=== PATIENT | female | born 1955 | race Caucasian/White ===

== ENCOUNTER → 2019-10-29 13:45 | Outpatient (CLI) | payer MEDICARE, SELFPAY ==
--- NOTE | ~2019-10-29 | MR_ITS ---
EXAMINATION: MR lumbar spine wo/w con DATE: 10/29/2019 15:24 INDICATION: Radiculopathy. TECHNIQUE: Magnetic resonance imaging (MRI) of the lumbar spine was performed without and with 20 mL Multihance intravenous contrast. Sequences included sagittal T2-weighted FSE, sagittal T2-weighted FS FSE, and sagittal and axial T1-weighted FSE. Postcontrast sequences included axial T2-weighted FSE, sagittal T1-weighted FSE, and axial and sagittal T1-weighted FS FSE. COMPARISON: Lumbar spine radiographs dated 10/29/2019 FINDINGS: Mild lumbar dextrocurvature. L4 and L5 laminectomies. Anterior and posterior spinal fusion at L4-S1 w ith magnetic field artifact associated with bilateral vertical lenny and pedicle screw fixation as well as bone graft cages at both levels. L5-S1 has been fixed in 7 mm of anterolisthesis of L5 on S1. Courtney tebral body heights are normal. Severe disc height loss at L1-L2 with endplate osteophytes, moderate left side predominant disc height loss at T12-L1 and mild disc height loss, mild disc height loss at T10-T11 and T11-T12. Disc desiccation without disc height loss at L2-L3 and L3-L4. There is increased T2 disc signal and enhancement at L1-L2. There is increased marrow fluid signal and enhancement abdifatah g the adjacent L1 and L2 vertebral bodies without geographic T1 marrow signal loss to more specifical ly suggest osteomyelitis. There appears to be an intact linear low signal intensity cortices but with irregular contour at both endplates. Less prominent increased T2 signal and enhancement likely relat ed to fibrovascular degenerative endplate changes at T11-T12 and the left side of T12-L1. The conus m edullaris terminates at L1-L2. There is normal signal in the caudal spinal cord. Mild enhancement in the soft tissues at the anterior and lateral periphery of the inferior L1 vertebral body. No peripher ally enhancing abscess. Fatty atrophy of the lower lumbar paraspinal musculature more prominently on the right likely related to prior surgery. The following disc levels are specifically discussed: T11-T12: Disc is bulging with superimposed annular fissure and small small left paracentral disc extr usion with disc material extending couple millimeter caudal to the level of the superior endplate of T12. There is mild bilateral facet joint osteoarthritis. There is no neural foraminal stenosis. There is mild central canal stenosis. T12-L1: Disc is bulging with superimposed annular fissure and small central disc extrusion extending up to 5 mm caudal to the level of the superior endplate of L2. There is mild right and mild to modera te left facet joint osteoarthritis. There is mild left and minimal right neural foraminal stenosis. T here is mild central canal stenosis. L1-L2: Disc is bulging with superimposed annular fissure and small central disc extrusion extending u p to 8 mm caudal to the level of the superior endplate of L3. There is mild to moderate bilateral fac et joint osteoarthritis. There is mild to moderate right and moderate left neural foraminal stenosis. There is mild central canal stenosis. L2-L3: Annular fissure and broad-based disc extrusion extending from foraminal zone to foraminal zone with disc material extending a couple millimeter caudal to the level of the superior endplate of L3. There is hypertrophy of the ligamentum flavum. There is moderate right and severe left facet joint osteoarthritis. There is mild right and mild to moderate left neural foraminal stenosis. There is mod erate central canal stenosis. There is also narrowing of the lateral recesses, left greater than righ t. L3-L4: Disc is mildly bulging. There is bilateral facet osteoarthritis likely at least moderate howev er assessment of severity of both the facet osteoarthritis neural foraminal stenosis is limited by ma gnetic field artifact from the vertical rods and L4 pedicle screws. There is mild bilateral ne
--- NOTE | ~2019-10-29 | XR_ITS ---
XR lumbar spine 6V w bending DATE: 10/29/2019 14:33 INDICATION: Back pain. Radiculopathy. Post laminectomy syndrome. TECHNIQUE: Standing AP, bilateral oblique, lateral and coned lateral lumbosacral sacral views. Standi ng flexion and extension lateral views. COMPARISON: 12/08/2018 lumbar spine FINDINGS: There is laminectomy at the L4-5 region. Status post posterior spinal fusion by pedicle screws and rods at L4-S1. There is interbody spinal fu neo at L4-5 and L5-S1 as well. Spinal hardware appears intact without apparent fracture or any inter eboni displacement since 12/08/2018. Diffuse osteopenia. Dextroscoliosis of the thoracolumbar spine. There is degenerative spurring in the lower thoracic spine. There is severe degenerative disc disease at L1-2. There is moderate degenerative disc disease at L2- 3. There is grade 1 anterolisthesis at L5-S1. There is no instability evident on flexion or extension. The sacroiliac joints appear normal. IMPRESSION: Status post laminectomy and posterior and interbody spinal fusion at L4-S1 Diffuse osteopenia Multilevel degenerative disc disease, increased in severity since 12/08/2008 Grade 1 anterolisthesis is again noted at L5-S1 Reviewed, dictated and finalized at location B. IMPRESSION: Status post laminectomy and posterior and interbody spinal fusion a t L4-S1 Diffuse osteopenia Multilevel degenerative disc disease, increased in severity since 12/08/2008 Grade 1 anterolisthesis is again noted at L5-S1
[2019-10-29 14:50] LABS: Estimated Glomerular Filt Rate > 60
== END ==
PROVIDERS: PCP Family Medicine; Visit Provider Nurse Practitioner Family
DX: M47.26 Other spondylosis with radiculopathy, lumbar region (principal); M96.1 Postlaminectomy syndrome, not elsewhere classified; M85.88 Other specified disorders of bone density and structure, other site; M51.36 Other intervertebral disc degeneration, lumbar region; Z98.1 Arthrodesis status
CPT/HCPCS: 36415; 72114; 72158; A9577

== ENCOUNTER 2020-01-12 10:37 | Outpatient (CLI) | payer MEDICARE, SELFPAY ==
[2020-01-12 12:05] LABS: Basophils Percent Auto 0.4 % (0.2-1.2); Eosinophils Absolute Auto 0.1 K/mm3 (0-0.3); Eosinophils Percent Auto 1.7 % (0-4.4); Hematocrit 40.1 % (37.0-47.0); Hemoglobin 13.2 g/dL (12.0-15.0); Immature Granulocyte Absolute 0.02 K/mm3 (0.00-0.031); Immature Granulocyte Percent A 0.3 % (0-0.5); Lymphocytes Absolute Auto 2.43 K/mm3 (0.9-3.2); Lymphocytes Percent Auto 34.2 % (18.3-44.2); Mean Corpuscular HGB Conc 32.9 g/dl (32-36); Mean Corpuscular Hemoglobin 27.3 pg (26-34); Mean Platelet Volume 10.2 fl (7.4-10.4); Monocytes Absolute Auto 0.5 K/mm3 (0.1-0.6); Monocytes Percent Auto 6.6 % (2.6-8.5); Neutrophils Percent Auto 56.8 % (45.5-73.1); Platelet Count Result 210 k/mm3 (150-375); Red Blood Count 4.83 M/mm3 (4.2-5.4); Red Cell Distribution Width 14.2 % (11.5-14.5); White Blood Count 7.1 K/mm3 (4.5-10.0)
[2020-01-12 12:21] LABS: Alanine Aminotransferase 17 U/L (4-35); Albumin Level 4.2 g/dL (3.5-5.1); Alkaline Phosphatase 137 U/L (38-126); Aspartate Amino Transferase 19 U/L (14-36); Bilirubin,Total 0.2 mg/dL (0.2-1.3); Blood Urea Nitrogen 13 mg/dL (7-17); CRP 1.6 mg/dL (<1.0); Calcium 9.2 mg/dL (8.4-10.2); Carbon Dioxide 28 mmol/L (22-30); Chloride 102 mmol/L (98-107); Estimated Glomerular Filt Rate > 60; Glucose 93 mg/dL (65-105); Potassium 3.6 mmol/L (3.4-5.0); Sodium 137 mmol/L (137-145)
[2020-01-12 12:33] LABS: Erythrocyte Sedimentation Rate 17 mm/hr (0-20)
== END 2020-01-12 10:38 | disposition home or self-care (01) ==
LOC: ANHLAB 10:45
PROVIDERS: PCP Family Medicine; Visit Provider Orthopaedic Surgery
DX: M54.5 Low back pain (principal)
CPT/HCPCS: 36415; 80053; 85025; 85652; 86140; 87040

== ENCOUNTER 2020-06-30 11:45 | Outpatient (NON) | payer MEDICARE, SELFPAY ==
[2020-07-01 23:37] LABS: SARS-CoV-2 RNA PCR Negative
== END 2020-06-30 11:46 ==
LOC: ANHCOVIDDT 11:46
PROVIDERS: PCP Family Medicine; Visit Provider Family Medicine
DX: Z20.828 Contact with and (suspected) exposure to other viral communicable diseases (principal)
CPT/HCPCS: 87635; C9803; U0003

== ENCOUNTER 2020-07-01 08:36 | Observation (INO) | payer MEDICARE, SELFPAY ==
[2020-07-01] VITALS (13 sets, daily range): BP systolic 107–147; BP diastolic 60–94; PULSE 82–108; RESP 12–24; TEMP 36.1–37.5; O2SAT 91–97; BMI 39.6
--- NOTE | ~2020-07-01 | XR_ITS ---
EXAMINATION: XR chest 1V portable EXAM DATE: 07/01/2020 10:14 INDICATION: Cough, fever. TECHNIQUE: Frontal and lateral projections of the chest obtained and reviewed. Comparison is made to prior examination from 07/28/2019. FINDINGS: The lungs are clear. There are no pleural effusions. The cardiomediastinal silhouette is within normal limits. There is no pneumothorax suspected. The bones and soft tissues are unremarkab le. IMPRESSION: No acute cardiopulmonary findings. Reviewed, dictated and finalized at location A. TARIAN
--- NOTE | ~2020-07-01 | NM_ITS ---
EXAMINATION: NM hepatobiliary w pharm DATE: 07/03/2020 15:27 INDICATION: Abnormal liver function tests. COMPARISON: Ultrasound 07/03/2020, CT abdomen and pelvis 07/01/2020 TECHNIQUE: 4.0 mCi Tc-99m mebrofenin (Choletec) was administered intravenously. Scintigraphic images of the abdomen were obtained for one hour. Then, 2.22 mcg sincalide (Kinevac) IV was administered, a nd imaging was continued for 30 minutes. FINDINGS: There is normal clearance of radiotracer from the blood pool. There is homogeneous tracer u ptake by the liver. Activity progresses to the bowel and gallbladder. Gallbladder ejection fraction (GBEF) was 47%. Note that most patients with gallbladder dysfunction have GBEF < 35%, which overlaps with the broad normal range of 10-90%. IMPRESSION: 1. Normal hepatobiliary scintigraphy. Reviewed, dictated and finalized at location A. INSULATOR
--- NOTE | ~2020-07-01 | CT_ITS ---
EXAMINATION: CT abdomen pelvis w con EXAM DATE: 07/01/2020 11:37 INDICATION: lower abdominal pain TECHNIQUE: Spiral CT of the abdomen and pelvis was performed following intravenous injection of 100 m L Omnipaque 350. Axial, coronal and sagittal images were reviewed. The dose-length product (DLP) fo r this examination was 1428.87 mGy-cm. The exposure was tailored according to patient size (auto mA exposure control), and iterative reconstruction (ASIR) was used as additional dose reduction techniqu e. Comparison is made to prior examination from 10/20/2014. FINDINGS: The liver, spleen, adrenal glands and pancreas are unremarkable. Gallbladder is unremarkab le. No biliary obstruction. Portal and splenic veins are patent. Kidneys enhance symmetrically. T here is no hydronephrosis. The uterus is not identified and has likely been surgically resected. T he bladder is unremarkable. There is no retroperitoneal or pelvic lymphadenopathy. The appendix is normal. There is small sliding gastroesophageal hiatal hernia. There is expected am ount of colonic stool. No free intraperitoneal gas. The heart is normal in size. There are no pe ricardial or pleural effusions. The lung bases are unremarkable. There are no osteoblastic or osteo lytic lesions identified. Fusion L4-S1. IMPRESSION: 1. No acute intra-abdominal findings. Reviewed, dictated and finalized at location A. IFIED CREDIT COUNSELOR
--- NOTE | ~2020-07-01 | CT_ITS ---
EXAMINATION: CT brain wo con DATE: 07/01/2020 14:50 INDICATION: Generalized headache TECHNIQUE: Computed tomography (CT) of the head was performed without intravenous contrast. Sagittal and coronal reconstructions were performed. The mA was adjusted according to patient size. Iterative reconstruction technique was employed. The dose-length product was 908.00 mGy-cm. COMPARISON: head CT dated 02/05/2019 FINDINGS: There is scattered linear streak artifact which only minimally limits evaluation. No acute intracrani al hemorrhage, acute infarction or abnormal extra axial fluid collection. Ventricles are normal and s ymmetric. No mass/mass effect. Mild mucosal thickening the bilateral ethmoid sinuses. The orbits and mastoid air cells are normal. IMPRESSION: 1. No acute intracranial process. Evaluation minimally limited by some scattered streak artifact. Reviewed, dictated and finalized at [facility]. NING COORDINATOR IMPRESSION: 1. No acute intracranial process. Evaluation minimally limited by some scattere d streak artifact.
--- NOTE | ~2020-07-01 | US_ITS ---
US right upper quadrant INDICATION: Elevated liver function tests PROCEDURE: Realtime right upper abdominal ultrasound. COMPARISON: CT dated 09/02/2019 FINDINGS: The pancreas is normal without focal mass or pancreatic ductal dilation. Liver echotexture is increased, consistent with fatty infiltration. There is normal directional flow in the portal ve in. There is mild gallbladder wall thickening. No definite gallstones or pericholecystic fluid. Common b ile duct measures 6 mm. No sonographic Angulo's sign. IMPRESSION: 1: Hepatic steatosis. 2: Mild gallbladder wall thickening without stones or biliary dilatation. Consider acalculous cholecy stitis in the appropriate clinical setting. Reviewed, dictated and finalized at location A. NSED MASSAGE THERAPIST IMPRESSION: 1: Hepatic steatosis. 2: Mild gallbladder wall thickening without stones or biliary dilatation. Consi charlette acalculous cholecystitis in the appropriate clinical setting.
[2020-07-01 09:00] LABS: Basophils Absolute Auto 0.1 K/mm3 (0.0-0.1); Basophils Percent Auto 0.6 % (0.2-1.2); Eosinophils Absolute Auto 0.3 K/mm3 (0-0.3); Eosinophils Percent Auto 3.3 % (0-4.4); Hematocrit 45.2 % (37.0-47.0); Hemoglobin 15.2 g/dL (12.0-15.0); Immature Granulocyte Absolute 0.04 K/mm3 (0.00-0.031); Immature Granulocyte Percent A 0.4 % (0-0.5); Lymphocytes Absolute Auto 1.16 K/mm3 (0.9-3.2); Lymphocytes Percent Auto 11.8 % (18.3-44.2); Mean Corpuscular HGB Conc 33.6 g/dl (32-36); Mean Corpuscular Hemoglobin 29.3 pg (26-34); Mean Corpuscular Volume 87.3 fl (80-100); Monocytes Absolute Auto 0.5 K/mm3 (0.1-0.6); Monocytes Percent Auto 4.9 % (2.6-8.5); Neutrophils Absolute Auto 7.8 K/mm3 (1.3-6.7); Platelet Count Result 157 k/mm3 (150-375); Red Blood Count 5.18 M/mm3 (4.2-5.4); Red Cell Distribution Width 14.7 % (11.5-14.5); White Blood Count 9.8 K/mm3 (4.5-10.0)
[2020-07-01 09:14] LABS: Alanine Aminotransferase 524 U/L (4-35); Albumin Level 3.6 g/dL (3.5-5.1); Alkaline Phosphatase 684 U/L (38-126); Anion Gap 8 mmol/L (8-16); Aspartate Amino Transferase 200 U/L (14-36); Bilirubin,Total 1.4 mg/dL (0.2-1.3); Blood Urea Nitrogen 13 mg/dL (7-17); Calcium 9.1 mg/dL (8.4-10.2); Carbon Dioxide 27 mmol/L (22-30); Chloride 103 mmol/L (98-107); Estimated CRCL calculation 103 ml/min; Estimated Glomerular Filt Rate > 60; Glucose 122 mg/dL (65-105); Lipase 25 U/L (23-300); Potassium 3.8 mmol/L (3.4-5.0); Sodium 138 mmol/L (137-145)
--- NOTE | 2020-07-01 09:35 | ECG_ITS ---
Measurements Intervals [place] Rate: 99 P: 61 KS: 148 QRS: 17 QRSD: 95 T: 46 QT: 337 QTc: 433 Interpretive Statements SINUS RHYTHM BASELINE WANDER- II, III, AVF NORMAL ECG Electronically Signed On 07-01-2020 10:06:58 [employer] by Jay Reece D.O.
--- NOTE | 2020-07-01 09:36 | ED.NAVMDI ---
HPI - Nausea/Vomiting/Diarrhea General Chief complaint: Nausea/Vomiting/Diarrhea Stated complaint: N/V/abdominal pain/covid tested Time Seen by Provider: 07/01/20 09:06 Source: patient Mode of arrival: ambulatory Limitations: no limitations History of Present Illness HPI Narrative: This patient is a 64 year old female who is under investigation for COVID presents for nausea, vomiting and left lower abdominal pain. She reports developed nausea and vomiting yesterday. She has been unable to tolerate anything by mouth. She reports she developed left lower abdominal pain at the same time. This pain has been constant and nonradiating. She also reports she had a fever this morning of 101 F. She has not taken tylenonl since last night. She was tested for covid yesterday due to diarrhea and cough, but she does not have the results yet. Related Data Home Medications Medication Instructions Recorded Confirmed ropinirole 4 mg PO HS 06/29/19 07/23/19 atorvastatin 07/01/20 gabapentin 07/01/20 hydralazine 07/01/20 hydrocodone-acetaminophen 07/01/20 phentermine mg 07/01/20 spironolactone 07/01/20 Allergies Allergy/AdvReac Type Severity Reaction Status Date / Time No Known Allergies Allergy Unknown Verified 07/01/20 18:00 Review of Systems Review of Systems: All systems reviewed & are unremarkable except as noted in HPI and below Constitutional: Constitutional: Reports fatigue and Reports fever(s) Cardiovascular: Cardiovascular: Denies chest pain Respiratory: Respiratory: Reports cough Gastrointestinal: Gastrointestinal: Reports abdominal pain, Reports diarrhea, Reports nausea and Reports vomiting Musculoskeletal: Musculoskeletal: Reports back pain PMFSH Past Medical History Medical History (Updated 07/01/20 @ 18:55 by Radha Burk MD) Arthritis Back pain Depression with anxiety GERD (gastroesophageal reflux disease) HTN (hypertension) Hx of adenomatous colonic polyps Hx of hemorrhoids Obesity CISCO (obstructive sleep apnea) Renal stones Restless leg syndrome Skin cancer Syncope Surgical History Surgical History (Updated 09/04/19 @ 08:03 by Yonny Ellis) History of back surgery Cage in back History of carpal tunnel surgery of left wrist History of left knee replacement History of total right knee replacement Hx of tonsillectomy Hx of total hysterectomy Family History Family History (Updated 07/01/20 @ 17:31 by Veronica Connor RN) Sibling Hypertension Diabetes mellitus Father Carcinoma of colon, Onset Age: 65 Mother Brain tumor (benign) Social History Social History Smoking packs per day: 0.5 Smoking cigarettes per day: 10.0 Years smoked: 20 Smoking pack-years: 10.00 Smoking status: Former smoker Tobacco type: cigarettes Smoking end date: 08/11/03 Alcohol intake: never Substance use: never Gender identity (if verbalized by the patient): Female Spiritual care concerns: No Exam Const: General: alert Orientation/consciousness: patient oriented x3 Other: mild distress due to abdominal pain HENMT: Head: normocephalic and atraumatic Face and sinus: face symmetric Mouth: Yes Normal oral and palatal mucosa present, Yes lip normal, Yes oropharynx normal and Yes moist mucous membranes Eyes: Pupils: Equal, round and reactive pupils present EOM: EOMs intact bilaterally Chest: Chest palpation & inspection: normal inspection of the chest Resp: Effort & Inspection: normal respiratory effort, no retractions and no use of accessory muscles Auscultation: clear to auscultation bilaterally GI: GI Palp: Yes Soft to palpation, Yes Tenderness to palpation present (GI) (LLQ, LUQ), No Guarding due to palpation present (GI) and No Rigid due to palpation Auscultation: normal bowel sounds Back/Spine/Pelvis: Back: no CVA tenderness Skin: General skin exam: normal color Rashes: no rashes Neuro: General: patient oriented x3, moves
[2020-07-01 10:01] LABS: Add Urine Microscopic? YES; Appearance Urine Cloudy (Clear); Bilirubin Urine 1+ (Negative); Blood Urine Negative (Negative); Calcium Oxalate Crystals Urine Many /hpf; Color Urine Amber (Yellow); Glucose Urine UA Negative (Negative); Ketones Urine Negative (Negative); Leukocyte Esterase Ur Negative LEU/UL (Negative); Mucus Urine Heavy /lpf; Nitrate Urine Negative (Negative); Protein Urine 1+ mg/dL (Negative); Specific Grav Ur 1.029 (1.001-1.035); Squamous Epithelial Cell Urine Moderate /hpf (Few)
[2020-07-01] MEDS: ONDANSETRON INJ 4 MG/2 ML VIAL IV PUSH ×3 (10:04→22:38)
[2020-07-01] MEDS: LACTATED RINGERS 1,000 ML 999 ML IV CONT (10:18)
[2020-07-01 10:19] LABS: Lactic Acid Reflex 0.8 mmol/L (0.7-2.1)
[2020-07-01] MEDS: PROMETHAZINE HCL 25 MG/ML AMPUL 12.5 MG IV PUSH (12:34)
[2020-07-01 13:09] LABS: Monoscreen Negative (Negative); Negative Monotest Control Negative (Negative); Positive Monotest Control Positive (Positive)
[2020-07-01 13:45] LABS: Hepatitis B Surface Antigen Negative (Negative)
[2020-07-01 13:50] LABS: HAV RESULT Negative (Negative); Hepatitis B Core IgM Result Negative (Negative)
[2020-07-01 14:00] LABS: Creatine Kinase 57 U/L (30-135)
[2020-07-01] MEDS: diphenhydrAMINE HCl INJ 50 MG/ML VIAL IV PUSH (14:35)
[2020-07-01] MEDS: METOCLOPRAMIDE HCL INJ 10 MG/2 ML VIAL IV PUSH (14:36)
[2020-07-01] MEDS: HYDROmorphone HCL INJ (*CRX) 1 MG/ML SYR IV PUSH (15:25)
[2020-07-01] MEDS: rOPINIRole HCL 1 MG TABLET 4 MG PO ×2 (15:28→21:35)
[2020-07-01 15:35] LABS: Hepatitis C Virus Antibody Negative (Negative)
--- NOTE | 2020-07-01 17:20 | PC.NURSE ---
This patient, Maria Alejandra Mooney, was admitted to [facility] Surg Room 321-01. Patient/family oriented to hospital policies and general routines including ID bracelet, bed and alarms, visiting hours, pain management, procedures, bathroom and other care routines, personal items, smoking policy, room service/diet, and visiting hours. Report received from Sean MOISE.. Patient/Family are encouraged to report perceived risks to care and to ask questions if they do not understand what they are told or what they should do.
[2020-07-01] MEDS: SODIUM CHLORIDE 0.9% IV 1,000 ML 125 ML IV CONT (17:51)
[2020-07-01] MEDS: MORPHINE SULFATE (*CRX) 4 MG/ML INJ IV PUSH ×2 (17:52→22:39)
[2020-07-01] MEDS: PANTOPRAZOLE SODIUM IV 40 MG VIAL IV PUSH (18:50)
--- NOTE | 2020-07-01 19:57 | PM.IMHP ---
H&P: HPI History of Present Illness Date/Time: 07/01/20 19:57 Chief complaint: Suspected COVID, intractable nausea, vomiting, doreen Narrative: Maria Alejandra Mooney is a 64 year old female who has a history of COPD. She is not on any oxygen at home. She also has sleep apnea and does not use her CPAP machine. She denies any shortness of breath. The patient stated that she did have a COVID test performed yesterday at the [facility]. Still has not had any results back yet. The patient has nausea vomiting and some left lower abdominal pain. This developed yesterday. She was unable to tolerate anything by mouth she said she had 1 piece of bread yesterday. She thought maybe she had diverticulitis but her CT of the abdomen was negative. She has had some internal hemorrhoids and some colon polyps in the past but her last 2 colonoscopies were negative. Patient stated she had a fever of 101 this morning she has not taken any Tylenol since last night. She was tested for COVID yesterday due to her diarrhea and cough.. Evaluation minimally limited by some scattered streak artifact. Abdominal CT no acute and her abdominal findings. She has not been checked for influenza. Is reported that the patient had intractable vomiting with nausea. She initially was NPO but is now stating that she would like something to drink. I explained that we would try liquids but if she became nauseated again we would have to go back to being NPO. IV Tylenol, IV bolus of lactated Ringer, Zofran, Phenergan, Reglan, Benadryl, Dilaudid, and Requip. All of the liver enzymes are at elevated. Is suspected that the patient has COVID. However we should have GI consulted for the elevated liver enzymes. GI has been consulted from ER. Contacts or been around anybody that she is noted to have COVID. The patient was placed into observation status on the date of admission 07/01/2020 which is the same as date of service. Review of Systems Review of Systems: All systems reviewed & are unremarkable except as noted in HPI and below Constitutional: Constitutional: Reports as per HPI and Reports no additional constitutional complaints Eyes: Eyes: Reports as per HPI and Reports no additional eye complaints ENT: Reports system reviewed and no additional complaints, except as documented and Reports Normal hearing present Cardiovascular: Cardiovascular: Reports no additional cardiovascular complaints Respiratory: Respiratory: Reports no additional respiratory complaints and Reports no additional respiratory complaints Gastrointestinal: Gastrointestinal: Reports as per HPI and Reports no additional gastrointestinal complaints Musculoskeletal: Musculoskeletal: Reports no additional musculoskeletal complaints Integumentary/Breasts: Skin/Breast: Reports system reviewed and no additional complaints, except as docu and Reports as per HPI Neurologic: Reports system reviewed and no additional complaints, except as documented, Reports as per HPI and Reports Normal hearing present Psychiatric: Psychiatric: Reports no additional psychiatric complaints and Reports as per HPI Endocrine: Endocrine: Reports no additional endocrine complaints Hematologic/Lymphatic: Hematologic/Lymphatic: Reports no additional hematologic/lymphatic complaints Allergic/Immunologic: Allergic/Immunologic: Reports no additional allergic/immunologic complaints [facility] Past Medical History Medical History (Updated 07/01/20 @ 20:20 by Jessica Navarro NP) Arthritis Back pain COPD (chronic obstructive pulmonary disease) Depression with anxiety Ganglion cyst Excised GERD (gastroesophageal reflux disease) HTN (hypertension) Hx of adenomatous colonic polyps Hx of hemorrhoids Internal Mitral valve prolapse Obesity CISCO (obstructive sleep apnea) Does not wear CPAP Renal stones Restless leg syndrome Skin cancer Syncope Surgical History Surgical History (Updated 07/01/20 @ 20:08 by Jessica Navarro NP) H/O
[2020-07-01] MEDS: HYDROcodone/acetaminophen (*CRX) 5-325 MG TABLET 1 TAB PO (21:36)
[2020-07-02] MEDS: SODIUM CHLORIDE 0.9% IV 1,000 ML 125 ML IV CONT ×3 (02:05→16:59)
[2020-07-02 02:22] LABS: Influenza Control Positive
[2020-07-02] MEDS: MORPHINE SULFATE (*CRX) 4 MG/ML INJ IV PUSH ×2 (02:40→21:43)
[2020-07-02] MEDS: ONDANSETRON INJ 4 MG/2 ML VIAL IV PUSH ×5 (02:41→21:02)
[2020-07-02 04:00] VITALS: BP 119/78; PULSE 77; RESP 20; TEMP 37.1; O2SAT 90
[2020-07-02 08:00] VITALS: BP 114/73; PULSE 71; RESP 14; TEMP 36.4; O2SAT 92; O2SAT 96
[2020-07-02 08:10] LABS: Basophils Absolute Auto 0.1 K/mm3 (0.0-0.1); Basophils Percent Auto 0.6 % (0.2-1.2); Eosinophils Absolute Auto 0.3 K/mm3 (0-0.3); Hematocrit 40.8 % (37.0-47.0); Hemoglobin 13.2 g/dL (12.0-15.0); Immature Granulocyte Absolute 0.04 K/mm3 (0.00-0.031); Immature Granulocyte Percent A 0.5 % (0-0.5); Lymphocytes Absolute Auto 1.26 K/mm3 (0.9-3.2); Lymphocytes Percent Auto 14.8 % (18.3-44.2); Mean Corpuscular HGB Conc 32.4 g/dl (32-36); Mean Corpuscular Volume 89.7 fl (80-100); Monocytes Absolute Auto 0.6 K/mm3 (0.1-0.6); Monocytes Percent Auto 6.6 % (2.6-8.5); Neutrophils Absolute Auto 6.3 K/mm3 (1.3-6.7); Neutrophils Percent Auto 73.5 % (45.5-73.1); Platelet Count Result 143 k/mm3 (150-375); Red Blood Count 4.55 M/mm3 (4.2-5.4); Red Cell Distribution Width 15.1 % (11.5-14.5); White Blood Count 8.5 K/mm3 (4.5-10.0)
[2020-07-02 08:23] LABS: Alanine Aminotransferase 335 U/L (4-35); Alkaline Phosphatase 544 U/L (38-126); Anion Gap 5 mmol/L (8-16); Aspartate Amino Transferase 72 U/L (14-36); Bilirubin,Total 0.9 mg/dL (0.2-1.3); Blood Urea Nitrogen 11 mg/dL (7-17); CRP 5.5 mg/dL (<1.0); Calcium 8.5 mg/dL (8.4-10.2); Carbon Dioxide 30 mmol/L (22-30); Chloride 102 mmol/L (98-107); Estimated CRCL calculation 121 ml/min; Estimated Glomerular Filt Rate > 60; Glucose 104 mg/dL (65-105); Lactate Dehydrogenase 647 U/L (313-618); Lipase 199 U/L (23-300); Potassium 3.3 mmol/L (3.4-5.0); Sodium 137 mmol/L (137-145)
[2020-07-02] MEDS: GABAPENTIN 300 MG CAPSULE PO ×3 (08:41→16:58)
[2020-07-02] MEDS: SERTRALINE HCL 50 MG TABLET 100 MG PO (08:41)
[2020-07-02] MEDS: rOPINIRole HCL 1 MG TABLET 4 MG PO ×2 (08:41→21:02)
[2020-07-02] MEDS: HYDROcodone/acetaminophen (*CRX) 5-325 MG TABLET 1 TAB PO ×2 (08:41→21:02)
[2020-07-02] MEDS: PANTOPRAZOLE SODIUM IV 40 MG VIAL IV PUSH (08:42)
--- NOTE | 2020-07-02 08:58 | WPDGICN ---
Assessment and Plan Assessment and plan (1) Elevated liver enzymes: Code(s): R74.8 - Abnormal levels of other serum enzymes Status: Acute Assessment and Plan: Patient with elevated LFTs. Hepatitis ABC serologies are noted to be negative. However other viral etiology remains possible. Will check laboratory testing for other potential etiologies for her hepatitis. Await COVID status as this may be a contributing cause as well. Supportive care for now. Monitor LFTs. CT scan initially unremarkable with no obvious in 8 liver disease. (2) COPD (chronic obstructive pulmonary disease): Code(s): J44.9 - Chronic obstructive pulmonary disease, unspecified Status: Chronic (3) Hx of adenomatous colonic polyps: Code(s): Z86.010 - Personal history of colonic polyps Status: Acute (4) Family history of colon cancer in father: Code(s): Z80.0 - Family history of malignant neoplasm of digestive organs Status: Acute Assessment and Plan: Patient is a family history of colon cancer in her father. Surveillance colonoscopy at 5 year intervals advised. She has had a recent colonoscopy. No polyps found on recent exam. GI Consult Note Consult date/time: 07/02/20 08:58 HPI: Maria Alejandra Mooney is a 64 year old female I am asked to see at the request of the emergency room. Patient states she was in her usual state of health till the last 3 or 4 days when she began to develop fever and body aches. She denies any specific abdominal pain. As an outpatient she was tested for COVID. This is pending. Because of ongoing malaise she presented the emergency room. In the ER she was noted to have elevated LFTs. Patient has never known to have a prior history of hepatitis. She has not been exposed to anyone with hepatitis. She has no prior history of gallstones. She is on medications for hypertension. She states 1 of these medications was changed to month ago. Family history is noncontributory. Her father had a history of colon cancer. Patient herself has had colonoscopy which revealed colon polyps in the distant past. It is not been too long ago that she had a colonoscopy. Review of Systems Review of Systems: All systems reviewed & are unremarkable except as noted in HPI and below [facility] Past Medical History Medical History (Updated 07/02/20 @ 09:01 by Fabian Case MD) Arthritis Back pain COPD (chronic obstructive pulmonary disease) Depression with anxiety Ganglion cyst Excised GERD (gastroesophageal reflux disease) HTN (hypertension) Hx of adenomatous colonic polyps Hx of hemorrhoids Internal Mitral valve prolapse Obesity CISCO (obstructive sleep apnea) Does not wear CPAP Renal stones Restless leg syndrome Skin cancer Syncope Surgical History Surgical History (Updated 07/01/20 @ 20:08 by Jessica Navarro NP) H/O colonoscopy with polypectomy History of back surgery Cage in back History of carpal tunnel surgery of left wrist Bilateral History of left knee replacement History of total right knee replacement Hx of tonsillectomy Hx of total hysterectomy Family History Family History Sibling Hypertension Diabetes mellitus Father Carcinoma of colon, Onset Age: 65 Mother Brain tumor (benign) Social History Social History (Updated 07/01/20 @ 20:09 by Jessica Navarro NP) Social History: The patient lives at home with her and has 2 children. Her is the durable power collections attorney for healthcare. The patient desires to be a full code. Patient used to smoke but quit many years ago in 2003. 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 She denies any alcohol marijuana or illicit drug use. Smoking packs per day: 0.5 Smoking cigarettes per day: 10.0 Years smoked: 20 Smoking pack-years: 10.00 Smoking status: Former smoker Tobacco type: cigarettes Smoking end date:
[2020-07-02 09:10] LABS: Thyroid Stimulating Hormone Reflex 0.926 uIU/mL (0.465-4.68)
[2020-07-02 12:00] VITALS: BP 126/72; PULSE 72; RESP 16; TEMP 36.1; O2SAT 94
[2020-07-02] MEDS: POTASSIUM CHLORIDE 20 MEQ TABLET 40 MEQ PO (12:34)
--- NOTE | 2020-07-02 14:41 | PM.IMPN ---
Progress Note: A&P Assessment and Plan (1) Intractable vomiting with nausea: Code(s): R11.2 - Nausea with vomiting, unspecified Status: Acute Assessment and Plan: Continue with Zofran and IV fluids for now. Like paced normal.. Gallbladder ultrasound and HIDA scan. Continue with Zofran continue with Protonix and advance diet as tolerated (2) Elevated liver enzymes: Code(s): R74.8 - Abnormal levels of other serum enzymes Status: Acute Assessment and Plan: Dr. philip was consulted. CT of the the abdomen did not offer any diagnosis. hepatitis panel AB and C negative and lipase normal. Check gallbladder studies. She is a COVID negative. Also holding her atorvastatin. (3) COPD (chronic obstructive pulmonary disease): Code(s): J44.9 - Chronic obstructive pulmonary disease, unspecified Status: Chronic Assessment and Plan: Offer p.r.n. albuterol. (4) Restless leg syndrome: Code(s): G25.81 - Restless legs syndrome Status: Chronic Assessment and Plan: Continue with ropinirole (5) Back pain: Code(s): M54.9 - Dorsalgia, unspecified Status: Acute Assessment and Plan: Continue with patient's home pain medication. Limit Tylenol (6) HTN (hypertension): Code(s): I10 - Essential (primary) hypertension Status: Chronic Assessment and Plan: holding her hydralazine as her blood pressure is low. Re-evaluate tomorrow please (7) Person under investigation for COVID-19: Code(s): Z20.828 - Contact with and (suspected) exposure to other viral communicable diseases Status: Acute Assessment and Plan: COVID test negative, She has had a fever and chills. Nausea vomiting body aches. influenza also negative. (8) Depression with anxiety: Code(s): F41.8 - Other specified anxiety disorders Status: Chronic Assessment and Plan: Continue with Zoloft Subjective Date/time seen: 07/02/20 14:41 Interval history: Date of visit 07/02. 64-year-old hypertensive female admitted nausea vomiting some abdominal discomfort with elevated LFTs. Still nauseated this a.m. but no real abdominal pain. No recent travel and no fever chills. No melena or hematochezia Exam Narrative: Exam Narrative: Blood pressure 126/72 pulse is 72 and regular saturating 94% on room air afebrile Pupils equal reactive light sclera anicteric Lungs clear CV regular rate rhythm no murmurs Abdomen is soft nontender no masses Extremities without edema distal pulses are 1+ Neuro alert pleasant cooperative no focal deficits Objective Data Vital Signs Vital Signs: Vital Signs - 24 hr 07/01/20 15:29 07/01/20 16:01 07/01/20 16:31 Temperature 37.5 C 36.3 C L Pulse Rate 89 92 87 Respiratory Rate 19 12 17 Blood Pressure 107/73 113/61 130/60 Pulse Oximetry 95 91 91 07/01/20 17:01 07/01/20 17:34 07/01/20 20:00 Temperature 36.6 C 36.7 C 37.1 C Pulse Rate 86 85 87 Respiratory Rate 16 20 18 Blood Pressure 147/75 H 127/71 123/77 Pulse Oximetry 92 97 96 07/01/20 23:59 07/02/20 04:00 07/02/20 08:00 Temperature 37.2 C 37.1 C 36.4 C Pulse Rate 82 77 71 Respiratory Rate 20 20 14 Blood Pressure 126/67 119/78 114/73 Pulse Oximetry 94 90 92 07/02/20 12:00 Temperature 36.1 C L Pulse Rate 72 Respiratory Rate 16 Blood Pressure 126/72 Pulse Oximetry 94 Intake/Output Intake/Output: Intake & Output 06/29/20 06/30/20 07/01/20 07/02/20 23:59 23:59 23:59 23:59 Intake Total 1100 2520 Output Total 200 Balance 1100 2320 Meds/Results Medications: Active Medications Generic Name Dose Route Start Last Admin Trade Name Freq PRN Reason Stop Dose Admin Hydrocodone Bitart/Acetaminophen 1 tab 07/01/20 21:00 07/02/20 08:41 Hydrocodone/Acetaminophen (*Crx) 5-325 Mg Tablet PO 1 tab Q12HR PATRICK Administration Albuterol 2 puff 07/01/20 20:23 Albuterol Sulfate (*Sp) Aerosol 1 Puff INHALATION QID
[2020-07-02 20:00] VITALS: BP 113/60; PULSE 80; RESP 18; TEMP 36.9; O2SAT 97
[2020-07-03] VITALS: BP 120/54; PULSE 84; RESP 20; TEMP 36.8; O2SAT 92
[2020-07-03] MEDS: SODIUM CHLORIDE 0.9% IV 1,000 ML 125 ML IV CONT ×2 (00:13→08:27)
[2020-07-03] MEDS: ONDANSETRON INJ 4 MG/2 ML VIAL IV PUSH ×5 (01:03→20:33)
[2020-07-03 04:00] VITALS: BP 134/69; PULSE 70; RESP 18; TEMP 36.9; O2SAT 95
[2020-07-03] MEDS: MORPHINE SULFATE (*CRX) 4 MG/ML INJ IV PUSH (05:13)
[2020-07-03 06:13] LABS: Basophils Absolute Auto 0.1 K/mm3 (0.0-0.1); Basophils Percent Auto 0.6 % (0.2-1.2); Eosinophils Absolute Auto 0.3 K/mm3 (0-0.3); Eosinophils Percent Auto 3.6 % (0-4.4); Hematocrit 38.9 % (37.0-47.0); Hemoglobin 12.7 g/dL (12.0-15.0); Immature Granulocyte Absolute 0.05 K/mm3 (0.00-0.031); Immature Granulocyte Percent A 0.6 % (0-0.5); Lymphocytes Absolute Auto 1.49 K/mm3 (0.9-3.2); Lymphocytes Percent Auto 19.2 % (18.3-44.2); Mean Corpuscular HGB Conc 32.6 g/dl (32-36); Mean Corpuscular Volume 88.8 fl (80-100); Mean Platelet Volume 10.1 fl (7.4-10.4); Monocytes Absolute Auto 0.5 K/mm3 (0.1-0.6); Monocytes Percent Auto 6.2 % (2.6-8.5); Neutrophils Absolute Auto 5.4 K/mm3 (1.3-6.7); Neutrophils Percent Auto 69.8 % (45.5-73.1); Platelet Count Result 147 k/mm3 (150-375); Red Blood Count 4.38 M/mm3 (4.2-5.4); Red Cell Distribution Width 15.1 % (11.5-14.5); White Blood Count 7.8 K/mm3 (4.5-10.0)
[2020-07-03 06:39] LABS: Alanine Aminotransferase 288 U/L (4-35); Albumin Level 2.9 g/dL (3.5-5.1); Alkaline Phosphatase 614 U/L (38-126); Anion Gap 4 mmol/L (8-16); Aspartate Amino Transferase 86 U/L (14-36); Bilirubin,Total 1.1 mg/dL (0.2-1.3); Blood Urea Nitrogen 9 mg/dL (7-17); Calcium 7.9 mg/dL (8.4-10.2); Carbon Dioxide 29 mmol/L (22-30); Chloride 104 mmol/L (98-107); Estimated CRCL calculation 148 ml/min; Estimated Glomerular Filt Rate > 60; Glucose 96 mg/dL (65-105); Magnesium 1.9 mg/dL (1.6-2.3); Phosphorus 3.5 mg/dL (2.5-4.5); Potassium 3.8 mmol/L (3.4-5.0); Sodium 137 mmol/L (137-145)
[2020-07-03 08:00] VITALS: O2SAT 94
--- NOTE | 2020-07-03 09:03 | WPDGIPROGNO ---
Progress Note: A&P Assessment and Plan (1) Elevated liver enzymes: Code(s): R74.8 - Abnormal levels of other serum enzymes Status: Acute Assessment and Plan: Patient's LFTs have declined somewhat but remain elevated. Given her nausea vomiting HIDA scan and gallbladder ultrasound encouraged. CT scan was unremarkable. Hepatitis serology for ABC is negative. Cannot exclude underlying viral hepatitis but not a typical hepatitis virus. (2) Family history of colon cancer in father: Code(s): Z80.0 - Family history of malignant neoplasm of digestive organs Status: Acute (3) Hx of adenomatous colonic polyps: Code(s): Z86.010 - Personal history of colonic polyps Status: Acute Subjective Date/time seen: 07/03/20 09:03 Patient alert. Notes some nausea this morning. But tolerating breakfast without difficulty. Review of Systems Review of Systems: All systems reviewed & are unremarkable except as noted in HPI and below Exam Narrative: Exam Narrative: Physical exam reveals patient to be alert. Vital signs are stable. No obvious scleral icterus. Lungs are clear. Heart without murmur. Abdomen soft nontender with no organomegaly. Objective Data Vital Signs Vital Signs: Vital Signs - 24 hr 07/02/20 12:00 07/02/20 20:00 07/03/20 00:00 Temperature 97.0 F L 98.5 F 98.3 F Pulse Rate 72 80 84 Respiratory Rate 16 18 20 Blood Pressure 126/72 113/60 120/54 L Pulse Oximetry 94 97 92 07/03/20 04:00 Temperature 98.5 F Pulse Rate 70 Respiratory Rate 18 Blood Pressure 134/69 Pulse Oximetry 95 Intake/Output Intake/Output: Intake & Output 06/30/20 07/01/20 07/02/20 07/03/20 23:59 23:59 23:59 23:59 Intake Total 1100 4360 2650 Output Total 1200 400 Balance 1100 3160 2250 Meds/Results Medications: Active Medications Generic Name Dose Route Start Last Admin Trade Name Freq PRN Reason Stop Dose Admin Hydrocodone Bitart/Acetaminophen 1 tab 07/01/20 21:00 07/02/20 21:02 Hydrocodone/Acetaminophen (*Crx) 5-325 Mg Tablet PO 1 tab Q12HR PATRICK Administration Albuterol 2 puff 07/01/20 20:23 Albuterol Sulfate (*Sp) Aerosol 1 Puff INHALATION QIDRT PRN Shortness Of Breath Diphenhydramine HCl 25 mg 07/01/20 20:19 Diphenhydramine Hcl Inj 50 Mg/Ml Vial IV PUSH Q4H PRN Itching Gabapentin 300 mg 07/02/20 09:00 07/02/20 16:58 Gabapentin 300 Mg Capsule PO 300 mg TID PATRICK Administration Sodium Chloride 1,000 mls @ 125 mls/hr 07/01/20 15:15 07/03/20 08:27 Normal Saline Iv IV CONT 125 mls/hr .Q8H PATRICK Administration Morphine Sulfate 4 mg 07/01/20 15:13 07/03/20 05:13 Morphine Sulfate (*Crx) 4 Mg/Ml Inj IV PUSH 4 mg Q2H PRN Administration Pain Rated 7-10 Ondansetron HCl 4 mg 07/01/20 15:13 07/03/20 05:14 Ondansetron Inj 4 Mg/2 Ml Vial IV PUSH 4 mg Q4H PRN Administration Nausea Pantoprazole Sodium 40 mg 07/01/20 09:00 07/02/20 08:42 Pantoprazole Sodium Iv 40 Mg Vial IV PUSH 40 mg QAM PATRICK Administration Ropinirole HCl 4 mg 07/01/20 21:00 07/02/20 21:02 Ropinirole Hcl 1 Mg Tablet PO 4 mg Q12HR PATRICK Administration Sertraline HCl 100 mg 07/02/20 09:00 07/02/20 08:41 Sertraline Hcl 50 Mg Tablet PO 100 mg DAILY PATRICK Administration Radiology Results: ITS Impressions Chest X-Ray 07/01/20 10:15 IMPRESSION: No acute cardiopulmonary findings. Abdomen/Pelvis CT 07/01/20 11:39 IMPRESSION: 1. No acute intra-abdominal findings. Head CT 07/01/20 14:53 IMPRESSION: 1. No acute intracranial process. Evaluation minimally limited by some scattered streak artifact. Labs Labs: Laboratory Results - last 24 hr 07/02/20 07/03/20 07/03/20 07:28 05:44 05:44 WBC 7.8 RBC 4.38 Hgb 12.7 Hct 38.9 MCV 88.8 MCH 29.0 MCHC 32.6 RDW 15.1 H Plt Count 147 L MPV 10.1 Immature Gran % (Auto) 0.6 H Shon
[2020-07-03] MEDS: SERTRALINE HCL 50 MG TABLET 100 MG PO (09:13)
[2020-07-03] MEDS: rOPINIRole HCL 1 MG TABLET 4 MG PO ×2 (09:13→20:30)
[2020-07-03] MEDS: GABAPENTIN 300 MG CAPSULE PO ×3 (09:13→17:40)
[2020-07-03] MEDS: PANTOPRAZOLE SODIUM IV 40 MG VIAL IV PUSH (09:14)
[2020-07-03 11:02] VITALS: O2SAT 92
--- NOTE | 2020-07-03 13:33 | PM.IMPN ---
Progress Note: A&P Assessment and Plan (1) Intractable vomiting with nausea: Code(s): R11.2 - Nausea with vomiting, unspecified Status: Acute Assessment and Plan: Continue with Zofran and IV fluids for now. Lipase normal.. continue with Protonix and advance diet as tolerated (2) Elevated liver enzymes: Code(s): R74.8 - Abnormal levels of other serum enzymes Status: Acute Assessment and Plan: Dr. philip was consulted. CT of the the abdomen did not offer any diagnosis. hepatitis panel AB and C negative and lipase normal. She is a COVID negative. Also holding her atorvastatin. Dr Philip checking other liver related markers. US RUQ hepatic steatosis and GB wall thickening but normal biliary scan (3) COPD (chronic obstructive pulmonary disease): Code(s): J44.9 - Chronic obstructive pulmonary disease, unspecified Status: Chronic Assessment and Plan: Offer p.r.n. albuterol. (4) Restless leg syndrome: Code(s): G25.81 - Restless legs syndrome Status: Chronic Assessment and Plan: Continue with ropinirole (5) Back pain: Code(s): M54.9 - Dorsalgia, unspecified Status: Acute Assessment and Plan: Continue with patient's home pain medication. Limit Tylenol (6) HTN (hypertension): Code(s): I10 - Essential (primary) hypertension Status: Chronic Assessment and Plan: still holding her hydralazine as her blood pressure is still not elevated. (7) Person under investigation for COVID-19: Code(s): Z20.828 - Contact with and (suspected) exposure to other viral communicable diseases Status: Acute Assessment and Plan: COVID test negative, She has had no fever or chills here . Nausea vomiting body aches at home. influenza also negative. (8) Depression with anxiety: Code(s): F41.8 - Other specified anxiety disorders Status: Chronic Assessment and Plan: Continue with Zoloft Subjective Date/time seen: 07/03/20 13:33 Interval history: Date of visit 07/03. 64-year-old hypertensive female admitted with nausea vomiting some abdominal discomfort with elevated LFTs. Still nauseated this a.m but ate some cream of wheat,. but no real abdominal pain. No recent travel and no fever chills. No melena or hematochezia, no BM Exam Narrative: Exam Narrative: Blood pressure 134/70 pulse is 70 and regular saturating 94% on room air afebrile Pupils equal reactive light sclera anicteric Lungs clear CV regular rate rhythm no murmurs Abdomen is soft nontender no masses Extremities without edema distal pulses are 1+ Neuro alert pleasant cooperative no focal deficits Objective Data Vital Signs Vital Signs: Vital Signs - 24 hr 07/02/20 20:00 07/03/20 00:00 07/03/20 04:00 Temperature 36.9 C 36.8 C 36.9 C Pulse Rate 80 84 70 Respiratory Rate 18 20 18 Blood Pressure 113/60 120/54 L 134/69 Pulse Oximetry 97 92 95 07/03/20 08:00 07/03/20 11:02 Temperature Pulse Rate Respiratory Rate Blood Pressure Pulse Oximetry 94 92 Intake/Output Intake/Output: Intake & Output 06/30/20 07/01/20 07/02/20 07/03/20 23:59 23:59 23:59 23:59 Intake Total 1100 4360 2650 Output Total 1200 400 Balance 1100 3160 2250 Meds/Results Medications: Active Medications Generic Name Dose Route Start Last Admin Trade Name Freq PRN Reason Stop Dose Admin Hydrocodone Bitart/Acetaminophen 1 tab 07/01/20 21:00 07/02/20 21:02 Hydrocodone/Acetaminophen (*Crx) 5-325 Mg Tablet PO 1 tab Q12HR PATRICK Administration Albuterol 2 puff 07/01/20 20:23 Albuterol Sulfate (*Sp) Aerosol 1 Puff INHALATION QIDRT PRN Shortness Of Breath Diphenhydramine HCl 25 mg 07/01/20 20:19 Diphenhydramine Hcl Inj 50 Mg/Ml Vial IV PUSH Q4H PRN Itching Enoxaparin Sodium 40 mg 07/03/20 09:25 Enoxaparin 40 Mg/0.4 Ml Syringe SUB-Q DAILY PATRICK Gabapentin 300 mg 07/02
[2020-07-03] MEDS: HYDROcodone/acetaminophen (*CRX) 5-325 MG TABLET 1 TAB PO ×2 (15:47→20:30)
[2020-07-03] MEDS: ENOXAPARIN 40 MG/0.4 ML SYRINGE SUB-Q (15:48)
[2020-07-03 16:00] VITALS: BP 119/72; PULSE 70; RESP 18; TEMP 36.7; O2SAT 99
[2020-07-03] MEDS: SODIUM CHLORIDE 0.9% IV 1,000 ML 75 ML IV CONT (17:40)
[2020-07-03 22:00] VITALS: BP 119/64; PULSE 79; RESP 20; TEMP 36.6; O2SAT 94
[2020-07-04] MEDS: ONDANSETRON INJ 4 MG/2 ML VIAL IV PUSH ×2 (00:45→05:43)
[2020-07-04 06:00] VITALS: BP 152/76; PULSE 80; RESP 20; TEMP 36.7; O2SAT 95
[2020-07-04 07:17] LABS: Alanine Aminotransferase 275 U/L (4-35); Albumin Level 2.9 g/dL (3.5-5.1); Alkaline Phosphatase 704 U/L (38-126); Anion Gap 2 mmol/L (8-16); Aspartate Amino Transferase 99 U/L (14-36); Bilirubin,Total 0.6 mg/dL (0.2-1.3); Blood Urea Nitrogen 7 mg/dL (7-17); Calcium 8.1 mg/dL (8.4-10.2); Carbon Dioxide 30 mmol/L (22-30); Chloride 104 mmol/L (98-107); Estimated CRCL calculation 121 ml/min; Estimated Glomerular Filt Rate > 60; Glucose 101 mg/dL (65-105); Potassium 3.4 mmol/L (3.4-5.0); Sodium 136 mmol/L (137-145)
[2020-07-04] MEDS: PANTOPRAZOLE SODIUM IV 40 MG VIAL IV PUSH (08:41)
[2020-07-04] MEDS: SERTRALINE HCL 50 MG TABLET 100 MG PO (08:42)
[2020-07-04] MEDS: GABAPENTIN 300 MG CAPSULE PO ×2 (08:42→12:38)
[2020-07-04] MEDS: rOPINIRole HCL 1 MG TABLET 4 MG PO (08:42)
[2020-07-04] MEDS: HYDROcodone/acetaminophen (*CRX) 5-325 MG TABLET 1 TAB PO (08:48)
[2020-07-04] MEDS: ENOXAPARIN 40 MG/0.4 ML SYRINGE SUB-Q (10:07)
--- NOTE | 2020-07-04 11:05 | WPDGIPROGNO ---
Progress Note: A&P Assessment and Plan (1) Elevated liver enzymes: Code(s): R74.8 - Abnormal levels of other serum enzymes Status: Acute Assessment and Plan: Elevated LFTs remain high. The etiology for this is unclear. Hepatitis serologies is negative. COVID has been excluded. Ultrasound and HIDA scan reveal no gallstones. Elevated LFTs may be from exposure to a medication her unclear viral exposure. Would recommend follow-up with hepatology service at [facility] after discharge. Additional labs are pending looking for source of elevated LFts (2) COPD (chronic obstructive pulmonary disease): Code(s): J44.9 - Chronic obstructive pulmonary disease, unspecified Status: Chronic (3) Family history of colon cancer in father: Code(s): Z80.0 - Family history of malignant neoplasm of digestive organs Status: Acute Subjective Date/time seen: 07/04/20 11:05 Patient reports some nausea. No specific abdominal pain. No longer vomiting. Review of Systems Review of Systems: All systems reviewed & are unremarkable except as noted in HPI and below Exam Narrative: Exam Narrative: Physical exam reveals her to be alert. Vital signs are stable. HEENT exam reveals no icterus. Lungs are clear. Abdomen is obese soft no organomegaly. No tenderness over the liver. Objective Data Vital Signs Vital Signs: Vital Signs - 24 hr 07/03/20 16:00 07/03/20 22:00 07/04/20 06:00 Temperature 98.0 F 97.8 F 98.0 F Pulse Rate 70 79 80 Respiratory Rate 18 20 20 Blood Pressure 119/72 119/64 152/76 H Pulse Oximetry 99 94 95 Intake/Output Intake/Output: Intake & Output 07/01/20 07/02/20 07/03/20 07/04/20 23:59 23:59 23:59 23:59 Intake Total 1100 4360 5040 1100 Output Total 1200 1000 Balance 1100 3160 4040 1100 Meds/Results Medications: Active Medications Generic Name Dose Route Start Last Admin Trade Name Freq PRN Reason Stop Dose Admin Hydrocodone Bitart/Acetaminophen 1 tab 07/01/20 21:00 07/04/20 08:48 Hydrocodone/Acetaminophen (*Crx) 5-325 Mg Tablet PO 1 tab Q12HR PATRICK Administration Albuterol 2 puff 07/01/20 20:23 Albuterol Sulfate (*Sp) Aerosol 1 Puff INHALATION QIDRT PRN Shortness Of Breath Diphenhydramine HCl 25 mg 07/01/20 20:19 Diphenhydramine Hcl Inj 50 Mg/Ml Vial IV PUSH Q4H PRN Itching Enoxaparin Sodium 40 mg 07/03/20 09:25 07/04/20 10:07 Enoxaparin 40 Mg/0.4 Ml Syringe SUB-Q 40 mg DAILY PATRICK Administration Gabapentin 300 mg 07/02/20 09:00 07/04/20 08:42 Gabapentin 300 Mg Capsule PO 300 mg TID PATRICK Administration Sodium Chloride 1,000 mls @ 75 mls/hr 07/01/20 15:15 07/04/20 10:01 Normal Saline Iv IV CONT Infused .[id number] PATRICK Infusion Morphine Sulfate 4 mg 07/01/20 15:13 07/03/20 05:13 Morphine Sulfate (*Crx) 4 Mg/Ml Inj IV PUSH 4 mg Q2H PRN Administration Pain Rated 7-10 Ondansetron HCl 4 mg 07/01/20 15:13 07/04/20 05:43 Ondansetron Inj 4 Mg/2 Ml Vial IV PUSH 4 mg Q4H PRN Administration Nausea Pantoprazole Sodium 40 mg 07/01/20 09:00 07/04/20 08:41 Pantoprazole Sodium Iv 40 Mg Vial IV PUSH 40 mg QAM PATRICK Administration Ropinirole HCl 4 mg 07/01/20 21:00 07/04/20 08:42 Ropinirole Hcl 1 Mg Tablet PO 4 mg Q12HR PATRICK Administration Sertraline HCl 100 mg 07/02/20 09:00 07/04/20 08:42 Sertraline Hcl 50 Mg Tablet PO 100 mg DAILY PATRICK Administration Radiology Results: ITS Impressions Chest X-Ray 07/01/20 10:15 IMPRESSION: No acute cardiopulmonary findings. Abdomen/Pelvis CT 07/01/20 11:39 IMPRESSION: 1. No acute intra-abdominal findings. Head CT 07/01/20 14:53 IMPRESSION: 1. No acute intracranial process. Evaluation minimally limited by some scattered streak artifact. Upper Quadrant Ultrasound 07/03/20 13:26 IMPRESSION: 1: Hepatic steatosis. 2: Mild gallbladder wall thickening without stones
--- NOTE | 2020-07-04 13:47 | PM.IMPN ---
Progress Note: A&P Assessment and Plan (1) Intractable vomiting with nausea: Code(s): R11.2 - Nausea with vomiting, unspecified Status: Acute Assessment and Plan: Etiology unclear but possibly related to acid reflux. Lipase normal. Other studies as mentioned below. Consider gastroparesis. Continue with Zofran. Continue current diet. Stop IV fluids. Continue with Protonix but advance to bid. Consider Reglan. (2) Elevated liver enzymes: Code(s): R74.8 - Abnormal levels of other serum enzymes Status: Acute Assessment and Plan: CT abdomen/pelvis showing no acute intra-abdominal findings. Hepatitis panel negative and lipase normal. She is COVID and influenza negative. Right upper quadrant ultrasound showing hepatic steatosis. HIDA scan was normal. Monospot was negative. Holding her atorvastatin. Autoimmune workup pending. Dr Case following and appreciate his input. Home when okay with GI. (3) COPD (chronic obstructive pulmonary disease): Code(s): J44.9 - Chronic obstructive pulmonary disease, unspecified Status: Chronic Assessment and Plan: Stable. No wheezing. Continue as needed albuterol. (4) Restless leg syndrome: Code(s): G25.81 - Restless legs syndrome Status: Chronic Assessment and Plan: Stable. Continue with ropinirole. (5) Back pain: Code(s): M54.9 - Dorsalgia, unspecified Status: Acute Assessment and Plan: Stable. Encouraged patient to be out of bed. Continue with patient's home pain medication. Limit Tylenol. (6) HTN (hypertension): Code(s): I10 - Essential (primary) hypertension Status: Chronic Assessment and Plan: Patient's blood pressure was reviewed on 07/04 Blood pressure remains well controlled. Will continue to hold her hydralazine as her blood pressure is still not elevated. (7) Person under investigation for COVID-19: Code(s): Z20.828 - Contact with and (suspected) exposure to other viral communicable diseases Status: Acute Assessment and Plan: COVID test negative. (8) Depression with anxiety: Code(s): F41.8 - Other specified anxiety disorders Status: Chronic Assessment and Plan: Mood stable. Continue with Zoloft. (9) DVT prophylaxis: Code(s): Z29.9 - Encounter for prophylactic measures, unspecified Status: Acute Assessment and Plan: Lovenox Subjective Date/time seen: 07/04/20 13:47 Interval history: Date of visit 07/04 64yo female with HTN here with nausea, vomiting, abdominal discomfort with elevated LFTs. Assuming care. Chart reviewed. Patient still nauseous and requesting Zofran at times. She is also vomiting that she describes as ?gagging? associated with heartburn. No change in the abdominal pain. Abdominal pain is mostly in the left lower quadrant. She has a dry cough. No shortness of breath. No fever. She has decreased appetite but this is chronic. Exam Narrative: Exam Narrative: AF 98.0 152/76 80 20 95% ra Gen - NARD lying semi recumbent in bed Chest - CTA bilaterally, nml RR CV - RRR S1/S2 Abd -soft. Obese. Nondistended. Positive bowel sounds. Some minor left lower quadrant tenderness but no guarding. Ext - No pedal edema. 2+ DP pulses bilaterally. Neuro - Alert and oriented. Nonfocal exam. Psych - Nml mood and affect Skin - Warm and dry Objective Data Vital Signs Vital Signs: Vital Signs - 24 hr 07/03/20 16:00 07/03/20 22:00 07/04/20 06:00 Temperature 98.0 F 97.8 F 98.0 F Pulse Rate 70 79 80 Respiratory Rate 18 20 20 Blood Pressure 119/72 119/64 152/76 H Pulse Oximetry 99 94 95 Intake/Output Intake/Output: Intake & Output 07/01/20 07/02/20 07/03/20 07/04/20 23:59 23:59 23:59 23:59 Intake Total 1100 4360 5040 1100 Output Total 1200 1000 Balance 1100 3160 4040 1100 Meds/Results Medications: Active Medications
--- NOTE | 2020-07-04 15:51 | PM.DS ---
DS: Admitting Diagnosis Admitting Diagnosis Admitting Diagnosis: Suspected COVID, intractable nausea, vomiting, doreen DS: Discharge Diagnosis Discharge Diagnosis (1) Intractable vomiting with nausea: Code(s): R11.2 - Nausea with vomiting, unspecified Status: Acute Assessment and Plan: Etiology unclear but possibly related to acid reflux. Lipase normal. Other studies as mentioned below. Consider gastroparesis. We continued with Zofran. Diet started and advanced as she tolerated. We continued with Protonix. (2) Elevated liver enzymes: Code(s): R74.8 - Abnormal levels of other serum enzymes Status: Acute Assessment and Plan: CT abdomen/pelvis showing no acute intra-abdominal findings. Hepatitis panel negative and lipase normal. She is COVID and influenza negative. Right upper quadrant ultrasound showing hepatic steatosis. HIDA scan was normal. Monospot was negative. Holding her atorvastatin. Autoimmune workup pending. Dr Case following and appreciated his input. He recommended patient follow up with the hepatology clinic at [place]. (3) COPD (chronic obstructive pulmonary disease): Code(s): J44.9 - Chronic obstructive pulmonary disease, unspecified Status: Chronic Assessment and Plan: Stable. No wheezing. We continued as needed albuterol. (4) Restless leg syndrome: Code(s): G25.81 - Restless legs syndrome Status: Chronic Assessment and Plan: Stable. We continued with ropinirole. (5) Back pain: Code(s): M54.9 - Dorsalgia, unspecified Status: Acute Assessment and Plan: Stable. Encouraged patient to be out of bed. We continued with patient's home pain medication. (6) HTN (hypertension): Code(s): I10 - Essential (primary) hypertension Status: Chronic Assessment and Plan: Patient's blood pressure was monitored closely. Medications were adjusted as needed. (7) Person under investigation for COVID-19: Code(s): Z20.828 - Contact with and (suspected) exposure to other viral communicable diseases Status: Acute Assessment and Plan: COVID test negative. (8) Depression with anxiety: Code(s): F41.8 - Other specified anxiety disorders Status: Chronic Assessment and Plan: Mood stable. We continued with Zoloft. DS: Summary Hospital Course Reason for hospitalization: 64yo female here for nause and vomiting with abdominal pain and elevated LFTs. Please see H&P for details Hospital Course: As above Status at Discharge Cognitive/behavioral status at discharge: PATIENT IS STABLE FOR DISCHARGE Time Spent with Patient Time attestation: Total time spent providing and/or coordinating discharge services:34 minutes Time spent: Greater than 30 minutes Exam Narrative: Exam Narrative: AF 98.0 152/76 80 20 95% ra Gen - NARD lying semi recumbent in bed Chest - CTA bilaterally, nml RR CV - RRR S1/S2 Abd -soft. Obese. Nondistended. Positive bowel sounds. Some minor left lower quadrant tenderness but no guarding. Ext - No pedal edema. 2+ DP pulses bilaterally. Neuro - Alert and oriented. Nonfocal exam. Psych - Nml mood and affect Skin - Warm and dry DS: Data Data Completed and Pending Labs on day of discharge: Labs from last 24 hours 07/04/20 06:55 Sodium 136 L Potassium 3.4 Chloride 104 Carbon Dioxide 30 Anion Gap 2 L BUN 7 Creatinine 0.50 L Estim Creat Clear Calc 121 Estimated GFR > 60 Glucose 101 Calcium 8.1 L Total Bilirubin 0.6 Direct Bilirubin 0.0 AST 99 H ALT 275 H Alkaline Phosphatase 704 H Total Protein 5.0 L Albumin 2.9 L Preliminary micro results at discharge 07/01/20 21:15 Blood Culture - Preliminary Blood 07/01/20 20:37 Blood Culture - Preliminary Blood Discharge Plan Discharge Attending physician on discharge: Victor Manuel Witt Consulting providers: Fabian Case
[2020-07-07 14:20] LABS: Mitochondrial (M2) Ab (IgG) <=20.0 U (<=20.0)
[2020-07-07 23:54] LABS: Ceruloplasmin 47 mg/dL (18-53)
--- NOTE | 2020-07-18 12:36 | PC.NURSE ---
A1AT is PI*MM. Dr. Miryam richard.
== END 2020-07-04 16:24 | disposition home or self-care (01) ==
LOC: ANHED 09:06 → ANH3MEDSUR 18:55
PROVIDERS: Internal Medicine Gastroenterology; Admitting Provider Internal Medicine; Emergency Provider General Practice; PCP Family Medicine; Visit Provider Nurse Practitioner
DX: R11.2 Nausea with vomiting, unspecified (principal); R74.8 Abnormal levels of other serum enzymes; J44.9 Chronic obstructive pulmonary disease, unspecified; R10.32 Left lower quadrant pain; R51.9 Headache, unspecified; M54.9 Dorsalgia, unspecified; I10 Essential (primary) hypertension; K21.9 Gastro-esophageal reflux disease without esophagitis; G47.33 Obstructive sleep apnea (adult) (pediatric); G25.81 Restless legs syndrome; K76.0 Fatty (change of) liver, not elsewhere classified; I34.1 Nonrheumatic mitral (valve) prolapse; F41.8 Other specified anxiety disorders; Z87.891 Personal history of nicotine dependence; Z20.828 Contact with and (suspected) exposure to other viral communicable diseases; E66.9 Obesity, unspecified; Z68.39 Body mass index [BMI] 39.0-39.9, adult; Z80.0 Family history of malignant neoplasm of digestive organs; Z86.010 Personal history of colon polyps
CPT/HCPCS: 36415; 70450; 71045; 74177; 76705; 78227; 80048; 80053; 80074; 80076; 81001; 82104; 82390; 82550; 82728; 83520; 83605; 83615; 83690; 83735; 84100; 84443; 85025; 86038; 86140; 86308; 87040; 87804; 93005; 96361; 96372; 96374; 96375; 96376; 99285; A9270; A9537; C9113; G0378; J0131; J1170; J1200; J1650; J2270; J2405; J2550; J2765; J2805; J7030; J7120; Q9967

== ENCOUNTER 2020-07-06 21:57 | Emergency (ER) | payer MEDICARE, SELFPAY ==
--- NOTE | ~2020-07-06 | CT_ITS ---
EXAMINATION: CT abdomen pelvis w con DATE: 07/07/2020 00:07 INDICATION: Abdominal pain TECHNIQUE: Computed tomography (CT) of the abdomen and pelvis was performed with 100 cc Omnipaque 350 intravenous contrast. Automated exposure control and iterative reconstruction technique were employe d. Exam dose: 1453.81 mGy-cm total exam DLP. COMPARISON: 07/01/2020 CT abdomen pelvis FINDINGS: Minimal bilateral dependent lower lobe atelectasis. The lung bases are otherwise clear. Normal heart size. No pericardial effusion. Trace bilateral pleural effusions. Small sliding hiatal hernia. The gallbladder is distended. No gallbladder wall thickening or pericholecystic fluid or stranding. N o bile duct or pancreatic duct dilatation. No hepatic, splenic, pancreatic space-occupying mass lesio n. Normal morphology of the adrenal glands. Normal caliber of the abdominal aorta. No intraperitoneal or retroperitoneal or pelvic mass lesion or adenopathy or ascites. The urinary bladder is unremarkable. Status post hysterectomy. No bowel obstruction, bowel wall thickening, pneumatosis or intraperitoneal free air. Status post interbody and posterior spinal fusion at L4-S1. Grade 1 anterolisthesis at L5-S1. Severe degenerative disease and mild retrolisthesis at L1-2. Degenerative changes of the lower thorac ic spine. Severe right hip osteoarthritis, moderate left hip osteoarthritis. IMPRESSION: Small sliding hiatal hernia Bilateral hip osteoarthritis Status post interbody and posterior spinal fusion at L4-S1 Reviewed, dictated and finalized at [facility] Reviewed, dictated and finalized at [facility]. [facility]
[2020-07-06 22:11] VITALS: BP 141/64; PULSE 96; RESP 24; TEMP 37.6; O2SAT 96
[2020-07-06] MEDS: SODIUM CHLORIDE 0.9% IV 1,000 ML 999 ML IV CONT (23:16)
[2020-07-06 23:17] LABS: Basophils Absolute Auto 0.1 K/mm3 (0.0-0.1); Basophils Percent Auto 0.9 % (0.2-1.2); Eosinophils Absolute Auto 0.7 K/mm3 (0-0.3); Eosinophils Percent Auto 7.2 % (0-4.4); Hematocrit 39.7 % (37.0-47.0); Hemoglobin 13.3 g/dL (12.0-15.0); Immature Granulocyte Absolute 0.18 K/mm3 (0.00-0.031); Lymphocytes Absolute Auto 1.09 K/mm3 (0.9-3.2); Lymphocytes Percent Auto 11.8 % (18.3-44.2); Mean Corpuscular HGB Conc 33.5 g/dl (32-36); Mean Corpuscular Hemoglobin 28.9 pg (26-34); Mean Corpuscular Volume 86.1 fl (80-100); Mean Platelet Volume 9.8 fl (7.4-10.4); Monocytes Absolute Auto 0.8 K/mm3 (0.1-0.6); Neutrophils Absolute Auto 6.4 K/mm3 (1.3-6.7); Neutrophils Percent Auto 69.1 % (45.5-73.1); Platelet Count Result 234 k/mm3 (150-375); Red Blood Count 4.61 M/mm3 (4.2-5.4); White Blood Count 9.2 K/mm3 (4.5-10.0)
[2020-07-06] MEDS: MORPHINE SULFATE (*CRX) 4 MG/ML INJ IV PUSH (23:17)
[2020-07-06] MEDS: ONDANSETRON INJ 4 MG/2 ML VIAL IV PUSH (23:17)
[2020-07-06 23:39] LABS: Alanine Aminotransferase 174 U/L (4-35); Albumin Level 3.4 g/dL (3.5-5.1); Alkaline Phosphatase 619 U/L (38-126); Anion Gap 7 mmol/L (8-16); Aspartate Amino Transferase 61 U/L (14-36); Bilirubin,Total 0.8 mg/dL (0.2-1.3); Blood Urea Nitrogen 14 mg/dL (7-17); Calcium 8.6 mg/dL (8.4-10.2); Carbon Dioxide 26 mmol/L (22-30); Chloride 100 mmol/L (98-107); Estimated CRCL calculation 105 ml/min; Estimated Glomerular Filt Rate > 60; Glucose 118 mg/dL (65-105); Lipase 159 U/L (23-300); Potassium 3.6 mmol/L (3.4-5.0); Sodium 133 mmol/L (137-145)
[2020-07-07 00:58] LABS: Add Urine Microscopic? YES; Appearance Urine Clear (Clear); Bilirubin Urine Negative (Negative); Blood Urine Negative (Negative); Color Urine Yellow (Yellow); Glucose Urine UA Negative (Negative); Ketones Urine Negative (Negative); Leukocyte Esterase Ur Negative LEU/UL (Negative); Mucus Urine Rare /lpf; Nitrate Urine Negative (Negative); Protein Urine Negative (Negative); RBC Urine 0-2 /hpf (0-2); Squamous Epithelial Cell Urine Rare /hpf (Few); WBC Urine 0-3 /hpf
[2020-07-07 01:01] LABS: Specific Grav Ur 1.042 (1.001-1.035)
--- NOTE | 2020-07-07 01:03 | ED.GENADULT ---
HPI - General Adult General Chief complaint: Abdominal Pain Stated complaint: ABD PAIN, HEADACHE Time Seen by Provider: 07/06/20 22:50 History of Present Illness HPI narrative: Patient is a 64-year-old female who presents the emergency department with chief complaint of abdominal pain. Patient reports that she has been having abdominal pain and the pain got worse today. The patient was recently admitted to the hospital after she had had abdominal pain and elevated liver transaminases. Patient states she is supposed to follow-up as an outpatient but her pain got worse today and she decided to come back to the emergency. Patient reports that she has had a low-grade fever today denies diarrhea denies jaundice states that there is not a true local specific place in her abdomen that hurts that it is more of a vague generalized discomfort. Related Data Home Medications Medication Instructions Recorded Confirmed ropinirole 4 mg PO QAM AND QHS 06/29/19 07/01/20 gabapentin 300 mg PO TID 07/01/20 07/01/20 hydralazine 25 mg PO BID 07/01/20 07/01/20 hydrocodone-acetaminophen 1 tablet PO QAM AND QHS 07/01/20 07/01/20 phentermine 37.5 mg PO DAILY 07/01/20 07/01/20 Allergies Allergy/AdvReac Type Severity Reaction Status Date / Time No Known Allergies Allergy Unknown Verified 07/01/20 18:00 Review of Systems Review of Systems: Narrative: CONSTITUTIONAL: Denies fever, chills, or sweats. EYES: Denies visual changes, redness, or discharge. ENT: Denies rhinorrhea, congestion, sore throat, or otalgia. CARDIOVASCULAR: Denies chest pain, palpitations, or edema. RESPIRATORY: Denies cough or dyspnea. GASTROINTESTINAL: Denies abdominal pain, nausea, vomiting, or diarrhea. GENITOURINARY: Denies dysuria or hematuria. SKIN: Denies rash or itching. MUSCULOSKELETAL: Denies back pain, joint pain, or myalgia. NEUROLOGIC: Denies headache, numbness, or weakness. PSYCHIATRIC: Denies anxiety or depression. A 10 system review of systems was completed on the patient and is negative except for what is stated in the HPI. Nursing and ancillary documentation was reviewed. [facility] Past Medical History Medical History Arthritis Back pain COPD (chronic obstructive pulmonary disease) Depression with anxiety Ganglion cyst Excised GERD (gastroesophageal reflux disease) HTN (hypertension) Hx of adenomatous colonic polyps Hx of hemorrhoids Internal Mitral valve prolapse Obesity CISCO (obstructive sleep apnea) Does not wear CPAP Renal stones Restless leg syndrome Skin cancer Syncope Surgical History Surgical History H/O colonoscopy with polypectomy History of back surgery Cage in back History of carpal tunnel surgery of left wrist Bilateral History of left knee replacement History of total right knee replacement Hx of tonsillectomy Hx of total hysterectomy Family History Family History Sibling Hypertension Diabetes mellitus Father Carcinoma of colon, Onset Age: 65 Mother Brain tumor (benign) Social History Social History Social History: The patient lives at home with her and has 2 children. Her is the durable power workers compensation attorney for healthcare. The patient desires to be a full code. Patient used to smoke but quit many years ago in 2003. She is to work for [employer] their full does. She denies any alcohol marijuana or illicit drug use. Smoking packs per day: 0.5 Smoking cigarettes per day: 10.0 Years smoked: 20 Smoking pack-years: 10.00 Smoking status: Former smoker Tobacco type: cigarettes Smoking end date: 08/11/03 Alcohol intake: never Substance use: never Gender identity (if verbalized by the patient): Female Spiritual care concerns: N
[2020-07-07 01:35] VITALS: BP 100/50; PULSE 96; RESP 18; TEMP 37.2; O2SAT 98
== END 2020-07-07 01:37 | disposition home or self-care (01) ==
PROVIDERS: Emergency Provider Emergency Medicine; PCP Family Medicine
DX: R10.84 Generalized abdominal pain (principal); R74.8 Abnormal levels of other serum enzymes; B34.9 Viral infection, unspecified; M19.90 Unspecified osteoarthritis, unspecified site; J44.9 Chronic obstructive pulmonary disease, unspecified; F32.9 Major depressive disorder, single episode, unspecified; F41.9 Anxiety disorder, unspecified; K21.9 Gastro-esophageal reflux disease without esophagitis; I10 Essential (primary) hypertension; Z85.828 Personal history of other malignant neoplasm of skin
CPT/HCPCS: 36415; 74177; 80053; 81001; 83690; 85025; 96361; 96374; 96375; 99284; J2270; J2405; J7030; Q9967

== ENCOUNTER → 2020-07-12 08:56 | Outpatient (CLI) | payer MEDICARE, SELFPAY ==
--- NOTE | ~2020-07-12 | US_ITS ---
US abdomen complete EXAMINATION: US Abdomen Complete INDICATION: Right upper abdominal pain. Nausea. PROCEDURE: Realtime High Resolution abdomen ultrasound. COMPARISON: No prior studies for comparison FINDINGS: Gallbladder wall is mildly thickened. No definite stones or pericholecystic fluid. Common bile duct measures 5 mm. Liver echotexture is increased, consistent with fatty infiltration.. Pancreas within normal limits. Pancreatic tail is obscured by bowel gas. Spleen is enlarged measuring 13.3 cm. Renal echotexture i s within normal limits bilaterally without hydronephrosis, contour deforming mass or renal stone. Rig ht kidney measures 11.6 cm. Left kidney measures 12.3 cm. Visualized aspects of the aorta and IVC are within normal limits. Portal vein is patent. No sonograph ic Angulo's sign indicated by the technologist. IMPRESSION: 1: Mild gallbladder wall thickening. This could indicate interstitial edema, chronic liver disease or chronic cholecystitis. 2: Splenomegaly. Reviewed, dictated and finalized at location B. HAMMER OPERATOR IMPRESSION: 1: Mild gallbladder wall thickening. This could indicate interstitial edema, ch ronic liver disease or chronic cholecystitis. 2: Splenomegaly.
== END ==
PROVIDERS: PCP Family Medicine; Visit Provider Family Medicine
DX: R10.11 Right upper quadrant pain (principal); R16.1 Splenomegaly, not elsewhere classified
CPT/HCPCS: 76700

== ENCOUNTER → 2020-10-17 09:46 | Outpatient (CLI) | payer MEDICARE, SELFPAY ==
--- NOTE | ~2020-10-17 | MMUS_ITS ---
EXAMINATION: MM diagnostic jono LT w tesha, US breast LT limited HISTORY: Asymmetry reported in the mid posterior left breast on the CC projection of a screening ma mmogram performed 03/24/2019 at [facility]. TECHNIQUE: ML, MLO and CC full field and spot 3-D tomosynthesis images of the left breast were perfor med and synthetic 2-D images were generated. CAD analysis was submitted and interpreted. High resolut ion upper outer and lower outer left breast ultrasound was performed. COMPARISON: 03/24/2019, 02/2018, 12/27/2016 bilateral digital screening mammogram examinations BREAST PARENCHYMAL COMPOSITION: There are scattered areas of fibroglandular density. FINDINGS: MAMMOGRAPHIC FINDINGS: No suspicious reproducible mass or significant new or developing density of the left breast is eviden t compared to 03/24/2019 through 12/27/2016 mammogram examinations available here. ULTRASOUND: A circumscribed benign-appearing approximately 7 x 15.5 mm lymph node is noted at 3:00 10 cm from the nipple. No suspicious mass or shadowing is evident. IMPRESSION: 1. No mammographic evidence of malignancy 2. Routine annual mammographic screening is recommended. BI-RADS Category 2: Benign finding(s). Reviewed, dictated and finalized at location A. OFFICE REPRESENTATIVE IMPRESSION: 1. No mammographic evidence of malignancy 2. Routine annual mammographic screening is recommended. BI-RADS Category 2: Benign finding(s).
== END ==
PROVIDERS: PCP Family Medicine; Visit Provider Family Medicine
DX: R92.8 Other abnormal and inconclusive findings on diagnostic imaging of breast (principal)
CPT/HCPCS: 76642; 77061; 77065; G0279

== ENCOUNTER → 2020-11-30 09:44 | Outpatient (CLI) | payer MEDICARE, SELFPAY ==
--- NOTE | ~2020-11-30 | XR_ITS ---
XR hip LT min 3V w AP pelvis DATE: 11/30/2020 10:23 INDICATION: Unilateral primary osteoarthritis, left hip TECHNIQUE: AP pelvis. AP and lateral views of left hip COMPARISON: None FINDINGS: The pubic symphysis and sacroiliac joints are intact. No pelvic fracture or bone destructio n is evident. Status post posterior and interbody lumbosacral spinal surgical fusion. There is severe joint space narrowing and degenerative cystic changes at the right hip consistent wit h severe right hip osteoarthritis. No fracture, dislocation, avascular necrosis or bone destruction at the left hip. Left hip joint spac e is relatively preserved. IMPRESSION: Severe right hip osteoarthritis Status post lumbosacral spine surgical spinal fusion Reviewed, dictated and finalized at location A.
== END ==
PROVIDERS: PCP Family Medicine; Visit Provider Family Medicine
DX: M16.12 Unilateral primary osteoarthritis, left hip (principal); M16.11 Unilateral primary osteoarthritis, right hip; Z98.1 Arthrodesis status
CPT/HCPCS: 73502

== ENCOUNTER → 2020-12-19 15:40 | Outpatient (CLI) | payer MEDICARE, SELFPAY ==
--- NOTE | ~2020-12-19 | XR_ITS ---
EXAMINATION: XR wrist RT 2V DATE: 12/19/2020 16:02 INDICATION: Right wrist pain. TECHNIQUE: 2 views of right wrist were obtained. COMPARISON: Right wrist radiographs 09/04/2019 FINDINGS: Scapholunate dissociation is noted. No acute fracture. There is mild osteoarthritis of agustina te-capitate joint and first carpometacarpal joint and moderate osteoarthritis of triscaphe joint. The re is mild osteoarthritis of first and second metacarpophalangeal joints. There is a 7 mm loose body dorsal to the carpus. IMPRESSION: 1. Polyarticular osteoarthritis. 2. Chronic scapholunate dissociation. 3. Loose body dorsal to the carpus. Reviewed, dictated and finalized at location B.
--- NOTE | ~2020-12-19 | XR_ITS ---
EXAMINATION: XR wrist LT 2V DATE: 12/19/2020 16:02 INDICATION: Left wrist injury. TECHNIQUE: 2 views of left wrist were obtained. COMPARISON: None. FINDINGS: There is rotatory subluxation of the scaphoid. No fracture. There is severe osteoarthritis of triscaphe joint, first carpometacarpal joint, lunate-capitate joint, and lunate-hamate joint. IMPRESSION: 1. Polyarticular osteoarthritis. Reviewed, dictated and finalized at location B.
== END ==
PROVIDERS: Visit Provider Nurse Practitioner Family
DX: M25.531 Pain in right wrist (principal); M25.532 Pain in left wrist; W19.XXXA Unspecified fall, initial encounter; M19.031 Primary osteoarthritis, right wrist; S63.511A Sprain of carpal joint of right wrist, initial encounter; M24.031 Loose body in right wrist; M19.032 Primary osteoarthritis, left wrist
CPT/HCPCS: 73100

== ENCOUNTER → 2021-02-27 08:21 | Outpatient (CLI) | payer MEDICARE, SELFPAY ==
--- NOTE | ~2021-02-27 | CT_ITS ---
EXAMINATION: CT thoracic spine wo con EXAM DATE: 02/27/2021 08:43 INDICATION: Back pain, for lead placement. TECHNIQUE: Spiral CT thoracic spine wo con was performed without contrast. Axial, coronal and sagit marianne images were reviewed. The dose-length product (DLP) for this examination was 1029.70 mGy-cm. Th e exposure was tailored according to patient size (auto mA exposure control), and iterative reconstru ction (ASIR) was used as additional dose reduction technique. There is no prior study for comparison . FINDINGS: Small to moderate size sliding gastroesophageal hiatal hernia. There is 2 mm anterolisthes is T2 on T3. The vertebral bodies are otherwise aligned in the AP dimension. There is moderate lower thoracic disc disease, mild mid and upper thoracic disc disease. The central canal has mild stenosis at T11-T12 and T12-L1 due to posterior disc osteophyte complexes. There is mild thoracic facet arthro kelly. Vertebral body heights are maintained. Paraspinal soft tissue is unremarkable. IMPRESSION: 1. Moderate lower thoracic mild mid and upper thoracic disc disease. 2. Small to moderate hiatal hernia. Reviewed, dictated and finalized at location A.
== END ==
PROVIDERS: PCP Family Medicine; Visit Provider Physical Medicine & Rehabilitation Pain Medicine
DX: K44.9 Diaphragmatic hernia without obstruction or gangrene (principal); M51.34 Other intervertebral disc degeneration, thoracic region
CPT/HCPCS: 72128

== ENCOUNTER → 2021-03-19 14:51 | Outpatient (CLI) | payer MEDICARE, SELFPAY ==
--- NOTE | ~2021-03-19 | XR_ITS ---
EXAMINATION: XR hip RT min 2V DATE: 03/19/2021 15:25 INDICATION: Right hip pain. TECHNIQUE: 2 views of right hip were obtained. COMPARISON: Right hip radiographs 12/08/2008 FINDINGS: Bone alignment is normal. No fracture. There is severe right hip osteoarthritis. Partially visualized are changes of anterior and posterior fusion procedures in lumbar spine. IMPRESSION: 1. Severe right hip osteoarthritis. Reviewed, dictated and finalized at location A.
== END ==
PROVIDERS: PCP Family Medicine; Visit Provider Physical Medicine & Rehabilitation Pain Medicine
DX: M25.551 Pain in right hip (principal); M16.11 Unilateral primary osteoarthritis, right hip
CPT/HCPCS: 73502

== ENCOUNTER 2021-11-15 09:25 | Outpatient (CLI) | payer MEDICARE, SELFPAY ==
--- NOTE | ~2021-11-15 | XR_ITS ---
EXAMINATION: XR ankle RT 2V, XR foot RT 2V DATE: 11/15/2021 09:53 INDICATION: Right ankle injury TECHNIQUE: 1. Anteroposterior and lateral view of the right ankle were obtained. 2. Dorsoplantar and lateral views of the right foot were obtained. COMPARISON: None. FINDINGS: Postoperative changes in the right forefoot including bunionectomy and first metatarsophalangeal arth rodesis with compression screw fixation. There are additional retained screw fragments with configura tion suggesting a prior dorsal plate and screw fixation. Likely shortening osteotomy at the neck of t he second metatarsal with repair fixation screws. Old healed fracture versus osteotomy at the neck of the fifth metatarsal. Second proximal interphalangeal arthrodesis with internal metallic fixation de vice. Attempted third proximal interphalangeal arthrodesis with fracture of the device and plantar fl exion and varus angulation at the articulation. With chronic osteotomy at the head of the fifth proxi mal phalanx. Fourth hammertoe deformity. No traumatic malalignment at the right foot or ankle. No acute fracture. Mild polyarticular osteoarth ritis at the right ankle and multiple joints throughout the right foot. Small plantar calcaneal spur. Soft tissues are unremarkable with no ankle joint effusion. IMPRESSION: 1. Postoperative changes in the forefoot as detailed above. No acute osseous abnormality at the right foot or ankle. Reviewed, dictated and finalized at location B. IMPRESSION: 1. Postoperative changes in the forefoot as detailed above. No acute osseous ab normality at the right foot or ankle.
--- NOTE | ~2021-11-15 | XR_ITS ---
EXAMINATION: XR knee RT 2V DATE: 11/15/2021 09:53 INDICATION: Right knee pain. TECHNIQUE: 2 views of right knee were obtained. COMPARISON: None. FINDINGS: There is a total right knee arthroplasty with patellar resurfacing. Tibia demonstrates 13 d egrees posterior angulation with respect to tibial component. No fracture. No periprosthetic lucency to suggest loosening or infection. There is a small knee joint effusion. IMPRESSION: 1. Total right knee arthroplasty. 2. Small right knee joint effusion. Reviewed, dictated and finalized at location A.
== END 2021-11-15 09:26 | disposition home or self-care (01) ==
PROVIDERS: PCP Family Medicine; Visit Provider Physician Assistant Medical
DX: S99.911A Unspecified injury of right ankle, initial encounter (principal); S99.921A Unspecified injury of right foot, initial encounter; M25.561 Pain in right knee; M25.461 Effusion, right knee; Z96.651 Presence of right artificial knee joint; Z98.890 Other specified postprocedural states
CPT/HCPCS: 73560; 73600; 73620

== ENCOUNTER 2022-01-23 16:44 | Outpatient (CLI) | payer MEDICARE, SELFPAY ==
--- NOTE | ~2022-01-23 | US_ITS ---
EXAMINATION: US venous doppler LE RT DATE: 01/23/2022 17:30 INDICATION: Right lower limb pain and edema. TECHNIQUE: Grayscale images without and with compression and Doppler images of the right lower extrem ity veins were obtained. COMPARISON: None FINDINGS: The right common femoral vein, profunda (deep) femoral vein, femoral vein, popliteal vein, peroneal v ein, posterior tibial veins, and greater saphenous vein are patent. IMPRESSION: 1. Patent right lower extremity veins. No evidence of deep venous thrombosis Reviewed, dictated and finalized at location K.
== END 2022-01-23 16:45 | disposition home or self-care (01) ==
PROVIDERS: PCP Family Medicine; Visit Provider Family Medicine
DX: M79.89 Other specified soft tissue disorders (principal)
CPT/HCPCS: 93971

== ENCOUNTER 2022-01-24 08:13 | Outpatient (CLI) | payer MEDICARE, SELFPAY ==
--- NOTE | ~2022-01-24 | DEXA_ITS ---
Bone Density Report Name: CHINO CASILLAS Age: 66 Sex: Female Ethnicity: White Date of : 1955 Indication: postmenopausal; screening for osteoporosis; height loss; prior fracture; Referring Provider: LATHA BREWER Study: Bone densitometry was performed. Exam Date: January 24, 2022 Accession number: [id number] Bone Density: Region BMD T-score Z-score Classification Femoral Neck (Left) 0.658 -1.7 -0.2 Osteopenia Total Hip (Left) 0.924 -0.1 1.1 Normal World Health Organization criteria for BMD impression classify patients as: Normal (T-score at or above -1.0), Osteopenia (T-score between -1.0 and -2.5), or Osteoporosis (T-score at or below -2.5). 10-year Fracture Risk(1): Major Osteoporotic Fracture 14% Hip Fracture 1.6% Reported Risk Factors: [place] (), Neck BMD=0.658, BMI=40.9, previous fracture (1) FRAX(R) Version 3.08. Fracture probability calculated for an untreated patient. Fracture probability may be lower if the patient has received treatment. Clinical Information Provided by Patient: Has had a low trauma fracture Patient maximum height was 67 Menopause Age: 31 No regular weight bearing exercise Drinks caffeinated beverages Onset of menses at age 12 Number of children 2 Impression: The patient has low bone mass, based on the Left Femoral Neck T-score. The patient has an estimated ten-year risk of hip fracture of 1.6% and an estimated ten-year risk of major fracture of 14%, based on the WHO FRAX algorithm. The patient has risk factors, including: previous fracture. Discussion: BONE DENSITY IS LOW AT ONE OR MORE SKELETAL SITES. This patient's lowest T-score is low at one or more skeletal sites. It meets the World Health Organization's (WHO) criteria for ?low bone mass? (T-score between -1.0 and -2.5). The patient's 10-year risk of fracture as calculated by FRAX is less than the threshold where pharmacological therapy is recommended by the National Osteoporosis Foundation (NOF). However, all treatment decisions require clinical judgment and consideration of individual patient factors, including patient preferences, comorbidities, previous drug use, risk factors not captured in the FRAX model (e.g., frailty, falls, vitamin D deficiency, increased bone turnover, interval significant decline in bone density) and possible under or overestimation of fracture risk by FRAX. The patient should follow a healthful lifestyle (good nutrition with adequate calcium and vitamin D, and appropriate weight-bearing exercise). Follow-Up: Consider repeating this study in 2 to 3 years to reassess this patient's status, or sooner if there is some new clinical indication. Reported by: JOSLYN on 01/24/2022 8:42:00 AM. Reviewed, dictated and finalized at location ADerik WHALEY
--- NOTE | ~2022-01-24 | MM_ITS ---
EXAMINATION: MM screening jono BI w tesha HISTORY: Screening TECHNIQUE: Craniocaudal and mediolateral oblique 3-D tomosynthesis images were obtained and synthetic 2-D images were generated. CAD analysis was submitted and interpreted. COMPARISON: Comparison to multiple prior studies sequentially, with oldest reviewed study dated 12/27. BREAST PARENCHYMAL COMPOSITION: Breast composed of scattered areas of fibroglandular density FINDINGS: There is no evidence of suspicious mass, calcification, or architectural distortion to sugg est malignancy in either breast. There has been no suspicious interval change. IMPRESSION: 1. No mammographic evidence of malignancy. 2. Recommend routine screening mammography in one year. BI-RADS Category 1: Negative Reviewed, dictated and finalized at location A.
== END 2022-01-24 08:14 | disposition home or self-care (01) ==
PROVIDERS: PCP Family Medicine; Visit Provider Nurse Practitioner Family
DX: Z12.31 Encounter for screening mammogram for malignant neoplasm of breast (principal); M85.852 Other specified disorders of bone density and structure, left thigh
CPT/HCPCS: 77063; 77067; 77080

== ENCOUNTER 2022-01-31 14:42 | Outpatient (CLI) | payer MEDICARE, SELFPAY ==
[2022-01-31 15:27] LABS: Anion Gap 7 mmol/L (8-16); Blood Urea Nitrogen 13 mg/dL (7-17); Calcium 8.9 mg/dL (8.4-10.2); Carbon Dioxide 24 mmol/L (22-30); Chloride 108 mmol/L (98-107); Estimated Glomerular Filt Rate > 60; Glucose 102 mg/dL (65-110); Sodium 139 mmol/L (137-145)
== END 2022-01-31 14:43 | disposition home or self-care (01) ==
PROVIDERS: PCP Family Medicine; Visit Provider Nurse Practitioner Family
DX: M79.89 Other specified soft tissue disorders (principal)
CPT/HCPCS: 36415; 80048

== ENCOUNTER 2022-07-09 08:42 | Outpatient (CLI) | payer MEDICARE, SELFPAY ==
--- NOTE | ~2022-07-09 | XR_ITS ---
EXAMINATION: XR chest 2V 07/09/2022 08:59 INDICATION: Bronchitis PROCEDURE: 2 view chest COMPARISON: Comparison to multiple prior studies sequentially, with oldest reviewed study dated 12/08. FINDINGS: The lungs are clear. The cardiomediastinal silhouette is within normal limits. There are no pleural effusions. There is no pneumothorax suspected. IMPRESSION: 1: NO ACUTE CARDIOPULMONARY DISEASE. Reviewed, dictated and finalized at location A. ECTOR BULLET SLUGS
== END 2022-07-09 08:43 | disposition home or self-care (01) ==
PROVIDERS: PCP Family Medicine; Visit Provider Physician Assistant Medical
DX: J40 Bronchitis, not specified as acute or chronic (principal)
CPT/HCPCS: 71046

== ENCOUNTER 2022-08-23 12:58 | Outpatient (CLI) | payer MEDICARE, SELFPAY ==
--- NOTE | ~2022-08-23 | XR_ITS ---
EXAMINATION:XR_CERV2-3V_CR DATE: 08/23/2022 13:34 INDICATION: Neck pain TECHNIQUE: AP, lateral, lateral swimmers and odontoid views of the cervical spine are provided. COMPARISON: None FINDINGS: There are 3 mm of anterolisthesis of C3 on C4 and 2 mm of retrolisthesis of C4 on C5. The o dontoid process is intact. No fracture is identified. The vertebral body heights are maintained. Ther e is moderate loss of intervertebral disc space height at C4-5, C5-6, and C6-7. Small degenerative os teophytes project from the anterior endplates of multiple vertebral bodies. There is multilevel moder ate to severe facet and uncovertebral joint osteoarthritis. Prevertebral soft tissues are normal. IMPRESSION: 1. Moderate to severe cervical spondylosis without acute findings. Reviewed, dictated and finalized at location B. OSOFT DYNAMICS CONSULTANT
--- NOTE | ~2022-08-23 | XR_ITS ---
EXAMINATION: XR chest 2V DATE: 08/23/2022 13:34 INDICATION: Cough, unspecified TECHNIQUE: PA and lateral views of the chest are obtained. COMPARISON: 07/09/2022 FINDINGS: The lungs are free of acute opacities. No pleural effusion or pneumothorax. The cardiomedia stinal silhouette is normal. There is mild thoracic spondylosis. IMPRESSION: 1. No acute cardiopulmonary abnormality. Reviewed, dictated and finalized at location B. UME MAKER
[2022-08-23 13:56] LABS: Hematocrit 40.2 % (37.0-47.0); Hemoglobin 12.5 g/dL (12.0-15.0); Mean Corpuscular HGB Conc 31.1 g/dl (32-36); Mean Corpuscular Hemoglobin 24.9 pg (26-34); Mean Corpuscular Volume 80.1 fl (80-100); Mean Platelet Volume 10.4 fl (7.4-10.4); Platelet Count Result 261 k/mm3 (150-375); Red Blood Count 5.02 M/mm3 (4.2-5.4); Red Cell Distribution Width 15.2 % (11.5-14.5); White Blood Count 7.4 K/mm3 (4.5-10.0)
[2022-08-23 14:05] LABS: Alanine Aminotransferase 24 U/L (6-35); Albumin Level 4.3 g/dL (3.5-5.1); Alkaline Phosphatase 172 U/L (38-126); Amylase 65 U/L (30-110); Anion Gap 6 mmol/L (8-16); Aspartate Amino Transferase 22 U/L (14-36); Bilirubin,Total 0.4 mg/dL (0.2-1.3); Blood Urea Nitrogen 13 mg/dL (7-17); Calcium 8.9 mg/dL (8.4-10.2); Carbon Dioxide 27 mmol/L (22-30); Chloride 104 mmol/L (98-107); Estimated Glomerular Filt Rate > 60; Glucose 88 mg/dL (65-110); Lipase 71 U/L (23-300); Potassium 3.9 mmol/L (3.4-5.0); Sodium 137 mmol/L (137-145)
[2022-08-23 14:15] LABS: NT Pro B Type Natriuretic Pept 30 pg/mL (19.9-100); Troponin I < 0.012 ng/mL (0.000-0.034)
--- NOTE | 2022-08-23 14:30 | ECG_ITS ---
Measurements Intervals [place] Rate: 77 P: 45 RI: 171 QRS: 21 QRSD: 103 T: 42 QT: 394 QTc: 447 Interpretive Statements SINUS RHYTHM NORMAL ECG COMPARED TO ECG 07/01/2020 09:43:05 NO SIGNIFICANT CHANGES Electronically Signed On 08-23-2022 14:50:10 HOT CAR OPERATOR by Jay Reece D.O.
--- NOTE | 2022-08-26 15:57 | WPDHOLTEREM ---
Holter/Event Monitor Holter/Event Monitor Date of procedure: 08/23/22 Holter/Event Procedure: 24 Hr Holter Monitor Indications: Chest pain Conclusion: 1. 24 hour holter monitor on 08/23/22. 2. Underlying rhythm is sinus rhythm. HR range 65-126 bpm; average HR 91 bpm. 3. There are 12 premature supraventricular complexes and 1 supraventricular couplet. No supraventricular tachycardia. 4. There is 1 premature ventricular complex. No ventricular tachycardia. 5. No sinoatrial or atrioventricular blocks. No significant pauses greater than 2 seconds. 6. No symptoms available for correlation.
== END 2022-08-23 12:59 | disposition home or self-care (01) ==
PROVIDERS: PCP Family Medicine; Visit Provider Nurse Practitioner Family
DX: R10.12 Left upper quadrant pain (principal); R07.9 Chest pain, unspecified; R60.0 Localized edema; R06.00 Dyspnea, unspecified; R05.9 Cough, unspecified; M47.892 Other spondylosis, cervical region
CPT/HCPCS: 36415; 71046; 72040; 80053; 82150; 83690; 83880; 84443; 84484; 85027; 93005; 93225; 93226

== ENCOUNTER 2022-09-09 02:55 | Observation (INO) | payer MEDICARE, SELFPAY ==
[2022-09-09] VITALS (15 sets, daily range): BP systolic 112–162; BP diastolic 66–90; PULSE 75–96; RESP 13–17; TEMP 36–37.1; O2SAT 96–100; BMI 39.3
--- NOTE | 2022-09-09 | EST_ITS ---
Patient Info Name: Maria Alejandra Mooney Age: 67 years : 1955 Gender: Female Ht: 67 in Wt: 251 lbs BSA: 2.37 m2 HR: 75 bpm BP: 153 / 86 mmHg Heart Rhythm: Sinus Rhythm Exam Date: 09/09/2022 1:41 PM Exam Location: [facility] Stress Patient Status: Inpatient Admit Date: 09/09/2022 Staff Ordering Physician: Pa Gilliam MD Attending Provider: Pa Gilliam MD Exercise Technologist: Elaina Nielson CT Nurse: flavia marquez Exam Type: CA stress vitaliy w NM Study Info Indications R07.9 - Chest pain, unspecified A regadenoson stress test was performed. Summary 1. Sinus rhythm/normal electrocardiogram. 2. No ST or T-wave abnormalities following Lexiscan infusion. 3. None. 4. Clinically and electrocardiographically unremarkable Lexiscan stress test. 5. Myocardial perfusion imaging study to be dictated by Radiology. Protocol: Lexiscan Stress ECG Details Stage: REST Duration (min): 1 min : 6 sec HR (bpm): 77 SBP (mmHg): 153 DBP (mmHg): 86 Stage: REST Duration (min): 9 min : 29 sec HR (bpm): 80 SBP (mmHg): 153 DBP (mmHg): 86 Stage: STAGE 1 Duration (min): 0 min : 59 sec HR (bpm): 108 SBP (mmHg): 146 DBP (mmHg): 61 Stage: RECOVERY Duration (min): 1 min : 0 sec HR (bpm): 105 SBP (mmHg): 146 DBP (mmHg): 61 Stage: RECOVERY Duration (min): 2 min : 0 sec HR (bpm): 94 SBP (mmHg): 146 DBP (mmHg): 61 Stage: RECOVERY Duration (min): 3 min : 0 sec HR (bpm): 93 SBP (mmHg): 143 DBP (mmHg): 73 Stage: RECOVERY Duration (min): 3 min : 8 sec HR (bpm): 92 SBP (mmHg): 143 DBP (mmHg): 73 Rest HR: 80 bpm Peak HR: 113 bpm Rest Sys BP: 153 mmHg Peak Sys BP: 146 mmHg Max Pred HR: 154 bpm % Max Pred HR: 73 % Target HR: 131 bpm Max RPP: 16,498 bpm*mmHg Termination Reason: Completed protocol Cardiac Symptoms: Shortness of breath Total Time: 1 min : 0 sec Rest Mcdonough BP: 86 mmHg Peak Mcdonough BP: 61 mmHg Total Dose: 0.4 mg Resting ECG Sinus rhythm/normal electrocardiogram. Stress ECG No ST or T-wave abnormalities following Lexiscan infusion. Arrhythmias None. Report Signatures
--- NOTE | ~2022-09-09 | NM_ITS ---
EXAMINATION: NM vitaliy stress w perfusion DATE: 09/09/2022 14:42 INDICATION: Chest pain TECHNIQUE: Rest images were obtained following intravenous administration of 9.5 mCi Tc99m tetrofosmi n (Myoview). The patient was infused intravenously with Lexiscan (Regadenoson). Then, 30.5 mCi Tc99m tetrofosmin (Myoview) was administered intravenously, and stress images were obtained. Data was recon structed into short axis and horizontal and vertical long axis SPECT images. Gated SPECT images were also obtained. COMPARISON: None. FINDINGS: There is no definite reversible or fixed perfusion abnormality to suggest ischemia or infar ction. There is normal left ventricular chamber size, wall motion and ejection fraction. Left ventr icular ejection fraction measures >70%. IMPRESSION: 1. Normal myocardial perfusion at rest and during stress. 2. Left ventricular ejection fraction measuring >70%. Reviewed, dictated and finalized at location A. HOUSE DRIVER
--- NOTE | ~2022-09-09 | XR_ITS ---
EXAMINATION: XR chest 2V DATE: 09/09/2022 03:32 INDICATION: Chest pain. TECHNIQUE: Frontal and lateral views of the chest were obtained. COMPARISON: Chest 2 views 08/23/2022 FINDINGS: The chest demonstrates clear lungs without pneumonia, pleural effusion, or pneumothorax. Th e heart size is normal. IMPRESSION: 1. No acute cardiopulmonary disease. Reviewed, dictated and finalized at location A. ARYNGOLOGY NURSE
--- NOTE | 2022-09-09 02:56 | ECG_ITS ---
Measurements Intervals [place] Rate: 92 P: 58 MD: 171 QRS: 26 QRSD: 92 T: 68 QT: 358 QTc: 444 Interpretive Statements SINUS RHYTHM BASELINE ARTIFACT- I, II, III, AVL, AVF, V1-V2, V6 NORMAL ECG COMPARED TO ECG 08/23/2022 14:39:35 NO SIGNIFICANT CHANGES Electronically Signed On 09-09-2022 6:37:03 LAWNMOWER MECHANIC by Jay Reece D.O.
[2022-09-09] MEDS: NITROGLYCERIN SL 0.4 MG TABLET SUBLINGUAL ×2 (03:07→03:36)
--- NOTE | 2022-09-09 03:07 | ED.CHESTPAIN ---
HPI - Chest Pain General Chief Complaint: Chest Pain Stated Complaint: Right arm numbness, chest pain Time Seen by Provider: 09/09/22 02:57 History of Present Illness HPI narrative: 67-year-old female presenting the emergency department for evaluation of chest pain and right arm numbness. Patient states that tonight when she is lying down she had onset of chest tightness that radiated across both sides. Symptoms started approximately 2 AM. Patient denied any nausea or diaphoresis with this. Patient states that the pain did radiate to her left arm. Patient is also complaining of right arm pain that she states has been chronic for the last few weeks. Patient denies any prior history of [place]. Patient had a stress test approximately 5 years ago. Patient does have history of diabetes, hypertension and high cholesterol. Patient reports approximately 2 weeks ago she had a similar episode of chest pain while at rest and patient was told by her primary care physician that she needed to present to the emergency department if the symptoms happen again. When the symptoms reoccurred tonight patient followed the primary care physician's instructions and presented to the emergency department. Patient was treated with aspirin and nitro shortly after arrival. Patient's EKG on arrival showed normal sinus rhythm with no evidence of acute STEMI Related Data Allergies Allergy/AdvReac Type Severity Reaction Status Date / Time No Known Allergies Allergy Unknown Verified 09/09/22 03:12 Review of Systems Review of Systems: CONSTITUTIONAL: Denies fever, chills, or sweats. EYES: Denies visual changes, redness, or discharge. ENT: Denies rhinorrhea, congestion, sore throat, or otalgia. CARDIOVASCULAR: See HPI RESPIRATORY: Denies cough or dyspnea. GASTROINTESTINAL: Denies abdominal pain, nausea, vomiting, or diarrhea. GENITOURINARY: Denies dysuria or hematuria. SKIN: Denies rash or itching. MUSCULOSKELETAL: Denies back pain, joint pain, or myalgia. NEUROLOGIC: Denies headache, numbness, or weakness. [facility] Past Medical History Medical History Arthritis Back pain BMI 36.0-36.9,adult BMI 37.0-37.9, adult Cataract COPD (chronic obstructive pulmonary disease) COVID-19 Depression with anxiety Diabetes mellitus type 2 in obese Elevated glucose Foot callus Ganglion cyst Excised GERD (gastroesophageal reflux disease) Hammer toes, bilateral HTN (hypertension) Hx of adenomatous colonic polyps Hx of hemorrhoids Internal Lumbago with sciatica, unspecified side Mitral valve prolapse Mixed hyperlipidemia Neuropathy of foot Obesity CISCO (obstructive sleep apnea) Does not wear CPAP Osteoarthritis of left hip Osteoarthritis of right hip Osteoarthritis of right hip Other chronic pain Renal stones Restless leg syndrome Right foot pain Right leg swelling Sinus bradycardia Skin cancer Syncope Unspecified thoracic, thoracolumbar and lumbosacral intervertebral disc disorder Surgical History Surgical History H/O colonoscopy with polypectomy History of back surgery Cage in back History of carpal tunnel surgery of left wrist Bilateral History of left knee replacement History of right hip replacement History of total right knee replacement Hx of tonsillectomy Hx of total hysterectomy Family History Family History Sibling Hypertension Diabetes mellitus Hyperlipidemia COVID-19 Enlarged heart Father Carcinoma of colon, Onset Age: 65 Mother Brain tumor (benign) Social History Social History Social History: The patient lives at home with her and has 2 children. Her is the durable power tax attorney for healthcare. The patient desires to be a full code. Patient used to smok
[2022-09-09 03:11] LABS: Basophils Absolute Auto 0.1 K/mm3 (0.0-0.1); Basophils Percent Auto 0.8 % (0.2-1.2); Eosinophils Absolute Auto 0.2 K/mm3 (0-0.3); Eosinophils Percent Auto 2.5 % (0-4.4); Hematocrit 37.5 % (37.0-47.0); Hemoglobin 11.6 g/dL (12.0-15.0); Immature Granulocyte Absolute 0.01 K/mm3 (0.00-0.031); Immature Granulocyte Percent A 0.1 % (0-0.5); Lymphocytes Absolute Auto 2.74 K/mm3 (0.9-3.2); Lymphocytes Percent Auto 37.4 % (18.3-44.2); Mean Corpuscular HGB Conc 30.9 g/dl (32-36); Mean Corpuscular Hemoglobin 24.6 pg (26-34); Mean Corpuscular Volume 79.6 fl (80-100); Mean Platelet Volume 9.9 fl (7.4-10.4); Monocytes Absolute Auto 0.5 K/mm3 (0.1-0.6); Neutrophils Absolute Auto 3.8 K/mm3 (1.3-6.7); Neutrophils Percent Auto 52.2 % (45.5-73.1); Platelet Count Result 238 k/mm3 (150-375); Red Blood Count 4.71 M/mm3 (4.2-5.4); Red Cell Distribution Width 15.3 % (11.5-14.5); White Blood Count 7.3 K/mm3 (4.5-10.0)
[2022-09-09] MEDS: ASPIRIN 81 MG CHEWABLE TABLET 324 MG PO (03:11)
[2022-09-09] MEDS: NITROGLYCERIN SL 0.4 MG TABLET (03:20)
[2022-09-09 03:21] LABS: Alanine Aminotransferase 23 U/L (6-35); Albumin Level 3.8 g/dL (3.5-5.1); Alkaline Phosphatase 143 U/L (38-126); Anion Gap 5 mmol/L (8-16); Aspartate Amino Transferase 26 U/L (14-36); Bilirubin,Total 0.4 mg/dL (0.2-1.3); Blood Urea Nitrogen 12 mg/dL (7-17); Calcium 8.6 mg/dL (8.4-10.2); Carbon Dioxide 27 mmol/L (22-30); Chloride 108 mmol/L (98-107); Estimated CRCL calculation 102 ml/min; Estimated Glomerular Filt Rate > 60; Glucose 112 mg/dL (65-110); Lipase 64 U/L (23-300); Potassium 3.7 mmol/L (3.4-5.0); Sodium 140 mmol/L (137-145)
[2022-09-09 03:33] LABS: Troponin I < 0.012 ng/mL (0.000-0.034)
[2022-09-09 03:39] LABS: Prothrombin Time 13.1 Seconds (11.1-14.7)
[2022-09-09 03:40] LABS: Partial Thromboplastin Time 27.6 SECONDS (22.3-36.8)
[2022-09-09] MEDS: NITROGLYCERIN OINTMENT 1 INCH DOSE TRANSDERM (03:40)
[2022-09-09] MEDS: SODIUM CHLORIDE 0.9% IV 1,000 ML 75 ML IV CONT (04:03)
--- NOTE | 2022-09-09 05:02 | ADMGEN ---
This patient, Maria Alejandra Mooney, was admitted to IMU Room 207-01. Patient/family oriented to hospital policies and general routines including ID bracelet, bed and alarms, visiting hours, pain management, procedures, bathroom and other care routines, personal items, smoking policy, room service/diet, and visiting hours. Information on how to activate the Rapid Response Team has been discussed. Patient/Family are encouraged to report perceived risks to care and to ask questions if they do not understand what they are told or what they should do.
[2022-09-09 07:01] LABS: Troponin I < 0.012 ng/mL (0.000-0.034)
[2022-09-09] MEDS: ASPIRIN 81 MG CHEWABLE TABLET PO (07:40)
[2022-09-09] MEDS: ACETAMINOPHEN 325 MG TABLET 650 MG PO (09:06)
[2022-09-09 09:35] LABS: Troponin I < 0.012 ng/mL (0.000-0.034)
[2022-09-09] MEDS: amLODIPine BESYLATE 5 MG TABLET PO (11:16)
[2022-09-09] MEDS: MELOXICAM 7.5 MG TABLET PO (11:16)
[2022-09-09] MEDS: DULoxetine HCL 60 MG CAPSULE.DR PO (11:16)
[2022-09-09] MEDS: ATORVASTATIN 20 MG TABLET PO (11:16)
[2022-09-09] MEDS: FUROSEMIDE 20 MG TABLET PO (11:16)
[2022-09-09] MEDS: PREGABALIN (*CRX) 75 MG CAPSULE 150 MG PO (11:17)
[2022-09-09] MEDS: rOPINIRole HCL 1 MG TABLET 4 MG PO (11:17)
[2022-09-09] MEDS: PANTOPRAZOLE 40 MG TABLET PO (11:17)
--- NOTE | 2022-09-09 15:00 | PM.SD2 ---
Same Day Admit/Disch: HPI History of Present Illness Chief complaint: Chest Pain Narrative: Maria Alejandra Mooney is a 67 year old female ED-HPI narrative: 67-year-old female presenting the emergency department for evaluation of chest pain and right arm numbness.? Patient states that tonight when she is lying down she had onset of chest tightness that radiated across both sides.? Symptoms started approximately 2 AM.? Patient denied any nausea or diaphoresis with this.? Patient states that the pain did radiate to her left arm.? Patient is also complaining of right arm pain that she states has been chronic for the last few weeks.? Patient denies any prior history of [place].? Patient had a stress test approximately 5 years ago.? Patient does have history of diabetes, hypertension and high cholesterol. Patient reports approximately 2 weeks ago she had a similar episode of chest pain while at rest and patient was told by her primary care physician that she needed to present to the emergency department if the symptoms happen again.? When the symptoms reoccurred tonight patient followed the primary care physician's instructions and presented to the emergency department. Patient was treated with aspirin and nitro shortly after arrival.? Patient's EKG on arrival showed normal sinus rhythm with no evidence of acute STEMI PMFSH Past Medical History Medical History Arthritis Back pain BMI 36.0-36.9,adult BMI 37.0-37.9, adult Cataract COPD (chronic obstructive pulmonary disease) COVID-19 Depression with anxiety Diabetes mellitus type 2 in obese Elevated glucose Foot callus Ganglion cyst Excised GERD (gastroesophageal reflux disease) Hammer toes, bilateral HTN (hypertension) Hx of adenomatous colonic polyps Hx of hemorrhoids Internal Lumbago with sciatica, unspecified side Mitral valve prolapse Mixed hyperlipidemia Neuropathy of foot Obesity CISCO (obstructive sleep apnea) Does not wear CPAP Osteoarthritis of left hip Osteoarthritis of right hip Osteoarthritis of right hip Other chronic pain Renal stones Restless leg syndrome Right foot pain Right leg swelling Sinus bradycardia Skin cancer Syncope Unspecified thoracic, thoracolumbar and lumbosacral intervertebral disc disorder Surgical History Surgical History H/O colonoscopy with polypectomy History of back surgery Cage in back History of carpal tunnel surgery of left wrist Bilateral History of left knee replacement History of right hip replacement History of total right knee replacement Hx of tonsillectomy Hx of total hysterectomy Family History Family History Sibling Hypertension Diabetes mellitus Hyperlipidemia COVID-19 Enlarged heart Father Carcinoma of colon, Onset Age: 65 Mother Brain tumor (benign) Social History Social History Social History: The patient lives at home with her and has 2 children. Her is the durable power assistant attorney general for healthcare. The patient desires to be a full code. Patient used to smoke but quit many years ago in 2003. 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 She denies any alcohol marijuana or illicit drug use. Smoking packs per day: 0.5 Smoking cigarettes per day: 10.0 Years smoked: 20 Smoking pack-years: 10.00 Smoking status: Former smoker Tobacco type: cigarettes Second hand tobacco smoke exposure: Yes Smoking end date: 08/11/03 Alcohol intake: current Drinks per week: 2 Alcohol use details: RARE Substance use: never Substance use type: does not use Lack of Transportation: No Lack of Food: Never True Current Housing: I Have Housing Concerned About Future Housing: No Difficulty Paying Gas/Electric Bills: No Difficult
== END 2022-09-09 15:54 | disposition home or self-care (01) ==
LOC: ANHED 03:58 → ANHIMU 04:29
PROVIDERS: Admitting Provider Family Medicine; Emergency Provider Emergency Medicine; PCP Family Medicine; Visit Provider Family Medicine
DX: R07.9 Chest pain, unspecified (principal); R20.0 Anesthesia of skin; E11.9 Type 2 diabetes mellitus without complications; I10 Essential (primary) hypertension; E78.5 Hyperlipidemia, unspecified; J44.9 Chronic obstructive pulmonary disease, unspecified; E66.9 Obesity, unspecified; Z68.39 Body mass index [BMI] 39.0-39.9, adult; Z96.653 Presence of artificial knee joint, bilateral; Z96.641 Presence of right artificial hip joint; Z87.891 Personal history of nicotine dependence
CPT/HCPCS: 36415; 71046; 78452; 80053; 83690; 84484; 85025; 85610; 85730; 93005; 93017; 99285; A9270; A9502; G0378; J2785; J7030

== ENCOUNTER 2022-10-12 07:26 | Outpatient (CLI) | payer MEDICARE, SELFPAY ==
[2022-10-12 07:52] LABS: Creatine Kinase 126 U/L (30-135)
[2022-10-12 10:06] LABS: Vitamin D 25 Hydroxy 45.1 ng/mL
== END 2022-10-12 07:27 | disposition home or self-care (01) ==
PROVIDERS: PCP Family Medicine; Visit Provider Nurse Practitioner Family
DX: M79.10 Myalgia, unspecified site (principal); R74.8 Abnormal levels of other serum enzymes; E55.9 Vitamin D deficiency, unspecified
CPT/HCPCS: 36415; 82306; 82550

== ENCOUNTER 2022-10-28 12:33 | Emergency (ER) | payer MEDICARE, SELFPAY ==
[2022-10-28 12:34] VITALS: BP 141/94; PULSE 103; RESP 18; TEMP 36.6; O2SAT 100
[2022-10-28 12:52] LABS: Basophils Absolute Auto 0.1 K/mm3 (0.0-0.1); Basophils Percent Auto 0.6 % (0.2-1.2); Eosinophils Absolute Auto 0.3 K/mm3 (0-0.3); Eosinophils Percent Auto 3.4 % (0-4.4); Hematocrit 45.6 % (37.0-47.0); Hemoglobin 14.4 g/dL (12.0-15.0); Immature Granulocyte Absolute 0.02 K/mm3 (0.00-0.031); Immature Granulocyte Percent A 0.3 % (0-0.5); Lymphocytes Absolute Auto 2.58 K/mm3 (0.9-3.2); Lymphocytes Percent Auto 32.6 % (18.3-44.2); Mean Corpuscular HGB Conc 31.6 g/dl (32-36); Mean Corpuscular Hemoglobin 25.4 pg (26-34); Mean Corpuscular Volume 80.6 fl (80-100); Mean Platelet Volume 9.4 fl (7.4-10.4); Monocytes Absolute Auto 0.5 K/mm3 (0.1-0.6); Monocytes Percent Auto 5.8 % (2.6-8.5); Neutrophils Absolute Auto 4.5 K/mm3 (1.3-6.7); Neutrophils Percent Auto 57.3 % (45.5-73.1); Platelet Count Result 263 k/mm3 (150-375); Red Blood Count 5.66 M/mm3 (4.2-5.4); Red Cell Distribution Width 18.6 % (11.5-14.5); White Blood Count 7.9 K/mm3 (4.5-10.0)
--- NOTE | 2022-10-28 13:33 | ECG_ITS ---
Measurements Intervals [place] Rate: 91 P: 71 FL: 159 QRS: 40 QRSD: 97 T: 68 QT: 364 QTc: 450 Interpretive Statements SINUS RHYTHM POSSIBLE LEFT ATRIAL ENLARGEMENT INCOMPLETE RIGHT BUNDLE BRANCH BLOCK BORDERLINE ECG COMPARED TO ECG 09/09/2022 03:02:48 NO SIGNIFICANT CHANGES Electronically Signed On 10-28-2022 13:50:47 CDT by Jay Reece D.O.
[2022-10-28 13:34] LABS: Alanine Aminotransferase 27 U/L (6-35); Albumin Level 4.6 g/dL (3.5-5.1); Alkaline Phosphatase 180 U/L (38-126); Anion Gap 7 mmol/L (8-16); Aspartate Amino Transferase 25 U/L (14-36); Bilirubin,Total 0.6 mg/dL (0.2-1.3); Blood Urea Nitrogen 14 mg/dL (7-17); Calcium 8.9 mg/dL (8.4-10.2); Carbon Dioxide 27 mmol/L (22-30); Chloride 106 mmol/L (98-107); Estimated CRCL calculation 100 ml/min; Estimated Glomerular Filt Rate > 60; Glucose 108 mg/dL (65-110); Lipase 58 U/L (23-300); Potassium 4.1 mmol/L (3.4-5.0); Sodium 140 mmol/L (137-145)
[2022-10-28] MEDS: ONDANSETRON INJ 4 MG/2 ML VIAL IV PUSH (13:47)
[2022-10-28 13:55] LABS: Bacteria Urine None Seen /hpf; RBC Urine 0-2 /hpf (0-2); Squamous Epithelial Cell Urine None seen /hpf (Few); WBC Urine 0-5 /hpf
--- NOTE | 2022-10-28 14:25 | ED.NAVMDI ---
HPI - Nausea/Vomiting/Diarrhea General Chief complaint: Nausea/Vomiting/Diarrhea Stated complaint: really dehydrated Time Seen by Provider: 10/28/22 13:29 History of Present Illness HPI Narrative: Patient states that her doctor sent her here for dehydration, she states that since Friday night she has been having body aches, worse in her arms and lower back, she has had symptoms like this in the past, she tried his keep hydrated but is feeling nauseous and having difficulty keeping things down. Also feels like her urine is foul-smelling. Related Data Home Medications Medication Instructions Recorded Confirmed albuterol sulfate 90 mcg/actuation 1 inh inhalation Q4H PRN Shortness 10/17/22 10/17/22 aerosol inhaler (ProAir HFA) Of Breath Allergies Allergy/AdvReac Type Severity Reaction Status Date / Time No Known Allergies Allergy Unknown Verified 10/17/22 14:35 Review of Systems Review of Systems: CONST: No fever. HEENT: No sore throat C/V: No chest pain RESP: No cough GI: Reports nausea, vomiting : No dysuria. M/S: Low back pain, bilateral arm pain SKIN: No rash. NEURO: [No headache or focal numbness or weakness] PSYCH: [No depression] PMFSH Past Medical History Medical History Arthritis Back pain BMI 36.0-36.9,adult BMI 37.0-37.9, adult Cataract COPD (chronic obstructive pulmonary disease) COVID-19 Depression with anxiety Diabetes mellitus type 2 in obese Elevated glucose Foot callus Ganglion cyst Excised GERD (gastroesophageal reflux disease) Hammer toes, bilateral HTN (hypertension) Hx of adenomatous colonic polyps Hx of hemorrhoids Internal Lumbago with sciatica, unspecified side Mitral valve prolapse Mixed hyperlipidemia Neuropathy of foot Obesity CISCO (obstructive sleep apnea) Does not wear CPAP Osteoarthritis of left hip Osteoarthritis of right hip Osteoarthritis of right hip Other chronic pain Renal stones Restless leg syndrome Right foot pain Right leg swelling Sinus bradycardia Skin cancer Syncope Unspecified thoracic, thoracolumbar and lumbosacral intervertebral disc disorder Surgical History Surgical History H/O colonoscopy with polypectomy History of back surgery Cage in back History of carpal tunnel surgery of left wrist Bilateral History of left knee replacement History of right hip replacement History of total right knee replacement Hx of tonsillectomy Hx of total hysterectomy Family History Family History Sibling Hypertension Diabetes mellitus Hyperlipidemia COVID-19 Enlarged heart Father Carcinoma of colon, Onset Age: 65 Mother Brain tumor (benign) Social History Social History Social History: The patient lives at home with her and has 2 children. Her is the durable power poacher wringer operator for healthcare. The patient desires to be a full code. Patient used to smoke but quit many years ago in 2003. 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 She denies any alcohol marijuana or illicit drug use. Smoking packs per day: 1 Smoking cigarettes per day: 20.0 Years smoked: 10 Smoking pack-years: 10.00 Smoking status: Former smoker Tobacco type: cigarettes Second hand tobacco smoke exposure: Yes Smoking end date: 08/11/03 Alcohol intake: current Drinks per week: 2 Alcohol use details: RARE Substance use: never Substance use type: does not use Lack of Transportation: No Lack of Food: Never True Current Housing: I Have Housing Concerned About Future Housing: No Difficulty Paying Gas/Electric Bills: No Difficulty Paying for Meds: No Currently Unemployed: No Education: Grade School Difficulty w/ Childcare or Family Care: No Living arrangements: with family Occup
[2022-10-28] MEDS: LACTATED RINGERS 1,000 ML 999 ML IV CONT (14:27)
[2022-10-28 15:18] LABS: Appearance Urine Slightly Cloudy (Clear); Bilirubin Urine Negative (Negative); Blood Urine Negative (Negative); Color Urine Yellow (Yellow); Glucose Urine UA Negative (Negative); Ketones Urine Negative (Negative); Leukocyte Esterase Ur Negative LEU/UL (Negative); Nitrate Urine Negative (Negative); Protein Urine Negative (Negative)
[2022-10-28 15:20] LABS: Add Urine Microscopic? YES
[2022-10-28 15:48] VITALS: BP 113/81; PULSE 80; RESP 12; O2SAT 98
[2022-10-28 17:48] VITALS: BP 127/67; PULSE 80; RESP 12; O2SAT 98
== END 2022-10-28 17:49 | disposition home or self-care (01) ==
PROVIDERS: Emergency Provider Emergency Medicine; PCP Family Medicine
DX: R11.0 Nausea (principal); M79.10 Myalgia, unspecified site; Z87.891 Personal history of nicotine dependence; M19.90 Unspecified osteoarthritis, unspecified site; F32.A Depression, unspecified; F41.9 Anxiety disorder, unspecified; E11.9 Type 2 diabetes mellitus without complications; K21.9 Gastro-esophageal reflux disease without esophagitis; I10 Essential (primary) hypertension; G47.30 Sleep apnea, unspecified
CPT/HCPCS: 36415; 80053; 81001; 83690; 85025; 93005; 96361; 96374; 96375; 99284; J0131; J2405; J7120

== ENCOUNTER 2022-10-31 00:26 | Day surgery (SDC) | payer MEDICARE, SELFPAY ==
[2022-10-17 14:38] VITALS: BMI 39.3
[2022-10-31 06:38] VITALS: BP 144/83; PULSE 88; RESP 18; TEMP 36.5; O2SAT 98; BMI 39.3
[2022-10-31] MEDS: LACTATED RINGERS 1,000 ML 150 ML IV CONT (06:59)
--- NOTE | 2022-10-31 07:00 | WPDANESEPPF ---
Anes - Initial Pre Proc Eval Procedure: Operation Date: 10/31/22 08:00 Proposed Procedures p Screening Colonoscopy - Fabian Case MD Date/Time: 10/31/22 07:00 Surgeon: Fabian Case MD Pre Op Diagnosis: neoplasm screening Patient Data Age: 67 Gender: F Height: 1.7 m Weight: 114 kg Last Vital Signs Temp 36.5 C 10/31/22 06:38 Pulse 88 10/31/22 06:38 Resp 18 10/31/22 06:38 BP 144/83 H 10/31/22 06:38 Pulse Ox 98 10/31/22 06:38 O2 Del Method Room Air 10/31/22 06:38 Allergies Allergy/AdvReac Type Severity Reaction Status Date / Time No Known Allergies Allergy Unknown Verified 10/31/22 06:48 Home Medications Medication Instructions Recorded Confirmed Type hydrocodone 5 mg-acetaminophen 325 1 tablet PO BID PRN pain #46 tabs 07/26/22 10/31/22 Rx mg tablet cholecalciferol (vitamin D3) 1,250 1,250 mcg PO WEEKLY #8 caps 09/19/22 10/31/22 Rx mcg (50,000 unit) capsule amlodipine 5 mg tablet See Rx Instructions .Route 09/20/22 10/31/22 Rx .COMPLEX #90 tabs atorvastatin 20 mg tablet 20 mg PO DAILY #90 tabs 09/20/22 10/31/22 Rx cyclobenzaprine 10 mg tablet See Rx Instructions PO TID PRN 09/20/22 10/31/22 Rx muscle spasm #60 tabs duloxetine 60 mg capsule,delayed 60 mg PO DAILY #90 caps 09/20/22 10/31/22 Rx release omeprazole 40 mg capsule,delayed 40 mg PO BID #180 caps 09/20/22 10/31/22 Rx release pregabalin 150 mg capsule 150 mg PO BID #180 caps 09/20/22 10/31/22 Rx ropinirole 4 mg tablet 4 mg PO QAM AND QHS #180 tabs 09/20/22 10/31/22 Rx semaglutide 2 mg/dose (8 mg/3 mL) 2 mg (0.75 mL) subcut WEEKLY #9 mL 09/30/22 10/31/22 Rx subcutaneous pen injector (Ozempic) aspirin 81 mg tablet,delayed 81 mg PO DAILY #30 tabs 10/15/22 10/31/22 Rx release albuterol sulfate 90 mcg/actuation 1 inh inhalation Q4H PRN Shortness 10/17/22 10/31/22 History aerosol inhaler (ProAir HFA) Of Breath furosemide 20 mg tablet (Lasix) 20 mg PO QAM AND QHS #60 tabs 10/22/22 10/31/22 Rx acetaminophen 500 mg tablet 1,000 mg PO Q6H PRN pain #50 tabs 10/28/22 10/31/22 Rx (Tylenol Extra Strength) ondansetron 4 mg disintegrating 4 mg PO Q8H PRN nausea and 10/28/22 10/31/22 Rx tablet vomiting #10 tabs Patient hx anesthesia problems: none Family hx anesthesia problems: none Results Review: All pre-operative results and documents have been reviewed as part of the pre-operative evaluation. [facility] Past Medical History Medical History Arthritis Back pain BMI 36.0-36.9,adult BMI 37.0-37.9, adult Cataract COPD (chronic obstructive pulmonary disease) COVID-19 Depression with anxiety Diabetes mellitus type 2 in obese Elevated glucose Foot callus Ganglion cyst Excised GERD (gastroesophageal reflux disease) Hammer toes, bilateral HTN (hypertension) Hx of adenomatous colonic polyps Hx of hemorrhoids Internal Lumbago with sciatica, unspecified side Mitral valve prolapse Mixed hyperlipidemia Neuropathy of foot Obesity CISCO (obstructive sleep apnea) Does not wear CPAP Osteoarthritis of left hip Osteoarthritis of right hip Osteoarthritis of right hip Other chronic pain Renal stones Restless leg syndrome Right foot pain Right leg swelling Sinus bradycardia Skin cancer Syncope Unspecified thoracic, thoracolumbar and lumbosacral intervertebral disc disorder Surgical History Surgical History H/O colonoscopy with polypectomy History of back surgery Cage in back History of carpal tunnel surgery of left wrist Bilateral History of left knee replacement History of right hip replacement History of total right knee replacement Hx of tonsillectomy Hx of total hysterectomy Family History Family History Sibling Hypertension Diabetes mellitus Hyperlipidemia COVID-19 Enlarged heart Father Carcinoma of colon, Onset Age: 65
[2022-10-31 07:04] LABS: Glucose Point of Care 89 mg/dl (65-105)
--- NOTE | 2022-10-31 07:51 | PM.HPGS ---
History of Present Illness History of Present Illness Consent: Risks, benefits, and alternatives have been discussed and questions answered. Patient agrees to proceed with procedure. Chief complaint: neoplasm screening, family hx of colon cancer Narrative: Maria Alejandra Mooney is a 67 year old female Presents for screening colonoscopy. Patient's current weight appetite and bowel movements are normal. Patient denies abdominal pain. She has had no bleeding. Family history is significant that her father had colon cancer. All of her siblings have had colon polyps. She herself had colon polyps several years ago. Most recent colonoscopy 2018 was unremarkable. Review of Systems Review of Systems: Review of systems noncontributory. [facility] Past Medical History Medical History Arthritis Back pain BMI 36.0-36.9,adult BMI 37.0-37.9, adult Cataract COPD (chronic obstructive pulmonary disease) COVID-19 Depression with anxiety Diabetes mellitus type 2 in obese Elevated glucose Foot callus Ganglion cyst Excised GERD (gastroesophageal reflux disease) Hammer toes, bilateral HTN (hypertension) Hx of adenomatous colonic polyps Hx of hemorrhoids Internal Lumbago with sciatica, unspecified side Mitral valve prolapse Mixed hyperlipidemia Neuropathy of foot Obesity CISCO (obstructive sleep apnea) Does not wear CPAP Osteoarthritis of left hip Osteoarthritis of right hip Osteoarthritis of right hip Other chronic pain Renal stones Restless leg syndrome Right foot pain Right leg swelling Sinus bradycardia Skin cancer Syncope Unspecified thoracic, thoracolumbar and lumbosacral intervertebral disc disorder Surgical History Surgical History H/O colonoscopy with polypectomy History of back surgery Cage in back History of carpal tunnel surgery of left wrist Bilateral History of left knee replacement History of right hip replacement History of total right knee replacement Hx of tonsillectomy Hx of total hysterectomy Family History Family History Sibling Hypertension Diabetes mellitus Hyperlipidemia COVID-19 Enlarged heart Father Carcinoma of colon, Onset Age: 65 Mother Brain tumor (benign) Social History Social History Social History: The patient lives at home with her and has 2 children. Her is the durable power pearl stringer for healthcare. The patient desires to be a full code. Patient used to smoke but quit many years ago in 2003. 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 She denies any alcohol marijuana or illicit drug use. Smoking packs per day: 1 Smoking cigarettes per day: 20.0 Years smoked: 10 Smoking pack-years: 10.00 Smoking status: Former smoker Tobacco type: cigarettes Second hand tobacco smoke exposure: Yes Smoking end date: 08/11/03 Alcohol intake: current Drinks per week: 2 Alcohol use details: RARE Substance use: never Substance use type: does not use Lack of Transportation: No Lack of Food: Never True Current Housing: I Have Housing Concerned About Future Housing: No Difficulty Paying Gas/Electric Bills: No Difficulty Paying for Meds: No Currently Unemployed: No Education: Grade School Difficulty w/ Childcare or Family Care: No Living arrangements: with family Occupation/Education: retired Additional occupation/education comments: disabled Gender identity (if verbalized by the patient): Female Spiritual care concerns: No Meds Home Medications and Allergies Home Medications Medication Instructions Recorded Confirmed Type hydrocodone 5 mg-acetaminophen 325 1 tablet PO BID PRN pain #46 tabs 07/26/22 10/31/22 Rx mg tablet cholecalciferol (vitamin D3) 1,250 1,250 mcg PO WEEKLY
[2022-10-31 08:40] VITALS: BP 117/85; PULSE 91; RESP 20; O2SAT 98
[2022-10-31 08:50] VITALS: BP 143/90; PULSE 86; RESP 24; O2SAT 97
[2022-10-31 09:00] VITALS: BP 157/86; PULSE 84; RESP 21; O2SAT 99
== END 2022-10-31 09:10 | disposition home or self-care (01) ==
PROVIDERS: PCP Family Medicine; Visit Provider Internal Medicine Gastroenterology
PROC: 0DJD8ZZ Inspection of Lower Intestinal Tract, Via Natural or Artificial Opening Endoscopic (ICD-10-PCS; CPT 45378; principal; 2022-10-31 08:00)
DX: Z12.11 Encounter for screening for malignant neoplasm of colon (principal); K63.5 Polyp of colon; Z86.010 Personal history of colon polyps; Z83.71 Family history of colonic polyps; Z80.0 Family history of malignant neoplasm of digestive organs; E11.9 Type 2 diabetes mellitus without complications; E78.2 Mixed hyperlipidemia; G47.33 Obstructive sleep apnea (adult) (pediatric); F41.8 Other specified anxiety disorders; J44.9 Chronic obstructive pulmonary disease, unspecified; K21.9 Gastro-esophageal reflux disease without esophagitis; I34.1 Nonrheumatic mitral (valve) prolapse; G25.81 Restless legs syndrome; Z87.891 Personal history of nicotine dependence; Z79.891 Long term (current) use of opiate analgesic; Z79.899 Other long term (current) drug therapy; Z79.82 Long term (current) use of aspirin; Z79.51 Long term (current) use of inhaled steroids; E66.9 Obesity, unspecified; Z68.39 Body mass index [BMI] 39.0-39.9, adult
CPT/HCPCS: 45385; 82948; 88305; J2704; J7120

== ENCOUNTER 2022-12-06 00:47 | Day surgery (SDC) | payer MEDICARE, SELFPAY ==
[2022-12-04 09:12] VITALS: BMI 39.2
--- NOTE | 2022-12-04 09:18 | PC.NURSE ---
Report to the Outpatient Waiting Room, entrance under the green pavilion located off [facility], at time __07 on date __12/06/22 . Planned Procedure Time: ___929 . Time changes happen often and if your time is changed the preop area will call you the afternoon before. - You and your visitor will be asked to self-screen and do not enter if you have any COVID symptoms. - A mask is optional within the hospital at this time. Patients may have clear liquids (water, carbonated beverages, clear teas, apple juice) until 3 hours prior to surgery (0630 AM) with a maximum of 20 ounces. - No food from midnight until time of surgery - Infants may have breast milk until 4 hours before surgery, infant formula 6 hours prior to surgery. - Children will be allowed to drink immediately following surgery. If applicable, please bring a bottle or sippy cup to assist with drinking. Juice, water, soda, and popsicles are readily available. For infants on formula, please bring formula the day of surgery. Pacifiers are allowed. Take the following medications with a SIP of water the morning of surgery: _AMLODIPINE, DULOXETINE, PREGABALIN, PAIN MED & INHALER IF NEEDED_ DO NOT STOP ANY OF YOUR OTHER PRESCRIPTION MEDICATIONS PRIOR TO SURGERY ?EXCEPT THE FOLLOWING Medications to discontinue per physician Date to take last dose Please no make-up, nail bengali, hairspray, perfume, deodorant, or body powder the day of surgery. No jewelry (including any body piercings) or valuables the day of surgery, leave them at home. Please take a shower or bath the night before, or the morning of, surgery with an antibacterial soap. Wear comfortable, loose fitting clothing. Children are encouraged to wear pajamas. - Jewelry must be removed prior to entering the operating room. Rings and piercings that are not removed may be cut off. - The hospital will not accept responsibility for valuables. - Please leave all valuables, including medications, at home the day of surgery. If you are going home after surgery, a licensed m48/m60 tank driver must drive you home. - NO public transportation without another adult if you receive anesthesia. - We recommend that an adult stay with you for 24 hours following discharge. - We also recommend that you do not drive, make important decision, drink alcoholic beverages, or take any drugs that were not prescribed by your health care provider for at least 24 hours after your discharge time. For Pediatric surgeries, we recommend two adults accompany the child home. Follow any additional instructions given to you from your surgeon. If you or anyone in your household have experienced Covid symptoms in the past week, please notify your surgeon or the nurse liaison at the phone number below for possible testing. Telephone instructions given to ____PT and asked if any additional questions and then verbalized understanding. Patient advised to call surgeon office or pre surgery nurse liaison [phone] if any additional questions.
[2022-12-06] VITALS (8 sets, daily range): BP systolic 120–154; BP diastolic 60–85; PULSE 71–81; RESP 12–18; TEMP 36.3–36.5; O2SAT 95–100
--- NOTE | ~2022-12-06 | XR_ITS ---
EXAMINATION: XR surgery orthopedic DATE: 12/06/2022 10:16 INDICATION: Instrumentation removal post malunion of a right third proximal interphalangeal arthrodes is. TECHNIQUE: 3 fluoroscopic images of the right forefoot were obtained during procedure performed by Dr Derik Galaviz. Radiologist was not present for the imaging or procedure. The amount of fluoroscopy time used during this procedure was 0.2 minutes. COMPARISON: None. FINDINGS: Multiple postoperative changes in the right forefoot on the initial inventory auditor image. This includes a firs t metatarsophalangeal arthrodesis with compression screw fixation. Additionally there is been a prior bunionectomy and there are screws at the head of the first metatarsal suggesting a prior realignment osteotomy. There is also an instrumented arthrodesis at the second proximal interphalangeal joint an d screw fixation of a likely shortening osteotomy at the neck of the second metatarsal. There is ezequiel nion of an attempted third proximal interphalangeal joint arthrodesis with fracture of the fixation d evice. On subsequent images the distal aspect of the fixation device has been removed and there is pl acement of a new bidirectional screw placed over a percutaneous wire for revision of the third proxim al interphalangeal joint arthrodesis. There is near-anatomic alignment of the revised third proximal interphalangeal arthrodesis. The proximal portion of the prior fixation device remains within the nec k of the proximal phalanx. No fractures. Subtle flattening of the articular surfaces at the heads of the second and third metatarsals which could represent sequela of chronic osteonecrosis (Freiberg's i nfraction). IMPRESSION: 1. Fluoroscopy utilized during revision of a failed instrumented right third proximal interphalangeal arthrodesis. See procedure note for further detail. Reviewed, dictated and finalized at location A. IMPRESSION: 1. Fluoroscopy utilized during revision of a failed instrumented right third pr oximal interphalangeal arthrodesis. See procedure note for further detail.
--- NOTE | 2022-12-06 07:10 | WPDHPUPDATE1 ---
History and Physical Update Update Date/Time: 12/06/22 07:10 History and Physical has been reviewed, including an updated exam of the patient. There are NO changes in the patient's condition. Risks, benefits, and alternatives have been discussed and questions answered. Patient agrees to proceed with procedure.
[2022-12-06] MEDS: LACTATED RINGERS 1,000 ML 30 ML IV CONT ×2 (08:00→10:55)
[2022-12-06] MEDS: fentaNYL CITRATE INJ (*CRX) 100 MCG/2 ML VIAL 50 MCG IV PUSH (08:30)
[2022-12-06 08:34] LABS: Glucose Point of Care 87 mg/dl (65-105)
--- NOTE | 2022-12-06 09:01 | WPDANESEPPF ---
Anes - Initial Pre Proc Eval Procedure: Operation Date: 12/06/22 09:30 Proposed Procedures p Open Reduction with Internal Fixation of Malunion Right Foot Third Digit - Toney Galaviz JR, MD s Removal of Hardware Right Foot Third Digit - Toney Galaviz JR, MD Date/Time: 12/06/22 09:01 Surgeon: Toney Galaviz JR, MD Pre Op Diagnosis: malunion right third digit Patient Data Age: 67 Gender: F Height: 1.7 m Weight: 113.1 kg Last Vital Signs Temp 36.5 C 12/06/22 08:30 Pulse 81 12/06/22 08:30 Resp 16 12/06/22 08:30 BP 133/85 12/06/22 08:30 Pulse Ox 96 12/06/22 08:30 O2 Del Method Room Air 12/06/22 08:30 Allergies Allergy/AdvReac Type Severity Reaction Status Date / Time No Known Allergies Allergy Unknown Verified 12/06/22 08:51 Home Medications Medication Instructions Recorded Confirmed Type cholecalciferol (vitamin D3) 1,250 1,250 mcg PO WEEKLY #8 caps 09/19/22 12/06/22 Rx mcg (50,000 unit) capsule amlodipine 5 mg tablet See Rx Instructions .Route 09/20/22 12/06/22 Rx .COMPLEX #90 tabs atorvastatin 20 mg tablet 20 mg PO DAILY #90 tabs 09/20/22 12/06/22 Rx cyclobenzaprine 10 mg tablet See Rx Instructions PO TID PRN 09/20/22 12/06/22 Rx muscle spasm #60 tabs duloxetine 60 mg capsule,delayed 60 mg PO DAILY #90 caps 09/20/22 12/06/22 Rx release omeprazole 40 mg capsule,delayed 40 mg PO BID #180 caps 09/20/22 12/06/22 Rx release pregabalin 150 mg capsule 150 mg PO BID #180 caps 09/20/22 12/06/22 Rx ropinirole 4 mg tablet 4 mg PO QAM AND QHS #180 tabs 09/20/22 12/06/22 Rx albuterol sulfate 90 mcg/actuation 1 inh inhalation Q4H PRN Shortness 10/17/22 12/06/22 History aerosol inhaler (ProAir HFA) Of Breath acetaminophen 500 mg tablet 1,000 mg PO Q6H PRN pain #50 tabs 10/28/22 12/06/22 Rx (Tylenol Extra Strength) ondansetron 4 mg disintegrating 4 mg PO Q8H PRN nausea and 10/28/22 12/06/22 Rx tablet vomiting #10 tabs furosemide 20 mg tablet (Lasix) 20 mg PO QAM AND QHS #180 tabs 11/08/22 12/06/22 Rx vibegron 75 mg tablet (Gemtesa) 75 mg PO DAILY #30 tabs 11/11/22 12/06/22 Rx semaglutide 2 mg/dose (8 mg/3 mL) 2 mg (0.75 mL) subcut WEEKLY #9 mL 11/25/22 12/06/22 Rx subcutaneous pen injector (Ozempic) hydrocodone 5 mg-acetaminophen 325 1 tablet PO BID PRN pain #46 tabs 12/02/22 12/06/22 Rx mg tablet Laboratory Tests 12/06/22 08:28 POC Capillary Glucose 87 mg/dl (65-105) Patient hx anesthesia problems: none Family hx anesthesia problems: none Results Review: All pre-operative results and documents have been reviewed as part of the pre-operative evaluation. [facility] Past Medical History Medical History Arthritis Back pain BMI 36.0-36.9,adult BMI 37.0-37.9, adult BMI greater than 40 Cataract COPD (chronic obstructive pulmonary disease) COVID-19 Depression with anxiety Diabetes mellitus type 2 in obese Elevated glucose Foot callus Ganglion cyst Excised GERD (gastroesophageal reflux disease) Hammer toes, bilateral HTN (hypertension) Hx of adenomatous colonic polyps Hx of hemorrhoids Internal Lumbago with sciatica, unspecified side Mitral valve prolapse Mixed hyperlipidemia Neuropathy of foot Obesity CISCO (obstructive sleep apnea) Does not wear CPAP Osteoarthritis of left hip Osteoarthritis of right hip Osteoarthritis of right hip Other chronic pain Renal stones Restless leg syndrome Right foot pain Right leg swelling Sinus bradycardia Skin cancer Syncope Unspecified thoracic, thoracolumbar and lumbosacral intervertebral disc disorder Surgical History Surgical History H/O colonoscopy with polypectomy History of back surgery Cage in back History of carpal tunnel surgery of left wrist Bilateral History of left knee replacement History of right hip replacement History of total right knee replacement Hx of to
[2022-12-06] MEDS: ceFAZolin 2 GM/D5W 50 ML 2 GM/50 ML BAG IVPB (09:18)
[2022-12-06] MEDS: LIDOCAINE HCL 2% PF INJ 5 ML VIAL 30 ML INFILTRATE (09:45)
[2022-12-06 10:38] LABS: Glucose Point of Care 74 mg/dl (65-105)
--- NOTE | 2022-12-06 11:02 | W.PM.PROC2 ---
Procedure Note - Detailed Date of Procedure 12/06/22 Pre-op Diagnosis 1. Malunion right third digit 2. Painful deep orthopedic hardware right third digit Post-op Diagnosis Same Procedure Performed 1. Open reduction with internal fixation of malunion right third digit 2. Removal of deep orthopedic hardware right third digit Surgeon Toney Galaviz JR, DPM Anesthesia MAC and Local Indications Malunion of the right third digit with an ulceration to the lateral aspect of the third digit near the proximal interphalangeal joint. Findings Significant hypertrophic bone at the proximal interphaangeal joint with pseudoarthrosis Description of Procedure Under mild sedation, the patient was brought in to the operating room, placed on the operating table in the supine position. A pneumatic ankle tourniquet was placed about the patient's ankle. Following monitored anesthesia care, local anesthesia was obtained about the right foot utilizing 20 mL of a 1:1 mixture of 2% Lidocaine plain and 0.5% Marcaine plain . The foot was then scrubbed, prepped, and draped in the usual aseptic manner. An Esmarch bandage was then used to exsanguinate the patient's foot and the pneumatic ankle tourniquet was then inflated. Attention was directed to the second digit of the right foot where a 3cm incision was made from the distal interphalangeal joint extending to the 2nd digit base of the proximal phalanx. A transverse tenotomy was created dorsal to the proximal interphalangeal joint, next the head of the proximal phalanx was resected with an oscillating saw blade, I visualized the distal fractured hammertoe component, of the [employer] Smart Toe implant, within the canal of the middle phalanx. The fractured implant was placed on the back table and placed in a specimen cup. Next, I utilized a guide wire for the [employer]alinx Hammertoe implant, I drove it into the canal of the proximal phalanx medial to the fractured hammertoe implant, I preserved some of the hypertrophic bone in order to have enough bone to drive the new cannulated implant. Next, the [employer] hammertoe planer was used to denude and contour the hypertrophic joint debriding the pseudoarthrosis. After I prepared the joint for the hammertoe implant, I screwed the size small [employer]x hammertoe implant into the middle phalanx and press fit into the proximal phalanx just medial to the fractured hammertoe implant that was not visualized, it was deep within the canal of the proximal phalanx. I drove a k wires out the distal tip of the 3rd digit and then retrograded the k wire though the 3 phalanges into the base o fthe proximal phalanx. Excellent correction of the malunion was noted, the 3rd digit was now in a rectus position. deformity was noted. I cut the end of the K wire and bent it proximally over the tip of the digit. I reapproximated the extensor tendon and the subcutaneous structures with 4.0 Vicryl and the skin with 4-0 Prolene in simple interrupted suture fashion technique. Upon completion of the procedure, the incisions were dressed with Adaptic, 4x4s, Kerlix, and Coban. The pneumatic ankle tourniquet was then deflated and a prompt hyperemic response was noted to all digits of the right foot. A CAM walker boot was then applied. The patient did very well with the procedure and the anesthesia. The patient was transferred to the recovery room with vital signs stable and vascular status intact to all toes of the right foot. Following a period of postoperative monitoring, the patient will be discharged home on the following written and oral postoperative instructions: 1. The patient should keep the dressing clean, dry, and intact. Use a cast protector bag with showers. 2. The patient will be protected with CAM walker boot . 3. Patient should ice and elevate the affected foot when at rest. 4. The patient is to contact Dr. Galaviz for all postop care and if any problems arise. 5.
[2022-12-06] MEDS: oxyCODONE HCL (*CRX) 5 MG TAB IR PO (11:46)
== END 2022-12-06 12:30 | disposition home or self-care (01) ==
PROVIDERS: PCP Family Medicine; Visit Provider Podiatrist Foot & Ankle Surgery
PROC: (CPT 28485; principal; 2022-12-06 09:30)
PROC: (CPT 28525; 2022-12-06 09:30)
DX: S92.511P Displaced fracture of proximal phalanx of right lesser toe(s), subsequent encounter for fracture with malunion (principal); J44.9 Chronic obstructive pulmonary disease, unspecified; E11.42 Type 2 diabetes mellitus with diabetic polyneuropathy; F41.8 Other specified anxiety disorders; K21.9 Gastro-esophageal reflux disease without esophagitis; E78.2 Mixed hyperlipidemia; I34.1 Nonrheumatic mitral (valve) prolapse; G47.33 Obstructive sleep apnea (adult) (pediatric); G25.81 Restless legs syndrome; Z79.51 Long term (current) use of inhaled steroids; Z79.899 Other long term (current) drug therapy; Z87.891 Personal history of nicotine dependence; E66.01 Morbid (severe) obesity due to excess calories; Z68.39 Body mass index [BMI] 39.0-39.9, adult; X58.XXXD Exposure to other specified factors, subsequent encounter
CPT/HCPCS: 28525; 82948; 99199; A9270; C1713; J0690; J2250; J2405; J2704; J3010; J7120

== ENCOUNTER 2023-01-19 14:25 | Outpatient (CLI) | payer MEDICARE, SELFPAY ==
--- NOTE | ~2023-01-19 | XR_ITS ---
XR abdomen/kub 1V DATE: 01/19/2023 14:42 INDICATION: History of kidney stones TECHNIQUE: 2 supine AP views COMPARISON: None FINDINGS: Status post lower lumbar laminectomy and posterior and interbody lumbosacral surgical spina l fusion. No evidence of bowel obstruction. The psoas shadows are intact. No visceromegaly is evident. No obvious urinary tract calcifications are noted. Noncontrast CT abdomen pelvis would be more sensit chantal and accurate for detection of urinary tract calculi. IMPRESSION: Postoperative changes of the lumbosacral spine Reviewed, dictated and finalized at Location A. Reviewed, dictated and finalized at location A.
== END 2023-01-19 14:26 | disposition home or self-care (01) ==
PROVIDERS: PCP Family Medicine; Visit Provider Nurse Practitioner Adult Health
DX: Z87.442 Personal history of urinary calculi (principal)
CPT/HCPCS: 74018

== ENCOUNTER → 2023-04-07 09:59 | Outpatient (CLI) | payer MEDICARE, SELFPAY ==
--- NOTE | ~2023-04-07 | US_ITS ---
EXAMINATION: US soft tissue LE RT DATE: 04/07/2023 10:34 INDICATION: Localized swelling, mass and lump, right lower extremity. TECHNIQUE: Multiple grayscale and Doppler ultrasound images of the right lower limb were obtained. COMPARISON: None FINDINGS: There is no abnormal mass in the right lower limb in the patient's area of concern. IMPRESSION: 1. No abnormal mass in the right lower limb in the patient's area of concern. Reviewed, dictated and finalized at location E.
== END ==
PROVIDERS: PCP Family Medicine; Visit Provider Physician Assistant Medical
DX: R22.41 Localized swelling, mass and lump, right lower limb (principal)
CPT/HCPCS: 76882

== ENCOUNTER 2023-04-28 08:20 | Outpatient (CLI) | payer MEDICARE, SELFPAY ==
[2023-04-28 08:38] LABS: Hematocrit 43.3 % (37.0-47.0); Hemoglobin 14.2 g/dL (12.0-15.0); Mean Corpuscular HGB Conc 32.8 g/dl (32-36); Mean Corpuscular Hemoglobin 28.6 pg (26-34); Mean Corpuscular Volume 87.3 fl (80-100); Mean Platelet Volume 9.8 fl (7.4-10.4); Platelet Count Result 189 k/mm3 (150-375); Red Blood Count 4.96 M/mm3 (4.2-5.4); Red Cell Distribution Width 13.8 % (11.5-14.5); White Blood Count 6.5 K/mm3 (4.5-10.0)
[2023-04-28 08:50] LABS: Alanine Aminotransferase 31 U/L (6-35); Albumin Level 4.1 g/dL (3.5-5.1); Alkaline Phosphatase 137 U/L (38-126); Amylase 47 U/L (30-110); Anion Gap 4 mmol/L (8-16); Aspartate Amino Transferase 27 U/L (14-36); Bilirubin,Total 0.7 mg/dL (0.2-1.3); Blood Urea Nitrogen 13 mg/dL (7-17); Calcium 8.6 mg/dL (8.4-10.2); Carbon Dioxide 27 mmol/L (22-30); Chloride 106 mmol/L (98-107); Cholesterol 166 mg/dL (0-200); Estimated Glomerular Filt Rate > 60; Glucose 97 mg/dL (65-110); HDL Direct 63 mg/dL; Lipase 59 U/L (23-300); Potassium 3.5 mmol/L (3.4-5.0); Sodium 137 mmol/L (137-145); Triglycerides 144 mg/dL (<150)
[2023-04-28 08:53] LABS: Hemoglobin A1C 5.3 % (<5.7)
[2023-04-28 09:02] LABS: LDL Cholesterol Direct 73 mg/dL
== END 2023-04-28 08:21 | disposition home or self-care (01) ==
PROVIDERS: PCP Family Medicine; Visit Provider Nurse Practitioner Family
DX: R41.89 Other symptoms and signs involving cognitive functions and awareness (principal); E11.69 Type 2 diabetes mellitus with other specified complication; R41.3 Other amnesia; E66.9 Obesity, unspecified; Z13.29 Encounter for screening for other suspected endocrine disorder
CPT/HCPCS: 36415; 80053; 80061; 82150; 83036; 83690; 84443; 85027

== ENCOUNTER → 2023-05-10 09:38 | Outpatient (CLI) | payer MEDICARE, SELFPAY ==
--- NOTE | ~2023-05-10 | MR_ITS ---
EXAMINATION: MR brain/brain stem wo con DATE: 05/10/2023 10:30 INDICATION: signs involving cognitive function. pt states she falls asleep. Occipital pain. TECHNIQUE: Magnetic resonance imaging (MRI) of the brain and brainstem was performed without intraven ous contrast. Sequences included sagittal and axial T1-weighted SE, axial diffusion-weighted FS EPI A SSET, axial T2*-weighted GRE, axial T2-weighted FLAIR Propeller, and axial T2-weighted Propeller. COMPARISON: CT brain 07/01/2020. FINDINGS: No abnormal restricted diffusion to suggest acute ischemic infarct. No MRI evidence of hemorrhage or extra-axial collection. No suspicious foci of susceptibility to suggest prior intraparenchymal hemorr doreen. Normal white matter signal. No evidence of advanced or lobar predominant parenchymal volume los s. The basilar cisterns are patent. Flow voids are preserved. Paranasal sinuses are within normal mccormick its. Bilateral lens replacements. Globes and orbital contents are otherwise within normal limits. IMPRESSION: Normal brain MRI findings. Reviewed, dictated and finalized at location K. IMPRESSION: Normal brain MRI findings.
== END ==
PROVIDERS: PCP Nurse Practitioner Family; Visit Provider Nurse Practitioner Family
DX: M54.81 Occipital neuralgia (principal); R41.89 Other symptoms and signs involving cognitive functions and awareness
CPT/HCPCS: 70551

== ENCOUNTER 2023-05-16 09:06 | Emergency (ER) | payer MEDICARE, SELFPAY ==
--- NOTE | ~2023-05-16 | XR_ITS ---
EXAMINATION: XR foot RT min 3V DATE: 05/16/2023 09:50 INDICATION: Bunion ruptured open at the base of the right great toe. TECHNIQUE: Dorsoplantar, two oblique and lateral views of the right foot were obtained. COMPARISON: None. FINDINGS: Chronic postoperative changes in the right foot. This includes a bunionectomy with osteotomy along th e medial head of the first metatarsal. First metatarsophalangeal arthrodesis which is fused with mild hallux valgus. This is internally fixed with a couple compression screws, the head of one of which i s absent and likely prior dorsal plate and screw fixation with 3 residual headless screw fragments. H ealed shortening osteotomy at the neck of the second metatarsal fixed with a pair of screws. Solidly fused second proximal interphalangeal joint arthrodesis with fixation device. Attempted revised arthr odesis at the third proximal interphalangeal joint which appears to remain ununited with mild medial subluxation and plantar angulation. There is residual fragment of a prior fixation device at the sukhjinder ining distal aspect of the third proximal phalanx from a likely prior failed arthrodesis. Osteotomy a t the head of the fifth proximal phalanx. Old healed fracture at the neck of the fifth metatarsal. No acute fractures identified. No cortical e rosions/osteolysis or aggressive periosteal reaction to suggest osteomyelitis. Fourth hammertoe defor mity. Polyarticular osteoarthritis, moderate severity at the first interphalangeal joint and at the f irst tarsal metatarsal joint. Mild osteoarthritis at many of the remaining joints in the mid and fore foot. Soft tissue swelling about the base of the great toe and medial aspect of the first metatarsoph alangeal joint. IMPRESSION: 1. Chronic postoperative changes and mild to moderate polyarticular osteoarthritis as detailed above. No fracture or other acute osseous abnormality. Reviewed, dictated and finalized at location A. IMPRESSION: 1. Chronic postoperative changes and mild to moderate polyarticular osteoarthri tis as detailed above. No fracture or other acute osseous abnormality.
[2023-05-16 09:18] VITALS: BP 155/88; PULSE 87; RESP 19; TEMP 36.7; O2SAT 97
--- NOTE | 2023-05-16 09:34 | ED.WOUNDLAC ---
HPI - Wound/Laceration General Chief Complaint: Wound/Laceration Stated Complaint: foot laceration Time Seen by Provider: 05/16/23 09:26 History of Present Illness HPI narrative: 67-year-old female with history of diabetes reports for evaluation for a laceration overlying the bunion to her right foot x2 days. Pt states 2 days ago she took her socks off and noticed her bunion had split. She denies any trauma, injury or puncture to the area. She follows with Dr. Galaviz, podiatry. States she called Dr. Galaviz office who advised her to come to the ED for ABX given he is out of office today. Pt states she has noticed some red drainage on the bandages and is unsure if it has been purulent. She denies fever, vomiting, surrounding redness or inflammation. States Dr. Galaviz typically shaves down her bunion for maintenance. Last tetanus unknown. Related Data Home Medications Medication Instructions Recorded Confirmed albuterol sulfate 90 mcg/actuation 1 inh inhalation Q4H PRN Shortness 10/17/22 04/09/23 aerosol inhaler (ProAir HFA) Of Breath Allergies Allergy/AdvReac Type Severity Reaction Status Date / Time No Known Allergies Allergy Unknown Verified 05/16/23 09:24 Review of Systems Review of Systems: CONSTITUTIONAL: Denies fever, chills EYES: Denies visual changes, redness, or discharge. ENT: Denies rhinorrhea, congestion, sore throat, or otalgia. CARDIOVASCULAR: Denies chest pain, palpitations, or edema. RESPIRATORY: Denies cough or dyspnea. GASTROINTESTINAL: Denies abdominal pain, nausea, vomiting, or diarrhea. GENITOURINARY: Denies dysuria or hematuria. SKIN: See HPI MUSCULOSKELETAL: Denies back pain, joint pain, or myalgia. NEUROLOGIC: Denies headache, numbness, dizziness, or weakness. PSYCHIATRIC: Denies anxiety or depression. [facility] Past Medical History Medical History Arthritis Back pain BMI 36.0-36.9,adult BMI 37.0-37.9, adult Cataract COPD (chronic obstructive pulmonary disease) COVID-19 Depression with anxiety Diabetes mellitus type 2 in obese Elevated glucose Foot callus Ganglion cyst Excised GERD (gastroesophageal reflux disease) Hammer toes, bilateral HTN (hypertension) Hx of adenomatous colonic polyps Hx of hemorrhoids Internal Lumbago with sciatica, unspecified side Mitral valve prolapse Mixed hyperlipidemia Neuropathy of foot Obesity CISCO (obstructive sleep apnea) Does not wear CPAP Osteoarthritis of left hip Osteoarthritis of right hip Osteoarthritis of right hip Other chronic pain Renal stones Restless leg syndrome Right foot pain Right leg swelling Sinus bradycardia Skin cancer Syncope Unspecified thoracic, thoracolumbar and lumbosacral intervertebral disc disorder Surgical History Surgical History H/O colonoscopy with polypectomy H/O foot surgery History of back surgery Cage in back History of carpal tunnel surgery of left wrist Bilateral History of left knee replacement History of right hip replacement History of total right knee replacement Hx of tonsillectomy Hx of total hysterectomy Family History Family History Sibling Hypertension Diabetes mellitus Hyperlipidemia COVID-19 Enlarged heart Father Carcinoma of colon, Onset Age: 65 Mother Brain tumor (benign) Social History Social History Social History: The patient lives at home with her and has 2 children. Her is the durable power estate planning attorney for healthcare. The patient desires to be a full code. Patient used to smoke but quit many years ago in 2003. 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 She denies any alcohol marijuana or illicit drug use. Smoking packs per day: 1 Smoking cigarettes per day: 20.0 Years smo
[2023-05-16] MEDS: TETANUS,DIPHTHERIA,AC PERTUSSIS ADULT (0.5 ML) BOOSTRIX IM (10:08)
[2023-05-16 10:31] VITALS: BP 128/69; PULSE 72; RESP 18; O2SAT 98
[2023-05-16] MEDS: CEPHALEXIN 500 MG CAPSULE PO (10:38)
== END 2023-05-16 10:59 | disposition home or self-care (01) ==
PROVIDERS: Emergency Provider Physician Assistant; PCP Nurse Practitioner Family
DX: M21.611 Bunion of right foot (principal); Z23 Encounter for immunization; J44.9 Chronic obstructive pulmonary disease, unspecified; E11.40 Type 2 diabetes mellitus with diabetic neuropathy, unspecified; I34.1 Nonrheumatic mitral (valve) prolapse; E78.2 Mixed hyperlipidemia; G47.33 Obstructive sleep apnea (adult) (pediatric); G25.81 Restless legs syndrome; M19.90 Unspecified osteoarthritis, unspecified site; M16.0 Bilateral primary osteoarthritis of hip; E66.9 Obesity, unspecified; Z68.39 Body mass index [BMI] 39.0-39.9, adult; Z96.653 Presence of artificial knee joint, bilateral; Z96.641 Presence of right artificial hip joint; Z86.16 Personal history of COVID-19; Z87.442 Personal history of urinary calculi; Z85.828 Personal history of other malignant neoplasm of skin; Z86.010 Personal history of colon polyps; Z87.891 Personal history of nicotine dependence; Z90.710 Acquired absence of both cervix and uterus; Z79.85 Long-term (current) use of injectable non-insulin antidiabetic drugs
CPT/HCPCS: 73630; 90471; 90715; 99283; A9270

== ENCOUNTER 2023-06-09 08:15 | Outpatient (CLI) | payer MEDICARE, SELFPAY ==
--- NOTE | ~2023-06-09 | US_ITS ---
EXAMINATION: US carotid duplex BI DATE: 06/09/2023 09:15 INDICATION: Dizziness and giddiness TECHNIQUE: Grayscale, color Doppler, and pulsed Doppler images of the cervical carotid arteries were obtained. The degree of vessel stenosis is placed in one of the following categories: normal, <50%, 5 0-69%, >=70% but less than near-occlusion, near-occlusion, or total occlusion. Note that percent sten osis relative to normal distal artery lumen diameter is indirectly measured from velocity measurement s as described by Mahad, et al. Radiology 2003; 229:[id number]. COMPARISON: 02/06/2019 FINDINGS: RIGHT: The right common carotid artery (CCA) peak systolic velocity (PSV) is 87 cm/s. The right internal car otid artery (ICA) PSV is 63 cm/s. The right ICA end-diastolic velocity (EDV) is 23 cm/s. The right IC A/CCA PSV ratio is 0.7. Grayscale and color Doppler images yield an estimate of <50% diameter reducti on from plaque in the ICA. The external carotid artery (ECA) PSV is 100 cm/s. There is antegrade flow in the right vertebral artery. LEFT: The left CCA PSV is 98 cm/s. The left ICA PSV is 73 cm/s. The left ICA EDV is 22 cm/s. The left ICA/C CA PSV ratio is 0.7. Grayscale and color Doppler images yield an estimate of <50% diameter reduction from plaque in the ICA. The ECA PSV is 111 cm/s. There is antegrade flow in the left vertebral artery . IMPRESSION: 1. <50% stenosis in the right internal carotid artery. 2. <50% stenosis in the left internal carotid artery. Reviewed, dictated and finalized at location A.
== END 2023-06-09 08:16 | disposition home or self-care (01) ==
PROVIDERS: PCP Nurse Practitioner Family; Visit Provider Nurse Practitioner Family
DX: R47.81 Slurred speech (principal); R42 Dizziness and giddiness; I65.23 Occlusion and stenosis of bilateral carotid arteries
CPT/HCPCS: 93880

== ENCOUNTER 2023-06-23 22:03 | Observation (INO) | payer MEDICARE, SELFPAY ==
--- NOTE | ~2023-06-23 | CT_ITS ---
EXAMINATION: CT brain wo con DATE: 06/25/2023 16:19 INDICATION: Headache. TECHNIQUE: Computed tomography (CT) of the head was performed without intravenous contrast. The mA wa s adjusted according to patient size. Iterative reconstruction technique was employed. The dose-lengt h product was 605.33 mGy-cm. COMPARISON: Head CT 07/01/2020 FINDINGS: There is no intracranial hemorrhage, acute infarction, or abnormal intracranial mass lesion . The ventricles are normal in size. There is mild mucosal thickening in the paranasal sinuses. There are likely changes of ocular lens replacement surgeries. The mastoid air cells are normal. IMPRESSION: 1. Normal brain. Reviewed, dictated and finalized at location A. 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 Normal brain.
--- NOTE | ~2023-06-23 | CT_ITS ---
CT of the Abdomen and Pelvis: Indication: Abdominal pain Technique: 2.5 mm axial scans were obtained through the abdomen and pelvis following intravenous adm inistration of 100 cc of Omnipaque 350. Dose reduction technique was used on this scan by utilizing a utomated exposure control and iterative reconstruction technique. The dose-length product (DLP) was 1 516.94 mGy-cm. COMPARISON: 07/06/2020 Findings: Scans through the lung bases demonstrated small hiatal hernia. The liver, spleen, pancreas, gallbladder, adrenals and kidneys are within normal limits. No evidence of aortic aneurysm. No lymphadenopathy. No bowel obstruction or bowel wall thickening. There is no evidence to suggest acute appendicitis. Images through the pelvis are mildly degraded by streak artifact from right hip arthroplasty. Urinary bladder unremarkable. No adnexal mass seen. No ascites. Postoperative changes of the lower lumbar sp ine are present. Impression: No significant abnormalities seen. Reviewed, dictated and finalized at [facility]. ITE POLISHER Impression: No significant abnormalities seen.
[2023-06-23 22:08] VITALS: BP 148/80; PULSE 84; RESP 16; TEMP 36.3; O2SAT 98
[2023-06-23 22:21] LABS: Basophils Percent Auto 0.5 % (0.2-1.2); Eosinophils Absolute Auto 0.2 K/mm3 (0-0.3); Eosinophils Percent Auto 2.2 % (0-4.4); Hematocrit 43.7 % (37.0-47.0); Hemoglobin 14.2 g/dL (12.0-15.0); Immature Granulocyte Absolute 0.01 K/mm3 (0.00-0.031); Immature Granulocyte Percent A 0.1 % (0-0.5); Lymphocytes Absolute Auto 2.29 K/mm3 (0.9-3.2); Lymphocytes Percent Auto 27.7 % (18.3-44.2); Mean Corpuscular HGB Conc 32.5 g/dl (32-36); Mean Corpuscular Hemoglobin 28.7 pg (26-34); Mean Corpuscular Volume 88.3 fl (80-100); Mean Platelet Volume 10.1 fl (7.4-10.4); Monocytes Absolute Auto 0.5 K/mm3 (0.1-0.6); Monocytes Percent Auto 5.9 % (2.6-8.5); Neutrophils Absolute Auto 5.3 K/mm3 (1.3-6.7); Neutrophils Percent Auto 63.6 % (45.5-73.1); Platelet Count Result 227 k/mm3 (150-375); Red Blood Count 4.95 M/mm3 (4.2-5.4); Red Cell Distribution Width 13.6 % (11.5-14.5); White Blood Count 8.3 K/mm3 (4.5-10.0)
[2023-06-23 22:33] LABS: Alanine Aminotransferase 40 U/L (6-35); Albumin Level 4.4 g/dL (3.5-5.1); Alkaline Phosphatase 155 U/L (38-126); Anion Gap 11 mmol/L (8-16); Aspartate Amino Transferase 27 U/L (14-36); Bilirubin,Total 0.4 mg/dL (0.2-1.3); Blood Urea Nitrogen 16 mg/dL (7-17); Calcium 9.4 mg/dL (8.4-10.2); Carbon Dioxide 23 mmol/L (22-30); Chloride 106 mmol/L (98-107); Estimated CRCL calculation 102 ml/min; Estimated Glomerular Filt Rate > 60; Glucose 122 mg/dL (65-110); Lipase 42 U/L (23-300); Potassium 3.7 mmol/L (3.4-5.0); Sodium 140 mmol/L (137-145)
[2023-06-24] VITALS (15 sets, daily range): BP systolic 131–176; BP diastolic 63–90; PULSE 73–99; RESP 12–20; TEMP 36.3–37.3; O2SAT 93–100
[2023-06-24] MEDS: SODIUM CHLORIDE 0.9% IV 1,000 ML 999 ML IV CONT (01:25)
[2023-06-24] MEDS: ONDANSETRON INJ 4 MG/2 ML VIAL IV PUSH ×3 (01:26→12:31)
[2023-06-24] MEDS: FAMOTIDINE 20 MG/2 ML VIAL IV PUSH (01:27)
[2023-06-24] MEDS: MORPHINE SULFATE (*CRX) 2 MG/ML INJ IV PUSH (01:28)
[2023-06-24] MEDS: KETOROLAC 15 MG/ML VIAL (*BKC) 30 MG IV PUSH (01:31)
[2023-06-24 01:39] LABS: Influenza A QL RT-PCR Negative (Negative); Influenza B QL RT-PCR Negative (Negative); RSV RNA, RT-PCR Negative (Negative); SARS-CoV-2 RNA PCR Negative (Negative)
[2023-06-24] MEDS: MORPHINE SULFATE (*CRX) 4 MG/ML INJ IV PUSH (02:23)
--- NOTE | 2023-06-24 02:48 | ED.NAVMDI ---
HPI - Nausea/Vomiting/Diarrhea General Chief complaint: Nausea/Vomiting/Diarrhea Stated complaint: N/V, belly cramps Time Seen by Provider: 06/24/23 00:36 History of Present Illness HPI Narrative: Patient presents to the emergency department from home with her . She appears ill. Describes generalized abdominal discomfort headache nausea and vomiting. Symptoms have gradually become more severe today. Denies fevers and chills. Patient has been sick for the past 2 to 3 days. She is unable to eat food at home. Related Data Home Medications Medication Instructions Recorded Confirmed albuterol sulfate 90 mcg/actuation 1 inh inhalation Q4H PRN Shortness 10/17/22 05/23/23 aerosol inhaler (ProAir HFA) Of Breath Allergies Allergy/AdvReac Type Severity Reaction Status Date / Time COVID-19 (SARS-CoV-2) AdvReac Intermediate Swelling Verified 06/23/23 22:08 vaccine, linh influenza virus vacc AdvReac Intermediate Swelling Verified 06/23/23 22:08 trivalent, who Review of Systems Review of Systems: Review of systems negative except for as documented in the HPI [facility] Past Medical History Medical History Arthritis Back pain BMI 36.0-36.9,adult BMI 37.0-37.9, adult Body mass index (BMI) of 40.1 to 44.9 in adult Cataract COPD (chronic obstructive pulmonary disease) COVID-19 Depression with anxiety Diabetes mellitus type 2 in obese Elevated glucose Foot callus Ganglion cyst Excised GERD (gastroesophageal reflux disease) Hammer toes, bilateral HTN (hypertension) Hx of adenomatous colonic polyps Hx of hemorrhoids Internal Lumbago with sciatica, unspecified side Mitral valve prolapse Mixed hyperlipidemia Neuropathy of foot Obesity CISCO (obstructive sleep apnea) Does not wear CPAP Osteoarthritis of left hip Osteoarthritis of right hip Osteoarthritis of right hip Other chronic pain Renal stones Restless leg syndrome Right foot pain Right leg swelling Sinus bradycardia Skin cancer Syncope Unspecified thoracic, thoracolumbar and lumbosacral intervertebral disc disorder Surgical History Surgical History H/O colonoscopy with polypectomy H/O foot surgery History of back surgery Cage in back History of carpal tunnel surgery of left wrist Bilateral History of left knee replacement History of right hip replacement History of total right knee replacement Hx of tonsillectomy Hx of total hysterectomy Family History Family History Sibling Hypertension Diabetes mellitus Hyperlipidemia COVID-19 Enlarged heart Father Carcinoma of colon, Onset Age: 65 Mother Brain tumor (benign) Social History Social History Social History: The patient lives at home with her and has 2 children. 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 The patient desires to be a full code. Patient used to smoke but quit many years ago in 2003. She is to work for [employer] their full does. She denies any alcohol marijuana or illicit drug use. Smoking packs per day: 1 Smoking cigarettes per day: 20.0 Years smoked: 10 Smoking pack-years: 10.00 Smoking status: Former smoker Tobacco type: cigarettes Second hand tobacco smoke exposure: No Smoking end date: 08/11/03 Alcohol intake: current Drinks per week: 2 Alcohol use details: RARE Substance use: never Substance use type: does not use Lack of Transportation: No Lack of Food: Never True Current Housing: I Have Housing Concerned About Future Housing: No Difficulty Paying Gas/Electric Bills: No Difficulty Paying for Meds: No Currently Unemployed: No Education: Grade School Difficulty w/ Childcare or Family Care: No Living arrangements: wi
[2023-06-24] MEDS: HYDROmorphone HCL INJ (*CRX) 1 MG/ML SYR IV PUSH (03:18)
[2023-06-24 03:22] LABS: Add Urine Microscopic? YES; Appearance Urine Clear (Clear); Bacteria Urine None Seen /hpf; Bilirubin Urine Negative (Negative); Blood Urine Negative (Negative); Color Urine Yellow (Yellow); Glucose Urine UA Negative (Negative); Ketones Urine Negative (Negative); Leukocyte Esterase Ur Negative LEU/UL (Negative); Nitrate Urine Negative (Negative); Non Pathogenic Casts 0-2; Protein Urine Trace mg/dL (Negative); RBC Urine 0-2 /hpf (0-2); Specific Grav Ur 1.028 (1.001-1.035); Squamous Epithelial Cell Urine None seen /hpf (Few); WBC Urine 0-5 /hpf; pH Urine 7.5 (5.0-9.0)
[2023-06-24] MEDS: diphenhydrAMINE HCl INJ 50 MG/ML VIAL 25 MG IV PUSH (04:26)
[2023-06-24] MEDS: METOCLOPRAMIDE HCL INJ 10 MG/2 ML VIAL IV PUSH (04:27)
[2023-06-24] MEDS: SODIUM CHLORIDE 0.9% IV 1,000 ML 100 ML IV CONT ×2 (04:51→17:12)
--- NOTE | 2023-06-24 05:24 | PM.IMHP ---
H&P: HPI History of Present Illness Date/Time: 06/24/23 05:24 Chief Complaint: Nausea and vomiting Narrative: 67-year-old female with a past medical history of urgent continence, restless leg syndrome, GERD and hypertension who presented to the ER with 2 days of nausea vomiting. Patient reports that on Friday night she began having a severe generalized headache. Shortly after that she began having nausea and vomiting. She denies any hematemesis or coffee-ground emesis. Her symptoms have been could calmed in by generalized abdominal discomfort and looser stools. She reports she has irritable bowel disease usually with constipation but several months ago her bowels decide to become more loose. She usually has mushy stools every time that she urinate. However over the last couple of days her stools have become even looser. Will she denies any recent ill contacts her has had similar foods to which she had eaten and has not been sick. She denies any recent antibiotic use. She has not had any upper respiratory symptoms or viral symptoms. She has chronic urgent stress urinary incontinence and was actually scheduled to have a bladder procedure performed today at another facility. However the she was so ill she decided come into the ER last night instead. She has been so ill that she has not been able to take her meds for the last 4 days. After the 1st day of vomiting. She was so lightheaded that she was having trouble standing up and walking. She was having to grab onto furniture to feel stable on her feet. She reports her legs are extremely restless due to missing her medications. She reports that she is still had some Lena at home that she had filled a long time ago (July 2022) that she tried to take due to her headache and abdominal pain. But she does vomited the medication backup. She reports that getting up and walking around was making her abdominal pain worse at home. She is not currently having any abdominal pain on exam. She reports that her headache is now only minimal after receiving IV fluids, Benadryl, Reglan, Toradol and morphine in the ER. Review of Systems Review of Systems: 12 systems were reviewed with pertinent positives and negatives per HPI. Except as documented in the HPI, all other systems were reviewed and are negative. She has chronic back pain. He also has chronic numbness to her right lower leg and foot. [facility] Past Medical History Medical History (Updated 06/24/23 @ 07:03 by Marcela Weiss DO) Arthritis Back pain Body mass index (BMI) of 40.1 to 44.9 in adult COPD (chronic obstructive pulmonary disease) COVID-19 Depression with anxiety Diabetes mellitus type 2 in obese Diabetic peripheral neuropathy Ganglion cyst Excised GERD (gastroesophageal reflux disease) Hammer toes, bilateral HTN (hypertension) Hx of adenomatous colonic polyps Hx of hemorrhoids Internal Mitral valve prolapse With normal echocardiogram 2017 Mixed hyperlipidemia CISCO (obstructive sleep apnea) Intolerant to CPAP Other chronic pain Renal stones Restless leg syndrome Skin cancer Unspecified thoracic, thoracolumbar and lumbosacral intervertebral disc disorder Vitamin D deficiency Surgical History Surgical History (Updated 06/24/23 @ 07:03 by Marcela Weiss DO) H/O colonoscopy with polypectomy H/O foot surgery History of back surgery Posterior fixation and interbody fusion L4-2 History of carpal tunnel surgery of left wrist Bilateral History of left knee replacement History of right hip replacement History of total right knee replacement Hx of tonsillectomy Hx of total hysterectomy Status post cataract extraction of both eyes with insertion of intraocular lens Family History Family History Sibling Hypertension Diabetes mellitus Hyperlipidemia COVID-19 Enlarged heart Father Carcinoma of colon, Onset Age: 65 Mother
--- NOTE | 2023-06-24 05:34 | ADMGEN ---
This patient, Maria Alejandra Mooney, was admitted to [address] [place] [address] Room 325-02 at 0520. Patient/family oriented to hospital policies and general routines including ID bracelet, bed and alarms, visiting hours, pain management, procedures, bathroom and other care routines, personal items, smoking policy, room service/diet, and visiting hours. Information on how to activate the Rapid Response Team has been discussed. Patient/Family are encouraged to report perceived risks to care and to ask questions if they do not understand what they are told or what they should do.
[2023-06-24] MEDS: rOPINIRole HCL 1 MG TABLET 4 MG PO ×2 (07:32→20:39)
[2023-06-24 07:56] LABS: Hemoglobin 12.7 g/dL (12.0-15.0); Mean Corpuscular HGB Conc 30.2 g/dl (32-36); Mean Corpuscular Hemoglobin 28.9 pg (26-34); Mean Corpuscular Volume 95.7 fl (80-100); Mean Platelet Volume 10.3 fl (7.4-10.4); Platelet Count Result 149 k/mm3 (150-375); Red Blood Count 4.39 M/mm3 (4.2-5.4); Red Cell Distribution Width 13.5 % (11.5-14.5); White Blood Count 8.6 K/mm3 (4.5-10.0)
[2023-06-24 08:12] LABS: Alanine Aminotransferase 37 U/L (6-35); Albumin Level 3.5 g/dL (3.5-5.1); Alkaline Phosphatase 121 U/L (38-126); Anion Gap 11 mmol/L (8-16); Aspartate Amino Transferase 30 U/L (14-36); Bilirubin,Total 0.7 mg/dL (0.2-1.3); Blood Urea Nitrogen 11 mg/dL (7-17); Calcium 8.3 mg/dL (8.4-10.2); Carbon Dioxide 18 mmol/L (22-30); Chloride 110 mmol/L (98-107); Estimated CRCL calculation 146 ml/min; Estimated Glomerular Filt Rate > 60; Glucose 111 mg/dL (65-110); Potassium 4.1 mmol/L (3.4-5.0); Sodium 139 mmol/L (137-145)
[2023-06-24 08:25] LABS: Glucose Point of Care 110 mg/dl (65-105)
[2023-06-24] MEDS: amLODIPine BESYLATE 5 MG TABLET PO (09:18)
[2023-06-24] MEDS: PREGABALIN (*CRX) 75 MG CAPSULE 150 MG PO ×2 (09:18→17:12)
[2023-06-24] MEDS: PANTOPRAZOLE SODIUM IV 40 MG VIAL IV PUSH ×2 (09:20→20:39)
[2023-06-24] MEDS: oxyBUTYnin CHLORIDE XL 5 MG TAB.ER.24 10 MG PO (09:20)
[2023-06-24 12:22] LABS: Glucose Point of Care 100 mg/dl (65-105)
--- NOTE | 2023-06-24 15:28 | PM.IMPN ---
Progress Note: A&P Assessment and Plan (1) Intractable nausea and vomiting: Code(s): R11.2 - Nausea with vomiting, unspecified Status: Acute Assessment and Plan: Patient likely has a viral gastritis/gastroenteritis. Continue p.r.n. Zofran and will add IM Phenergan for intractable nausea vomiting. Continue with IV fluid hydration. Patient will be advanced to clear liquid diet; advance as tolerated. IV Protonix b.i.d. (2) Headache: Qualifiers: Headache chronicity pattern: unspecified pattern Headache type: unspecified Intractability: not intractable Qualified Code(s): R51.9 - Headache, unspecified Code(s): R51.9 - Headache, unspecified Status: Acute Assessment and Plan: Patient's headache has improved is likely due to component of dehydration or viral illness. Continue monitor neuro status. Tylenol has been ordered as needed for pain. (3) Diabetes mellitus type 2 in obese: Code(s): E11.69 - Type 2 diabetes mellitus with other specified complication; E66.9 - Obesity, unspecified Status: Inactive Assessment and Plan: Patient reports that she has diet-controlled diabetes. Her glucoses are currently stable. Will add sliding scale insulin with Accu-Cheks a.c. HS and hypoglycemia protocol as needed. (4) Restless leg syndrome: Code(s): G25.81 - Restless legs syndrome Status: Chronic Assessment and Plan: Will resume the patient's home medications for restless leg syndrome and chronic urinary incontinence. Subjective Date/time seen: 06/24/23 15:28 Interval history: Patient complaining of intense migraine. She describes the pain on the top of her head but then states that she has been having neck tightness as well. Will start her on ketorolac for her migraines but also some Flexeril for muscle spasms in the neck. Is sick patient will likely be able to discharge tomorrow if migraine resolves. Exam Narrative: GENERAL: Comfortable, no acute distress HENMT: moist mucous membranes, horizontal nystagmus EYES: EOM intact b/l NECK: no lymphadenopathy RESPIRATORY: clear to auscultation CARDIO: RRR GI: soft, nontender, bowel sounds present SKIN: no rashes EXTREMITIES: no edema, redness or tenderness Objective Data Vital Signs Vital Signs: Vital Signs - 24 hr 06/23/23 22:08 06/24/23 00:29 06/24/23 00:39 Temperature 97.4 F L 97.5 F L Pulse Rate 84 87 80 Respiratory Rate 16 16 12 Blood Pressure 148/80 H 165/90 H 176/90 H Pulse Oximetry 98 97 99 Oxygen Delivery Room Air 06/24/23 02:31 06/24/23 02:33 06/24/23 02:45 Temperature Pulse Rate 87 88 90 Respiratory Rate 15 16 14 Blood Pressure 167/90 H Pulse Oximetry 96 99 96 Oxygen Delivery 06/24/23 02:46 06/24/23 02:59 06/24/23 03:11 Temperature Pulse Rate 92 94 Respiratory Rate 20 19 Blood Pressure 157/90 H 157/90 H Pulse Oximetry 97 100 Oxygen Delivery 06/24/23 03:13 06/24/23 03:15 06/24/23 03:16 Temperature Pulse Rate 88 94 99 Respiratory Rate 14 16 15 Blood Pressure 172/83 H 164/84 H Pulse Oximetry 100 99 98 Oxygen Delivery 06/24/23 05:09 06/24/23 06:00 06/24/23 06:00 Temperature 98 F 97.6 F Pulse Rate 86 87 Respiratory Rate 19 18 Blood Pressure 160/84 H 147/63 H Pulse Oximetry 95 96 Oxygen Delivery Room Air 06/24/23 08:00 06/24/23 14:00 Temperature 97.4 F L Pulse Rate 88 Respiratory Rate 16 Blood Pressure 131/72 Pulse Oximetry 96 Oxygen Delivery Room Air Intake/Output Intake/Output: Intake & Output 06/21/23 06/22/23 06/23/23 06/24/23 23:59 23:59 23:59 23:59 Intake Total 1236 Balance 1236 Meds/Results Medications: Active Medications Generic Name Dose Route Start Last Admin Trade Name Freq PRN Reason Stop Dose Admin Acetaminophen 1,000 mg 06/24/23 06:52 Acetaminophen 500 Mg Tablet PO Q6H PRN pain 1-3 or fever
[2023-06-24 16:25] LABS: Glucose Point of Care 101 mg/dl (65-105)
[2023-06-24] MEDS: CYCLOBENZAPRINE HCL 10 MG TABLET PO (17:12)
[2023-06-24 19:53] LABS: Glucose Point of Care 100 mg/dl (65-105)
[2023-06-24] MEDS: KETOROLAC 30 MG/ML VIAL (*BKC) IV PUSH (20:47)
[2023-06-25] MEDS: ACETAMINOPHEN 500 MG TABLET 1000 MG PO (02:22)
[2023-06-25] MEDS: SODIUM CHLORIDE 0.9% IV 1,000 ML 100 ML IV CONT ×3 (02:23→20:31)
[2023-06-25 06:00] VITALS: BP 150/83; PULSE 74; RESP 16; TEMP 36.6; O2SAT 95
[2023-06-25 06:41] LABS: Hematocrit 39.3 % (37.0-47.0); Hemoglobin 12.3 g/dL (12.0-15.0); Mean Corpuscular HGB Conc 31.3 g/dl (32-36); Mean Corpuscular Hemoglobin 28.7 pg (26-34); Mean Corpuscular Volume 91.6 fl (80-100); Platelet Count Result 198 k/mm3 (150-375); Red Blood Count 4.29 M/mm3 (4.2-5.4); White Blood Count 5.5 K/mm3 (4.5-10.0)
[2023-06-25 06:52] LABS: Anion Gap 6 mmol/L (8-16); Blood Urea Nitrogen 10 mg/dL (7-17); Calcium 8.2 mg/dL (8.4-10.2); Carbon Dioxide 24 mmol/L (22-30); Chloride 109 mmol/L (98-107); Estimated CRCL calculation 120 ml/min; Estimated Glomerular Filt Rate > 60; Glucose 90 mg/dL (65-110); Potassium 3.4 mmol/L (3.4-5.0); Sodium 139 mmol/L (137-145)
[2023-06-25 08:00] LABS: Glucose Point of Care 96 mg/dl (65-105)
[2023-06-25] MEDS: rOPINIRole HCL 1 MG TABLET 4 MG PO ×2 (08:40→20:29)
[2023-06-25] MEDS: PREGABALIN (*CRX) 75 MG CAPSULE 150 MG PO ×2 (08:40→17:32)
[2023-06-25] MEDS: oxyBUTYnin CHLORIDE XL 5 MG TAB.ER.24 10 MG PO (08:41)
[2023-06-25] MEDS: amLODIPine BESYLATE 5 MG TABLET PO (08:41)
[2023-06-25] MEDS: KETOROLAC 30 MG/ML VIAL (*BKC) IV PUSH ×2 (08:41→17:34)
[2023-06-25] MEDS: PANTOPRAZOLE SODIUM IV 40 MG VIAL IV PUSH ×2 (08:46→20:29)
[2023-06-25 11:55] LABS: Glucose Point of Care 86 mg/dl (65-105)
[2023-06-25] MEDS: ONDANSETRON INJ 4 MG/2 ML VIAL IV PUSH (12:14)
[2023-06-25 14:00] VITALS: BP 135/70; PULSE 73; RESP 16; TEMP 37.3; O2SAT 96
--- NOTE | 2023-06-25 15:22 | PM.IMPN ---
Progress Note: A&P Assessment and Plan (1) Intractable nausea and vomiting: Code(s): R11.2 - Nausea with vomiting, unspecified Status: Acute Assessment and Plan: 06/24/23: Patient likely has a viral gastritis/gastroenteritis. Continue p.r.n. Zofran and will add IM Phenergan for intractable nausea vomiting. Continue with IV fluid hydration. Patient will be advanced to clear liquid diet; advance as tolerated. IV Protonix b.i.d. 06/25/23: Patient reports nausea and vomiting still today Continue with Zofran and IM Phenergan Continue with IV hydration Patient not able to tolerate advancement in diet old continue with clear liquid diet Continue with Protonix b.i.d. Patient reporting pain over her bladder, will check a bladder scan for urinary retention (2) Headache: Qualifiers: Headache chronicity pattern: unspecified pattern Headache type: unspecified Intractability: not intractable Qualified Code(s): R51.9 - Headache, unspecified Code(s): R51.9 - Headache, unspecified Status: Acute Assessment and Plan: 06/24/23: Patient's headache has improved is likely due to component of dehydration or viral illness. Continue monitor neuro status. Tylenol has been ordered as needed for pain. 06/25/23: Patient still reporting a headache and lightheadedness, patient states that she fell about a month ago and hit her head at that time. She came to the hospital and had an MRI done at that time which was negative for any acute findings. In light of the possibility of a concussion we will go ahead and repeat a CT of her head today to see if there is any neurological changes. Continue Tylenol as needed (3) Diabetes mellitus type 2 in obese: Code(s): E11.69 - Type 2 diabetes mellitus with other specified complication; E66.9 - Obesity, unspecified Status: Inactive Assessment and Plan: 06/24/23: Patient reports that she has diet-controlled diabetes. Her glucoses are currently stable. Will add sliding scale insulin with Accu-Cheks a.c. HS and hypoglycemia protocol as needed. 06/25/23: No change to current treatment plan (4) Restless leg syndrome: Code(s): G25.81 - Restless legs syndrome Status: Chronic Assessment and Plan: 06/24/23: Will resume the patient's home medications for restless leg syndrome and chronic urinary incontinence. 06/25/23: No change to current treatment plan Time Spent With Patient Time with patient: Greater than 35 minutes Subjective Date/time seen: 06/25/23 15:22 Interval history: Interval history: This is a 67-year-old female who presented to the hospital with complaint of 2 days of nausea, vomiting, and a severe headache. Workup in the hospital included a CT of the abdomen pelvis which did not show any acute changes. She was not able to keep fluid and food down and presented for further evaluation She also had a urinalysis which was essentially negative. Patient received a migraine cocktail in the emergency room and was started on IV fluids. 06/24/23:(copy from chart) Patient complaining of intense migraine. She describes the pain on the top of her head but then states that she has been having neck tightness as well. Will start her on ketorolac for her migraines but also some Flexeril for muscle spasms in the neck. Is sick patient will likely be able to discharge tomorrow if migraine resolves. 06/25/23: On examination today patient is alert oriented x4, lying in the bed. is at the bedside. Her vital signs have been stable, she has been afebrile, she is currently on room air. She is reporting lower abdominal pain over her bladder today. Otherwise no new complaints. She is still complaining of a headache and lightheadedness. She she also reports that she has had some nausea and vomiting today. She denies any fever, chills, shortness of breath, chest pain, rosita
[2023-06-25 16:54] LABS: Glucose Point of Care 109 mg/dl (65-105)
[2023-06-25] MEDS: CYCLOBENZAPRINE HCL 5 MG TABLET PO (20:29)
[2023-06-25 22:00] VITALS: BP 146/89; PULSE 72; RESP 16; TEMP 36.4; O2SAT 97
[2023-06-25 22:35] LABS: Glucose Point of Care 89 mg/dl (65-105)
[2023-06-26] MEDS: ACETAMINOPHEN 500 MG TABLET 1000 MG PO (04:18)
[2023-06-26 06:00] VITALS: BP 133/81; PULSE 64; RESP 16; TEMP 35.9; O2SAT 99
[2023-06-26 06:57] LABS: Basophils Percent Auto 0.6 % (0.2-1.2); Eosinophils Absolute Auto 0.2 K/mm3 (0-0.3); Eosinophils Percent Auto 3.1 % (0-4.4); Hematocrit 40.6 % (37.0-47.0); Hemoglobin 12.6 g/dL (12.0-15.0); Immature Granulocyte Absolute 0.01 K/mm3 (0.00-0.031); Immature Granulocyte Percent A 0.2 % (0-0.5); Lymphocytes Absolute Auto 1.92 K/mm3 (0.9-3.2); Mean Corpuscular Hemoglobin 28.6 pg (26-34); Mean Corpuscular Volume 92.1 fl (80-100); Mean Platelet Volume 9.8 fl (7.4-10.4); Monocytes Absolute Auto 0.4 K/mm3 (0.1-0.6); Monocytes Percent Auto 6.9 % (2.6-8.5); Neutrophils Absolute Auto 3.6 K/mm3 (1.3-6.7); Neutrophils Percent Auto 58.2 % (45.5-73.1); Platelet Count Result 194 k/mm3 (150-375); Red Blood Count 4.41 M/mm3 (4.2-5.4); Red Cell Distribution Width 13.6 % (11.5-14.5); White Blood Count 6.2 K/mm3 (4.5-10.0)
[2023-06-26 07:17] LABS: Alanine Aminotransferase 38 U/L (6-35); Albumin Level 3.5 g/dL (3.5-5.1); Alkaline Phosphatase 126 U/L (38-126); Anion Gap 8 mmol/L (8-16); Aspartate Amino Transferase 28 U/L (14-36); Bilirubin,Total 0.5 mg/dL (0.2-1.3); Blood Urea Nitrogen 5 mg/dL (7-17); Calcium 8.4 mg/dL (8.4-10.2); Carbon Dioxide 26 mmol/L (22-30); Chloride 109 mmol/L (98-107); Estimated CRCL calculation 120 ml/min; Estimated Glomerular Filt Rate > 60; Glucose 111 mg/dL (65-110); Potassium 3.5 mmol/L (3.4-5.0); Sodium 143 mmol/L (137-145)
[2023-06-26 07:53] LABS: Glucose Point of Care 114 mg/dl (65-105)
--- NOTE | 2023-06-26 07:57 | WPDURCON ---
Assessment and Plan Assessment and plan (1) Urinary retention: Code(s): R33.9 - Retention of urine, unspecified Status: Acute (2) Intractable abdominal pain: Code(s): R10.9 - Unspecified abdominal pain Status: Acute Assessment and Plan: Given recent urodynamics that show normal detrusor function I doubt this patient's retention is due to a hypotonic bladder. Most likely retention is just due to generalized debility/feeling poorly and immobility with attempts to void while supine. I would recommend leaving the indwelling catheter until she is feeling better and more ambulatory. Would anticipate thereafter that she will void effectively. She can follow-up as previously arranged to discuss further management for her mixed urinary incontinence Urology Consult Note HPI Date Seen: 06/26/23 Requesting Physician: Marcela Weiss DO Primary Care Provider: Demar Lazcano MD Consult Narrative Narrative: Maria Alejandra Mooney is a 67 year old female who has been seen by our female urologist, Dr. Olivier, in the past for mixed stress and urge urinary incontinence. When last seen in February 2023 urodynamics had demonstrated stress urinary incontinence and possible dysfunctional voiding. The past 5 months she has had progression in symptoms and is interested in pursuing sacral neuromodulation. She presents to the emergency department with nausea vomiting and generalized weakness. Subsequent to admission she was found to be in urinary retention with a bladder volume by scan of 600 cc. A urethral catheter was placed without difficulty. CT scan of the abdomen and pelvis with contrast shows normal upper urinary tracts Review of Systems Cardiovascular: Cardiovascular: Denies chest pain, Denies lightheadedness, Denies palpitations and Denies dyspnea Respiratory: Respiratory: Denies dyspnea Gastrointestinal: Gastrointestinal: Denies diarrhea, Denies nausea and Denies vomiting Genitourinary: Genitourinary: Denies hematuria and Denies dysuria Endocrine: Endocrine: Denies palpitations PMFSH Past Medical History Medical History (Updated 06/26/23 @ 08:02 by Demond Keys MD) Arthritis Back pain Body mass index (BMI) of 40.1 to 44.9 in adult COPD (chronic obstructive pulmonary disease) COVID-19 Depression with anxiety Diabetes mellitus type 2 in obese Diabetic peripheral neuropathy Ganglion cyst Excised GERD (gastroesophageal reflux disease) Hammer toes, bilateral HTN (hypertension) Hx of adenomatous colonic polyps Hx of hemorrhoids Internal Mitral valve prolapse With normal echocardiogram 2017 Mixed hyperlipidemia CISCO (obstructive sleep apnea) Intolerant to CPAP Other chronic pain Renal stones Restless leg syndrome Skin cancer Unspecified thoracic, thoracolumbar and lumbosacral intervertebral disc disorder Vitamin D deficiency Surgical History Surgical History (Updated 06/24/23 @ 07:03 by Marcela Weiss DO) H/O colonoscopy with polypectomy H/O foot surgery History of back surgery Posterior fixation and interbody fusion L4-2 History of carpal tunnel surgery of left wrist Bilateral History of left knee replacement History of right hip replacement History of total right knee replacement Hx of tonsillectomy Hx of total hysterectomy Status post cataract extraction of both eyes with insertion of intraocular lens Family History Family History Sibling Hypertension Diabetes mellitus Hyperlipidemia COVID-19 Enlarged heart Father Carcinoma of colon, Onset Age: 65 Mother Brain tumor (benign) Social History Social History (Updated 06/24/23 @ 07:01 by Marcela Weiss DO) Social History: She lives with her of 47 years. They raised a daughter and a son. 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 But she has been on disability since approximately 200
[2023-06-26] MEDS: PREGABALIN (*CRX) 75 MG CAPSULE 150 MG PO ×2 (09:06→16:54)
[2023-06-26] MEDS: amLODIPine BESYLATE 5 MG TABLET PO (09:06)
[2023-06-26] MEDS: rOPINIRole HCL 1 MG TABLET 4 MG PO (09:06)
[2023-06-26] MEDS: oxyBUTYnin CHLORIDE XL 5 MG TAB.ER.24 10 MG PO (09:06)
[2023-06-26] MEDS: SODIUM CHLORIDE 0.9% IV 1,000 ML 100 ML IV CONT (09:07)
[2023-06-26] MEDS: PANTOPRAZOLE SODIUM IV 40 MG VIAL IV PUSH (09:07)
[2023-06-26 11:31] LABS: Glucose Point of Care 117 mg/dl (65-105)
[2023-06-26 14:00] VITALS: BP 119/71; PULSE 88; RESP 18; TEMP 36.9; O2SAT 98
--- NOTE | 2023-06-26 15:01 | PM.DS ---
DS: Admitting Diagnosis Discharge Date 06/26/23 Admitting Diagnosis Intractable nausea and vomiting Headache Diabetes mellitus type 2 Restless leg syndrome DS: Discharge Diagnosis Discharge Diagnosis (1) Intractable nausea and vomiting: Code(s): R11.2 - Nausea with vomiting, unspecified Status: Acute (2) Headache: Qualifiers: Headache chronicity pattern: unspecified pattern Headache type: unspecified Intractability: not intractable Qualified Code(s): R51.9 - Headache, unspecified Code(s): R51.9 - Headache, unspecified Status: Acute (3) Diabetes mellitus type 2 in obese: Code(s): E11.69 - Type 2 diabetes mellitus with other specified complication; E66.9 - Obesity, unspecified Status: Inactive (4) Restless leg syndrome: Code(s): G25.81 - Restless legs syndrome Status: Chronic DS: Summary Hospital Course Reason for hospitalization: Intractable nausea and vomiting Hospital Course: This is a 67-year-old female who presented to the hospital with complaints of 2 days of nausea, vomiting, and severe headache. Work up in the hospital included a CT of the Abdomen/pelvis which did not show any acute changes. She had a UA which was essentially normal. Patient received a migraine cocktail in the ER and was placed on IVF for hydration. Yesterday patient stated she still had a headache and some lightheadedness. Patient was sent for head CT which was negative for any acute findings. She was reporting lower abdominal pain and tenderness over the bladder. A bladder scan revealed >600ml of urine in the bladder and a tanner was placed due to retention. Urology was consulted. Urology feels that patient is not having a true urinary retention as her CT shown normal kidney function. We went ahead and discontinued the tanner catheter and will re-check a bladder scan to make sure she is not retaining. Post void bladder scan only shown 20 ml urine residual. IVF stopped today. Patient tolerating increased diet. VSS, she is afebrile, and currently on room air. She denies any nausea, vomiting, diarrhea, lightheadedness, shortness of breath, chest pain, or abdominal pain. She still is reporting a mild headache. Patient ambulating halls without difficulty. Labs today reveal a CBC that is essentially unremarkable, Na+ 143, K+ 3.5, Chloride 109, Bicarb 26, BUN 5, creatinine 0.5, creatinine clearance 120, eGFR > 60, BG ranging 111-117, ALT 38. Patient is stable for discharge. She will need to follow up with PCP in 1 week and follow up with Urology for her bladder stimulator as this is something she was already precuing on an outpatient basis. Status at Discharge Cognitive/behavioral status at discharge: Alert oriented x4 Functional status at discharge: independent ambulation Overall status at discharge: patient is progressing back to baseline Time Spent with Patient Time attestation: Total time spent providing and/or coordinating discharge services: Time spent: Greater than 30 minutes Exam Narrative: General: In no acute distress, well nourished Head: atraumatic, no encephalopathy Eyes: EOMI, PERRLA, sclera clear ENT: moist mucous membranes, nasal passages clear Neck: supple, no JVD, no adenopathy, trachea midline Cardiac: Normal S1 and S2. No murmur, gallops or friction rubs, peripheral pulses intact. Respiratory: Lungs clear to auscultation, no adventitious lung sounds Gastrointestinal: soft, non-distended, tenderness noted over bladder to palpation, normoactive bowel sounds. : Urinating without difficultly after catheter was removed, bladder scan on post void shown 20ml urine residual. Extremities: moves all extremities well, mild ankle edema, good ROM, strength 5/5 Skin: clean, dry, intact. No wounds or lesions. Neuro: Alert and oriented x4, cranial nerves intact, no neuro deficits. Psych: normal mood, normal affect, interactive DS: Data Data Completed and Pending Completed studies during hos
[2023-06-26 16:27] LABS: Glucose Point of Care 139 mg/dl (65-105)
== END 2023-06-26 17:50 | disposition home or self-care (01) ==
LOC: ANHED 06-24 04:32 → ANH3MEDSUR 06-24 04:44
PROVIDERS: Internal Medicine Critical Care Medicine; Nurse Practitioner Acute Care; Admitting Provider Internal Medicine; Emergency Provider Emergency Medicine; PCP Family Medicine; Visit Provider Internal Medicine
DX: R11.2 Nausea with vomiting, unspecified (principal); R51.9 Headache, unspecified; R10.9 Unspecified abdominal pain; R63.0 Anorexia; Z68.41 Body mass index [BMI] 40.0-44.9, adult; R33.9 Retention of urine, unspecified; Z20.822 Contact with and (suspected) exposure to COVID-19; J44.9 Chronic obstructive pulmonary disease, unspecified; E11.42 Type 2 diabetes mellitus with diabetic polyneuropathy; I10 Essential (primary) hypertension; E66.9 Obesity, unspecified; G47.33 Obstructive sleep apnea (adult) (pediatric); M54.40 Lumbago with sciatica, unspecified side; G25.81 Restless legs syndrome; N39.46 Mixed incontinence; E78.2 Mixed hyperlipidemia; M16.0 Bilateral primary osteoarthritis of hip; F41.8 Other specified anxiety disorders; K21.9 Gastro-esophageal reflux disease without esophagitis; Z86.16 Personal history of COVID-19; Z87.891 Personal history of nicotine dependence; Z79.51 Long term (current) use of inhaled steroids; F10.90 Alcohol use, unspecified, uncomplicated; Z79.82 Long term (current) use of aspirin; Z79.891 Long term (current) use of opiate analgesic
CPT/HCPCS: 36415; 70450; 74177; 80048; 80053; 81001; 82948; 83690; 85025; 85027; 87637; 96361; 96374; 96375; 96376; 99285; A9270; C9113; G0378; J1170; J1200; J1885; J2270; J2405; J2765; J7030; Q9967

== ENCOUNTER 2023-07-01 11:47 | Emergency (ER) | payer MEDICARE, SELFPAY ==
--- NOTE | ~2023-07-01 | US_ITS ---
EXAMINATION: US venous doppler UE DATE: 07/01/2023 13:56 INDICATION: Left upper limb pain and swelling. TECHNIQUE: Grayscale ultrasound images without and with compression and Doppler ultrasound images of the left upper extremity veins were obtained. COMPARISON: None. FINDINGS: The visualized portions of the left internal jugular vein, subclavian vein, axillary vein, brachial v eins, basilic vein, cephalic vein, radial vein, and ulnar vein are patent. IMPRESSION: 1. No deep venous thrombosis. Reviewed, dictated and finalized at location E. RVISOR SOLDERING
[2023-07-01 12:27] VITALS: BP 152/78; PULSE 86; RESP 16; TEMP 36.5; O2SAT 99
--- NOTE | 2023-07-01 13:12 | ED.GENADULT ---
HPI - General Adult General Chief complaint: Extremity Injury, Upper Stated complaint: arm pain and swelling Time Seen by Provider: 07/01/23 13:02 History of Present Illness HPI narrative: 67-year-old female presenting to the emergency department for evaluation of a left arm pain. The patient was admitted Friday through and since Friday she has had increased pain of her left arm. patient does suspect that her IV was infiltrated when she was admitted. Related Data Home Medications Medication Instructions Recorded Confirmed albuterol sulfate 90 mcg/actuation 1 inh inhalation Q4H PRN Shortness 10/17/22 06/24/23 aerosol inhaler (ProAir HFA) Of Breath amlodipine 5 mg tablet 5 mg PO DAILY 06/24/23 06/24/23 cyclobenzaprine 10 mg tablet 10 mg PO TID PRN muscle spasm 06/24/23 06/24/23 hydrocodone 5 mg-acetaminophen 325 1 tablet PO Q4-6H PRN Pain (Scale 06/24/23 06/24/23 mg tablet Score 4-6) meloxicam 7.5 mg tablet 7.5 mg PO DAILY 06/24/23 06/24/23 oxybutynin chloride 10 mg 10 mg PO DAILY 06/24/23 06/24/23 tablet,extended release 24 hr Allergies Allergy/AdvReac Type Severity Reaction Status Date / Time COVID-19 (SARS-CoV-2) AdvReac Intermediate Swelling Verified 07/01/23 12:43 vaccine, linh influenza virus vacc AdvReac Intermediate Swelling Verified 07/01/23 12:43 trivalent, who Review of Systems Review of Systems: All systems reviewed & are unremarkable except as noted in HPI and below PMFSH Past Medical History Medical History (Updated 07/01/23 @ 14:37 by Moshe Lizarraga MD) Arthritis Back pain Body mass index (BMI) of 40.1 to 44.9 in adult COPD (chronic obstructive pulmonary disease) COVID-19 Depression with anxiety Diabetes mellitus type 2 in obese Diabetic peripheral neuropathy Ganglion cyst Excised GERD (gastroesophageal reflux disease) Hammer toes, bilateral HTN (hypertension) Hx of adenomatous colonic polyps Hx of hemorrhoids Internal Mitral valve prolapse With normal echocardiogram 2017 Mixed hyperlipidemia CISCO (obstructive sleep apnea) Intolerant to CPAP Other chronic pain Renal stones Restless leg syndrome Skin cancer Unspecified thoracic, thoracolumbar and lumbosacral intervertebral disc disorder Vitamin D deficiency Surgical History Surgical History (Updated 06/24/23 @ 07:03 by Marcela Weiss DO) H/O colonoscopy with polypectomy H/O foot surgery History of back surgery Posterior fixation and interbody fusion L4-2 History of carpal tunnel surgery of left wrist Bilateral History of left knee replacement History of right hip replacement History of total right knee replacement Hx of tonsillectomy Hx of total hysterectomy Status post cataract extraction of both eyes with insertion of intraocular lens Family History Family History Sibling Hypertension Diabetes mellitus Hyperlipidemia COVID-19 Enlarged heart Father Carcinoma of colon, Onset Age: 65 Mother Brain tumor (benign) Social History Social History (Updated 06/24/23 @ 07:01 by Marcela Weiss DO) Social History: She lives with her of 47 years. They raised a daughter and a son. 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 But she has been on disability since approximately 2002. She used to smoke a pack of cigarettes per day but quit smoking in 2003 (27 pack per year) She denies any alcohol marijuana or illicit drug use. Code status: Full code Surrogate decision maker: Smoking packs per day: 1 Smoking cigarettes per day: 20.0 Years smoked: 27 Smoking pack-years: 27.00 Smoking status: Former smoker Tobacco type: cigarettes Second hand tobacco smoke exposure: No Smoking end date: 08/11/03 Alcohol intake: current Drinks per week: 2 Alcohol use details: RARE Substance use: never Substance use type: does not use [place]
[2023-07-01 14:13] LABS: Basophils Percent Auto 0.6 % (0.2-1.2); Eosinophils Absolute Auto 0.3 K/mm3 (0-0.3); Eosinophils Percent Auto 4.6 % (0-4.4); Hematocrit 41.1 % (37.0-47.0); Hemoglobin 13.2 g/dL (12.0-15.0); Immature Granulocyte Absolute 0.01 K/mm3 (0.00-0.031); Immature Granulocyte Percent A 0.1 % (0-0.5); Lymphocytes Absolute Auto 1.96 K/mm3 (0.9-3.2); Lymphocytes Percent Auto 27.9 % (18.3-44.2); Mean Corpuscular HGB Conc 32.1 g/dl (32-36); Mean Corpuscular Hemoglobin 28.8 pg (26-34); Mean Corpuscular Volume 89.7 fl (80-100); Monocytes Absolute Auto 0.5 K/mm3 (0.1-0.6); Monocytes Percent Auto 7.1 % (2.6-8.5); Neutrophils Absolute Auto 4.2 K/mm3 (1.3-6.7); Neutrophils Percent Auto 59.7 % (45.5-73.1); Platelet Count Result 223 k/mm3 (150-375); Red Blood Count 4.58 M/mm3 (4.2-5.4)
[2023-07-01 14:24] LABS: Alanine Aminotransferase 37 U/L (6-35); Alkaline Phosphatase 133 U/L (38-126); Anion Gap 6 mmol/L (8-16); Aspartate Amino Transferase 33 U/L (14-36); Bilirubin,Total 0.5 mg/dL (0.2-1.3); Blood Urea Nitrogen 13 mg/dL (7-17); Calcium 9.1 mg/dL (8.4-10.2); Carbon Dioxide 27 mmol/L (22-30); Chloride 108 mmol/L (98-107); Estimated CRCL calculation 119 ml/min; Estimated Glomerular Filt Rate > 60; Glucose 101 mg/dL (65-110); Potassium 3.8 mmol/L (3.4-5.0); Sodium 141 mmol/L (137-145)
[2023-07-01 14:28] LABS: Prothrombin Time 13.5 Seconds (11.1-14.7)
[2023-07-01 14:29] LABS: Partial Thromboplastin Time 25.9 SECONDS (22.3-36.8)
== END 2023-07-01 14:49 | disposition home or self-care (01) ==
PROVIDERS: Emergency Provider Emergency Medicine; PCP Family Medicine
DX: M79.602 Pain in left arm (principal); M19.90 Unspecified osteoarthritis, unspecified site; J44.9 Chronic obstructive pulmonary disease, unspecified; F41.9 Anxiety disorder, unspecified; F32.A Depression, unspecified; E11.9 Type 2 diabetes mellitus without complications; K21.9 Gastro-esophageal reflux disease without esophagitis; I10 Essential (primary) hypertension; G47.30 Sleep apnea, unspecified; Z87.442 Personal history of urinary calculi
CPT/HCPCS: 36415; 80053; 85025; 85610; 85730; 93971; 99284

== ENCOUNTER 2023-07-11 10:38 | Emergency (ER) | payer MEDICARE, SELFPAY ==
[2023-07-11 11:17] VITALS: BP 156/64; PULSE 87; RESP 16; TEMP 36.4; O2SAT 97
--- NOTE | 2023-07-11 13:25 | ED.FEMALEGU ---
HPI - Female Genitourinary General Chief complaint: Urogenital-Female Stated complaint: Retention of Fluid Time Seen by Provider: 07/11/23 12:43 History of Present Illness HPI Narrative: Pt with h/o urinary retention was supposed to have Schaffer placed at her urologist's office last night but she missed her appointment, call today and they told her to go to the emergency room. Related Data Home Medications Medication Instructions Recorded Confirmed albuterol sulfate 90 mcg/actuation 1 inh inhalation Q4H PRN Shortness 10/17/22 07/10/23 aerosol inhaler (ProAir HFA) Of Breath amlodipine 5 mg tablet 5 mg PO DAILY 06/24/23 07/10/23 cyclobenzaprine 10 mg tablet 10 mg PO TID PRN muscle spasm 06/24/23 07/10/23 hydrocodone 5 mg-acetaminophen 325 1 tablet PO Q4-6H PRN Pain (Scale 06/24/23 07/10/23 mg tablet Score 4-6) meloxicam 7.5 mg tablet 7.5 mg PO DAILY 06/24/23 07/10/23 Allergies Allergy/AdvReac Type Severity Reaction Status Date / Time COVID-19 (SARS-CoV-2) AdvReac Intermediate Swelling Verified 07/10/23 09:49 vaccine, linh influenza virus vacc AdvReac Intermediate Swelling Verified 07/10/23 09:49 trivalent, who Review of Systems Review of Systems: All systems reviewed & are unremarkable except as noted in HPI and below PMFSH Past Medical History Medical History Arthritis Back pain Body mass index (BMI) of 40.1 to 44.9 in adult COPD (chronic obstructive pulmonary disease) COVID-19 Depression with anxiety Diabetes mellitus type 2 in obese Diabetic peripheral neuropathy Ganglion cyst Excised GERD (gastroesophageal reflux disease) Hammer toes, bilateral HTN (hypertension) Hx of adenomatous colonic polyps Hx of hemorrhoids Internal Mitral valve prolapse With normal echocardiogram 2017 Mixed hyperlipidemia CISCO (obstructive sleep apnea) Intolerant to CPAP Other chronic pain Renal stones Restless leg syndrome Skin cancer Unspecified thoracic, thoracolumbar and lumbosacral intervertebral disc disorder Vitamin D deficiency Surgical History Surgical History H/O colonoscopy with polypectomy H/O foot surgery History of back surgery Posterior fixation and interbody fusion L4-2 History of carpal tunnel surgery of left wrist Bilateral History of left knee replacement History of right hip replacement History of total right knee replacement Hx of tonsillectomy Hx of total hysterectomy Status post cataract extraction of both eyes with insertion of intraocular lens Family History Family History Sibling Hypertension Diabetes mellitus Hyperlipidemia COVID-19 Enlarged heart Father Carcinoma of colon, Onset Age: 65 Mother Brain tumor (benign) Social History Social History Social History: She lives with her of 47 years. They raised a daughter and a son. 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 But she has been on disability since approximately 2002. She used to smoke a pack of cigarettes per day but quit smoking in 2003 (27 pack per year) She denies any alcohol marijuana or illicit drug use. Code status: Full code Surrogate decision maker: Smoking packs per day: 1 Smoking cigarettes per day: 20.0 Years smoked: 27 Smoking pack-years: 27.00 Smoking status: Former smoker Tobacco type: cigarettes Second hand tobacco smoke exposure: No Smoking end date: 08/11/03 Alcohol intake: current Drinks per week: 2 Alcohol use details: RARE Substance use: never Substance use type: does not use Lack of Transportation: No Lack of Food: Never True Current Housing: I Have Housing Concerned About Future Housing: No Difficulty Paying Gas/Electric Bills: No Difficulty Paying for
[2023-07-11 14:36] LABS: Appearance Urine Cloudy (Clear); Bacteria Urine None Seen /hpf; Bilirubin Urine Negative (Negative); Blood Urine Negative (Negative); Color Urine Yellow (Yellow); Glucose Urine UA Negative (Negative); Ketones Urine Negative (Negative); Leukocyte Esterase Ur Negative LEU/UL (Negative); Nitrate Urine Negative (Negative); Non Pathogenic Casts 0-2; Protein Urine Negative (Negative); RBC Urine 0-2 /hpf (0-2); Specific Grav Ur 1.019 (1.001-1.035); Squamous Epithelial Cell Urine None seen /hpf (Few); WBC Urine 0-5 /hpf; pH Urine 7.5 (5.0-9.0)
[2023-07-11 14:37] LABS: Add Urine Microscopic? YES
== END 2023-07-11 14:48 | disposition home or self-care (01) ==
PROVIDERS: Emergency Provider Emergency Medicine; PCP Family Medicine
DX: R33.9 Retention of urine, unspecified (principal); J44.9 Chronic obstructive pulmonary disease, unspecified; E11.40 Type 2 diabetes mellitus with diabetic neuropathy, unspecified; I34.1 Nonrheumatic mitral (valve) prolapse; E78.5 Hyperlipidemia, unspecified; E55.9 Vitamin D deficiency, unspecified; E66.9 Obesity, unspecified; Z68.39 Body mass index [BMI] 39.0-39.9, adult; G47.33 Obstructive sleep apnea (adult) (pediatric); G25.81 Restless legs syndrome; M19.90 Unspecified osteoarthritis, unspecified site; M16.0 Bilateral primary osteoarthritis of hip; Z96.653 Presence of artificial knee joint, bilateral; Z96.641 Presence of right artificial hip joint; Z86.16 Personal history of COVID-19; Z87.442 Personal history of urinary calculi; Z85.828 Personal history of other malignant neoplasm of skin; Z86.010 Personal history of colon polyps; Z87.891 Personal history of nicotine dependence; Z98.42 Cataract extraction status, left eye; Z98.41 Cataract extraction status, right eye; Z96.1 Presence of intraocular lens; Z90.710 Acquired absence of both cervix and uterus; Z79.85 Long-term (current) use of injectable non-insulin antidiabetic drugs
CPT/HCPCS: 51702; 81001; 99283

== ENCOUNTER 2023-07-12 11:20 | Outpatient (CLI) | payer MEDICARE, SELFPAY ==
[2023-07-12 12:07] LABS: Anion Gap 10 mmol/L (8-16); Blood Urea Nitrogen 14 mg/dL (7-17); Calcium 9.3 mg/dL (8.4-10.2); Carbon Dioxide 25 mmol/L (22-30); Chloride 106 mmol/L (98-107); Estimated Glomerular Filt Rate > 60; Glucose 116 mg/dL (65-110); Potassium 3.7 mmol/L (3.4-5.0); Sodium 141 mmol/L (137-145)
== END 2023-07-12 11:21 | disposition home or self-care (01) ==
PROVIDERS: PCP Family Medicine; Visit Provider Nurse Practitioner Family
DX: R33.9 Retention of urine, unspecified (principal); R60.9 Edema, unspecified
CPT/HCPCS: 36415; 80048

== ENCOUNTER 2023-10-03 11:53 | Emergency (ER) | payer OTHER, MEDICARE, SELFPAY ==
--- NOTE | ~2023-10-03 | XR_ITS ---
EXAMINATION: XR shoulder LT min 2V INDICATION: Left shoulder pain TECHNIQUE: Four views of the left shoulder are submitted. COMPARISON: None FINDINGS: Normal alignment. No fracture. There is moderate osteoarthritis of the glenohumeral and acr omioclavicular joints. Soft tissues are unremarkable. IMPRESSION: 1. Osteoarthritis without acute osseous abnormality. Reviewed, dictated and finalized at location B. ING MACHINE OPERATOR
--- NOTE | ~2023-10-03 | XR_ITS ---
EXAMINATION: XR knee LT 3V DATE: 10/03/2023 14:40 INDICATION: Left knee pain TECHNIQUE: Three views of the left knee were obtained. COMPARISON: 05/18/2015 FINDINGS: There are changes of interval knee arthroplasty. No fracture is identified. There is a smal l knee joint effusion. Soft tissues are unremarkable. IMPRESSION: 1. No acute osseous abnormality. Reviewed, dictated and finalized at location B. ICIDE APPLICATOR
--- NOTE | ~2023-10-03 | XR_ITS ---
EXAMINATION: XR hip LT min 3V w AP pelvis INDICATION: Left hip pain TECHNIQUE: AP view of the pelvis and three views of the left hip are obtained. COMPARISON: 11/30/2020 FINDINGS: There are changes of interval right hip arthroplasty. Bone alignment is normal. There is no fracture. There is moderate osteoarthritis of the left hip. Phleboliths are noted in the pelvis. Maribel nges of fusion procedure are present in the lower lumbar spine. IMPRESSION: 1. No acute osseous abnormality. Reviewed, dictated and finalized at location B. EDUCATION PROFESSOR
[2023-10-03 11:56] VITALS: BP 156/69; PULSE 99; RESP 16; TEMP 36.4; O2SAT 98
--- NOTE | 2023-10-03 14:31 | ED.FALL ---
HPI - Fall General Chief Complaint: Fall Stated Complaint: fall, lower back/arm/knee pain Time Seen by Provider: 10/03/23 13:33 History of Present Illness HPI Narrative: Patient is a 68-year-old female presenting after a fall. States that she was at a department store yesterday when she tripped on something on the floor and she fell onto her left side. Did not strike her head or lose consciousness. States that she has had a lot of pain in her left knee, left hip, left shoulder since that time so her son told her to come in to get checked out. Patient took some ibuprofen last night with minimal relief. No neck or midline back pain. No further complaints. Related Data Home Medications Medication Instructions Recorded Confirmed albuterol sulfate 90 mcg/actuation 1 inh inhalation Q4H PRN Shortness 10/17/22 07/14/23 aerosol inhaler (ProAir HFA) Of Breath cyclobenzaprine 10 mg tablet 10 mg PO TID PRN muscle spasm 06/24/23 07/14/23 hydrocodone 5 mg-acetaminophen 325 1 tablet PO Q4-6H PRN Pain (Scale 06/24/23 07/14/23 mg tablet Score 4-6) meloxicam 7.5 mg tablet 7.5 mg PO DAILY 06/24/23 07/14/23 Allergies Allergy/AdvReac Type Severity Reaction Status Date / Time COVID-19 (SARS-CoV-2) AdvReac Intermediate Swelling Verified 07/14/23 15:36 vaccine, linh influenza virus vacc AdvReac Intermediate Swelling Verified 07/14/23 15:36 trivalent, who Review of Systems Review of Systems: All systems reviewed & are unremarkable except as noted in HPI and below PMFSH Past Medical History Medical History Arthritis Back pain Body mass index (BMI) of 40.1 to 44.9 in adult COPD (chronic obstructive pulmonary disease) COVID-19 Depression with anxiety Diabetes mellitus type 2 in obese Diabetic peripheral neuropathy Ganglion cyst Excised GERD (gastroesophageal reflux disease) Hammer toes, bilateral HTN (hypertension) Hx of adenomatous colonic polyps Hx of hemorrhoids Internal Mitral valve prolapse With normal echocardiogram 2017 Mixed hyperlipidemia CISCO (obstructive sleep apnea) Intolerant to CPAP Other chronic pain Renal stones Restless leg syndrome Skin cancer Unspecified thoracic, thoracolumbar and lumbosacral intervertebral disc disorder Vitamin D deficiency Surgical History Surgical History H/O colonoscopy with polypectomy H/O foot surgery History of back surgery Posterior fixation and interbody fusion L4-2 History of carpal tunnel surgery of left wrist Bilateral History of left knee replacement History of right hip replacement History of total right knee replacement Hx of tonsillectomy Hx of total hysterectomy Status post cataract extraction of both eyes with insertion of intraocular lens Family History Family History Sibling Hypertension Diabetes mellitus Hyperlipidemia COVID-19 Enlarged heart Father Carcinoma of colon, Onset Age: 65 Mother Brain tumor (benign) Social History Social History Social History: She lives with her of 47 years. They raised a daughter and a son. 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 But she has been on disability since approximately 2002. She used to smoke a pack of cigarettes per day but quit smoking in 2003 (27 pack per year) She denies any alcohol marijuana or illicit drug use. Code status: Full code Surrogate decision maker: Smoking packs per day: 1 Smoking cigarettes per day: 20.0 Years smoked: 27 Smoking pack-years: 27.00 Smoking status: Former smoker Tobacco type: cigarettes Second hand tobacco smoke exposure: No Smoking end date: 08/11/03 Alcohol intake: current Drinks per week: 2 Alcohol use details: RAR
[2023-10-03] MEDS: KETOROLAC 30 MG/ML VIAL (*BKC) IM (14:45)
[2023-10-03 15:45] VITALS: BP 141/85; PULSE 78; RESP 19; TEMP 36.9; O2SAT 98
== END 2023-10-03 16:00 | disposition home or self-care (01) ==
PROVIDERS: Emergency Provider Emergency Medicine
DX: S89.92XA Unspecified injury of left lower leg, initial encounter (principal); S79.912A Unspecified injury of left hip, initial encounter; S49.92XA Unspecified injury of left shoulder and upper arm, initial encounter; J44.9 Chronic obstructive pulmonary disease, unspecified; I10 Essential (primary) hypertension; I34.1 Nonrheumatic mitral (valve) prolapse; E11.42 Type 2 diabetes mellitus with diabetic polyneuropathy; E55.9 Vitamin D deficiency, unspecified; E78.2 Mixed hyperlipidemia; K21.9 Gastro-esophageal reflux disease without esophagitis; M19.012 Primary osteoarthritis, left shoulder; G47.33 Obstructive sleep apnea (adult) (pediatric); G25.81 Restless legs syndrome; Z86.16 Personal history of COVID-19; Z86.010 Personal history of colon polyps; Z87.442 Personal history of urinary calculi; Z85.828 Personal history of other malignant neoplasm of skin; W18.09XA Striking against other object with subsequent fall, initial encounter
CPT/HCPCS: 73030; 73502; 73562; 96372; 99284; J1885

== ENCOUNTER 2023-10-18 11:02 | Outpatient (CLI) | payer MEDICARE, SELFPAY ==
--- NOTE | ~2023-10-18 | MR_ITS ---
EXAMINATION: MR shoulder LT wo con DATE: 10/18/2023 12:49 INDICATION: Left rotator cuff dysfunction. Left shoulder pain. TECHNIQUE: Magnetic resonance imaging (MRI) of the left shoulder was performed without intravenous co ntrast. Sequences included axial PD-weighted FS FSE, coronal oblique PD-weighted FS FSE and T2-weight ed FS FSE, and sagittal oblique T2-weighted FS FSE and T1-weighted FSE. COMPARISON: Left shoulder radiographs 10/03/2023 FINDINGS: Coracoacromial arch: The acromion undersurface is curved in morphology (type II). There is moderate acromioclavicular join t osteoarthritis including inferiorly directed osteophytes. There is mild subacromial/subdeltoid burs itis. Rotator cuff: There is severe supraspinatus and infraspinatus tendinopathy with small interstitial tears. Teres min or tendon is normal. There is severe subscapularis tendinopathy. There is mild fatty atrophy of the s upraspinatus, infraspinatus, and subscapularis muscle bellies. There is degenerative cystic change in greater tuberosity. Biceps tendon and glenoid labrum: Biceps tendon is in bicipital groove. There is a partial tear of intra-articular biceps tendon. There is degenerative tearing of the glenoid labrum. Fluid: There is a moderate-sized glenohumeral joint effusion. Bones/cartilage: There is deep partial thickness cartilage loss of glenoid and humeral head. Osteophytes are noted. IMPRESSION: 1. Severe rotator cuff tendinopathy with small interstitial tears of supraspinatus and infraspinatus tendons. 2. Moderate glenohumeral joint chondrosis. 3. Moderate acromioclavicular joint osteoarthritis. 4. Partial tear of biceps tendon. 5. Moderate-sized glenohumeral joint effusion. 6. Mild subacromial/subdeltoid bursitis. Reviewed, dictated and finalized at location E. ER SETTER CHAINSTITCH IMPRESSION: 1. Severe rotator cuff tendinopathy with small interstitial tears of supraspina tus and infraspinatus tendons. 2. Moderate glenohumeral joint chondrosis. 3. Moderate acromioclavicular joint osteoarthritis. 4. Partial tear of biceps tendon. 5. Moderate-sized glenohumeral joint effusion. 6. Mild subacromial/subdeltoid bursitis.
== END 2023-10-18 11:03 ==
LOC: MICIMG 11:03
DX: M75.32 Calcific tendinitis of left shoulder (principal); M94.212 Chondromalacia, left shoulder; M19.012 Primary osteoarthritis, left shoulder; S46.212A Strain of muscle, fascia and tendon of other parts of biceps, left arm, initial encounter; M25.412 Effusion, left shoulder; M75.52 Bursitis of left shoulder; X58.XXXA Exposure to other specified factors, initial encounter
CPT/HCPCS: 73221

== ENCOUNTER 2023-10-21 10:54 | Outpatient (CLI) | payer MEDICARE, SELFPAY ==
[2023-10-21 11:31] LABS: Anion Gap 6 mmol/L (8-16); Blood Urea Nitrogen 22 mg/dL (7-17); Carbon Dioxide 27 mmol/L (22-30); Chloride 105 mmol/L (98-107); Potassium 3.8 mmol/L (3.4-5.0); Sodium 138 mmol/L (137-145)
[2023-10-21 11:32] LABS: Calcium 9.4 mg/dL (8.4-10.2); Estimated Glomerular Filt Rate > 60; Glucose 116 mg/dL (65-110)
== END 2023-10-21 10:55 | disposition home or self-care (01) ==
PROVIDERS: Anesthesiology; Visit Provider Podiatrist Foot & Ankle Surgery
DX: Z01.818 Encounter for other preprocedural examination (principal); Z79.899 Other long term (current) drug therapy
CPT/HCPCS: 36415; 80048

== ENCOUNTER 2023-10-24 00:19 | Day surgery (SDC) | payer MEDICARE, OTHER, SELFPAY ==
[2023-10-20 12:44] VITALS: BMI 40.9
--- NOTE | 2023-10-20 12:57 | PC.NURSE ---
PRE-OP INSTRUCTIONS, PLEASE READ CAREFULLY Report to the Outpatient Waiting Room, entrance under the green pavilion located off [facility], at time _0600_ on date _10/24/23_. Planned Procedure Time: _0730_. Time changes happen often and if your time is changed the preop area will call you the afternoon before. - You and your visitor will be asked to self-screen and do not enter if you have any COVID symptoms. - A mask is optional within the hospital at this time. Patients may have clear liquids (water, carbonated beverages, clear teas, apple juice) until 3 hours prior to surgery (0430 AM) with a maximum of 20 ounces. - No food from midnight until time of surgery Take the following medications with a SIP of water the morning of surgery: _ROPINIROLE, & INHALER, CYCLOBENZAPRINE, TYLENOL OR HYDROCODONE/TYLENOL IF NEEDED__ DO NOT STOP ANY OF YOUR OTHER PRESCRIPTION MEDICATIONS PRIOR TO SURGERY ?EXCEPT THE FOLLOWING Medications to discontinue per DR. SWEET - _MELOXICAM, CALL FOR INSTRUCTIONS_ Please no make-up, nail belarusian, hairspray, perfume, deodorant, or body powder the day of surgery. No jewelry (including any body piercings) or valuables the day of surgery, leave them at home. Please take a shower or bath the night before, or the morning of, surgery with an antibacterial soap. Wear comfortable, loose fitting clothing. - Jewelry must be removed prior to entering the operating room. Rings and piercings that are not removed may be cut off. - The hospital will not accept responsibility for valuables. - Please leave all valuables, including medications, at home the day of surgery. If you are going home after surgery, a licensed concrete pile driver operator must drive you home. - NO public transportation without another adult if you receive anesthesia. - We recommend that an adult stay with you for 24 hours following discharge. - We also recommend that you do not drive, make important decision, drink alcoholic beverages, or take any drugs that were not prescribed by your health care provider for at least 24 hours after your discharge time. Follow any additional instructions given to you from your surgeon. If you or anyone in your household have experienced Covid symptoms in the past week, please notify your surgeon or the nurse liaison at the phone number below for possible testing. Telephone instructions given to _PATIENT_and asked if any additional questions and then verbalized understanding. Patient advised to call surgeon office or pre surgery nurse liaison [phone] if any additional questions.
--- NOTE | 2023-10-23 14:06 | WPDANESEPPF ---
Anes - Initial Pre Proc Eval Procedure: Operation Date: 10/24/23 07:30 Proposed Procedures p Arthrodesis First Metatarsophalangeal Joint Left Foot, Jaden Shortening Second and Third Metatarsal Osteotomy Left Foot, Arthrodesis of Inter Phalangeal Joint Left Hallux - Toney Galaviz JR, MD s Hammertoe Repair Second Through Fourth Digits Left Foot - Toney Galaviz JR, MD Date/Time: 10/23/23 14:06 Surgeon: Toney Galaviz JR, MD Pre Op Diagnosis: Arthritic Bunion Lt Foot, hammertoe 2-4 Lt Foot Patient Data Age: 68 Gender: F Height: 1.68 m Weight: 115 kg Allergies Allergy/AdvReac Type Severity Reaction Status Date / Time COVID-19 (SARS-CoV-2) AdvReac Intermediate Swelling Verified 10/24/23 07:39 vaccine, linh influenza virus vacc AdvReac Intermediate Swelling Verified 10/24/23 07:39 trivalent, who Home Medications Medication Instructions Recorded Confirmed Type albuterol sulfate 90 mcg/actuation 1 inh inhalation Q4H PRN Shortness 10/17/22 10/20/23 History aerosol inhaler (ProAir HFA) Of Breath acetaminophen 500 mg tablet 1,000 mg PO Q6H PRN pain #50 tabs 10/28/22 10/20/23 Rx (Tylenol Extra Strength) ondansetron 4 mg disintegrating 4 mg PO Q8H PRN nausea and 10/28/22 10/20/23 Rx tablet vomiting #10 tabs ropinirole 4 mg tablet 4 mg PO QAM AND QHS #180 tabs 04/27/23 10/20/23 Rx cyclobenzaprine 10 mg tablet 10 mg PO TID PRN muscle spasm 06/24/23 10/20/23 History hydrocodone 5 mg-acetaminophen 325 1 tablet PO Q4-6H PRN Pain (Scale 06/24/23 10/20/23 History mg tablet Score 4-6) meloxicam 7.5 mg tablet 7.5 mg PO DAILY 06/24/23 10/24/23 History atorvastatin 20 mg tablet 20 mg PO DAILY #90 tabs 09/21/23 10/20/23 Rx omeprazole 40 mg capsule,delayed 40 mg PO BID #180 caps 09/21/23 10/20/23 Rx release losartan 100 1 tablet DAILY 10/20/23 10/20/23 History mg-hydrochlorothiazide 25 mg tablet Patient hx anesthesia problems: none Family hx anesthesia problems: none Results Review: All pre-operative results and documents have been reviewed as part of the pre-operative evaluation. [facility] Past Medical History Medical History Arthritis Back pain Body mass index (BMI) of 40.1 to 44.9 in adult COPD (chronic obstructive pulmonary disease) COVID-19 Depression with anxiety Diabetes mellitus type 2 in obese Diabetic peripheral neuropathy Ganglion cyst Excised GERD (gastroesophageal reflux disease) Hammer toes, bilateral HTN (hypertension) Hx of adenomatous colonic polyps Hx of hemorrhoids Internal Mitral valve prolapse With normal echocardiogram 2017 Mixed hyperlipidemia CISCO (obstructive sleep apnea) Intolerant to CPAP Other chronic pain Renal stones Restless leg syndrome Skin cancer Unspecified thoracic, thoracolumbar and lumbosacral intervertebral disc disorder Vitamin D deficiency Surgical History Surgical History H/O colonoscopy with polypectomy H/O foot surgery History of back surgery Posterior fixation and interbody fusion L4-2 History of carpal tunnel surgery of left wrist Bilateral History of left knee replacement History of right hip replacement History of total right knee replacement Hx of tonsillectomy Hx of total hysterectomy Status post cataract extraction of both eyes with insertion of intraocular lens Family History Family History Sibling Hypertension Diabetes mellitus Hyperlipidemia COVID-19 Enlarged heart Father Carcinoma of colon, Onset Age: 65 Mother Brain tumor (benign) Social History Social History Social History: She lives with her of 47 years. They raised a daughter and a son. 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 But she has been on d
[2023-10-24] VITALS (11 sets, daily range): BP systolic 125–172; BP diastolic 67–96; PULSE 77–96; RESP 14–20; TEMP 36.2–36.4; O2SAT 96–99; BMI 41.2
--- NOTE | ~2023-10-24 | XR_ITS ---
EXAMINATION: XR surgery orthopedic DATE: 10/24/2023 11:04 INDICATION: Arthrodesis at the left foot TECHNIQUE: 2 fluoroscopic images of the left forefoot were obtained during procedure performed by Dr. Galaviz. Radiologist was not present for the imaging or procedure. The amount of fluoroscopy time u sed during this procedure was 0.5 minutes. COMPARISON: None. FINDINGS: First metatarsophalangeal arthrodesis with lag screw and dorsal plate-screw fixation. Osteotomies at the necks of the second and third metatarsals, both with screw fixations. There is also been an arthr odesis of the second proximal interphalangeal joint with fixation device. Osteotomies at the heads of the third and fourth proximal phalanges. No fractures identified. Mild osteoarthritis at the first i nterphalangeal joint. Expected small amount of soft tissue gas at the operative beds. IMPRESSION: 1. Fluoroscopy utilized during orthopedic procedure at multiple locations in the left forefoot as det rehan above. Reviewed, dictated and finalized at location B. IMPRESSION: 1. Fluoroscopy utilized during orthopedic procedure at multiple locations in th e left forefoot as detailed above.
--- NOTE | 2023-10-24 07:13 | WPDHPUPDATE1 ---
History and Physical Update Update Date/Time: 10/24/23 07:13 History and Physical has been reviewed, including an updated exam of the patient. There are NO changes in the patient's condition. Risks, benefits, and alternatives have been discussed and questions answered. Patient agrees to proceed with procedure.
[2023-10-24] MEDS: LACTATED RINGERS 1,000 ML 30 ML IV CONT (07:30)
[2023-10-24] MEDS: ceFAZolin 2 GM/D5W 50 ML 2 GM/50 ML BAG IVPB (07:44)
--- NOTE | 2023-10-24 07:59 | WPDANESPNB ---
Anes - Peripheral Nerve Block Date/Time: 10/24/23 08:00 I have discussed with the patient/family/POA the placement of a peripheral nerve block for post-operative pain management, including associated risks, benefits, complications, and side effects. Alternative methods of post-operative analgesia were detailed. Questions were solicited and answers provided to the satisfaction of the patient/family/POA. Time-Out: A pre-procedural Time-Out was completed immediately before starting the procedure and confirmed: Patient Identification, Site, Procedure, Patient Position and the Availability of Requisite Equipment. Clinical Indications: Acute post-operative pain management requested by the operative surgeon. Nerve Block Insertion Note Anes-nerve block: posterior fossa sciatic left and adductor canal left Patient position: supine (for adductor canal) and other (right lateral for popliteal) Skin prep: chlorhexidine Needle: 22 gauge, stimulating, insulated echogenic needle. Needle length: 80 mm Technique: nerve stimulation lost at (mA) (for popliteal lost at 0.2) and ultrasound Injectate: bupivacaine 0.5% with epi 5 mcg/ml (20 mL for popliteal, 10 mL for adductor canal (no epi)) Observations: tolerated well Complications: none Procedure start time:: 732 Procedure end time:: 737
--- NOTE | 2023-10-24 09:57 | W.PM.PROC2 ---
Procedure Note - Detailed Date of Procedure 10/24/23 Pre-op Diagnosis 1. Arthritic Bunion Left Foot 2. Hammertoe 2-4 Left Foot 3. Metatarsalgia second and third metatarsal phalangeal joints left foot Post-op Diagnosis Same Procedure Performed 1. Arthrodesis of the first metatarsal phalangeal joint left foot 2. Jaden shortening second and third metatarsal osteotomies left foot 3. Hammertoe repair second through fourth digits left foot Surgeon Toney Galaviz JR, BARBI Anesthesia General and Regional Indications Painful left forefoot Description of Procedure PROCEDURE IN DETAIL: Under mild sedation, the patient was brought into the operating room, placed on the operating table in supine position. A pneumatic ankle tourniquet was placed about the patient's left ankle. Following general anesthesia and a popliteal fossa block, the foot was then scrubbed, prepped, and draped in the usual aseptic manner. An Esmarch bandage was then used to exsanguinate the patient's foot and the pneumatic ankle tourniquet was then inflated. Surgery began in the following manner: Attention was directed to the dorsal medial aspect of the 1st metatarsophalangeal joint where there was a moderate subcutaneous prominence was noted. The incision was made starting along the central shaft of the 1st metatarsal and extending just proximal to the interphalangeal joint of the hallux. The incision was continued deep down through the subcutaneous tissues using sharp and blunt dissection. All bleeders were cauterized as necessary. At this point, the dissection was continued down to the level of the periosteum and capsular structures overlying the 1st metatarsophalangeal joint. A full length periosteum and capsular incision was made just medial to the extensor hallucis longus tendon. The periosteum and capsular structures were freed from the base of the proximal phalanx as well as the distal 1st metatarsal. At this point, the 1st metatarsophalangeal joint was identified. There was loss of articular cartilage to the head of the 1st metatarsal as well as the base of the proximal phalanx worse centrally and medially. There was significant broadening and hypertrophy of the 1st metatarsophalangeal joint. Utilizing a sagittal bone saw, the hypertrophied 1st metatarsal was resected dorsally, medially, and laterally. A power bur was used to make sure that there were no rough edges and also to further debride the hypertrophic 1st metatarsal. Next, a rongeur was used to resect the hypertrophic base of the proximal phalanx. At this point, the reamer system for the Arthrex Maxforce plate system was used to denude the degenerative cartilage from the head of the 1st metatarsal as well as the base of the proximal phalanx. The cartilage and subchondral bone were fully debrided utilizing the reamer system until healthy bleeding bone was noted. Next, a 2-0 drill bit was used to further fenestrate the head of the 1st metatarsal as well as the base of the proximal phalanx in order to allow fusion across the 1st metatarsophalangeal joint. Next, a guide wire for a 3.0 Headed Arthrex Quickfix compression screw was driven from the medial aspect of the base of the proximal phalanx into the head of the 1st metatarsal in order to serve as temporary fixation, next the cannulated screw was driven and provided excellent compression. Next A large steel plate was used to make sure that the hallux was in a rectus position both in the sagittal plane as well as the frontal plane. Excellent position of the hallux was noted. Next, a Maxforce plate was placed atop the 1st metatarsophalangeal joint held in position with [place] wires. Utilizing standard principles and techniques, the distal drill holes were drilled and three 3.0 mm mm fully-threaded locking screws were driven from dorsal to plantar holding the distal aspect of the plate intact. At this point, the Maxforce compression system was utilized from
[2023-10-24] MEDS: oxyCODONE HCL (*CRX) 5 MG TAB IR PO (11:28)
[2023-10-24] MEDS: KETOROLAC 15 MG/ML VIAL (*BKC) IV PUSH (12:02)
== END 2023-10-24 13:40 | disposition home or self-care (01) ==
PROVIDERS: Visit Provider Podiatrist Foot & Ankle Surgery
PROC: (CPT 28750; principal; 2023-10-24 07:30)
PROC: (CPT 28285; 2023-10-24 07:30)
DX: M21.612 Bunion of left foot (principal); M20.42 Other hammer toe(s) (acquired), left foot; M77.42 Metatarsalgia, left foot; G89.18 Other acute postprocedural pain; J44.9 Chronic obstructive pulmonary disease, unspecified; E78.2 Mixed hyperlipidemia; G47.33 Obstructive sleep apnea (adult) (pediatric); I10 Essential (primary) hypertension; K21.9 Gastro-esophageal reflux disease without esophagitis; E55.9 Vitamin D deficiency, unspecified; F41.8 Other specified anxiety disorders; E11.42 Type 2 diabetes mellitus with diabetic polyneuropathy; G25.81 Restless legs syndrome; Z79.51 Long term (current) use of inhaled steroids; Z98.1 Arthrodesis status; Z87.891 Personal history of nicotine dependence; E66.01 Morbid (severe) obesity due to excess calories; Z68.41 Body mass index [BMI] 40.0-44.9, adult
CPT/HCPCS: 28285 ×3; 28750; 28308 ×2; 64445; 64447; 36415; 80048; 99199; A9270; C1713; C1769; J0330; J0690; J1885; J2250; J2405; J2704; J3010; J7120

== ENCOUNTER 2023-12-17 01:03 | Day surgery (SDC) | payer MEDICARE, SELFPAY ==
[2023-12-02 14:46] VITALS: BMI 41.3
[2023-12-17 10:54] VITALS: BP 131/82; PULSE 69; RESP 19; TEMP 36.2; O2SAT 100
[2023-12-17] MEDS: LACTATED RINGERS 1,000 ML 150 ML IV CONT (11:06)
--- NOTE | 2023-12-17 12:17 | WPDANESEPPF ---
Anes - Initial Pre Proc Eval Procedure: Operation Date: 12/17/23 12:30 Proposed Procedures p Esophagogastroduodenoscopy - Shashi Garcia MD Date/Time: 12/17/23 12:17 Surgeon: Shashi Garcia MD Pre Op Diagnosis: Esophageal Dysphagia Patient Data Age: 68 Gender: F Height: 1.68 m Weight: 114.2 kg Last Vital Signs Temp 97.1 F L 12/17/23 10:54 Pulse 69 12/17/23 10:54 Resp 19 12/17/23 10:54 BP 131/82 12/17/23 10:54 Pulse Ox 100 12/17/23 10:54 O2 Del Method Room Air 12/17/23 10:54 Allergies Allergy/AdvReac Type Severity Reaction Status Date / Time COVID-19 (SARS-CoV-2) AdvReac Intermediate Swelling Verified 12/17/23 10:53 vaccine, linh influenza virus vacc AdvReac Intermediate Swelling Verified 12/17/23 10:53 trivalent, who pneumococcal vaccine AdvReac Intermediate Swelling Verified 12/17/23 10:53 Home Medications Medication Instructions Recorded Confirmed Type albuterol sulfate 90 mcg/actuation 1 inh inhalation Q4H PRN Shortness 10/17/22 12/02/23 History aerosol inhaler (ProAir HFA) Of Breath acetaminophen 500 mg tablet 1,000 mg PO Q6H PRN pain #50 tabs 10/28/22 12/02/23 Rx (Tylenol Extra Strength) ondansetron 4 mg disintegrating 4 mg PO Q8H PRN nausea and 10/28/22 12/02/23 Rx tablet vomiting #10 tabs ropinirole 4 mg tablet 4 mg PO QAM AND QHS #180 tabs 04/27/23 12/02/23 Rx cyclobenzaprine 10 mg tablet 10 mg PO TID PRN muscle spasm 06/24/23 12/02/23 History hydrocodone 5 mg-acetaminophen 325 1 tablet PO Q4-6H PRN Pain (Scale 06/24/23 12/02/23 History mg tablet Score 4-6) meloxicam 7.5 mg tablet 15 mg PO DAILY 06/24/23 12/02/23 History atorvastatin 20 mg tablet 20 mg PO DAILY #90 tabs 09/21/23 12/02/23 Rx omeprazole 40 mg capsule,delayed 40 mg PO BID #180 caps 09/21/23 12/02/23 Rx release losartan 100 1 tablet DAILY 10/20/23 12/02/23 History mg-hydrochlorothiazide 25 mg tablet aspirin 81 mg tablet,delayed 162 mg PO DAILY 12/02/23 12/02/23 History release (Adult Aspirin Regimen) oxycodone 10 mg tablet 10 mg PO Q6-8H 12/02/23 12/02/23 History Patient hx anesthesia problems: none Family hx anesthesia problems: none Results Review: All pre-operative results and documents have been reviewed as part of the pre-operative evaluation. [facility] Past Medical History Medical History Arthritis Back pain Body mass index (BMI) of 40.1 to 44.9 in adult COPD (chronic obstructive pulmonary disease) COVID-19 Depression with anxiety Diabetes mellitus type 2 in obese Diabetic peripheral neuropathy Ganglion cyst Excised GERD (gastroesophageal reflux disease) Hammer toes, bilateral HTN (hypertension) Hx of adenomatous colonic polyps Hx of hemorrhoids Internal Mitral valve prolapse With normal echocardiogram 2017 Mixed hyperlipidemia CISCO (obstructive sleep apnea) Intolerant to CPAP Other chronic pain Renal stones Restless leg syndrome Skin cancer Unspecified thoracic, thoracolumbar and lumbosacral intervertebral disc disorder Vitamin D deficiency Surgical History Surgical History H/O colonoscopy with polypectomy H/O foot surgery History of back surgery Posterior fixation and interbody fusion L4-2 History of carpal tunnel surgery of left wrist Bilateral History of left knee replacement History of right hip replacement History of total right knee replacement Hx of tonsillectomy Hx of total hysterectomy Status post cataract extraction of both eyes with insertion of intraocular lens Family History Family History Sibling Hypertension Diabetes mellitus Hyperlipidemia COVID-19 Enlarged heart Father Carcinoma of colon, Onset Age: 65 Mother Brain tumor (benign) Social History Social History (Reviewed 10/03/23 @
--- NOTE | 2023-12-17 12:35 | PM.HPGS ---
History of Present Illness History of Present Illness Consent: Risks, benefits, and alternatives have been discussed and questions answered. Patient agrees to proceed with procedure. Chief complaint: Esophageal Dysphagia Narrative: Maria Alejandra Mooney is a 68 year old female with dysphagia for several months, had EGD 5-6 years ago with esophageal dilation. She is using omeprazole. Review of Systems Review of Systems: All systems reviewed & are unremarkable except as noted in HPI and below PMFSH Past Medical History Medical History Arthritis Back pain Body mass index (BMI) of 40.1 to 44.9 in adult COPD (chronic obstructive pulmonary disease) COVID-19 Depression with anxiety Diabetes mellitus type 2 in obese Diabetic peripheral neuropathy Ganglion cyst Excised GERD (gastroesophageal reflux disease) Hammer toes, bilateral HTN (hypertension) Hx of adenomatous colonic polyps Hx of hemorrhoids Internal Mitral valve prolapse With normal echocardiogram 2017 Mixed hyperlipidemia CISCO (obstructive sleep apnea) Intolerant to CPAP Other chronic pain Renal stones Restless leg syndrome Skin cancer Unspecified thoracic, thoracolumbar and lumbosacral intervertebral disc disorder Vitamin D deficiency Surgical History Surgical History H/O colonoscopy with polypectomy H/O foot surgery History of back surgery Posterior fixation and interbody fusion L4-2 History of carpal tunnel surgery of left wrist Bilateral History of left knee replacement History of right hip replacement History of total right knee replacement Hx of tonsillectomy Hx of total hysterectomy Status post cataract extraction of both eyes with insertion of intraocular lens Family History Family History Sibling Hypertension Diabetes mellitus Hyperlipidemia COVID-19 Enlarged heart Father Carcinoma of colon, Onset Age: 65 Mother Brain tumor (benign) Social History Social History Social History: She lives with her of 47 years. They raised a daughter and a son. 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 But she has been on disability since approximately 2002. She used to smoke a pack of cigarettes per day but quit smoking in 2003 (27 pack per year) She denies any alcohol marijuana or illicit drug use. Code status: Full code Surrogate decision maker: Smoking packs per day: 1 Smoking cigarettes per day: 20.0 Years smoked: 27 Smoking pack-years: 27.00 Smoking status: Never smoker Tobacco type: cigarettes Second hand tobacco smoke exposure: No Smoking end date: 08/11/03 Alcohol intake: never Drinks per week: 2 Alcohol use details: RARE Substance use: never Substance use type: does not use Lack of Transportation: No Lack of Food: Never True Current Housing: I Have Housing Concerned About Future Housing: No Difficulty Paying Gas/Electric Bills: No Difficulty Paying for Meds: No Currently Unemployed: No Education: Grade School Difficulty w/ Childcare or Family Care: No Living arrangements: with family Occupation/Education: retired Additional occupation/education comments: disabled Gender identity (if verbalized by the patient): Female Spiritual care concerns: No Meds Home Medications and Allergies Home Medications Medication Instructions Recorded Confirmed Type albuterol sulfate 90 mcg/actuation 1 inh inhalation Q4H PRN Shortness 10/17/22 12/02/23 History aerosol inhaler (ProAir HFA) Of Breath acetaminophen 500 mg tablet 1,000 mg PO Q6H PRN pain #50 tabs 10/28/22 12/02/23 Rx (Tylenol Extra Strength) ondansetron 4 mg disintegrating 4 mg PO Q8H PRN nausea and 10/28/22
[2023-12-17 12:51] VITALS: BP 131/87; PULSE 76; RESP 20; O2SAT 98
[2023-12-17 13:01] VITALS: BP 149/66; PULSE 71; RESP 21; O2SAT 98
[2023-12-17 13:11] VITALS: BP 115/75; PULSE 72; RESP 15; O2SAT 100
== END 2023-12-17 13:20 | disposition home or self-care (01) ==
PROVIDERS: Visit Provider Internal Medicine Gastroenterology
PROC: 0DJ08ZZ Inspection of Upper Intestinal Tract, Via Natural or Artificial Opening Endoscopic (ICD-10-PCS; CPT 43235; principal; 2023-12-17 12:30)
DX: K44.9 Diaphragmatic hernia without obstruction or gangrene (principal); K29.50 Unspecified chronic gastritis without bleeding; K21.00 Gastro-esophageal reflux disease with esophagitis, without bleeding; E11.42 Type 2 diabetes mellitus with diabetic polyneuropathy; I10 Essential (primary) hypertension; E78.2 Mixed hyperlipidemia; G47.33 Obstructive sleep apnea (adult) (pediatric); J44.9 Chronic obstructive pulmonary disease, unspecified; F41.8 Other specified anxiety disorders; G25.81 Restless legs syndrome; Z79.51 Long term (current) use of inhaled steroids; Z79.82 Long term (current) use of aspirin; Z87.891 Personal history of nicotine dependence; Z98.1 Arthrodesis status; E66.01 Morbid (severe) obesity due to excess calories; Z68.41 Body mass index [BMI] 40.0-44.9, adult
CPT/HCPCS: 43239; 88305; J2704; J7120

== ENCOUNTER 2024-01-20 16:33 | Outpatient (CLI) | payer MEDICARE, SELFPAY ==
--- NOTE | ~2024-01-20 | MM_ITS ---
EXAMINATION: MM screening mammo BI HISTORY: Screening TECHNIQUE: Craniocaudal and mediolateral oblique 3-D tomosynthesis images were obtained and synthetic 2-D images were generated. CAD analysis was submitted and interpreted. COMPARISON: Comparison to multiple prior studies sequentially, with oldest reviewed study dated 02/2018. BREAST PARENCHYMAL COMPOSITION: Not dense: There are scattered areas of fibroglandular density. FINDINGS: There is no evidence of suspicious mass, calcification, or architectural distortion to sugg est malignancy in either breast. There has been no suspicious interval change. IMPRESSION: 1. No mammographic evidence of malignancy. 2. Recommend routine screening mammography in one year. BI-RADS Category 1: Negative Reviewed, dictated and finalized at location B.
== END 2024-01-20 16:34 | disposition home or self-care (01) ==
PROVIDERS: Visit Provider Physician Assistant Medical
DX: Z12.31 Encounter for screening mammogram for malignant neoplasm of breast (principal)
CPT/HCPCS: 77067

== ENCOUNTER 2024-04-11 09:03 | Emergency (ER) | payer MEDICARE, SELFPAY ==
[2024-04-11 09:05] VITALS: BP 191/79; PULSE 99; RESP 20; TEMP 36.4; O2SAT 98
[2024-04-11 10:13] VITALS: BP 135/85; PULSE 100; RESP 16; O2SAT 98
--- NOTE | 2024-04-11 10:55 | ED.GENADULT ---
HPI - General Adult General Chief complaint: Skin/Abscess/Foreign Body Stated complaint: rASH Time Seen by Provider: 04/11/24 10:50 Source: patient History of Present Illness HPI narrative: 68 YEARS OLD WHITE FEMALE CAME TO THE ED WITH ITCHING SKIN RASH STARTED OVER 2 WEEKS AGO. PATIENT REPORTS THAT HER SYMPTOMS STARTED AFTER HER DOCTOR BEEN ITCHING AND WAS MANAGED BY A VET. PATIENT WAS SEEN BY URGENT CARE AT LEAST 3 TIMES AND WAS STARTED ON PREDNISONE, BENADRYL AND ANTIBIOTIC WITHOUT IMPROVEMENT. PATIENT REPORTS NO SICK CONTACT. RASH DIFFERENT PARTS OF HER BODY MAINLY BACK, LOWER ABDOMEN, GROIN AREA, UNDER THE BREAST AND AT THE WRIST ANTERIORLY. PATIENT DENIES HAVING SIMILAR SYMPTOMS IN THE PAST. PATIENT HAVE A LOT OF STRESS AND ANXIETY. Related Data Home Medications Medication Instructions Recorded Confirmed albuterol sulfate 90 mcg/actuation 1 inh inhalation Q4H PRN Shortness 10/17/22 04/05/24 aerosol inhaler (ProAir HFA) Of Breath cyclobenzaprine 10 mg tablet 10 mg PO TID PRN muscle spasm 06/24/23 04/05/24 hydrocodone 5 mg-acetaminophen 325 1 tablet PO Q4-6H PRN Pain (Scale 06/24/23 04/05/24 mg tablet Score 4-6) meloxicam 7.5 mg tablet 15 mg PO DAILY 06/24/23 04/05/24 losartan 100 1 tablet DAILY 10/20/23 04/05/24 mg-hydrochlorothiazide 25 mg tablet oxycodone 10 mg tablet 10 mg PO Q6-8H 12/02/23 04/05/24 Allergies Allergy/AdvReac Type Severity Reaction Status Date / Time COVID-19 (SARS-CoV-2) AdvReac Intermediate Swelling Verified 04/11/24 09:16 vaccine, linh influenza virus vacc AdvReac Intermediate Swelling Verified 04/11/24 09:16 trivalent, who pneumococcal vaccine AdvReac Intermediate Swelling Verified 04/11/24 09:16 Nitrofuran Analogues AdvReac Mild Rash Verified 04/11/24 09:16 sulfamethoxazole AdvReac Mild Rash Verified 04/11/24 09:16 [From Sulfamethoxazole-Trimethoprim] trimethoprim AdvReac Mild Rash Verified 04/11/24 09:16 [From Sulfamethoxazole-Trimethoprim] Review of Systems Review of Systems: All systems reviewed & are unremarkable except as noted in HPI and below PMFSH Past Medical History Medical History Arthritis Back pain Body mass index (BMI) of 40.1 to 44.9 in adult COPD (chronic obstructive pulmonary disease) COVID-19 Depression with anxiety Diabetes mellitus type 2 in obese Diabetic peripheral neuropathy Ganglion cyst Excised GERD (gastroesophageal reflux disease) Hammer toes, bilateral HTN (hypertension) Hx of adenomatous colonic polyps Hx of hemorrhoids Internal Mitral valve prolapse With normal echocardiogram 2017 Mixed hyperlipidemia CISOC (obstructive sleep apnea) Intolerant to CPAP Other chronic pain Renal stones Restless leg syndrome Skin cancer Unspecified thoracic, thoracolumbar and lumbosacral intervertebral disc disorder Vitamin D deficiency Surgical History Surgical History H/O colonoscopy with polypectomy H/O foot surgery History of back surgery Posterior fixation and interbody fusion L4-2 History of carpal tunnel surgery of left wrist Bilateral History of left knee replacement History of right hip replacement History of total right knee replacement Hx of tonsillectomy Hx of total hysterectomy Status post cataract extraction of both eyes with insertion of intraocular lens Family History Family History Sibling Hypertension Diabetes mellitus Hyperlipidemia COVID-19 Enlarged heart Father Carcinoma of colon, Onset Age: 65 Mother Brain tumor (benign) Social History Social History Social History: She lives with her of 47 years. They raised a daughter and a son. 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 But she has been on disability since approx
[2024-04-11] MEDS: predniSONE 20 MG TABLET 60 MG PO (11:52)
[2024-04-11] MEDS: EPINEPHrine HCL INJ 1 MG/ML AMPUL 0.3 MG IM (11:53)
[2024-04-11] MEDS: hydrOXYzine HCL 25 MG TABLET 50 MG PO (11:53)
[2024-04-11 11:54] VITALS: BP 144/77; PULSE 83; RESP 16; O2SAT 96
[2024-04-11 12:17] VITALS: BP 129/78; PULSE 82; RESP 15; TEMP 36.8; O2SAT 95
== END 2024-04-11 12:20 | disposition home or self-care (01) ==
PROVIDERS: Emergency Provider Emergency Medicine
DX: L30.9 Dermatitis, unspecified (principal); M19.90 Unspecified osteoarthritis, unspecified site; J44.9 Chronic obstructive pulmonary disease, unspecified; F41.9 Anxiety disorder, unspecified; F32.A Depression, unspecified; E11.9 Type 2 diabetes mellitus without complications; K21.9 Gastro-esophageal reflux disease without esophagitis; I10 Essential (primary) hypertension; E78.5 Hyperlipidemia, unspecified; G47.30 Sleep apnea, unspecified; Z87.442 Personal history of urinary calculi; G25.81 Restless legs syndrome
CPT/HCPCS: 96372; 99283; A9270; J0171; J7512

== ENCOUNTER 2025-04-26 17:38 | Outpatient (CLI) | payer MEDICARE, SELFPAY ==
--- NOTE | ~2025-04-26 | XR_ITS ---
EXAMINATION: XR scanogram DATE: 04/26/2025 18:09 INDICATION: Bilateral lower limb length discrepancy TECHNIQUE: Standing AP view of the bilateral lower limbs were obtained on 4 overlapping proximal to distal images. COMPARISON: None. FINDINGS: Postoperative change of L4 and L5 laminectomies with instrumented L4-S1 anterior and posterior spinal fusion with interbody bone graft cages at both levels and bilateral vertical lenny and pedicle screw fixation. Bilateral total knee arthroplasties with patellar resurfacing. Suggestion of bilateral patella navjot. Noncemented right total hip arthroplasty. There is rightward pelvic tilt with the apex of the left iliac crest line 1.5 cm higher than the apex of the right iliac crest. The center of the left femoral head lies approximately 12 mm cephalad to the center of the acetabular component of the right hip arthroplasty. The knee joint line measured at the center of the tibial tray of the left knee arthroplasty lies 5 mm cephalad to the contralateral right knee. The center of the talar dome of the left ankle lies 2.2 cm higher than the center of the right talar dome. There is moderate to severe left-sided and mild right-sided tibiotalar osteoarthritis. The femoral length is measured from the centimeters of the femoral heads to the intercondylar notches are essentially identical. The left tibial length measures 1.6 cm longer than the right. There is slight right genu valgus with the midpoint of the knee lying a few millimeter medial to the mechanical axis of the right lower leg. There is mild genu valgus at the left knee with the center of the knee joint line a few millimeters lateral to the mechanical axis of the left lower leg. Overall the length of the right leg along the mechanical axis from the center of the femoral head to the center of the tibial plafond and measures 9 mm longer on the right than on the left. The mechanical axis of the right lower limb is essentially vertical while the mechanical axis of the left leg is tilted towards the left with the plumbline from the epicenter of S1 positioned significantly closer to the left foot near the medial margin of the foot. IMPRESSION: 1. Mild rightward pelvic tilt. 2. Leg length discrepancy, slightly longer on the right due to primarily to the right tibia measuring 1.6 cm longer than the left but which is partially compensated for by the left talar dome line significant higher than the right as well as by mild leftward tilt of the mechanical axis of the left lower limb relative to the vertical orientation of the mechanical axis of the right lower limb. 3. Bilateral total knee arthroplasties, right total hip arthroplasty and instrumented L4-S1 anterior and posterior spinal fusion. Reviewed, dictated and finalized at location A. IMPRESSION: 1. Mild rightward pelvic tilt. 2. Leg length discrepancy, slightly longer on the right due to primarily to the right tibia measuring 1.6 cm longer than the left but which is partially compe nsated for by the left talar dome line significant higher than the right as wel l as by mild leftward tilt of the mechanical axis of the left lower limb relati ve to the vertical orientation of the mechanical axis of the right lower limb. 3. Bilateral total knee arthroplasties, right total hip arthroplasty and instru mented L4-S1 anterior and posterior spinal fusion.
== END 2025-04-26 17:39 | disposition home or self-care (01) ==
PROVIDERS: PCP Internal Medicine Infectious Disease; Visit Provider Podiatrist Foot & Ankle Surgery
DX: M21.70 Unequal limb length (acquired), unspecified site (principal)
CPT/HCPCS: 77073

== ENCOUNTER 2025-05-09 07:34 | Outpatient (CLI) | payer MEDICARE, SELFPAY ==
--- NOTE | ~2025-05-09 | MM_ITS ---
EXAMINATION: MM screening [facility] BI w tesha HISTORY: Screening TECHNIQUE: Craniocaudal and mediolateral oblique 3-D tomosynthesis images were obtained and synthetic 2-D images were generated. CAD analysis was submitted and interpreted. COMPARISON: Comparison to multiple prior studies sequentially, with oldest reviewed study dated 03/17/2018. BREAST PARENCHYMAL COMPOSITION: Not dense: There are scattered areas of fibroglandular density. FINDINGS: There is no evidence of suspicious mass, calcification, or architectural distortion to suggest malignancy in either breast. There has been no suspicious interval change. IMPRESSION: 1. No mammographic evidence of malignancy. 2. Recommend routine screening mammography in one year. BI-RADS Category 1: Negative Reviewed, dictated and finalized at location B.
--- NOTE | ~2025-05-09 | DEXA_ITS ---
Bone Density Report Name: CHINO CASILLAS Age: 69 Sex: Female Ethnicity: White Date of : 1955 Indication: postmenopausal; screening for osteoporosis; height loss; prior fracture; hysterectomy; Referring Provider: FARIDEH, NEIL Petersen Study: Bone densitometry was performed. Exam Date: May 09, 2025 Accession number: [id number] Bone Density: Region BMD T-score Z-score Classification Femoral Neck (Left) 0.716 -1.2 0.5 Osteopenia Total Hip (Left) 1.013 0.6 2.0 Normal World Health Organization criteria for BMD impression classify patients as: Normal (T-score at or above -1.0), Osteopenia (T-score between -1.0 and -2.5), or Osteoporosis (T-score at or below -2.5). 10-year Fracture Risk: FRAX not reported because: Prior hip or vertebral fracture Previous Exams: Region Exam Age BMD T-score BMD Change BMD Change Date g/cm2 vs Baseline vs Previous Total Hip(Left) 05/09/2025 69 1.013 0.6 0.089 (9.6%)# 0.089 (9.6%)# 01/24/2022 66 0.924 -0.1 *Denotes significance at 95% confidence level, LSC for Total Hip = 0.027 g/cm2 # Denotes dissimilar scan types or analysis methods Clinical Information Provided by Patient: Have had a previous hip or vertebral fracture Has had a low trauma fracture Has the following medical conditions: Hysterectomy Patient maximum height was 67.0 Menopause Age: 31 No regular weight bearing exercise Drinks caffeinated beverages Onset of menses at age 12 Number of children 2 Impression: The patient has low bone mass, based on the Left Femoral Neck T-score. The patient has risk factors, including: previous fracture. No significant bone loss was observed. Discussion: INCREASED RISK OF FRACTURE DUE TO HISTORY OF FRACTURE. The patient's previous fracture puts the patient at high risk of a future fracture. In untreated patients, the risk of osteoporotic fracture increases approximately two-fold for each 1.0 SD decrease in T-score. Low bone density is not the only risk factor for fracture; also consider factors such as patient's age, frailty or poor health, risk of falling, risk of injury, previous osteoporotic fracture, family history of osteoporosis, cigarette smoking, low body weight, etc. Not everyone with a low trauma fracture has osteoporosis; osteomalacia and other metabolic bone disorders should also be considered. Patients who have osteoporosis should be evaluated for specific diseases and conditions (secondary causes) that may cause or contribute to bone loss and fracture risk. National Osteoporosis Foundation (NOF) recommends pharmacologic intervention for patients with a prior hip or vertebral fracture regardless of BMD T-score. The patient should follow a healthful lifestyle (good nutrition with adequate calcium and vitamin D, and appropriate weight-bearing exercise). Follow-Up: Consider a repeat BMD and Vertebral Fracture Assessment (VFA) exam in 2 years or sooner if medically necessary, to reassess this patient's status. Reported by: JOSLYN parsons 05/09/2025 8:20:00 AM. Reviewed, dictated and finalized at location A.
--- OUTSIDE RECORDS SUMMARY | 2025-05-09 07:38 | XMS_ITS | Clinical Summary ---
Author Organization [facility] Address [address] [place] [address] Care Team Providers Care Leasing Specialist Name Role Phone Korey Stevens MD Primary Care Provider [phone] Allergies No known active allergies Medications traMADol 50 MG tablet 0 Active atenolol-chlort halidone 50-25 MG tablet Take 1 tablet by mouth daily. Active atorvastatin 20 MG tablet 0 Active furosemide 40 MG tablet Take 40 mg by mouth daily. 9 Active amlodipine 10 MG tablet Take 10 mg by mouth daily. Active oxyCODONE-aceta minophen 5-325 MG tablet Take 1 tablet by mouth every 6 (six) hours as needed. FOR PAIN 0 Active ropinirole 2 MG tablet Take 2 mg by mouth daily. Active ropinirole 4 MG tablet 0 Active sertraline 100 MG tablet Take 100 mg by mouth daily. 9 Active omeprazole 40 MG capsule TAKE 1 CAPSULE TWICE DAILY 0 Active sulindac 200 MG tablet Take 200 mg by mouth. 6 Active VENTOLIN HFA 108 (90 Base) MCG/ACT inhaler INHALE 1 PUFF FOUR TIMES A DAY NEEDED 9 Active MEGARED OMEGA-3 KRILL OIL 500 MG Cap Take by mouth daily. Active ALBUTEROL SULFATE IN Inhale 2 puffs into the lungs. Active pantoprazole EC 40 MG tablet Take 40 mg by mouth 2 (two) times daily. 0 Active atorvastatin 20 MG tablet atorvastatin 20 mg tablet 0 Active oxyCODONE immediate release 10 MG immediate release tablet 0 Active Hospital, Clinic, or Other Facility Administered Medication Ordered Dose Route Frequency Start Date End Date Status dexamethasone (DECADRON) injection 4 mgIndications:Primary osteoarthritis of right wrist,Contusion of multiple sites of right hand and wrist, initial encounter 4 mg IM Once 09/22/2019 Active Active Problems Problem Noted Date Diagnosed Date Contusion of multiple sites of right hand and wrist, initial encounter 09/13/2019 Primary osteoarthritis of right wrist 09/13/2019 Arthritis 09/07/2019 Back pain 09/07/2019 Depression with anxiety 09/07/2019 GERD (gastroesophageal reflux disease) 0 HTN (hypertension) 09/07/2019 Hx of adenomatous colonic polyps 09/07/2019 Hemorrhoids 09/07/2019 Obesity 09/07/2019 CISCO (obstructive sleep apnea) 09/07/2019 Renal stones 09/07/2019 Restless leg syndrome 09/07/2019 Skin cancer 09/07/2019 Syncope 09/07/2019 Postlaminectomy syndrome, lumbar region 01/27/20 19 Immunizations Immunization Administration Dates Next Due Fluzone 6 Months+ Quad (0.5 mL Prefilled Syringe ) 05/20/2019 Influenza Adult (Generic) 05/28/2018 Pneumococcal (Pneumovax 23) 05/22/2019 Family History Medical History Relation Comments Cancer Father Relation Status Comments Father Social History Tobacco Use Types Packs/Day Years Used Date Smoking Tobacco: Former Cigarettes Q uit: 08/11/2004 Smokeless Tobacco: Never Alcohol Use Standard Drinks/Week Comments Yes 0 (1 standard drink = 0.6 oz pur e alcohol) occasionally Comments Unknown Sex and Gender Information Value Date Recorded Sex Assigned at Not on file Legal Sex Female 8:56 AM RN PARALEGAL Gender Identity Not on file Sexual Orientation Not on file Last Filed Vital Signs Vital Sign Reading Time Taken Comments Blood Pressure 99/81 10/06/2019 10:56 AM RN PARALEGAL Pulse 67 10/06/2019 10:56 AM RN PARALEGAL Temperature 36.5 C (97.7 F) 10/06/2019 10:56 AM RN PARALEGAL Respiratory Rate - - Oxygen Saturation 96% 10/06/2019 10: 56 AM RN PARALEGAL Inhaled Oxygen Concentration - - Weight 110.7 kg (244 lb 1.6 oz) 020 10:56 AM RN PARALEGAL Height 170.2 cm (5' 7) 10/06/2019 10:5 6 AM RN PARALEGAL Body Mass Index 38.23 10/06/2019 10:56 AM RN PARALEGAL Plan of Treatment Health Maintenance Due Date Last Done Comments Colorectal Cancer Screening Colonoscopy (10 Years) 1956 Hepatitis C 1974 DTaP, Tdap and Td Vaccines ( 1 - Tdap) 1975 Mammogram Screening 1996 Zoster Vaccines (1 of 2) 2006 Pneumococcal Vaccine: 50+ Ye ars (2 of 2 - PCV) 05/22/2020 05/22/2019 Annual Medicare Wellness Visit 2021 Dexa Scan (General) 2021 COVID-19 Vaccine (1 - 2023-2 5 season) 2025 RSV Immunization or 60+ Years (1 - 1-dose 75+ series) 2031 Meningococcal B Vaccine Aged Out No l onger eligible based on patient's age to complete this topic Meningococcal Vaccine Aged Out No vandana hemanth eligible based on patient's age to complete this topic RSV Immunizations Under 20 Months Aged Out No longer eligible based on patient's age to complete this topic Insurance [employer] Care Teams Leasing Specialist Relationship Specialty Start Date End Date Korey Stevens MD [address] [place] [address] PCP - General FAMILY PRACTICE 09/07/19
--- OUTSIDE RECORDS SUMMARY | 2025-05-09 07:38 | XMS_ITS | Data Portability ---
Author Organization [facility] [employer], [facility] Address [address] [address] Assessment No assessment recorded. Plan of Treatment Reminders Order Date Submit Date Provider Last Modified By Organization Details Last Modified Time Details Appointments None recorded. Lab testosteron e, free + total, serum - Non-fasting 2015 016 Not available 6 04:28:12 CBC w/ auto diff 2015 016 Not available 6 04:28:12 vitamin D, 25-hydroxy, total, serum 2015 016 Not available 6 04:28:12 Referral None recorded. Procedures None recorded. Surgeries None recorded. Imaging XR, knee - Rm 3 2015 Not available 6 04:28:16 US, lower extremity, nonvascular 2015 016 Not available 6 04:28:14 Medication Orders None recorded. Patient TargetsNo targets recorded. Patient Instructions Encounter Date Encounter Id Patient Instructions Last Modified By Organization Details Last Modified Time 03/20/2016 [id number] knee arthritis: care instructions [email or web address] Not available 03/21/2016 08:04:52 Reason for Referral None Reported. Results Created Date Observation Date Name Description Value Unit Range Abnormal Flag Note LastModifiedBy Organization Detail LastModifiedTime 03/27/20 16 03/27/2016 MRI, knee No observ ation record ed. BARCODE Not Available 2015 09:46:57 Result Notes None recorded. Procedures Surgical History Date Name Laterality Status Provider Name and Address Organization Details Recorded Time 08/11/19 13 [facility]2016 12:06:23 08/11/19 08 [facility]2016 12:06:32 08/11/19 05 [facility] 03/20/2016 12:05:23 08/11/19 00 [facility] 03/20/2016 12:05:36 08/11/18 99 [facility] 03/20/2016 12:05:30 08/11/18 84 Carpal tunnel surgery completed [facility] 03/20/2016 12:05:50 08/11/18 83 [facility] 03/20/2016 12:06:53 Imaging Results None recorded. Procedure Notes None recorded. Medical Equipment None Reported. Allergies No known drug allergies Medications Name Sig Start Date Stop Date Status Note LastModified by Organization Details LastModified Time diaper rash cream active Not Available Not Available Not Available compression stockings size e active Not Available Not Avail able Not Available sharps container active Not Available Not Available Not Available hemorrhoidal suppositories active Not Available Not Availabl e Not Available eye drop cup with guide active Not Available Not Available Not Available muscle rub active Not Available Not Av ailable Not Available vitamin b12 active Not Available Not A vailable Not Available cotton swabs active Not Available Not Available Not Available test strips for urinalysis active Not Available Not Available N ot Available vitamin d 1000 iu active Not Available Not Available Not Available folic acid 800mg active Not Available Not Available Not Available Prescription - New active Not Availabl e Not Available Not Available expectorant guaifenesin 400m active Not Available Not Avail able Not Available medicated chest rub active Not Availab le Not Available Not Available diabetic skin relief foot crea active Not Available Not Avail able Not Available electric heating pad active Not Available Not Available Not Available loratadine 10mg active Not Available N ot Available Not Available cetirizine hcl 10mg active Not Availab le Not Available Not Available digital blood pressure monitor active Not Available Not Avail able Not Available vitamin e 400 iu synthetic active Not Available Not Available No t Available cyclobenzaprine 10 mg tablet active Not Available Not Available No t Available azithromycin 250 mg tablet active Not Available Not Available Not Available nystatin 100,000 unit/gram topical ointment active Not Available Not Available Not Available lisinopril 20 mg tablet active Not Available Not Available Not Available sulfamethoxazole 800 mg-trimethoprim 160 mg tablet active Not Available Not Availabl e Not Available ropinirole 2 mg tablet active Not Available Not Available Not Available simvastatin 20 mg tablet active Not Available Not Available Not Available omeprazole 20 mg capsule,delayed release active Not Available Not Available Not Available morphine ER 15 mg tablet,extended release active Not Available Not Available Not Available codeine 10 mg-guaifenesin 100 mg/5 mL oral liquid active Not Available Not Av ailable Not Available polyethylene glycol 3350 17 gram/dose oral powder active Not Available Not Available Not Available methylprednisolone 4 mg tablets in a dose pack active Not Available Not Available No t Available lisinopril 40 mg tablet active Not Available Not Available Not Available atenolol 50 mg tablet active Not Available Not Available Not Available sulindac 200 mg tablet active Not Available Not Available Not Available naproxen 500 mg tablet active Not Available Not Available Not Available cyclobenzaprine 5 mg tablet active Not Available Not Available No t Available duloxetine 30 mg capsule,delayed release active Not Available Not Available Not Available duloxetine 60 mg capsule,delayed release active Not Available Not Available Not Available Vitals Date Recorded Body height Body weight Body mass index (BMI) Heart rate Systolic And Diastolic Provider Name and Address Organization Details Last Updated DateTime 03/20/2016 170.18 cm 010028.1 7 g 37.6 kg/m2 74 /min 152/112 mm[Hg] Shannon Cerna [facility] 03/20/2016 11:56:42 Social History Question Answer Notes LastModified by Organizat ion Details LastModified Time Tobacco Smoking Status Former Smoker Shannon nance [facility] 03/20/2016 12:02:08 Live Alone Or With Others? With Others Information not available 03/20/2016 Marital Status Informatio n not available 03/20/2016 How Much Tobacco Do You Smoke? No Information not available 03/20/2016 How Many Years Have You Smoked Tobacco? 13 Information not available 03/20/2016 Sex: Unknown Functional Status Question Answer Note LastModified by Organization D etails LastModified Time What is your level of alcohol consumption? 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 Family History Relationship Description Onset Age of this Age Resolved Age Notes LastModified by Organization Details LastModified Time Sister Diabetes mellitus [email or web address] Not available 2015 12:01:17 Sister Arthritis [email or web address] Not available 03/20/2016 12:01:28 Sister Hypertensive disorder [email or web address] Not available 2015 12:01:42 Brother Hypertensive disorder [email or web address] Not available 2015 12:01:42 Father Family history of malignant neoplasm [email or web address] Not available 2015 12:01:57 Medical History Condition Response HIV or AIDS N Coronary Artery Disease N Gout N Kidney Stones N Hyperthyroidism N Hernia N Head Trauma/Injury N Hypothyroidism N Lung Disease N Blood Clots N COPD N Depression Y Pacemaker N Anxiety Disorder N Arthritis Y Cancer Y Stroke N Leg or Foot Ulcers N Neck Injury N High Cholesterol N Liver Disease N Rheumatoid Arthritis N Fibromyalgia N Headaches Y Kidney Disease N Heart Problems N Migraines N Thyroid Problems N Anemia N Multiple Sclerosis N Ulcers N Heart Attack ([place]) N Diabetes N Bleeding Disorder N Seizures/Epilepsy N Tuberculosis N Urinary Tract Infection N Back Problems Y Diverticulitis N Asthma N Lupus N Peripheral Vascular Disease N Sleep Disorder Y GERD/Reflux Y Hepatitis N Aneurysm N Heart Disease N Pulmonary Embolism N Hypertension Y Osteoporosis N Gynecological HistoryNo gynecological history recorded. Obstetrics History GPAL:G 0 P 0 0 0 0 Past Encounters Encounter ID Performer Location Encounter Start Date Encounter Closed Date Diagnosis/Indication Diagnosis SNOMED-CT Code Diagnosis ICD10 Code Diagnosis IMO Codes Diagnosis Note [id number] Melinda Knox MD [facility] [address] [facility] ,[address] [facility] [place] [address] 03/20/2016 11:25:46 03/20/2016 14:31:23 Osteoarthritis of knee 010206494 M17.0 Malaise and fatigue 2717 57622 R53.83 E55.9 E27.1 Health Concerns Section Related Observation LastModified by Organization Detai ls LastModified Time None Recorded Concern Status LastModified by Organization Details LastModified Time None Recorded Advance Directives Directive None Recorded Payers Insurance Date Sequence Insurance Name Policy Number Policy Pelletier Covered Member ID Pelletier Member ID Guarantor Name 11/12/2016 1 [facility] (O) [id number] Maria Alejandra Mooney [id number] Maria Alejandra Mooney 08/29/2016 2 [employer] - [employer] - GOLD PLUS (MEDICARE REPLACEMENT HMO) Maria Alejandra Mooney [id number] Maria Alejandra Mooney 10/30/2016 2 [employer] (MEDICARE REPLACEMENT/ ADVANTAGE - PFFS) Maria Alejandra Mooney [id number] Maria Alejandra Moonye OBGyn Episode No OBEpisode recorded.
--- OUTSIDE RECORDS SUMMARY | 2025-05-09 07:38 | XMS_ITS | Clinical Summary ---
Author Organization [facility] Address [address] [place] [address] Phone Care Team Providers Care Director Of Tax Services Name Role Phone Krish Mendez MD Primary Care Provider [phone] Allergies No known active allergies Medications atenolol-chlor thalidone (TENORETIC) 50-25 mg tablet Take by mouth. Activ e cyclobenzaprin e (FLEXERIL) 10 mg tablet cyclobenzaprine 10 mg tablet 01/25/20 16 Active omeprazole (PriLOSEC) 20 mg Capsule, Delayed Release(E.C.) omeprazole 20 mg capsule,delayed release Active STOOL SOFTENER 100 mg capsule 11/13/19 19 Active amLODIPine (NORVASC) 10 mg tablet TAKE ONE TABLET DAILY Active sertraline (ZOLOFT) 100 mg tablet 01/01/20 19 Active venlafaxine (EFFEXOR XR) 75 mg Extended Release 24 hour capsule 11/03/19 19 Active furosemide (LASIX) 40 mg tablet 12/01/19 19 Active simvastatin (ZOCOR) 20 mg tablet simvastatin 20 mg tablet 11/14/19 16 Active montelukast (SINGULAIR) 10 mg tablet 12/01/19 19 Active traZODone (DESYREL) 50 mg tablet 12/01/19 19 Active potassium chloride (KLOR-CON) 10 mEq Extended Release tablet 11/13/19 19 Active sulindac (CLINORIL) 200 mg Tablet sulindac 200 mg tablet 11/14/19 16 Active ferrous sulfate 324 mg (65 mg iron) Tablet, Delayed Release (E.C.) 12/01/19 19 Active rOPINIRole (REQUIP) 2 mg Tablet ropinirole 2 mg tablet Active HYDROcodone-ac etaminophen (NORCO) 5-325 mg tablet Take 1 Tablet by mouth every 4 hours. 11/05/19 20 Active Active Problems Problem Noted Date Diagnosed Date Exogenous obesity 01/26/2019 Postlaminectomy syndrome, lumbar region 01/27/20 19 Family History Medical History Relation Name Comments High Cholesterol Brother Hypertension Brother Colon Cancer Father Other Father Other Mother Diabetes Sister Other Sister tobacco use Relation Name Status Comments Brother Alive Father Mother Sister Alive Social History Tobacco Use Types Packs/Day Years Used Date Smoking Tobacco: Former Cigarettes Q uit: 2008 Alcohol Use Standard Drinks/Week Comments Yes 0 (1 standard drink = 0.6 oz pur e alcohol) rare Comments Unknown Sex and Gender Information Value Date Recorded Sex Assigned at Not on file Legal Sex Female 2:54 AM PUBLIC SPACE ATTENDANT Gender Identity Not on file Sexual Orientation Not on file Occupation Industry Job Start Date Job End Date Not on file Not on file Not on file Not on file Last Filed Vital Signs Vital Sign Reading Time Taken Comments Blood Pressure 125/68 01/26/2019 3:04 PM CDT Pulse - - Temperature - - Respiratory Rate - - Oxygen Saturation - - Inhaled Oxygen Concentration - - Weight 110.7 kg (244 lb) 01/26/2019 3:04 PM CDT Height 167.6 cm (5' 6) 01/26/2019 3:04 PM CDT Body Mass Index 39.38 01/26/2019 3:04 PM CDT Plan of Treatment Health Maintenance Due Date Last Done Comments DTAP/TDAP/TD VACCINES (1 - Tdap) 1975 COLORECTAL SCREENING 2001 Colorectal Cancer Screening 2001 FIT-DNA Q 3 years 2001 FIT/FOBT Q 1 year 2001 Flex Sig/CT Colonography Q 5 years 2001 ZOSTER VACCINE (1 of 2) 2006 BREAST CANCER SCREENING 02/06/2011 02/07/20 10, 01/27/2009, 02/02/2008 RSV VACCINE (60+ or ) (1 - Risk 60-74 years 1-dose series) 2016 PNEUMOCOCCAL VACCINE 50+ YEA RS (2 of 2 - PCV) 05/22/2020 05/22/2019 OSTEOPOROSIS SCREENING 2021 INFLUENZA VACCINE (#1) 2025 05/20/2019, 2017 Procedures Procedure Name Priority Date/Time Associated Diagnosis Comments MAMMO SCREEN BILAT W OR WO CAD Routine 02/06/2010 from Last 3 Months or Most Recently Relevant to Health Maintenance Results * MAMMO DIGITAL SCREEN BILAT (02/06/2010) Anatomical Region Laterality Modality Breast Bilateral Other us Abstract Provider MAMMO ORDERABLES Final Result from Last 3 Months or Most Recently Relevant to Health Maintenance Insurance [employer] GOLD CHOICE [facility] Care Teams Director Of Tax Services Relationship Specialty Start Date End Date Krish Mendez MD [address] [place] [address] PCP - General Internal Medicine 12/29/18
--- OUTSIDE RECORDS SUMMARY | 2025-05-09 07:38 | XMS_ITS | Encounter Summary ---
Author Organization [facility] Address [address] [place] [address] Care Team Providers Care Mixed Livestock Farm Worker Name Role Phone Krish Mendez MD Primary Care Provider + [phone] Encounter Details Date Type Department Care Team (Late st Contact Info) Description 06/20/2008 Outpatient Historical [facility] Rico Her MD [address] [facility] [place] [address] [place] [address] Social History Tobacco Use Types Packs/Day Years Used Date Smoking Tobacco: Never Assessed Comments Unknown Sex and Gender Information Value Date Recorded Sex Assigned at Not on file Legal Sex Female 2:[address] TECHNOLOGIST Gender Identity Not on file Sexual Orientation Not on file documented as of this encounter Plan of Treatment Not on file documented as of this encounter Procedures Procedure Name Priority Date/Time Associated Diagnosis Comments TYPE AND SCREEN Routine 07/12/2008 5:[address] TECHNOLOGIST documented in this encounter Results * TYPE AND SCREEN (07/12/2008 5:[address] TECHNOLOGIST) HISTORY CHECK No Historical ABO/Rh [facility] ABO/RH TYPE A Negative [facility] SPECIMEN LIFE 3 days from drawdate [facility] ANTIBODY SCREEN Negative [facility] Blood specimen (specimen) 07/12/2008 5:[address] TECHNOLOGIST us Rico Her MD BLOOD BANK ORDERABLES Edited INTERFACE SYSTEM Refer to clinic/hospital department [facility] CLIA# [id number] [address] [place] [address] documented in this encounter Visit Diagnoses Not on filedocumented in this encounter Care Teams Mixed Livestock Farm Worker Relationship Specialty Start Date End Date Krish Mendez MD [address] [facility] [address] [place] [address] PCP - General Internal Medicine 12/29/18 documented as of this encounter
--- OUTSIDE RECORDS SUMMARY | 2025-05-09 07:39 | XMS_ITS | Clinical Summary ---
Author Organization [facility] Address [address], [address] [address] Phone Care Team Providers Care Switchman Name Role Phone Korey Cook MD Primary Care Provider Allergies No known active allergies Medications potassium chloride SA (KLORCON M) 10 MEQ Tablet Controlled Release Take 10 mEq by mouth 2 times daily. Active ROPINIROLE HYDROCHLORIDE 4 MG Tablet Take 4 mg by mouth 2 times daily. Active sertraline (ZOLOFT) 100 MG Tablet Take 100 mg by mouth daily. Active furosemide (LASIX) 40 MG Tablet Take 40 mg by mouth daily. Active amLODIPine (NORVASC) 10 MG Tablet Take 10 mg by mouth daily. Active atenolol-chlortha lidone (TENORETIC) 50-25 MG Tablet Take 1 Tab by mouth daily. Active MEGARED OMEGA-3 KRILL OIL 500 MG Capsule Take by mouth daily. Active rOPINIRole (REQUIP) 2 MG Tablet Take 2 mg by mouth daily. Active ALBUTEROL IN take 2 Puffs by inhalation as needed. Active atorvastatin (LIPITOR) 20 MG Tablet atorvastatin 20 mg tablet 08/26/19 20 Active pantoprazole (PROTONIX) 40 MG Tablet Delayed Response TAKE ONE TABLET TWICE DAILY 60 Tab 3 10/11/19 20 Active Immunizations Immunization Administration Dates Next Due Influenza Vaccine, Quadrivalent, PF 05/20/2019,1 Pneumococcal Vaccine Adult - 23 Valent 9 Family History Medical History Relation Name Comments Asthma Brother Hypertension Brother Cancer Father colon Other-comment Mother benign brain t umor Asthma Sister Hypertension Sister Relation Name Status Comments Brother Father Mother Sister Social History Tobacco Use Types Packs/Day Years Used Date Smoking Tobacco: Former Cigarettes 1 20 0 08/18/1988 - 08/18/2008 Smokeless Tobacco: Never Tobacco Cessation:Counseling Given: No Alcohol Use Standard Drinks/Week Comments Yes 0 (1 standard drink = 0.6 oz pur e alcohol) Rarely Comments No Sex and Gender Information Value Date Recorded Sex Assigned at Not on file Legal Sex Female 8:40 PM CDT Gender Identity Not on file Sexual Orientation Not on file Last Filed Vital Signs Vital Sign Reading Time Taken Comments Blood Pressure 122/84 09/24/2019 10:18 AM BLOOD BANK ASSISTANT Pulse 62 09/24/2019 10:18 AM BLOOD BANK ASSISTANT Temperature 36.6 C (97.9 F) 09/24/2019 10:18 AM BLOOD BANK ASSISTANT Respiratory Rate 16 09/24/2019 10:18 AM BLOOD BANK ASSISTANT Oxygen Saturation 98% 09/24/2019 10:18 AM BLOOD BANK ASSISTANT Inhaled Oxygen Concentration - - Weight 115.2 kg (254 lb) 09/24/2019 10:18 AM BLOOD BANK ASSISTANT Height 170.2 cm (5' 7) 09/24/2019 10:18 AM BLOOD BANK ASSISTANT Body Mass Index 39.78 09/24/2019 10:18 AM BLOOD BANK ASSISTANT Plan of Treatment Health Maintenance Due Date Last Done Comments Hepatitis C Virus (HCV) Screening 1955 TdaP Immunization 1955 Cologuard 2001 Immunochemical Fecal Occult Blood 2001 Zoster Immunization (1 of 2) 2006 Pneumococcal Immunization (5 0+ years) (2 of 2 - PCV) 05/22/2020 05/22/2019 Medicare Initial AWV [id number] 08/11/2020 Colonoscopy 07/01/2024 07/01/2019 Colorectal Cancer Screening 07/01/2024 Influenza Immunization (#1) 04/11/202505/11, 05/28/2018 SARS-COV-2 Immunization ( - season) 2025 08/05/2021, 11/18/2020, 10/29/2020 Respiratory Syncytial Virus (RSV) Immunization (Adult) (1 - 1-dose 75+ series) 2031 Pneumococcal Immunization Combined Discontinued 05/22/2019 Hepatitis B Immunization Aged Out No longer eligible based on patient's age to complete this topic Human Papillomavirus (HPV) Immunization Aged Out No longer eligible based on patient's age to complete this topic Meningococcal Immunization (ACWY) Aged Out No longer eligible based on patient's age to complete this topic Rotavirus Immunization Aged Out No lo nger eligible based on patient's age to complete this topic Procedures Procedure Name Priority Date/Time Associated Diagnosis Comments COLONOSCOPY Routine 07/01/2019 from Last 3 Months or Most Recently Relevant to Health Maintenance Results * COLONOSCOPY (07/01/2019) Fabian Roberts DO PROCEDURE/MINOR SURGICAL ORDERA BLES Final Result from Last 3 Months or Most Recently Relevant to Health Maintenance Insurance MEDICARE C HUMANA Care Teams Switchman Relationship Specialty Start Date End Date Korey Cook MD [address] [place] [address] [place] [address] PCP - General [employer] Piping Designer 08/18/19
--- OUTSIDE RECORDS SUMMARY | 2025-05-09 07:39 | XMS_ITS | Encounter Summary ---
Author Organization [facility] Address [address] [place] [address] Care Team Providers Care Bilingual Operator Name Role Phone Demar Lazcano MD Primary Care Provider [phone] Encounter Details Date Type Department Care Team (Late st Contact Info) Description 04/25/2023 Lab Requisition [facility] Lab [address] [facility] [place] [id number] Cecilia Young MD [address] [place] [address] [place] [address] Neoplasm of uncertain behavior of skin Social History Tobacco Use Types Packs/Day Years Used Date Smoking Tobacco: Light Smoker Cigarettes Last attempted t o quit: 05/26/2002 Smokeless Tobacco: Never Alcohol Use Standard Drinks/Week Comments Yes 0 (1 standard drink = 0.6 oz pur e alcohol) OCASSIONALLY Comments No Sex and Gender Information Value Date Recorded Sex Assigned at Not on file Legal Sex Female 2:08 PM A&P MECHANIC Gender Identity Not on file Sexual Orientation Not on file documented as of this encounter Functional Status * Is person deaf or have serious hearing difficulty? Answer Date of Assessment Author No 02/20/2018 6:42 AM Stacy Govea RN * Is person blind or have serious difficulty seeing? Answer Date of Assessment Author No 02/20/2018 6:42 AM Stacy Govea RN * Does person have serious difficulty walking/climbing stairs? Answer Date of Assessment Author No 02/20/2018 6:42 AM CDT Stacy Benz RN * Does person have difficulty dressing/bathing? Answer Date of Assessment Author No 02/20/2018 6:42 AM CDT Stacy Benz RN * Does person have difficulty doing errands alone? Answer Date of Assessment Author No 02/20/2018 6:42 AM GISELLET Stacy Benz RN documented as of this encounter Mental Status * Does person have difficulty concentrating/remembering/making decisions? Answer Entry Date Author No 02/20/2018 6:42 AM CDT Stacy Benz RN documented in this encounter Plan of Treatment Not on file documented as of this encounter Procedures Procedure Name Priority Date/Time Associated Diagnosis Comments DERMATOPATHOLOGY Routine 04/25/2023 3:33 AM CDT Neoplasm of uncertain behavior of skin documented in this encounter Results * DERMATOPATHOLOGY (04/25/2023 3:33 AM CDT) Case Report Dermatopathology Report Case: [id number] Authorizing Provider: Cecilia Young MD Collected: 04/25/2023 03:33 AM Ordering Location: [facility] Received: 04/28/2023 01:10 PM Pathologist: Melinda Parker MD Specimens: A) - Skin, right abdomen B) - Skin, right chest 1:18 PM CDT DERMATOPATHOLOGY LABORATORY Final Diagnosis Specimen A. SKIN, right abdomen: ACROCHORDON (SOFT FIBROMA, SKIN TAG) (L91.8) Specimen B. SKIN, right chest: INTRADERMAL MELANOCYTIC NEVUS (D22.5) 1:18 PM CDT DERMATOPATHOLOGY LABORATORY at 1318 CDT Clinical History A-B: Irritated Nevus 1:18 PM CDT DERMATOPATHOLOGY LABORATORY Gross Description Specimen A: Received is one formalin filled container labeled with the patient's name and designated right abdomen. The specimen consists of a shave biopsy measuring 6x4x2 mm. Jar 0. Specimen B: Received is one formalin filled container labeled with the patient's name and designated right chest. The specimen consists of a shave biopsy measuring 5x7x3 mm. Jar 0. 3 1:18 PM CDT DERMATOPATHOLOGY LABORATORY Microscopic Description Specimen A. SKIN, right abdomen: There is a gently folded epidermis surrounding a connective tissue core in which fat and collagen are intermingled. Specimen B. SKIN, right chest: There are nests of cytologically bland melanocytes within the dermis that mature with depth. 3 1:18 PM CDT DERMATOPATHOLOGY LABORATORY Disclaimer An external and internal positive and negative controls are appropriate for the histochemical, immunohistochemical and immunofluorescence stain(s) in this case (if any), except where stated explicitly. The performance characteristics of the stain(s) cited in this report were developed and its performance characteristic determined by the Dermatopathology Laboratory at [facility], directed by Dr. Lorena Holt. These tests need not be, and therefore are not, approved by the [place] Food and Drug Administration. The tests are used for clinical purposes. Billing Codes Specimen Charges Stain Charges 39852 58830 1 1 3 1:18 PM CDT DERMATOPATHOLOGY LABORATORY Embedded Images 3 1:18 PM CDT DERMATOPATHOLOGY LABORATORY Pathology/Cytology TISSUE SPECIMEN FROM SKIN / Unknown 04/25/2023 3:33 AM CDT 04/28/2023 1:10 PM CDT Miscellaneous samples (specimen) TISSUE SPECIMEN FROM SKIN / Unknown 04/25/2023 3:33 AM CDT 04/28/2023 1:10 PM CDT us Cecilia Young MD LAB - PATHOLOGY/CYTOLOGY ORDERAB LES Final Result DERMATOPATHOLOGY LABORATORY [facility] - Department of Dermatology [facility] [address] [place] [address], [address] [phone] documented in this encounter Visit Diagnoses Diagnosis Neoplasm of uncertain behavior of skin documented in this encounter Care Teams Bilingual Operator Relationship Specialty Start Date End Date Demar Lazcano MD [address] [place] [address] PCP - General 11/25/22 documented as of this encounter
--- OUTSIDE RECORDS SUMMARY | 2025-05-09 07:39 | XMS_ITS | Data Portability ---
Author Organization [facility] Address [address] [place] [phone] Assessment No assessment recorded. Plan of Treatment Reminders Order Date Submit Date Provider Last Modified By Organization Details Last Modified Time Details Appointments None record ed. Lab None record ed. Referral None record ed. Procedures None record ed. Surgeries None record ed. Imaging None record ed. Medication Orders None record ed. Patient TargetsNo targets recorded. Patient InstructionsNo instructions recorded. Reason for Referral None Reported. Procedures Surgical History Date Name Laterality Status Provider Name and Address Organization Details Recorded Time 12/03/2023 Sleep Study completed Demond Lovell MD, F.C.C.P. [address] [place] [address], [place], [address], [facility] 12/07/2023 12:02:48 05/22/2016 Sleep Study completed Ashwin Slade [facility] 05/23/2016 14:56:34 Imaging Results None recorded. Procedure Notes None recorded. Medical Equipment None Reported. Medications Name Sig Start Date Stop Date Status Note LastModified by Organization Details LastModified Time bladder control pads active Not Available Not Available Not Available flonase allergy nasal spray active Not Available Not Available Not Available eye drop cup with guide active Not Available Not Available N ot Available gummy vitamin d 2000 iu active Not Available Not Available Not Available muscle rub active Not Available Not Av ailable Not Available allergy cream itch and pain active Not Available Not Available Not Available vitamin b12 active Not Available Not A vailable Not Available cotton swabs active Not Available Not Available Not Available oral thermometer active Not Available Not Available Not Available electric heating pad active Not Available Not Available Not Available first aid tape active Not Available Not Available Not Available loratadine 10mg active Not Available Not Available Not Available vitamin d 1000 iu active Not Available Not Available Not Available digital blood pressure monitor active Not Available Not Available Not Available cyclobenzapr ine 10 mg tablet active Not Available Not Available Not Available metolazone 2.5 mg tablet TAKE 1 TABLET BY MOUTH EVERY DAY active Not Available Not Available No t Available atorvastatin 20 mg tablet active Not Available Not Available Not Available oxybutynin chloride ER 10 mg tablet,exten ded release 24 hr TAKE 1 TABLET BY MOUTH EVERY DAY active Not Available Not Available No t Available azithromycin 250 mg tablet TAKE 2 TABLETS BY MOUTH TODAY, THEN TAKE 1 TABLET DAILY FOR 4 DAYS DIRECTED active Not Available Not Available No t Available bethanechol chloride 10 mg tablet TAKE 1 TABLET BY MOUTH 3 TIMES A DAY NEEDED active Not Available Not Available No t Available nystatin 100,000 unit/gram topical ointment active Not Available Not Available Not Available hydrocodone 5 mg-acetamino phen 325 mg tablet TAKE 1 TABLET BY MOUTH EVERY DAY NEEDED FOR 30 DAYS active Not Available Not Available No t Available meloxicam 15 mg tablet TAKE 1 TABLET BY MOUTH EVERY DAY FOR 90 DAYS active Not Available Not Available No t Available lisinopril 20 mg tablet active Not Available Not Available Not Available atenolol 50 mg-chlorthal idone 25 mg tablet active Not Available Not Available Not Available amlodipine 5 mg tablet active Not Available Not Available No t Available sulfamethoxa zole 800 mg-trimethop rim 160 mg tablet TAKE 1 TABLET BY MOUTH EVERY 12 HOURS active Not Available Not Available No t Available omeprazole 40 mg capsule,georgiana yed release active Not Available Not Available Not Available amoxicillin 500 mg tablet TAKE 2 TABLETS BY MOUTH 30 MINUTES BEFORE PROCEDURE active Not Available Not Available No t Available meloxicam 7.5 mg tablet active Not Available Not Available Not Available losartan 100 mg-hydrochlo rothiazide 25 mg tablet TAKE 1 TABLET BY MOUTH EVERY DAY FOR 90 DAYS active Not Available Not Available No t Available oxycodone-ac etaminophen 5 mg-325 mg tablet TAKE 1 TABLET BY MOUTH EVERY 4 HOURS TO EVERY 6 HOURS NEEDED FOR PAIN active Not Available Not Available No t Available alprazolam 0.25 mg tablet TAKE 1 TABLET BY MOUTH DAILY PRIOR TO IMAGING active Not Available Not Available No t Available amlodipine 10 mg tablet active Not Available Not Available Not Available ropinirole 2 mg tablet active Not Available Not Available No t Available cephalexin 500 mg capsule TAKE 1 CAPSULE BY MOUTH EVERY 6 HOURS active Not Available Not Available No t Available simvastatin 20 mg tablet active Not Available Not Available Not Available nitrofuranto in macrocrystal 100 mg capsule TAKE 1 CAPSULE BY MOUTH EVERY 12 HOURS WITH A MEAL/FOOD active Not Available Not Available No t Available omeprazole 20 mg capsule,georgiana yed release active Not Available Not Available Not Available diclofenac sodium 75 mg tablet,delay ed release TAKE 1 TABLET BY MOUTH TWICE A DAY active Not Available Not Available No t Available morphine ER 15 mg tablet,exten ded release active Not Available Not Available Not Available codeine 10 mg-guaifenes in 100 mg/5 mL oral liquid active Not Available Not Available Not Available mupirocin 2 % topical ointment APPLY 1 APPLICATION ONTO THE WOUND ONCE DAILY active Not Available Not Available No t Available furosemide 20 mg tablet active Not Available Not Available Not Available polyethylene glycol 3350 17 gram/dose oral powder active Not Available Not Available Not Available hydrocortiso ne 2.5 % topical ointment APPLY TO FACE TWICE A DAY FOR 2 WEEKS active Not Available Not Available No t Available oxybutynin chloride 5 mg tablet active Not Available Not Available No t Available lisinopril 40 mg tablet active Not Available Not Available Not Available ondansetron 4 mg disintegrati ng tablet DISSOLVE 1 TABLET ON THE TONGUE BY MOUTH EVERY DAY 30 active Not Available Not Available No t Available atenolol 50 mg tablet active Not Available Not Available No t Available sulindac 200 mg tablet active Not Available Not Available No t Available naproxen 500 mg tablet active Not Available Not Available No t Available diazepam 5 mg tablet TAKE 1 TABLET BY MOUTH EVERY DAY AT BEDTIME NEEDED active Not Available Not Available No t Available amoxicillin 875 mg-potassium clavulanate 125 mg tablet TAKE ONE TABLET BY MOUTH every 12 hours FOR 10 DAYS active Not Available Not Available Not Available ropinirole 4 mg tablet active Not Available Not Available No t Available cyclobenzapr ine 5 mg tablet active Not Available Not Available Not Available duloxetine 30 mg capsule,georgiana yed release active Not Available Not Available Not Available duloxetine 60 mg capsule,georgiana yed release active Not Available Not Available Not Available pregabalin 150 mg capsule active Not Available Not Available Not Available oxycodone 10 mg tablet TAKE 1 TABLET BY MOUTH EVERY 12 HOURS NEEDED FOR 10 DAYS active Not Available Not Available No t Available Xarelto 10 mg tablet TAKE 1 TABLET BY MOUTH EVERY DAY DIRECTED active Not Available Not Available No t Available Vitals Date Recorded Body height Body mass index (BMI) Body weight Provider Name and Address Organization Details Last Updated DateTime 12/03/2023 167.64 cm 41.8 kg/m2 878171.42 g Fabian Zamorano [facility] 12/04/2023 15:10:05 Date Recorded Body height Body mass index (BMI) Body weight Provider Name and Address Organization Details Last Updated DateTime 12/03/2023 167.64 cm 41.8 kg/m2 037929.42 g Sincere Mahajan [facility] 12/03/2023 17:03:12 Date Recorded Body height Body weight Body mass index (BMI) Provider Name and Address Organization Details Last Updated DateTime 05/22/2016 170.18 cm 775741.09 g 39.2 kg/m2 Jeanna Cooley [facility] 05/22/2016 12:06:24 Social History None recorded. Functional Status None recorded. Mental Status None recorded. Family History Nothing Reported. Medical History No medical history recorded. Gynecological HistoryNo gynecological history recorded. Obstetrics History GPAL:G 0 P 0 0 0 0 Past Encounters Encounter ID Performer Location Encounter Start Date Encounter Closed Date Diagnosis/Indication Diagnosis SNOMED-CT Code Diagnosis ICD10 Code Diagnosis IMO Codes Diagnosis Note [id number] [facility] [id number] [facility] [address] [place] [address] 05/22/2016 11:21:43 05/23/2016 14:57:46 Obstructive sleep apnea of adult 9210502343 103 G47.33 [id number] [facility] [place], [facility] 11 [address] [facility] [address] [place] [address] 12/03/2023 20:36:38 12/04/2023 15:05:04 Obstructive sleep apnea of adult 6208822323 103 G47.33 Health Concerns Section Related Observation LastModified by Organization Detai ls LastModified Time None Recorded Concern Status LastModified by Organization Details LastModified Time None Recorded Advance Directives Directive None Recorded Payers Insurance Date Sequence Insurance Name Policy Number Policy Pelletier Covered Member ID Pelletier Member ID Guarantor Name 12/03/2023 2 [facility] - ID Maria Alejandra Bey Deak [id number] Maria Alejandra Deak 12/03/2023 1 [facility] (PPO) Maria Alejandra Bey Deak [id number] Maria Alejandra Deak 12/16/2023 1 [employer] Maria Alejandra Bey Deak [id number] Maria Alejandra Deak 12/03/2023 1 [facility] - ID Maria Alejandra Deak [id number] Maria Alejandra Mooney Notes Date Note Type Note Provider Name and Address Organization Details Recorded Time 05/22/2016 text/html HST SetupReporte d by Patient Demond Lovell MD, F.C.C.P. [address] [place] [address], [place], [address] 05/23/2016 17:31:02 OBGyn Episode No OBEpisode recorded.
--- OUTSIDE RECORDS SUMMARY | 2025-05-09 07:39 | XMS_ITS ---
Author Organization [facility] Address [address] [place] [address] Care Team Providers Care Pile Fabric Knitter Name Role Phone Jose Cruz Muñoz MD Primary Care Provider [phone] Active Problems Problem Noted Date Diagnosed Date Obesity 04/11/2024 Slow transit constipation 04/11/2024 Obstructive sleep apnea (adult) (pediatric) 08/2023 Lumbar disc disease 04/11/2024 Alteration in appetite 06/20/2021 Headache 06/20/2021 Nausea 06/20/2021 Vomiting 06/20/2021 Lumbar facet arthropathy 05/16/2020 Chronic right-sided low back pain with right-mary ed sciatica 05/16/2020 Lumbar radiculopathy 05/09/2020 Disorder of intervertebral disc of lumbar spine 05/09/2020 Degenerative lumbar spinal stenosis 05/09/2020 Insomnia secondary to chronic pain 05/09/2020 jail (current) use of opiate analgesic 04/12 Sacroiliitis 05/09/2020 Dyslipidemia 02/16/2020 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 female w/PMH of HTN, HLD, GERD, chronic pain due to extensive degenerative spinal disease with L4-S1 PSF (1998) f/b revision for implant failure (1999), here for evaluation of imaging suggestive of possible OM/diskitis at L1- 2. Commentary: clinical course, lack of systemic symptoms, normal inflammatory markers (01/11) and surgical pathology not c/w OM with negative cultures is not consistent with osteomyelitis/dikitis - given her extensive degenerative spinal disease with multilevel tender point on physical exam, and quality of life limited by pain, would recommend evaluation by our Ortho Spine surgeons for evaluation of possible intervention, if feasible given her extensive disease and baseline osteoporosis. I also recommended the patient to be evaluated by pains specialist. PLAN - Clinically, biologically and microbiologically no signs of osteomyelitis --no antimicrobial warranted at this time and nor further ID work-up. - will refer to Dr. Mckeon (Ortho Spine) for further evaluation of her extensive degenerative disease and possible - We'll get her imaging scanned in and most recent CT spine for consult to help our surgical colleagues have relevant information prior to their evaluation. - will repeat inflammatory markers and CMP/CBC through quest for new baseline labs RTC in 3 months PRN. Depression with anxiety 09/07/2019 GERD (gastroesophageal reflux disease) 0 Hemorrhoids 09/07/2019 Calculus of kidney 09/07/2019 Restless legs syndrome 09/07/2019 Syncope 09/07/2019 Chronic obstructive pulmonary disease (CMS/HCC) 08/16/2019 Asthma 08/16/2019 Lumbar post-laminectomy syndrome 01/26/2019 Osteoarthritis 04/01/2016 Osteoporosis 02/14/2014 Diverticulitis 02/14/2014 Stress incontinence in female 02/14/2014 Essential hypertension 11/25/2013 Hyperlipidemia 11/25/2013 Basal cell carcinoma (BCC) of upper extremity Current Treatment and Therapy Plans No current plan information found. Past Treatment and Therapy Plans No past plan information found. Lifetime Dose Tracking * Chemical Lifetime Dose Automatic Entry Manual Entr y Fluoro Time 4.992 minutes 4.992 minutes 0 minutes Air kerma at the reference point (Ka,r) 302.96 mGy 3 02.96 mGy 0 mGy DLP 1,865 mGycm 1,865 mGycm 0 mGycm
--- OUTSIDE RECORDS SUMMARY | 2025-05-09 07:39 | XMS_ITS | Clinical Summary ---
Author Organization [facility] Address [address] [place] [address] Care Team Providers Care Bistro Attendant Name Role Phone Demar Lazcano MD Primary Care Provider [phone] Source Comments [facility],non-owned Affiliates and Associated Physician Practices is amultiple site organization consisting of ambulatory clinics and hospital sitesin [place], [place], [place] and [place]. This disclosure is being madepursuant to the Care Everywhere program and may not contain all information available regarding this patient. Last updated 18.[facility] Allergies No known active allergies Medications * Be aware that medications may not be up to date on this document. Alwaysverify current medications with the patient. pantoprazole EC (PROTONIX) 40 MG tablet Take 40 mg by mouth once daily. Active sulindac (CLINORIL) 200 MG tablet Take 200 mg by mouth 2 times daily. Active simvastatin (ZOCOR) 40 MG tablet Take 40 mg by mouth at bedtime. Active lisinopril (PRINIVIL; ZESTRIL) 40 MG tablet Take 40 mg by mouth once daily. Active ROPINirole (REQUIP) 1 MG tablet Take 1 mg by mouth at bedtime. Active cyclobenzaprine (FLEXERIL) 5 MG TABS tablet Take 1 Tab by mouth 3 times daily as needed (Spasms). 30 Tab 1 04/30/20 12 Active sertraline (ZOLOFT) 100 MG tablet Take 100 mg by mouth once daily Active amLODIPine (NORVASC) 10 MG tablet Take 10 mg by mouth once daily Active traZODone (DESYREL) 50 MG tablet Take 50 mg by mouth at bedtime Active omeprazole (PRILOSEC) 20 MG capsule Take 20 mg by mouth daily before breakfast Active atenolol 50 MG TABS 50 mg, chlorthalidone 25 MG TABS 25 mg Take by mouth once daily Active diclofenac sodium EC (VOLTAREN) 50 MG tablet Take 1 tablet by mouth 2 times daily 60 tablet 5 05/28/20 17 Active HYDROcodone-acetam inophen (NORCO) 5-325 MG tablet Take 1 tablet by mouth every 4 hours as needed for Pain 40 tablet 05/28/20 17 Active Additional Information Patient not taking.Reported on 02/19/2018 Potassium (POTASSIMIN PO) Acti ve Docusate Calcium (STOOL SOFTENER PO) Active venlafaxine XR 24hr (EFFEXOR XR) 75 MG capsule Take 75 mg by mouth daily with breakfast Active TEMAZEPAM PO Take by mouth at bedtime Active PARoxetine HCl (PAXIL PO) Active HYDROcodone-acetam inophen (NORCO) 5-325 MG tablet Take 1 tablet by mouth every 4 hours as needed for Pain (take 1 tablet every 4 hours as needed for pain) 28 tablet 02/21/20 18 Active Active Problems No known active problems Social History Tobacco Use Types Packs/Day Years Used Date Smoking Tobacco: Light Smoker Cigarettes Last attempted t o quit: 05/26/2002 Smokeless Tobacco: Never Alcohol Use Standard Drinks/Week Comments Yes 0 (1 standard drink = 0.6 oz pur e alcohol) OCASSIONALLY Comments No Sex and Gender Information Value Date Recorded Sex Assigned at Not on file Legal Sex Female 2:08 PM [employer]IN[employer] Gender Identity Not on file Sexual Orientation Not on file Last Filed Vital Signs Vital Sign Reading Time Taken Comments Blood Pressure 115/74 02/20/2018 9:10 AM CDT Pulse 67 02/20/2018 9:15 AM CDT Temperature 36.3 C (97.3 F) 02/20/2018 8:47 AM CDT Respiratory Rate 20 02/20/2018 9:15 AM CDT Oxygen Saturation 97% 02/20/2018 9:15 AM CDT Inhaled Oxygen Concentration - - Weight 114.3 kg (252 lb) 02/20/2018 6:51 AM CDT Height 167.6 cm (5' 6) 02/19/2018 12:41 PM CDT Body Mass Index 40.67 02/19/2018 12:41 PM CDT Plan of Treatment Health Maintenance Due Date Last Done Comments BONE DENSITY TESTING 1956 COLOGUARD (AGES 45-75) - COL ON CA SCREENING 1956 COLON MONITORING 1956 COLONOSCOPY - COLON CA SCREENING 1956 CT COLONOGRAPHY - COLON CA SCREENING 1956 Colorectal Cancer Screening 1956 FIT - COLON CA SCREENING 1956 FLEX SIG - COLON CA SCREENING 1956 MAMMOGRAM 1956 HEPATITIS C SCREENING 07/27/1974 DTAP/TDAP/TD VACCINES (1 - Tdap) 1975 PNEUMOCOCCAL VACCINE 50+ (1 of 2 - PCV) 1975 ZOSTER VACCINE (1 of 2) 2006 Respiratory Syncytial Virus (RSV) Vaccine Pt: or over 60 yrs (1 - Risk 60-74 years 1-dose series) 2016 DEPRESSION SCREENING 08/11/2024 MEDICARE AWV CALENDAR YEAR 2024 COVID-19 VACCINE (1 - 2023-2 5 season) 2025 INFLUENZA VACCINE (#1) 2025 HEPATITIS B VACCINE Aged Out No longe r eligible based on patient's age to complete this topic HIB VACCINE Aged Out No longer eligi ble based on patient's age to complete this topic HPV VACCINE Aged Out No longer eligi ble based on patient's age to complete this topic MENINGOCOCCAL (Group B) VACC INE SHARED DECISION-MAKING Aged Out No longer eligibl e based on patient's age to complete this topic MENINGOCOCCAL GROUPS A/C/Y/W VACCINE Aged Out No longer eligible b ased on patient's age to complete this topic Medical Devices Implanted Type Area Roofing Sales Representative Device Identifier Shelf Expiration Date Model / Serial / Lot Snap Off Screw 13mm Implanted:Qty: 2 on 05/28/2017 by Low Fulton DPM at [facility] Right: Foot [place] [employer] [id number] / / Hdls Comp Screw 4.0x30 Implanted:Qty: 1 on 05/28/2017 by Low Fulton DPM at [facility] Right: Foot [employer] [id number] / / Joint Toe 16x2-5.5x1.2mm Smrt Toe Ii 0d Implanted:Qty: 1 on 05/28/2017 by Low Fulton DPM at [facility] Right: Foot [employer] 08/11/2017 ST0-16P / / [id number] F Joint Toe 15x2-5.5x1.2mm Smrt Toe Ii 0d Implanted:Qty: 1 on 05/28/2017 by Low Fulton DPM at [facility] Right: Foot [employer] 01/08/2022 STO-15P / / [id number] Explanted Type Area Roofing Sales Representative Device Identifier Shelf Expiration Date Model / Serial / Lot Gw Orth 1.4mm 150mm Unthread Explanted:Qty: 1 on 05/28/2017 at [facility] Right: Foot [employer] [id number] / / Insurance [employer] MEDICARE ADV HMO & PPO * Guarantor: MARIA ALEJANDRA CASILLAS Account Type Relation to Patient Date of Phone Billing Address Personal/Family [address] [place] [phone] [facility] SELF PAY NO INSURANCE Member Subscriber Plan / Payer (Ef fective for All Dates) Name:Maria Alejandra Casillas Member ID:Not on file Relation to Subscriber:Not on file Name:MARIA ALEJANDRA CASILLAS Subscriber ID:Not on file (Home) Address: [address] [place] [phone] Payer ID:Not on file Group ID:Not on file Type:Self Pay Address: [place], [place] * Guarantor: MARIA ALEJANDRA CASILLAS Account Type Relation to Patient Date of Phone Billing Address Personal/Family [address] [place] [address] [employer] SELF PAY NO INSURANCE Member Subscriber Plan / Payer (Ef fective for All Dates) Name:Maria Alejandra Casillas Member ID:Not on file Relation to Subscriber:Not on file Name:MARIA ALEJANDRA CASILLAS Subscriber ID:Not on file (Home) Address: [address] [place] [phone] Payer ID:Not on file Group ID:Not on file Type:Self Pay Address: [place], [place] * Guarantor: MARIA ALEJANDRA CASILLAS Account Type Relation to Patient Date of Phone Billing Address Personal/Family [address] [place] [phone] [employer] SELF PAY NO INSURANCE Member Subscriber Plan / Payer (Ef fective for All Dates) Name:Maria Alejandra Casillas Member ID:Not on file Relation to Subscriber:Not on file Name:OLI CASILLASARA Subscriber ID:Not on file (Home) Address: [address] [place] [phone] Payer ID:Not on file Group ID:Not on file Type:Self Pay Address: [place], [place] Care Teams Bistro Attendant Relationship Specialty Start Date End Date Demar Lazcano MD [address] [place] [phone] PCP - General 11/25/22
--- OUTSIDE RECORDS SUMMARY | 2025-05-09 07:39 | XMS_ITS | Clinical Summary ---
Author Organization [facility] Address [address] [place] [address] Care Team Providers Care Glass Crusher Name Role Phone Jose Cruz Muñoz MD Primary Care Provider [phone] Allergies Active Allergy Reactions Criticality Noted Date Comments Covid-19 (Sars-Cov-2) Vaccine, Zully Cell Swelling High 07/14/2023 Influenza Virus Vacc Trivalent, Whole Swelling High 07/14/2023 Nitrofurantoin Monohyd/M-Cryst Unknown 04/25 Sulfa (Sulfonamide Antibiotics) Unknown 04/11 Medications atorvastatin (LIPITOR) 20 mg tabletIndication s:hyperlipidemia Take 1 tablet (20 mg total) by mouth nightly Active omeprazole (PriLOSEC) 40 mg capsuleIndicatio ns:Stress Ulcer Prophylaxis Take 1 capsule (40 mg total) by mouth nightly Active rOPINIRole (REQUIP) 4 mg tabletIndication s:Restless Legs Syndrome Take 1 tablet (4 mg total) by mouth 2 (two) times a day 06/13/2018 Active cyclobenzaprine (FLEXERIL) 10 mg tabletIndication s:Muscle Spasm Take 1 tablet (10 mg total) by mouth 3 (three) times a day as needed for muscle spasms (1st line) 30 tablet 07/04/2021 Active meloxicam (MOBIC) 7.5 mg tablet Take 1 tablet (7.5 mg total) by mouth daily 04/11/2022 Active losartan-hydroch lorothiazide (HYZAAR) 100-25 mg per tablet TAKE 1 TABLET BY MOUTH EVERY DAY FOR 90 DAYS Active HYDROcodone-acet aminophen (NORCO) 5-325 mg per tabletIndication s:Pain Take 1 tablet by mouth every 6 (six) hours as needed Active nebivoloL (BYSTOLIC) 10 mg tablet Take 1 tablet (10 mg total) by mouth daily Active Symbicort 160-4.5 mcg/actuation inhaler INHALE 2 PUFFS INTO THE LUNGS TWICE A DAY Active doxepin (SINEquan) 25 mg capsule Take 1 capsule (25 mg total) by mouth nightly 03/31/2025 Active levoFLOXacin (LEVAQUIN) 500 mg tablet Take 1 tablet (500 mg total) by mouth daily 04/13/2025 Active sertraline (ZOLOFT) 50 mg tablet Take 1 tablet (50 mg total) by mouth daily 03/31/2025 Active spironolactone (ALDACTONE) 100 mg tablet 02/22/2025 Active Active Problems Problem Noted Date Diagnosed [...] 05/09/2020 Insomnia secondary to chronic pain 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 04/12 Sacroiliitis [...] Basal cell carcinoma (BCC) of upper extremity Encounters Date Type Department Care Team Description 05/02/2025 Telephone [facility] Medicine Orthopaedic Surgery [address] [facility] 2[address] [place] [address] Ramesh Tolbert MD 04/26/2025 Telephone [facility] [address] [facility] [address] [place] [address] Odalys Soler MD 04/25/2025 10:00 AM CDT Office Visit [facility] Medicine Orthopaedic Surgery [address] [facility] 1st [address] [place] [address] Ramesh Tolbert MD History of lumbar spinal fusion (Primary Dx); Right lumbosacral radiculopathy 04/25/2025 Telephone [facility] [address] [facility] [address] [place] [address] Odalys Soler MD 03/29/2025 Telephone [facility] [address] [facility] [address] [place] [address] Elida Mendez MA 03/29/2025 Results Follow-Up [facility] [address] [place] [address] [address] [place] [address] Odalys Soler MD PSG 03/14/2025 7:00 PM CDT - 03/14/2025 11:59 PM CDT Hospital Encounter [facility] [address] [place] [address] Obstructive sleep apnea (adult) (pediatric) Discharge Disposition: Discharge to home or self care 03/01/2025 9:00 AM CDT Office Visit [facility] [address] [place] [address] [address] [place] [address] Odalys Soler MD Obstructive sleep apnea (adult) (pediatric) (Primary Dx); Hypersomnia with sleep apnea; Morbid obesity with BMI of 40.0-44.9, adult (HCC); Restless legs syndrome 02/08/2025 7:15 PM CDT - 02/08/2025 11:59 PM CDT Hospital Encounter [facility] [address] [place] [address] Obstructive sleep apnea (adult) (pediatric) Discharge Disposition: Discharge to home or self care from Last 3 Months Immunizations Immunization Administration Dates Next Due Influenza, Quadrivalent, Spl it, Preservative Free, Intramuscular 04/25/2020,05/20/2019,05/29/2018,05/28 Influenza, Trivalent, IM (MDV) 05/09/2014 Influenza, Trivalent, Preser vative Free, Intramuscular 04/09/2016 Influenza, Unspecified 04/30/2020,05/09/2014 Pneumococcal Conjugate PCV 13 09/08/2015 Pneumococcal Polysaccharide PPV23 04/25/2020,07/2019 Pneumococcal, Unspecified 04/25/2020 Tdap 03/18/2016,09/08/2015 ZOSTER LIVE 08/02/2016 Surgical History Surgery Date Site/Laterality Comments OTHER SURGICAL HISTORY Rt foot Bunionectomy BACK SURGERY Back surgery HEMORRHOID SURGERY Hemorrhoidectomy HYSTERECTOMY Hysterectomy KNEE SURGERY Knee surgery CARPAL TUNNEL RELEASE Carpal tunnel release OTHER SURGICAL HISTORY Gastroesophageal reflux disease: Omar Fundoplication OTHER SURGICAL HISTORY Ruptured uterus: hysterectomy: [facility] OTHER SURGICAL HISTORY 08/11/1983 - 08/10/1984 nervous breakdown: Hospitalization OTHER SURGICAL HISTORY Depression: Drug therapy OTHER SURGICAL HISTORY Gastroesophageal reflux disease: Nexium BACK SURGERY Back Surgery - (Added by TW Conv) MS HEMORRHOIDECTOMY INTERNAL RUBBER BAND LIGATIONS Hemorrhoidectomy - (Added by TW Conv) MS TOTAL ABDOMINAL HYSTERECT W/WO RMVL TUBE OVARY Hysterectomy - (Added by TW Conv) FOOT SURGERY 02/20/2018 5th toe arthroplasty, teotomy, and capsulotomy right foot MS NEUROPLASTY &/TRANSPOS ME NEIL NRV CARPAL TUNNE Neuroplasty Decompression Median Nerve At Carpal Tunnel - (Added by TW Conv) MS SALPINGO-OOPHORECTOMY COMPL/PRTL UNI/BI SPX Salpingo-oophorectomy - (Added by TW Conv) MS TONSILLECTOMY PRIMARY/SEC ONDARY <AGE 12 Tonsillectomy - (Added by TW Conv) GALLBLADDER SURGERY Gallbladder Surgery - (Added by TW Conv) BIOPSY DEEP BONE 01/19/2020 N/A ESOPHAGOGASTRODUODENOSCOPY 08/18/2019 lopes dilation LUMBAR DISC SURGERY 08/11/1998 - 08/10/1999 L4-S1 PSF LUMBAR DISC SURGERY 08/11/1999 - 08/10/2000 L4-S1 PSF revision for implant failure MS ARTHRP KNE CONDYLE&PLATU MEDIAL&LAT COMPARTMENTS Left [facility]ba MS ARTHRP KNE CONDYLE&PLATU MEDIAL&LAT COMPARTMENTS Right [place]ba MS ARTHRP ACETBLR/PROX FEM P ROSTC AGRFT/ALGRFT 07/02/2021 Right [place] Medical History Medical History Date Comments Hypertension Hypertension Arthritis Arthritis Hx Other Medical Gastroesophagea l reflux disease Hyperlipidemia Hyperlipidemia Hx Other Medical 1980 Ruptured uterus Hx Other Medical back surgery; C omments: also had 2nd procedure 6 weeks later (hardware came apart) in early 1999 Hx Other Medical 1983 nervous breakd own Depression Depression Hx Other Medical Gastroesophagea l reflux disease; Outcome: improved Personal history of other sp ecified conditions History of breast lump - (Ad ded by TW Conv) Personal history of other (h ealed) physical injury and trauma History of back injury - (A dded by TW Conv) Personal history of malignan t neoplasm Personal history of malignan t neoplasm - (Added by TW Conv) Gastric reflux Kidney stone Migraines Inflammatory bowel disease Low back pain Chronic pain disorder PONV (postoperative nausea a nd vomiting) relief with scopolamine patc h, put on in preop holding Sleep apnea 04/11/2024 Family History Medical History Relation Name Comments Hypertension Brother 1 Family history of hypertension - (Added by TW Conv) Hyperlipidemia Brother 2 Family histor y of hyperlipidemia - (Added by TW Conv) Cancer Father Colon cancer Father Cancer, colon; /Cancer, colon; Cause of : Cancer, colon/Family history of malignant neoplasm of colon - (Added by TW Conv) Brain cancer Mother Brain tumor; Ca use of : Brain tumor/Brain tumor - (Added by TW Conv) Cancer Other Family history of malignant neoplasm - (Added by TW Conv) Diabetes Sister 1 Diabetes mellit us; Heart disease Sister 1 Hypertension Sister 2 Hypertension; Breast cancer Sister 3 Cancer, breast ; Hypertension Sister 4 Family history of hypertension - (Added by TW Conv) Asthma Sister 5 Family history of asthma - (Added by TW Conv) Diabetes Sister 6 Family history of diabetes mellitus - (Added by [employer] Conv) Relation Name Status Comments Brother 1 Brother 2 Father (Age 65) Mother (Age 30) Other Sister 1 Sister 2 Sister 3 Sister 4 Sister 5 Sister 6 Social History Tobacco Use Types Packs/Day Years Used Date Smoking Tobacco: Former Cigarettes Q uit: 2010 Smokeless Tobacco: Never Tobacco Cessation:Counseling Given: Not Answered Alcohol Use Standard Drinks/Week Comments No 0 (1 standard drink = 0.6 oz pur e alcohol) AUDIT-C Answer Date Recorded Q1: How often do you have a drink containing alc ohol? Never 07/02/2021 Average Number of Drinks Not on file 021 Q3: How often do you have si x or more drinks on one occasion? Never 07/02/2021 PHQ-2 Answer Date Recorded PHQ-2 Total Score (If total score is 3 or more points, staff should administer the PHQ-9) 2 05/09/2020 Personal Safety Answer Date Recorded Have you ever been in or are you currently in a harmful physical or emotional relationship or is someone making you feel afraid or unsafe? 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 Gender Identity Not on file Sexual Orientation Not on file Obstetrics History Para Term AB IAB SAB Ectopic Multiple Livin g Live Births 2 2 Date Outcome GA Total Labor Labor/2nd/3rd Weight Sex Type Anes PTL Charlotte A1 A5 Name Clin Para Para Last Filed Vital Signs Vital Sign Reading Time Taken Comments Blood Pressure 127/60 03/01/2025 8:56 AM CDT Pulse 60 03/01/2025 8:56 AM CDT Temperature 36.8 C (98.2 F) 10/29/2024 9:48 AM CDT Respiratory Rate 18 01/25/2025 10:57 AM CDT Oxygen Saturation 98% 03/01/2025 8:56 AM CDT Inhaled Oxygen Concentration - - Weight 115.7 kg (255 lb) 04/25/2025 10:01 AM CDT Height 167.6 cm (5' 5.98) 04/25/2025 10:01 AM C DT Body Mass Index 41.18 04/25/2025 10:01 AM CDT Plan of Treatment Health Maintenance Due Date Last Done Comments Albumin Creatinine Ratio, Urine 1955 Breast Cancer Screening-Mammogram 1955 Hepatitis C Screening 1955 Osteoporosis Screening-Bone Density Scan 1956 Dilated Eye Exam 1956 Foot Exam 1956 Hepatitis B Screening 1974 Zoster Vaccine (2 of 3) 09/27/2016 08/02/2016 Lipid Panel 03/24/2020 03/24/2019, 05/17/2016 Depression Screening 05/09/2021 05/09/2020, 05/09/20 20 Well Visit 65+ 2021 Hemoglobin A1C 12/23/2021 06/25/2021 eGFR 07/03/2022 07/03/2021, 06/12, 06/25/2021 Fall Risk Assessment 07/04/2022 07/04/2021 Colon Cancer Screening-Colonoscopy 12/02/2023 12/01/2013 Covid-19 Vaccine (4 - 2024-2 6 season) 2025 08/05/2021, 11/18/2020, 10/29/2020 Influenza Vaccine (#1) 2025 , 04/30/2020, 04/25/2020, Additional history exists Pneumococcal vaccine 65+ (3 of 3 - PCV20 or PCV21) 04/25/2025 04/25/2020, 04/25/2020, 05/22/2019, Additional history exists DTaP/Tdap/Td Vaccine (4 - Td or Tdap) 05/16/2033 05/16/2023, 03/18/2016, 09/08/2015 Colon Cancer Screening-CT Colonography Discontinued 12/01/2013 Colon Cancer Screening-DNA Stool Discontinued 12/02/19 14 Colon Cancer Screening-FIT Discontinued 12/01/2013 Colon Cancer Screening-Sigmoidoscopy Discontinued 12/01/2013 Medical Devices Implanted Type Area Set Designer Device Identifier Shelf Expiration Date Model / Serial / Lot [employer] [id number] 50mm Limit 3 Hole Hip D Hemisphere Offset Shell Acetabular - [id number] Implanted:Qty: 1 on 07/02/2021 by Elida Dale MD at [facility] Right: Hip [employer] [id number] 03/22/2031 [id number] / / [id number] [employer] [id number] Trilogy 6.5mm 20mm Self Tap Screw Bone - [id number] Implanted:Qty: 1 on 07/02/2021 by Elida Dale MD at [facility] Right: Hip [employer] [id number] 12/02/2030 [id number] / / [id number] [employer] [id number] G7 40mm 2 Mobility Hip D Liner Acetabular Cocr - [id number] Implanted:Qty: 1 on 07/02/2021 by Elida Dale MD at [facility] Right: Hip [employer] 05/18/2031 [id number] / / [id number] [employer] [id number] Echo Bi-Metric 14mm 150mm Noncollar Reduce Proximal Profile Press - [id number] Implanted:Qty: 1 on 07/02/2021 by Elida Dale MD at [facility] Right: Hip [employer] [id number] 09/03/2028 [id number] / / [id number] [employer] 650-1158 G7 28mm Type 1 Modular Hip Acetabular 0mm Offset Head Femoral - [id number] Implanted:Qty: 1 on 07/02/2021 by Elida Dale MD at [facility] Right: Hip [employer] [id number] 01/04/2031 [id number] / / [id number] [employer] [id number] 40mm 28mm Lumen Hip D Liner Acetabular Longevity Sterile Latex - [id number] Implanted:Qty: 1 on 07/02/2021 by Elida Dale MD at [facility] Right: Hip [employer] [id number] 10/08/2024 [id number] / / [id number] Explanted Type Area Set Designer Device Identifier Shelf Expiration Date Model / Serial / Lot [employer] [id number] Trilogy 6.5mm 25mm Self Tap Screw Bone - [id number] Explanted:Qty: 1 on 07/02/2021 at [facility] Right: Hip [employer] [id number] 04/25/2031 [id number] / / [id number] Procedures Procedure Name Priority Date/Time Associated Diagnosis Comments PSG (SIMPLE) Routine 03/16/2025 9:41 AM CDT Obstructive sleep apnea (adult) (pediatric) PSG (COMPLEX) Routine 02/09/2025 1:44 PM CDT Obstructive sleep apnea (adult) (pediatric) EGFR Routine 07/03/2021 10:14 PM COMMERCIAL LOAN COORDINATOR POCT HEMOGLOBIN A1C Routine 06/25/2021 4 :26 PM COMMERCIAL LOAN COORDINATOR POCT LIPID PANEL Routine 03/24/2019 9:07 AM CDT Essential hypertension COLONOSCOPY REPORT 12/01/2013 from Last 3 Months or Most Recently Relevant to Health Maintenance Results * PSG (03/16/2025 9:41 AM CDT) Impressions Odalys Soler MD - 03/16/2025 9:41 AM CDT Indication for study: Ms. Mooney is a 69-year-old with chief complaint of snoring, unrefreshing sleep and excessive daytime sleepiness. The patient's Ghent Sleepiness scale score is 13. Recent polysomnography confirms evidence of obstructive sleep disorder breathing which is severe in the REM sleep. Given the patient's prior history of Continuous positive airway pressure intolerance, patient's study was ordered as a bilevel titration study.. Vital statistics: Age: 69 years Height: 66 in Weight: 252 lb BMI: 41.0 Procedure: A polysomnographic sleep study was performed. Variables monitored and recorded during the study; EEG, EOG, EKG, Chin EMG, snoring, lower extremity EMG, nasal and oral airflow, chest and abdominal wall movements, oxygen saturation and audio/video monitoring . Unless otherwise noted, polysomnogram was recorded and scored in accordance with recommended parameters as outlined in the AASM Manual for the Scoring of Sleep and Associated Events, Version 2.6. Hypopneas were scored in accordance with acceptable parameters as outlined in Chapter VIII, Part 1: Rules for Adults, Category D, Section 1B. Description of polysomnography findings: Patient had 408.2 minute of monitored time. 335.5 minutes total sleep was present. Sleep efficiency was 82.2%. Latency from lights out to stage N1 was 5.8 minute, latency to stage N2 from sleep onset was 1 minute, latency to stage N3 from sleep onset was 19.5 minute, and latency to stage REM from sleep was 129 minutes. Sleep stage recording stage wake of 73 minutes. Stage non-REM comprised 226.5 minute (67.5% of total sleep time). This includes stage N1 of 37.5 minute (11.2% total sleep time), stage N2 149 minute (44.4% total sleep time), stage N3 of 40 minute (11.9% total sleep time). Stage REM comprised 109 minute (32.5% total sleep time). Arousal analysis revealed total of 129 arousals. The arousal index was 23.1. There were 21 spontaneous arousals. The spontaneous arousal index was 3.8. Positive pressure therapy was initiated and bilevel therapy inspiratory positive airway pressure 8-16 cm and expiratory positive airway pressure 4-11 cm water attempted. Bilevel therapy with inspiratory positive airway pressure of 16 cm and expiratory positive airway pressure 11 cm found to be optimal. Total recording time was 98.5 minutes . Sleep efficiency was 88.1%. Adequate REM was obtained. Residual AHI was 0.7. Be lowest oxygen saturation was 89%. Average oxygen saturation 94.3%. A small/medium Obregon Paykel pepito fullface mask was used Limb movement recording revealed 235 periodic limb movements. Periodic limb movement index was 42.0. Periodic limb movement arousal index was 15.0. Average heart rate during wake was 69.9, and sleep was 63.7 Impression: 1. Reduction sleep efficiency 2. Bilevel therapy with inspiratory positive airway pressure 16 cm and expiratory positive airway pressure 11 cm was found to be optimal 3. A small/medium Pepito fullface mask was used 4. Severe periodic limb movements sleep were noted. 5. Sleep hygiene should be reviewed to assess factors that may improve sleep quality. 6. Weight management and regular exercise should be initiated or continued 7. Avoid alcohol sedatives and other ESCROW PROCESSOR depression that may worsen sleep apnea and disrupt normal sleep architecture 8. Patients with sleep apnea may have significant daytime hypersomnolence. If that is the case, driving or handling heavy machinery should be avoided until the apnea and excessive sleepiness have resolved. Narrative Odalys Soler MD - 03/16/2025 9:41 AM CDT In lab study is ready for review us Odalys Soler MD SLEEP CENTER ORDERABLES Final Re sult * PSG-Sleep Provider Use Only (02/09/2025 1:44 PM CDT) Impressions Odalys Soler MD - 02/09/2025 1:44 PM CDT Indication for study: Ms. Mooney is a 69-year-old with chief complaint of snoring, unrefreshing sleep and excessive daytime sleepiness. The patient's Ghent Sleepiness scale score is 13 Vital statistics: Age: 69 years Height: 66 in Weight: 252 lb BMI: 41.0 Procedure: A polysomnographic sleep study was performed. Variables monitored and recorded during the study; EEG, EOG, EKG, Chin EMG, snoring, lower extremity EMG, nasal and oral airflow, chest and abdominal wall movements, oxygen saturation and audio/video monitoring . Unless otherwise noted, polysomnogram was recorded and scored in accordance with recommended parameters as outlined in the AASM Manual for the Scoring of Sleep and Associated Events, Version 2.6. Hypopneas were scored in accordance with acceptable parameters as outlined in Chapter VIII, Part 1: Rules for Adults, Category D, Section 1B. Description of polysomnography findings: Patient had 408.1 minute of monitored time. 290.5 minutes of total sleep was present. Sleep efficiency was 71.2%. Latency from lights out to stage N1 was 4.6 minutes, latency to stage N2 from sleep onset was 4 minute, latency to stage N3 from sleep onset was 25.5 minute, and latency to stage REM from sleep onset was 56 minutes. Sleep stage recording stage wake of 118 minute. Stage non-REM comprised 254.5 minute (87.6% of total sleep time). This included stage N1 of 33.5 minute (11.5% total sleep time), stage N2 of 168 minute (57.8% of total sleep time), and stage N3 of 53 minute (18.2% total sleep time). Stage REM comprised 36 minute (12.4% of total sleep time). Arousal analysis revealed a total of 84 arousals. The arousal index was 17.3. There were 51 spontaneous arousals. The spontaneous arousal index was 10.5. The apnea-hypopnea index was 10.3. The AHI was 35 in REM sleep, and 6.8 in the non-REM sleep. There were 30 obstructive apneas, 2 central apneas and 20 hypopneas recorded. Baseline oxygen saturation was 95.6%. Lowest oxygen saturation was 89%. Snoring was mild. Transcutaneous CO2 was recorded. It ranged from 35.6-45.6 mm. Limb movement recording did not reveal any periodic limb movements. Average heart rate during wake was 66.7, and during sleep was 65.7. Impression: 1. Reduced sleep efficiency 2. Mild obstructive sleep disorder breathing. This is severe in the REM sleep 3. Evidence of obesity hypoventilation. 4. Consider Positive Airway Pressure (PAP) devices such as continuous PAP (CPAP), auto-adjusting PAP (APAP), and bi-level PAP (Bi-PAP). 5. CPAP titration to determine optimal pressure required to alleviate sleep disordered breathing 6. Sleep hygiene should be reviewed to assess factors that may improve sleep quality. 7. Weight management and regular exercise should be initiated or continued 8. Avoid alcohol sedatives and other ESCROW PROCESSOR depression that may worsen sleep apnea and disrupt normal sleep architecture 9. Patients with sleep apnea may have significant daytime hypersomnolence. If that is the case, driving or handling heavy machinery should be avoided until the apnea and excessive sleepiness have resolved. Narrative Odalys Soler MD - 02/09/2025 1:44 PM CDT In lab study is ready for review Odalys Soler MD SLEEP CENTER ORDERABLES Final Re sult * eGFR (07/03/2021 10:14 PM COMMERCIAL LOAN COORDINATOR) eGFR >90 90 - 130 mL/min/1.7 3 m2 MICHAEL PORTILLO Comment: Interpretive Data Reference Interval Normal >/= 90 mL/min/1.73m2 Mildly decreased* 60 - 89 mL/min/1.73m2 Mildly to moderately decreased 45 - 59 mL/min/1.73m2 Moderately to severely decreased 30 - 44 mL/min/1.73m2 Severely decreased 15 - 29 mL/min/1.73m2 Kidney Failure < 15 mL/min/1.73m2 *Relative to young adult level Estimated glomerular filtration rate is determined by the CKD-EPI equation recommended by the National Kidney Foundation (KDIGO 2012 Clinical Practice Guideline for the Evaluation and Management of Chronic Kidney Disease. Kidney Intnl Suppl Aug 2012;3:1). The CKD-EPI equation should not be used for patients with unstable renal function and has not been validated in children and those over 70. Current interpretive data was last reviewed 2020 Blood 07/03/2021 10:1 4 PM COMMERCIAL LOAN COORDINATOR 07/03/2021 10:44 PM COMMERCIAL LOAN COORDINATOR us Bethany Astorga NP LAB BLOOD ORDERABLES Final Re sult [facility] Department [place] [address] * POCT hemoglobin A1c (06/25/2021 4:26 PM COMMERCIAL LOAN COORDINATOR) Hgb A1C, POC 5.4 4.0 - 5.6 % [facility] Est Average Gluc POC 108 mg/dL [facility] Comment: The ADA recommends reporting an estimated Average Glucose (eAG) with all Hemoglobin A1c results using the equation derived from a study of 507 normal and diabetic adults. Minority populations were underrepresented and children were not included. (Diabetes Care 31:6221-0149, 2008). The eAG is not equivalent to a fasting glucose. Blood 06/25/2021 4:26 PM COMMERCIAL LOAN COORDINATOR 06/25/2021 4:26 PM COMMERCIAL LOAN COORDINATOR Elida Dale MD POINT OF CARE TEST ORD ERABLES Final Result [facility] Department [place] [address] * POCT lipid panel (03/24/2019 9:07 AM CDT) Cholesterol, POC 216 mg/dL HDL, POC 62 mg/dL Triglycerides, POC 167 mg/dL LDL Cholesterol POC 120 mg/dL Chol/HDL Ratio, POC 3.5 Non-HDL Cholesterol, POC 154 mg/dL Cholesterol Total, POC 216 mg/dL Blood specimen (specimen) 03/24/2019 9:07 AM CDT Ray Tavera MD POINT OF CARE TEST ORDERABLES Fi nal Result * COLONOSCOPY REPORT (12/01/2013) Anatomical Region Laterality Modality Other Narrative 12/01/2013 Ordered by an unspecified provider. Historical Provider GI PROCEDURE ORDERABLES F inal Result from Last 3 Months or Most Recently Relevant to Health Maintenance Insurance [employer] MEDICARE HMO HU[employer]NA MEDICARE HMO HU[employer] MEDICARE HMO Advance Directives For more information, please contact: [phone] * Full Code (Latest Code Status on File) Date Activated Date Inactivated Comments 07/02/2021 1:03 PM 07/04/2021 10:34 PM Care Teams Glass Crusher Relationship Specialty Start Date End Date Jose Cruz Muñoz MD [address] [address] PCP - General Internal Medicine 04/07/24
== END 2025-05-09 07:35 | disposition home or self-care (01) ==
PROVIDERS: PCP Internal Medicine Infectious Disease; Visit Provider Internal Medicine Infectious Disease
DX: Z12.31 Encounter for screening mammogram for malignant neoplasm of breast (principal); M81.0 Age-related osteoporosis without current pathological fracture; M85.852 Other specified disorders of bone density and structure, left thigh
CPT/HCPCS: 77063; 77067; 77080

== ENCOUNTER 2025-06-08 15:19 | Outpatient (CLI) | payer MEDICARE, SELFPAY ==
--- OUTSIDE RECORDS SUMMARY | 2025-03-16 04:00 | XMS_ITS ---
Author Organization [facility] Address [address] [place], [place] [id number] Care Team Providers Care Technical Service Specialist Name Role Phone NEIL MUÑOZ Primary Care Provider REASON FOR VISIT 3 month f/u Encounters Encounter Location Date Provider Diagnosis [facility] [address] [facility] [address] [place], [place] [id number] 03/16/2025 NEIL MUÑOZ Plan Of Treatment Next Appt Details Provider Name:NEIL Hatfield, 07/13/2025 09:00:00 AM, [address], [place], [place], [id number], Progress Notes * Maria Alejandra CASILLASDOB:1955 (69 yo F)Acc No.[id number]:03/16/2025 Progress Notes Patient: Miya EPPERSON Maria Alejandra Provider: Sailaja Muñoz M.D. :1955 A ge:69 Y S ex:Female Date:03/16/2025 Address:[address] [place], [place] [id number] Subjective: * Chief Complaints: * 1 . 3 month f/u. * Medical History: Objective: * Vitals: Assessment: Plan: * Treatment: * Billing Information: * Visit Code: * Procedure Codes: * Electronic signature of KERI MUÑOZ MD on 06/08/2025 at 05:31 PM CDT Sign off status: Pending * Provider: Sailaja Muñoz M.D. Date: 0 03/16/2025 Generated for Nitza zee/Kvng/Isela on: 1 05:31 PM CDT
--- OUTSIDE RECORDS SUMMARY | 2025-03-30 04:00 | XMS_ITS ---
Author Organization [facility] Address [address] [place], [place] [phone] Care Team Providers Care Hand Packer Name Role Phone NEIL MUÑOZ Primary Care Provider REASON FOR VISIT 3 month f/u Encounters Encounter Location Date Provider Diagnosis [facility] [address] [facility] [address] [place], [place] [id number] 03/30/2025 NEIL MUÑOZ Plan Of Treatment Next Appt Details Provider Name:NEIL Hatfield, 07/13/2025 09:00:00 AM, [address], [place], [place], [phone], Progress Notes * Maria Alejandra CASILLASDOB:1955 (69 yo F)Acc No.[id number]:03/30/2025 Progress Notes Patient: Miya EPPERSON Maria Alejandra Provider: Sailaja Muñoz M.D. :1955 A ge:69 Y S ex:Female Date:03/30/2025 Address:[address] [place], [place] [id number] Subjective: * Chief Complaints: * 1 . 3 month f/u. * Medical History: Objective: * Vitals: Assessment: Plan: * Treatment: * Billing Information: * Visit Code: * Procedure Codes: * Electronic signature of KERI MUÑOZ MD on 06/08/2025 at 05:30 PM CDT Sign off status: Pending * Provider: Sailaja Muñoz M.D. Date: 0 03/30/2025 Generated for Nitza zee/Kvng/Isela on: 1 05:30 PM CDT
--- NOTE | ~2025-06-08 | XR_ITS ---
XR cervical spine 4-5V Indication: Pain of right shoulder and cervical pain Comparison: None Findings: Grade 1 anterolisthesis of C2 on C3 and C3 on C4, no fracture is identified. Moderate to severe loss of disc height C4-5 C5-6 and C6-7 with narrowing of the foramina bilaterally Soft tissues unremarkable Impression: No acute abnormality. Reviewed, dictated and finalized at location P. Impression: No acute abnormality.
--- NOTE | ~2025-06-08 | XR_ITS ---
EXAMINATION: XR shoulder RT min 2V, 06/08/2025 15:45 CDT HISTORY: Pain of right shoulder and cervical pain COMPARISON: No comparisons available. Findings: No acute fracture or malalignment. Moderate to severe degenerative changes Soft tissues unremarkable. Impression: No acute fracture or malalignment. Reviewed, dictated and finalized at location P. Impression: No acute fracture or malalignment.
--- OUTSIDE RECORDS SUMMARY | 2025-06-08 17:30 | XMS_ITS | Encounter Summary ---
Author Organization [facility] Address [address] [place] [address] Phone Care Team Providers Care Vacuum Plastic Forming Machine Operator Name Role Phone Jose Cruz Muñoz MD Primary Care Provider [phone] Encounter Details Date Type Department Care Team (Late st Contact Info) Description 06/08/2025 Telephone [facility] Medicine Orthopaedic Surgery [address] [place] [address] Ramesh Tolbert MD [address] [place] [address] Social History Tobacco Use Types Packs/Day Years Used Date Smoking Tobacco: Former Cigarettes Q uit: 2010 Smokeless Tobacco: Never Alcohol Use Standard Drinks/Week Comments No 0 [...] on file Legal Sex Female 2:18 AM 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 She stated that she is still working with her insurance company to get her LSO brace. She stated that they will not send her back brace because this diagnosis provided is not a qualifying diagnosis for the insurance to pay. [employer] called and left a voicemail message stating that the I returned call to the pt. She stated that they are saying that her being in pain is not enough forthe insurance to cover the back brace. documented in this encounter Plan of Treatment Not on file documented as of this encounter Visit Diagnoses Not on filedocumented in this encounter Care Teams Vacuum Plastic Forming Machine Operator Relationship Specialty Start Date End Date Jose Cruz Muñoz MD [address] [address] PCP - General Internal Medicine 04/07/24 documented as of this encounter
--- OUTSIDE RECORDS SUMMARY | 2025-06-08 17:30 | XMS_ITS | Encounter Summary ---
Author Organization [facility] Address [address] [place] [address] Care Team Providers Care Medical Records Custodian Name Role Phone Krish Mendez MD Primary Care Provider + [phone] Encounter Details Date Type Department Care Team (Late st Contact Info) Description 06/20/2008 Outpatient Historical [facility] Rico Her MD [address] [facility] [address] [place] [address] Social History Tobacco Use Types Packs/Day Years Used Date Smoking Tobacco: Never Assessed Comments Unknown Sex and Gender Information Value Date Recorded Sex Assigned at Not on file Legal Sex Female 2:54 AM CORRECTIONAL CASE MANAGER Gender Identity Not on file Sexual Orientation Not on file documented as of this encounter Plan of Treatment Not on file documented as of this encounter Procedures Procedure Name Priority Date/Time Associated Diagnosis Comments TYPE AND SCREEN Routine 07/12/2008 5:54 AM CORRECTIONAL CASE MANAGER documented in this encounter Results * TYPE AND SCREEN (07/12/2008 5:54 AM CORRECTIONAL CASE MANAGER) HISTORY CHECK No Historical ABO/Rh [facility] ABO/RH TYPE A Negative [facility] SPECIMEN LIFE [address] [facility] ANTIBODY SCREEN Negative [facility] Blood specimen (specimen) 07/12/2008 5:54 AM CORRECTIONAL CASE MANAGER us Rico Her MD BLOOD BANK ORDERABLES Edited INTERFACE SYSTEM Refer to clinic/hospital department [facility] CLIA# [id number] [address] [place] [address] documented in this encounter Visit Diagnoses Not on filedocumented in this encounter Care Teams Medical Records Custodian Relationship Specialty Start Date End Date Krish Mendez MD [address] [facility] [address] [place] [address] PCP - General Internal Medicine 12/29/18 documented as of this encounter
--- OUTSIDE RECORDS SUMMARY | 2025-06-08 17:30 | XMS_ITS | Data Portability ---
Author Organization [facility] Address [address] [address] Assessment No assessment recorded. Plan of Treatment [...] By Organization Details Last Modified Time 03/20/2016 52431 knee arthritis: care instructions [email or web address] Not available [...] Recorded Time 08/11/19 13 [facility] 12:06:23 08/11/19 08 [facility]/20/2016 12:06:32 08/11/19 05 [facility] 03/20/2016 12:05:23 08/11/19 00 [facility] 03/20/2016 12:05:36 08/11/18 99 [facility] 03/20/2016 12:05:30 08/11/18 84 [facility] 03/20/2016 12:05:50 08/11/18 83 [facility] 03/20/2016 12:06:53 Imaging Results None recorded. [...] Not Available Not Avail able Not Available muscle rub active Not Available Not Av ailable Not Available medicated chest rub active Not Availab le Not Available Not Available vitamin b12 active Not Available Not A vailable Not Available cotton swabs active Not Available Not Available Not Available diabetic skin relief foot crea active Not Available Not Avail able Not Available test strips for urinalysis active Not Available Not Available N ot Available electric heating pad active Not Available Not Available Not Available loratadine 10mg active Not Available N ot Available Not Available vitamin d 1000 iu active Not Available Not Available Not Available cetirizine hcl 10mg active Not Availab le Not Available Not Available digital blood pressure monitor active Not Available Not Avail able Not Available vitamin e 400 iu synthetic active Not Available Not Available No t Available folic acid 800mg active Not Available Not Available Not Available cyclobenzaprine 10 mg tablet active Not [...] Details Last Updated DateTime 03/20/2016 170.18 cm 407108.1 7 g 37.6 kg/m2 74 /min 152/112 mm[Hg] Shannon [facility] 03/20/2016 11:56:42 Social History Question Answer Notes LastModified by Organizat ion Details LastModified Time Tobacco Smoking Status Former Smoker Shannon [facility]ance [facility] 03/20/2016 12:02:08 Live Alone Or With Others? [...] available 03/20/2016 What is your occupation? disabled Information not available 03/20/2016 Mental Status None [...] Gout N Kidney Stones N Hyperthyroidism N Head Trauma/Injury N Hernia N Hypothyroidism N Depression Y COPD N Blood Clots N Lung Disease N Pacemaker N Anxiety Disorder N Arthritis Y Cancer Y Stroke N Neck Injury N Leg or Foot Ulcers N High Cholesterol N Liver Disease N Rheumatoid Arthritis N Headaches Y Fibromyalgia N Kidney Disease N Heart Problems N Migraines N Thyroid Problems N Anemia N Multiple Sclerosis N Ulcers N Heart Attack ([place]) N Diabetes N Bleeding Disorder N Seizures/Epilepsy [...] ICD10 Code Diagnosis IMO Codes Diagnosis Note 98409 Melinda Knox MD [facility] [address] [facility] [address] [place] [address] 03/20/2016 11:25:46 03/20/2016 14:31:23 Osteoarthritis of knee 084612197 M17.0 Malaise and fatigue 2717 11166 R53.83 E55.9 E27.1 Health Concerns Section Related Observation LastModified by Organization Detai ls LastModified Time None Recorded Concern Status LastModified by Organization Details LastModified Time None Recorded Advance Directives Directive None Recorded Payers Insurance Date Sequence Insurance Name Policy Number Policy Pelletier Covered Member ID Pelletier Member ID Guarantor Name 11/12/2016 1 [facility] (O) [id number] Maria Alejandra Mooney [id number] Maria Alejandra Mooney 08/29/2016 2 [employer] - [employer] (MEDICARE REPLACEMENT HMO) Maria Alejandra Mooney [id number] Maria Alejandra Mooney 10/30/2016 2 [employer] (MEDICARE REPLACEMENT/ ADVANTAGE - PFFS) Maria Alejandra Mooney [id number] Maria Alejandra Mooney OBGyn Episode No OBEpisode recorded.
--- OUTSIDE RECORDS SUMMARY | 2025-06-08 17:30 | XMS_ITS | Clinical Summary ---
Author Organization [facility] Address [address] [place] [address] Phone Care Team Providers Care Pot Pusher Name Role Phone Krish Mendez MD Primary Care Provider + [phone] Allergies No known active allergies Medications atenolol-chlor [...] Date Smoking Tobacco: Former Cigarettes Q uit: 2007 Alcohol Use Standard Drinks/Week Comments Yes 0 (1 standard drink = 0.6 oz pur e alcohol) rare Comments Unknown Sex and Gender Information Value Date Recorded Sex Assigned at Not on file Legal Sex Female 2:54 AM CENTRAL SUPPLY AIDE Gender Identity Not on file Sexual Orientation [...] Flex Sig/CT Colonography Q 5 years 2001 RSV VACCINE (60+ or ) (1 - Risk 50-74 years 1-dose series) 2006 ZOSTER VACCINE (1 of 2) 2006 BREAST CANCER SCREENING 02/06/2011 02/07/20 10, 01/27/2009, 02/02/2008 PNEUMOCOCCAL VACCINE 50+ YEA RS (2 of [...] to Health Maintenance Insurance [employer] GOLD CHOICE [facility] MCR Care Teams Pot Pusher Relationship Specialty Start Date End Date Krish Mendez MD [address] [place] [address] PCP - General Internal Medicine 12/29/18
--- OUTSIDE RECORDS SUMMARY | 2025-06-08 17:30 | XMS_ITS | Clinical Summary ---
Author Organization [facility] Address [address] [place] [address] Care Team Providers Care Aesthetics Instructor Name Role Phone Korey Stevens MD Primary Care Provider [phone] Allergies No known active allergies Medications traMADol [...] on file Legal Sex Female 8:56 AM GAUGE INSPECTOR Gender Identity Not on file Sexual Orientation Not on file Last Filed Vital Signs Vital Sign Reading Time Taken Comments Blood Pressure 99/81 10/06/2019 10:56 AM GAUGE INSPECTOR Pulse 67 10/06/2019 10:56 AM GAUGE INSPECTOR Temperature 36.5 C (97.7 F) 10/06/2019 10:56 AM GAUGE INSPECTOR Respiratory Rate - - Oxygen Saturation 96% 10/06/2019 10: 56 AM GAUGE INSPECTOR Inhaled Oxygen Concentration - - Weight 110.7 kg (244 lb 1.6 oz) 020 10:56 AM GAUGE INSPECTOR Height 170.2 cm (5' 7) 10/06/2019 10:5 6 AM GAUGE INSPECTOR Body Mass Index 38.23 10/06/2019 10:56 AM GAUGE INSPECTOR Plan of Treatment Health Maintenance Due Date Last Done Comments Colorectal Cancer Screening Colonoscopy (10 Years) 1956 Hepatitis C 1974 DTaP, Tdap and Td Vaccines ( 1 - Tdap) 1975 Mammogram Screening 1996 Zoster Vaccines (1 of 2) 2006 Pneumococcal Vaccine: 50+ Years (2 of 2 - PCV) 05/22/2020 05/22/2019 Annual Medicare Wellness Visit 2021 Dexa Scan (General) 2021 COVID-19 Vaccine (1 - 2024-2 6 season) 2025 Influenza Adult (#1) 2025 05/20/2019, 05/28/2018 RSV Immunization or 60+ Years (1 - 1-dose 75+ series) 2031 Hepatitis A Vaccines Aged Out No long er eligible based on patient's age to complete this topic Meningococcal B Vaccine Aged Out No l onger eligible based on patient's age to complete this topic Meningococcal Vaccine Aged Out No vandana hemanth eligible based on patient's age to complete this topic RSV Immunizations Under 20 Months Aged Out No longer eligible b ased on patient's age to complete this topic Insurance MEDICARE Care Teams Aesthetics Instructor Relationship Specialty Start Date End Date Korey Stevens MD [address] [address] PCP - General FAMILY PRACTICE 09/07/19
--- OUTSIDE RECORDS SUMMARY | 2025-06-08 17:30 | XMS_ITS | Patient Health Record ---
Author Organization [facility] Address [address] [place] [address] Care Team Providers Care Marine Animal Trainer Name Role Phone Jose Cruz Muñoz Primary Care Provider Reason For Referral No Information Medications Medication SIG (Take, Route, Frequency, Duration) Notes Start Date End Date Status Atenolol-Chlorthalidone 50-2 5 MG 1 tablet Orally Once a day; Duration: 90 days Active Stool Softener 100 MG take 1 capsule (10 0MG) by oral route 2 times every day at bedtime as needed Active Requip 2mg take 1 tablet by ora ORAL Twice a day; Duration: 30 days 11/14/2015 Active Cymbalta 60mg take 1 capsule by or ORAL 11/14/2015 Active Sulindac 200mg take 1 tablet 200MG ORAL 11/14/2015 Active amLODIPine Besylate 10 MG TAKE ONE TABLE T DAILY; Duration: 30 Active Azithromycin 250 MG [address] day, then 1 tablet daily for 4 days Orally Once a day; Duration: 5 day(s) 08/07/2016 Active Omeprazole 20mg Take 1 po daily ORAL 02/09/2016 Active Cyclobenzaprine HCl 10mg TAKE 1 TABLET T HREE ORAL 01/25/2016 Active Simvastatin 20mg take 1 tablet by ora ORAL 11/14/2015 Active Immunizations Vaccine Route Administration Date Status Comme nts Zoster (Zostavax) SC Subcutaneous 08/02/2016 Administered This encounter was unlocked to properly document the Immunization the patient received for integration with [facility]. Pneumococcal conjugate PCV 13 (Prevnar 13) Unknown 09/08/2015 Administered zzInfluenza, High dose, injectable, preservative free (Fluzone) Unknown 05/09/2014 Administered zzFluvirin IM Intramuscular 04/09/2016 Administered Tdap (Boostrix, Adacel) Unknown 09/08/2015 Administered Tdap (Boostrix, Adacel) IM Intramuscular 03/18/2016 Administered Social History Tobacco Use: Social History Observation Description Date Details (start date - stop date) Never Smoker NA - NA Tobacco Use/Smoking Question Answer Notes Smoking Status: nonsmoker Problems Problem Type SNOMED Code ICD Code Onset Dates Problem Status W/U Status Risk Notes Problem Sleep apnea (35696110) Sleep apnea (G47.30) Active confirmed Problem Type II diabetes mellitus without complication (322744580) Type 2 diabetes mellitus without complications (E11.9) 0 confirmed Ney Problem Hyperlipidemia (71997446) Hyperlipidemia, unspecified (E78.5) 0 confirmed Ney Problem Restless legs syndrome (30938975) Restless legs syndrome (G25.81) 0 confirmed Ney Problem Essential hypertension (23693006) Essential (primary) hypertension (I10) 0 confirmed Ney Problem Supraventricular tachycardia (9974121) Supraventricular tachycardia (I47.1) 0 confirmed Ney Problem Slow transit constipation (16298763) Slow transit constipation (K59.01) 0 confirmed Ney Problem Calculus of kidney (28211882) Calculus of kidney (N20.0) 0 confirmed Ney Problem Obesity (872832679) Obesity (E66.9) 0 conf irmed Ney Problem Dyslipidemia (362893972) Dyslipidemia (E78.5) 0 confirmed Ney Problem Disorder of lumbar disc (925140001) Lumbar disc disease (M51.9) 0 confirmed Ney Problem Osteoarthritis (197655802) Osteoarthrosis involving lower leg (M17.9) 0 confirmed Ney Plan Of Treatment Pending Test Test Name Order Date X ray : CHEST PA LATERAL 03/18/2016 Insurance Providers Payer Name Payer Address Payer Phone Subscriber Number Group Number Insured Name Patient Relationship to Insured Coverage Start Date Coverage End Date [facility] [address] [place] [address] [id number] Maria Alejandra Mooney Self - patient is the insured Human [address] [address] [place] [address] [id number] Deak, Maria Alejandra Self - patient is the insured Medical (General) History Medical History History ICD Code Basal Cell Cancer LIAM/BSO HTN RLS DJD Knees s/p Right TKR Ovarian cyst Addiction to Pain Medications Obesity Hyperlipidemia GERD CISCO on CPAP
--- OUTSIDE RECORDS SUMMARY | 2025-06-08 17:31 | XMS_ITS | Clinical Summary ---
Author Organization [facility] Address [address], [address] [address] Phone Care Team Providers Care Tug Master Name Role Phone Korey Cook MD Primary [...] Comments Blood Pressure 122/84 09/24/2019 10:18 AM SUPERVISOR HYDROCHLORIC AREA Pulse 62 09/24/2019 10:18 AM SUPERVISOR HYDROCHLORIC AREA Temperature 36.6 C (97.9 F) 09/24/2019 10:18 AM SUPERVISOR HYDROCHLORIC AREA Respiratory Rate 16 09/24/2019 10:18 AM SUPERVISOR HYDROCHLORIC AREA Oxygen Saturation 98% 09/24/2019 10:18 AM SUPERVISOR HYDROCHLORIC AREA Inhaled Oxygen Concentration - - Weight 115.2 kg (254 lb) 09/24/2019 10:18 AM SUPERVISOR HYDROCHLORIC AREA Height 170.2 cm (5' 7) 09/24/2019 10:18 AM SUPERVISOR HYDROCHLORIC AREA Body Mass Index 39.78 09/24/2019 10:18 AM SUPERVISOR HYDROCHLORIC AREA Plan of Treatment Health Maintenance Due Date [...] Maintenance Insurance MEDICARE C [employer] Care Teams Tug Master Relationship Specialty Start Date End Date Korey Cook MD [address] [place] [address] [place] [address] PCP - General Ground Helper [employer] 08/18/19
--- OUTSIDE RECORDS SUMMARY | 2025-06-08 17:31 | XMS_ITS ---
Author Organization [facility] Address [address] [place] [address] Care Team Providers Care Load Haul Dump Operator Name Role Phone Jose Cruz Muñoz MD Primary Care Provider [phone] Active Problems Problem Noted Date Diagnosed Date [...] 05/09/2020 Insomnia secondary to chronic pain 05/09/2020 project associate (current) use of opiate analgesic 04/12 Sacroiliitis [...]
--- OUTSIDE RECORDS SUMMARY | 2025-06-08 17:31 | XMS_ITS | Clinical Summary ---
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 04/12 Sacroiliitis [...] Encounters Date Type Department Care Team Description 06/08/2025 Telephone [facility] Orthopaedic Surgery [address] [address] [place] [address] Ramesh Tolbert MD 05/02/2025 Telephone [facility] Orthopaedic Surgery [address] 2[address] [place] [phone] Ramesh Tolbert MD 04/26/2025 Telephone [facility] [address] [place] [address] Odalys Soler MD 04/25/2025 10:00 AM CDT Office Visit [facility] Medicine Orthopaedic Surgery [address] [facility] 1st [address] [place] [address] Ramesh Tolbert MD History of lumbar spinal fusion (Primary Dx); Right lumbosacral radiculopathy 04/25/2025 Telephone [facility] [address] [facility] [address] [place] [address] Odalys Soler MD 03/29/2025 Telephone [facility] [address] [facility] [facility] [address] [place] [address] Elida Mendez MA 03/29/2025 Results Follow-Up [facility] [address] [facility] [facility] [address] [place] [address] Odalys Soler MD PSG 03/14/2025 7:00 PM CDT - 03/14/2025 11:59 PM CDT Hospital Encounter [facility] [address] [place] [address] Obstructive sleep apnea (adult) (pediatric) Discharge Disposition: [...] Back Surgery - (Added by TW Conv) [place] HEMORRHOIDECTOMY INTERNAL RUBBER BAND LIGATIONS Hemorrhoidectomy - (Added by TW Conv) [place] TOTAL ABDOMINAL HYSTERECT W/WO RMVL TUBE OVARY Hysterectomy - (Added by TW Conv) FOOT SURGERY 02/20/2018 5th toe arthroplasty, teotomy, and capsulotomy right foot [place] NEUROPLASTY &/TRANSPOS ME NEIL NRV CARPAL TUNNE Neuroplasty Decompression Median Nerve At Carpal Tunnel - (Added by TW Conv) [place] SALPINGO-OOPHORECTOMY COMPL/PRTL UNI/BI SPX Salpingo-oophorectomy - (Added by TW Conv) [place] TONSILLECTOMY PRIMARY/SEC ONDARY <AGE 12 Tonsillectomy - (Added by TW Conv) GALLBLADDER SURGERY Gallbladder Surgery - (Added by TW Conv) BIOPSY DEEP BONE 01/19/2020 N/A ESOPHAGOGASTRODUODENOSCOPY 08/18/2019 lopes dilation LUMBAR DISC SURGERY 08/11/1998 - 08/10/1999 L4-S1 PSF LUMBAR DISC SURGERY 08/11/1999 - 08/10/2000 L4-S1 PSF revision for implant failure [place] ARTHRP KNE CONDYLE&PLATU MEDIAL&LAT COMPARTMENTS Left [place] ARTHRP KNE CONDYLE&PLATU MEDIAL&LAT COMPARTMENTS Right [place] ARTHRP ACETBLR/PROX FEM P ROSTC AGRFT/ALGRFT 07/02/2021 [...] history of diabetes mellitus - (Added by TW Conv) Relation Name Status Comments Brother 1 [...] on file 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 Gender Identity Not on file Sexual Orientation [...] 08/05/2021, 11/18/2020, 10/29/2020 Influenza Vaccine (#1) 2025 4, 04/30/2020, 04/25/2020, Additional history exists Pneumococcal vaccine 65+ (3 of 3 - PCV20 or PCV21) 04/25/2025 04/25/2020, 04/25/2020, 05/22/2019, Additional history exists DTaP/Tdap/Td Vaccine (4 - Td or Tdap) 05/16/2033 05/16/2023, 03/18/2016, 09/08/2015 Colon Cancer Screening-CT Colonography Discontinued 12/01/2013 Colon Cancer Screening-DNA Stool Discontinued 12/02/19 14 Colon Cancer Screening-FIT Discontinued 12/01/2013 Colon Cancer Screening-Sigmoidoscopy Discontinued 12/01/2013 Medical Devices Implanted Type Area Nail Setter Device Identifier Shelf Expiration Date Model / Serial / Lot [employer] [id number] 50mm Limit 3 Hole Hip D Hemisphere Offset Shell Acetabular - [id number] Implanted:Qty: 1 on 07/02/2021 by Elida Dale MD at [facility] Right: Hip [employer] [id number] 03/22/2031 [id number] / / [id number] [employer] [id number] Trilogy 6.5mm 20mm Self Tap Screw Bone - [id number] Implanted:Qty: 1 on 07/02/2021 by Elida Dale MD at [facility] Right: Hip [employer] [id number] 12/02/2030 [id number] / / [id number] [employer] [id number] G7 40mm 2 Mobility Hip D Liner Acetabular Cocr - [id number] Implanted:Qty: 1 on 07/02/2021 by Elida Dale MD at [facility] Right: Hip [employer] 05/18/2031 [id number] / / [id number] [employer] [id number] Echo Bi-Metric 14mm 150mm Noncollar Reduce Proximal Profile Press - [id number] Implanted:Qty: 1 on 07/02/2021 by Elida Dale MD at [facility] Right: Hip [employer] [id number] 09/03/2028 [id number] / / [id number] [employer] 650-1158 G7 28mm Type 1 Modular Hip Acetabular 0mm Offset Head Femoral - [id number] Implanted:Qty: 1 on 07/02/2021 by Elida Dale MD at [facility] Right: Hip [employer] [id number] 01/04/2031 [id number] / / [id number] [employer] [id number] 40mm 28mm Lumen Hip D Liner Acetabular Longevity Sterile Latex - [id number] Implanted:Qty: 1 on 07/02/2021 by Elida Dale MD at [facility] Right: Hip [employer] [id number] 10/08/2024 [id number] / / [id number] Explanted Type Area Nail Setter Device Identifier Shelf Expiration Date Model / Serial / Lot [employer] [id number] Trilogy 6.5mm 25mm Self Tap Screw Bone - [id number] Explanted:Qty: 1 on 07/02/2021 at [facility] Right: Hip [employer] [id number] 04/25/2031 [id number] / / [id number] Procedures Procedure Name Priority Date/Time Associated Diagnosis Comments PSG (SIMPLE) Routine 03/16/2025 9:41 AM CDT Obstructive sleep apnea (adult) (pediatric) EGFR Routine 07/03/2021 10:14 PM ASSISTANT DISTRICT ATTORNEY POCT HEMOGLOBIN A1C Routine 06/25/2021 4 :26 PM ASSISTANT DISTRICT ATTORNEY POCT LIPID PANEL Routine 03/24/2019 9:07 AM CDT Essential hypertension COLONOSCOPY REPORT 12/01/2013 from Last 3 Months or Most Recently Relevant to Health Maintenance Results * PSG (03/16/2025 9:41 AM CDT) Impressions Odalys Soler MD - 03/16/2025 9:41 AM CDT Indication for study: Ms. Mooney is a 69-year-old with chief complaint of snoring, unrefreshing sleep and excessive daytime sleepiness. The patient's [place] Sleepiness scale score is 13. Recent polysomnography [...] continued 7. 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 that may worsen sleep apnea and [...] Re sult * eGFR (07/03/2021 10:14 PM ASSISTANT DISTRICT ATTORNEY) eGFR >90 90 - 130 mL/min/1.7 3 m2 [facility] Comment: Interpretive Data Reference Interval Normal >/= [...] reviewed 2020 Blood 07/03/2021 10:1 4 PM ASSISTANT DISTRICT ATTORNEY 07/03/2021 10:44 PM ASSISTANT DISTRICT ATTORNEY us Bethany Astorga NP LAB BLOOD ORDERABLES Final Re sult Performing Organization Address [facility]/ZIP Co de Phone Number [facility] [place] [address] * POCT hemoglobin A1c (06/25/2021 4:26 PM ASSISTANT DISTRICT ATTORNEY) Hgb A1C, POC 5.4 4.0 - 5.6 % [facility] Est Average Gluc POC 108 mg/dL [facility] Comment: The ADA recommends reporting an estimated Average Glucose (eAG) with all Hemoglobin A1c results using the equation derived from a study of 507 normal and diabetic adults. Minority populations were underrepresented and children were not included. (Diabetes Care 31:7100-7923, 2008). The eAG is not equivalent to a fasting glucose. Blood 06/25/2021 4:26 PM ASSISTANT DISTRICT ATTORNEY 06/25/2021 4:26 PM ASSISTANT DISTRICT ATTORNEY Result [facility] Elida Dale MD POINT OF CARE TEST ORD ERABLES Final Result Performing Organization Address [facility] Co de Phone Number [facility] [place] [address] * POCT lipid panel (03/24/2019 9:07 AM CDT) Cholesterol, POC 216 mg/dL HDL, POC 62 mg/dL Triglycerides, POC 167 mg/dL LDL Cholesterol POC 120 mg/dL Chol/HDL Ratio, POC 3.5 Non-HDL Cholesterol, POC 154 mg/dL Cholesterol Total, POC 216 mg/dL Blood specimen (specimen) 03/24/2019 9:07 AM CDT Result [facility] Ray Tavera MD POINT OF CARE TEST ORDERABLES Fi nal Result * COLONOSCOPY REPORT (12/01/2013) Anatomical Region Laterality Modality Other Narrative 12/01/2013 Ordered by an unspecified provider. 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
--- OUTSIDE RECORDS SUMMARY | 2025-06-08 17:31 | XMS_ITS | Patient Health Record ---
Author Organization [facility] Address [facility] [id number] Care Team Providers Care Operations Liaison Name Role Phone NEIL GONG Primary Care Provider Ramesh Epperson Unavailable [phone] Allergies Allergen (clinical drug ingredient) Drug/Non Drug Allergy documented on EMR Reaction Allergy Type Onset Date Status nitrofurantoin, macrocrystals / nitrofurantoin, monohydrate Macrobid Unknown Drug Allergy Active Substance with sulfonamide structure and antibacterial mechanism of action (substance) Sulfa Antibiotics Unknown Drug Allergy Active Results Component Value Reference Range Notes Urinalysis Reviewed date:06/08/2025 11:10:28 AM Interpretation: Performing Lab: Notes/Report: Urine pH 6.0 SPECIFIC GRAVITY 1.000 Electrocardiogram (ECG) Reviewed date:06/08/2025 12:54:04 PM Interpretation: Performing Lab: Notes/Report: Urinalysis Reviewed date:04/13/2025 11:36:50 AM Interpretation: Performing Lab: Notes/Report: Leukocytes 1+ NItrates Positive Urine pH 6.0 SPECIFIC GRAVITY 1.020 LIPID PANEL, STANDARD (7600) Reviewed date:04/14/2025 08:09:49 AM Interpretation: Performing Lab:[place], [facility]-Vsqexb02093 Lexii HannonaKS[address] Keyur Guillen MD Notes/Report: FASTING: NO FASTING:NO CHOLESTEROL, TOTAL 155 <200 mg/dL HDL CHOLESTEROL 63 > OR = 50 mg/dL TRIGLYCERIDES 186 <150 mg/dL LDL-CHOLESTEROL 67 Reference range: <100 Desirable range <100 mg/dL for primary prevention; <70 mg/dL for patients with CHD or diabetic patients with > or = 2 CHD risk factors. LDL-C is now calculated using the Palomo-Ferny calculation, which is a validated novel method providing better accuracy than the Friedewald equation in the estimation of LDL-C. Palomo DWYER et al. SHERIDAN. 2013;310(80): 5768-4348 (http://Riiid.Ready To Travel/faq/AGO044) CHOL/HDLC RATIO 2.5 <5.0 (calc) NON HDL CHOLESTEROL 92 <130 mg/dL (calc) For patients with diabetes plus 1 major ASCVD risk factor, treating to a non-HDL-C goal of <100 mg/dL (LDL-C of <70 mg/dL) is considered a therapeutic option. COMPREHENSIVE METABOLIC PANE Maida (05372) Reviewed date:04/14/2025 08:05:09 AM Interpretation: Performing Lab:[facility] Frontierre-Ukvenu67028 Ashok Quan, GzsntiRA[address] Keyur Guillen MD Notes/Report: FASTING:NO FASTING: NO GLUCOSE 104 65-139 mg/dL Non-fasting reference interval UREA NITROGEN (BUN) 22 7-25 mg/dL CREATININE 1.15 0.50-1.05 mg/dL EGFR 52 > OR = 60 mL/min/1.73m2 BUN/CREATININE RATIO 19 6-22 (calc) SODIUM 138 135-146 mmol/L POTASSIUM 4.4 3.5-5.3 mmol/L CHLORIDE 104 98-110 mmol/L CARBON DIOXIDE 27 20-32 mmol/L CALCIUM 9.9 8.6-10.4 mg/dL PROTEIN, TOTAL 6.8 6.1-8.1 g/dL ALBUMIN 4.6 3.6-5.1 g/dL GLOBULIN 2.2 1.9-3.7 g/dL (calc) ALBUMIN/GLOBULIN RATIO 2.1 1.0-2.5 (calc) BILIRUBIN, TOTAL 0.6 0.2-1.2 mg/dL ALKALINE PHOSPHATASE 109 37-153 U/L AST 14 10-35 U/L ALT 16 6-29 U/L CBC (INCLUDES DIFF/PLT) (639 9) Reviewed date:04/14/2025 08:00:35 AM Interpretation: Performing Lab:[facility] Frontier[facility]-Cvmwct18997 [facility], [id number] Keyur Guillen MD Notes/Report: FASTING:NO FASTING: NO WHITE BLOOD CELL COUNT 6.5 3.8-10.8 Thousand/ uL RED BLOOD CELL COUNT 4.83 3.80-5.10 Million/uL HEMOGLOBIN 14.3 11.7-15.5 g/dL HEMATOCRIT 43.7 35.0-45.0 % MCV 90.5 80.0-100.0 fL MCH 29.6 27.0-33.0 pg MCHC 32.7 32.0-36.0 g/dL For adults, a slight decrease in the calculated MCHC value (in the range of 30 to 32 g/dL) is most likely not clinically significant; however, it should be interpreted with caution in correlation with other red cell parameters and the patient's clinical condition. RDW 13.3 11.0-15.0 % PLATELET COUNT 202 140-400 Thousand/uL MPV 10.2 7.5-12.5 fL ABSOLUTE NEUTROPHILS 3920 7044-2847 cells/uL ABSOLUTE LYMPHOCYTES 8797 254-1154 cells/uL ABSOLUTE MONOCYTES 449 200-950 cells/uL ABSOLUTE EOSINOPHILS 182 15-500 cells/uL ABSOLUTE BASOPHILS 52 0-200 cells/uL NEUTROPHILS 60.3 LYMPHOCYTES 29.2 MONOCYTES 6.9 EOSINOPHILS 2.8 BASOPHILS 0.8 HEMOGLOBIN A1c (496) Reviewed date:04/14/2025 09:47:38 AM Interpretation: Performing Lab:[employer] Frontierre-Suodyf90597 Ashok [facility], EjncpwNJ[address] Keyur Guillen MD Notes/Report: FASTING:NO FASTING: NO HEMOGLOBIN A1c 6.1 <5.7 % For someone without known diabetes, a hemoglobin [...] A1c for diagnosis of diabetes for children. CULTURE, URINE, ROUTINE (395 ) Reviewed date:04/17/2025 06:14:24 PM Interpretation: Performing Lab:Kathleen BURNS-Lsikvs91485 Ashok Quan, IrmoszJR[address] Keyur Guillen MD Notes/Report: FASTING:NO FASTING: NO CULTURE, URINE, ROUTINE SEE NOTE CULTURE, URINE, ROUTINE Micro Number: [id number] Test Status: Final Specimen Source: Urine Specimen Quality: Adequate Result: Greater than 100,000 CFU/mL of Klebsiella pneumoniae K.pneumoniae INT DELIA AMOX/CLAVULANATE S <=2 AMP/SULBACTAM S 4 CEFAZOLIN NR 2 2 CEFEPIME S <=0.12 CEFTAZIDIME S <=0.5 CEFTRIAXONE S <=0.25 CIPROFLOXACIN S <=0.06 GENTAMICIN S <=1 IMIPENEM S <=0.25 LEVOFLOXACIN S <=0.12 MEROPENEM S <=0.25 NITROFURANTOIN R 128 PIP/TAZOBACTAM S <=4 TRIMETHOPRIM/SULFA S <=20 S = Susceptible I = Intermediate R = Resistant NS = Not susceptible SDD = Susceptible Dose Dependent * = Not Tested NR = Not Reported NN = See Therapy Comments THERAPY COMMENTS Note 1: For infections other than uncomplicated UTI caused by E. coli, K. pneumoniae or P. mirabilis: Cefazolin is resistant if DELIA > or = 8 mcg/mL. (Distinguishing susceptible versus intermediate for isolates with DELIA < or = 4 mcg/mL requires additional testing.) Note 2: For uncomplicated UTI caused by E. coli, K. pneumoniae or P. mirabilis: Cefazolin is susceptible if DELIA <32 mcg/mL and predicts susceptible to the oral agents cefaclor, cefdinir, cefpodoxime, cefprozil, cefuroxime, cephalexin and loracarbef. HEMOGLOBIN A1c (496) Reviewed date:09/22/2024 07:35:01 AM Interpretation: Performing Lab:Kathleen BURNS-Lkixvk38213 Ashok Quan, KtgqtdVB[address] Keyur Guillen MD Notes/Report: FASTING:YES FASTING: YES HEMOGLOBIN A1c 6.2 <5.7 % of total Hgb For someone [...] A1c for diagnosis of diabetes for children. CBC (INCLUDES DIFF/PLT) (639 9) Reviewed date:09/22/2024 07:28:05 AM Interpretation: Performing Lab:GR[facility] Frontierre-Nodvef45355 Ashok Quan, MdtixhCU[address] Keyur Guillen MD Notes/Report: FASTING:YES FASTING: YES WHITE BLOOD CELL COUNT 5.7 3.8-10.8 Thousand/ uL RED BLOOD CELL COUNT 4.80 3.80-5.10 Million/uL HEMOGLOBIN 13.5 11.7-15.5 g/dL HEMATOCRIT 42.4 35.0-45.0 % MCV 88.3 80.0-100.0 fL MCH 28.1 27.0-33.0 pg MCHC 31.8 32.0-36.0 g/dL For adults, a slight decrease in the calculated MCHC value (in the range of 30 to 32 g/dL) is most likely not clinically significant; however, it should be interpreted with caution in correlation with other red cell parameters and the patient's clinical condition. RDW 12.9 11.0-15.0 % PLATELET COUNT 213 140-400 Thousand/uL MPV 10.3 7.5-12.5 fL ABSOLUTE NEUTROPHILS 3038 1395-1325 cells/uL ABSOLUTE LYMPHOCYTES 8297 560-0008 cells/uL ABSOLUTE MONOCYTES 439 200-950 cells/uL ABSOLUTE EOSINOPHILS 200 15-500 cells/uL ABSOLUTE BASOPHILS 29 0-200 cells/uL NEUTROPHILS 53.3 LYMPHOCYTES 35.0 MONOCYTES 7.7 EOSINOPHILS 3.5 BASOPHILS 0.5 COMPREHENSIVE METABOLIC PANE L (13362) Reviewed date:09/22/2024 08:21:28 AM Interpretation: Performing Lab:[facility] Faustina-Idnyin93112 Ashok Quan, [id number] Keyur Guillen MD Notes/Report: FASTING:YES FASTING: YES GLUCOSE 105 65-99 mg/dL Fasting reference interval For someone without known diabetes, a glucose value between 100 and 125 mg/dL is consistent with prediabetes and should be confirmed with a follow-up test. UREA NITROGEN (BUN) 19 7-25 mg/dL CREATININE 0.55 0.50-1.05 mg/dL EGFR 100 > OR = 60 mL/min/1.73m2 BUN/CREATININE RATIO SEE NOTE: 6-22 (calc) Not Reported: BUN and Creatinine are within reference range. SODIUM 142 135-146 mmol/L POTASSIUM 4.1 3.5-5.3 mmol/L CHLORIDE 105 98-110 mmol/L CARBON DIOXIDE 30 20-32 mmol/L CALCIUM 9.2 8.6-10.4 mg/dL PROTEIN, TOTAL 6.2 6.1-8.1 g/dL ALBUMIN 4.2 3.6-5.1 g/dL GLOBULIN 2.0 1.9-3.7 g/dL (calc) ALBUMIN/GLOBULIN RATIO 2.1 1.0-2.5 (calc) BILIRUBIN, TOTAL 0.4 0.2-1.2 mg/dL ALKALINE PHOSPHATASE 124 37-153 U/L AST 15 10-35 U/L ALT 18 6-29 U/L LIPID PANEL, STANDARD (7600) Reviewed date:09/22/2024 08:21:23 AM Interpretation: Performing Lab:GR[facility] Frontier[facility]-Bnxkkc88172 Ashok Quan, CmldmiTC[address] Keyur Guillen MD Notes/Report: FASTING:YES FASTING: YES CHOLESTEROL, TOTAL 153 <200 mg/dL HDL CHOLESTEROL 67 > OR = 50 mg/dL TRIGLYCERIDES 103 <150 mg/dL LDL-CHOLESTEROL 67 Reference range: <100 Desirable range <100 mg/dL for primary prevention; <70 mg/dL for patients with CHD or diabetic patients with > or = 2 CHD risk factors. LDL-C is now calculated using the Palomo-Ferny calculation, which is a validated novel method providing better accuracy than the Friedewald equation in the estimation of LDL-C. Palomo SS et al. SHERIDAN. 2013;310(19): 1351-0936 (http://education.Ready To Travel/faq/EZX098) CHOL/HDLC RATIO 2.3 <5.0 (calc) NON HDL CHOLESTEROL 86 <130 mg/dL (calc) For patients with diabetes plus 1 major ASCVD risk factor, treating to a non-HDL-C goal of <100 mg/dL (LDL-C of <70 mg/dL) is considered a therapeutic option. TSH W/REFLEX TO FT4 (85185) Reviewed date:06/24/2024 07:52:48 AM Interpretation: Performing Lab:Kathleen BURNSa10101 Micaela Hannon[address] Keyur Guillen MD Notes/Report: FASTING:NO FASTING: NO TSH W/REFLEX TO FT4 0.74 0.40-4.50 mIU/L HEMOGLOBIN A1c (496) Reviewed date:06/24/2024 07:51:51 AM Interpretation: Performing Lab:Kathleen BURNS LenexaKS[address] Keyur Guillen MD Notes/Report: FASTING:NO FASTING: NO HEMOGLOBIN A1c 6.2 <5.7 % of total Hgb For someone [...] A1c for diagnosis of diabetes for children. CBC (INCLUDES DIFF/PLT) (639 9) Reviewed date:06/24/2024 07:47:23 AM Interpretation: Performing Lab:Kathleen BURNSa10101 Micaela Hannon[address] Keyur Guillen MD Notes/Report: FASTING:NO FASTING: NO WHITE BLOOD CELL COUNT 6.7 3.8-10.8 Thousand/ uL RED BLOOD CELL COUNT 4.68 3.80-5.10 Million/uL HEMOGLOBIN 13.5 11.7-15.5 g/dL HEMATOCRIT 42.1 35.0-45.0 % MCV 90.0 80.0-100.0 fL MCH 28.8 27.0-33.0 pg MCHC 32.1 32.0-36.0 g/dL For adults, a slight decrease in the calculated MCHC value (in the range of 30 to 32 g/dL) is most likely not clinically significant; however, it should be interpreted with caution in correlation with other red cell parameters and the patient's clinical condition. RDW 12.8 11.0-15.0 % PLATELET COUNT 200 140-400 Thousand/uL MPV 10.5 7.5-12.5 fL ABSOLUTE NEUTROPHILS 4630 5837-5820 cells/uL ABSOLUTE LYMPHOCYTES 0959 373-1340 cells/uL ABSOLUTE MONOCYTES 322 200-950 cells/uL ABSOLUTE EOSINOPHILS 154 15-500 cells/uL ABSOLUTE BASOPHILS 34 0-200 cells/uL NEUTROPHILS 69.1 LYMPHOCYTES 23.3 MONOCYTES 4.8 EOSINOPHILS 2.3 BASOPHILS 0.5 COMPREHENSIVE METABOLIC PANE L (63136) Reviewed date:06/24/2024 07:50:49 AM Interpretation: Performing Lab:GRANT Frontierre-Rurtuk57435 Remy HannonWkticuMT[address] Keyur Guillen MD Notes/Report: FASTING:NO FASTING: NO GLUCOSE 139 65-139 mg/dL Non-fasting reference interval UREA NITROGEN (BUN) 18 7-25 mg/dL CREATININE 0.63 0.50-1.05 mg/dL EGFR 97 > OR = 60 mL/min/1.73m2 BUN/CREATININE RATIO SEE NOTE: 6-22 (calc) Not Reported: BUN and Creatinine are within reference range. SODIUM 140 135-146 mmol/L POTASSIUM 3.7 3.5-5.3 mmol/L CHLORIDE 103 98-110 mmol/L CARBON DIOXIDE 28 20-32 mmol/L CALCIUM 8.9 8.6-10.4 mg/dL PROTEIN, TOTAL 6.1 6.1-8.1 g/dL ALBUMIN 4.0 3.6-5.1 g/dL GLOBULIN 2.1 1.9-3.7 g/dL (calc) ALBUMIN/GLOBULIN RATIO 1.9 1.0-2.5 (calc) BILIRUBIN, TOTAL 0.5 0.2-1.2 mg/dL ALKALINE PHOSPHATASE 112 37-153 U/L AST 19 10-35 U/L ALT 22 6-29 U/L LIPID PANEL, STANDARD (7600) Reviewed date:06/24/2024 07:55:11 AM Interpretation: Performing Lab:[facility] Gravy Faustina-Inzumx56152 Remy HannonNmvzspUR[address] Keyur Guillen MD Notes/Report: FASTING:NO FASTING: NO CHOLESTEROL, TOTAL 151 <200 mg/dL HDL CHOLESTEROL 59 > OR = 50 mg/dL TRIGLYCERIDES 187 <150 mg/dL LDL-CHOLESTEROL 66 Reference range: <100 Desirable range <100 mg/dL for primary prevention; <70 mg/dL for patients with CHD or diabetic patients with > or = 2 CHD risk factors. LDL-C is now calculated using the Palomo-Isaacs calculation, which is a validated novel method providing better accuracy than the Friedewald equation in the estimation of LDL-C. Palomo DWYER et al. SHERIDAN. 2013;310(19): 4793-0211 (http://Riiid.Ready To Travel/faq/NNK936) CHOL/HDLC RATIO 2.6 <5.0 (calc) NON HDL CHOLESTEROL 92 <130 mg/dL (calc) For patients with diabetes plus 1 major ASCVD risk factor, treating to a non-HDL-C goal of <100 mg/dL (LDL-C of <70 mg/dL) is considered a therapeutic option. ALBUMIN, RANDOM URINE W/CREA TINYUMIKO (6517) Reviewed date:06/24/2024 07:55:21 AM Interpretation: Performing Lab:[facility] Gravy Faustina-Fytban28026 Ashok Quan, [id number] Keyur Guillen MD Notes/Report: FASTING:NO FASTING: NO CREATININE, RANDOM URINE 85 20-275 mg/dL ALBUMIN, URINE 3.3 See Note: mg/dL Reference Range: Reference Range Not established ALBUMIN/CREATININE RATIO, RANDOM URINE 39 <30 mg/g creat The ADA defines abnormalities in albumin excretion as follows: Albuminuria Category Result (mg/g creatinine) Normal to Mildly increased <30 Moderately increased 30-299 Severely increased > OR = 300 The ADA recommends that at least two of three specimens collected within a 3-6 month period be abnormal before considering a patient to be within a diagnostic category. HEMOGLOBIN A1c (496) Reviewed date:12/14/2024 07:52:25 AM Interpretation: Performing Lab:GRANT [facility] Faustina-Zfuaoo23296 Ashok Quan, UxjsxoCJ[address] Keyur Guillen MD Notes/Report: FASTING:NO FASTING: NO HEMOGLOBIN A1c 6.4 <5.7 % For someone without known diabetes, a hemoglobin [...] A1c for diagnosis of diabetes for children. CBC (INCLUDES DIFF/PLT) (639 9) Reviewed date:12/14/2024 07:44:02 AM Interpretation: Performing Lab:GRANT Frontierre-Rxmngu64398 Remy HannonIxligvTK[address] Keyur Guillen MD Notes/Report: FASTING:NO FASTING: NO WHITE BLOOD CELL COUNT 6.9 3.8-10.8 Thousand/ uL RED BLOOD CELL COUNT 4.69 3.80-5.10 Million/uL HEMOGLOBIN 13.2 11.7-15.5 g/dL HEMATOCRIT 41.5 35.0-45.0 % MCV 88.5 80.0-100.0 fL MCH 28.1 27.0-33.0 pg MCHC 31.8 32.0-36.0 g/dL For adults, a slight decrease in the calculated MCHC value (in the range of 30 to 32 g/dL) is most likely not clinically significant; however, it should be interpreted with caution in correlation with other red cell parameters and the patient's clinical condition. RDW 13.3 11.0-15.0 % PLATELET COUNT 205 140-400 Thousand/uL MPV 11.1 7.5-12.5 fL ABSOLUTE NEUTROPHILS 4223 8964-4067 cells/uL ABSOLUTE LYMPHOCYTES 3299 613-1986 cells/uL ABSOLUTE MONOCYTES 490 200-950 cells/uL ABSOLUTE EOSINOPHILS 173 15-500 cells/uL ABSOLUTE BASOPHILS 48 0-200 cells/uL NEUTROPHILS 61.2 LYMPHOCYTES 28.5 MONOCYTES 7.1 EOSINOPHILS 2.5 BASOPHILS 0.7 COMPREHENSIVE METABOLIC PANE L (01027) Reviewed date:12/14/2024 07:46:18 AM Interpretation: Performing Lab:GRANT Frontierre-Gavkqn91616 Ashok Quan [id number] Keyur Guillen MD Notes/Report: FASTING:NO FASTING: NO GLUCOSE 88 65-139 mg/dL Non-fasting reference interval UREA NITROGEN (BUN) 17 7-25 mg/dL CREATININE 0.64 0.50-1.05 mg/dL EGFR 96 > OR = 60 mL/min/1.73m2 BUN/CREATININE RATIO SEE NOTE: 6-22 (calc) Not Reported: BUN and Creatinine are within reference range. SODIUM 142 135-146 mmol/L POTASSIUM 4.1 3.5-5.3 mmol/L CHLORIDE 103 98-110 mmol/L CARBON DIOXIDE 32 20-32 mmol/L CALCIUM 9.6 8.6-10.4 mg/dL PROTEIN, TOTAL 6.4 6.1-8.1 g/dL ALBUMIN 4.3 3.6-5.1 g/dL GLOBULIN 2.1 1.9-3.7 g/dL (calc) ALBUMIN/GLOBULIN RATIO 2.0 1.0-2.5 (calc) BILIRUBIN, TOTAL 0.5 0.2-1.2 mg/dL ALKALINE PHOSPHATASE 120 37-153 U/L AST 15 10-35 U/L ALT 22 6-29 U/L LIPID PANEL, STANDARD (7600) Reviewed date:12/14/2024 07:48:02 AM Interpretation: Performing Lab:GRANT, Frontierre-Berdox26612 Ashok Quan, [id number] Keyur Guillen MD Notes/Report: FASTING:NO FASTING: NO CHOLESTEROL, TOTAL 144 <200 mg/dL HDL CHOLESTEROL 65 > OR = 50 mg/dL TRIGLYCERIDES 167 <150 mg/dL LDL-CHOLESTEROL 54 Reference range: <100 Desirable range <100 mg/dL for primary prevention; <70 mg/dL for patients with CHD or diabetic patients with > or = 2 CHD risk factors. LDL-C is now calculated using the Palomo-Ferny calculation, which is a validated novel method providing better accuracy than the Friedewald equation in the estimation of LDL-C. Palomo SS et al. SHERIDAN. 2013;310(19): 7648-3673 (http://Riiid.Ready To Travel/faq/UCD387) CHOL/HDLC RATIO 2.2 <5.0 (calc) NON HDL CHOLESTEROL 79 <130 mg/dL (calc) For patients with diabetes plus 1 major ASCVD risk factor, treating to a non-HDL-C goal of <100 mg/dL (LDL-C of <70 mg/dL) is considered a therapeutic option. Reason For Referral Reason Back Brace Order Diagnosis 1 DDD (degenerative di sc disease), lumbar (M51.36) Referral Organization [facility] Referring Provider First Name NEIL Referring Provider Last Name FOREST Referring Provider [facility] Internal edicine Referred Provider Specialty DME General Notes Marcelle Burdick 2024 10:14:52 AM >Faxing back brace order to [facility] (fax: [phone]) along with Rx, insurance card, recent office notes, and patient demographics., Marcelle Burdick 08/13/2024 10:16:04 AM >Order faxed. Referral Priority Routine Reason SCREENING MAMMOGRAM Diagnosis 1 Encounter for screen ing mammogram for breast cancer (Z12.31) Referral Organization [facility] Referring Provider First Name NEIL Referring Provider Last Name FOREST Referring Provider [facility] Referred Provider Specialty Radiology General Notes Mali Urrutia 09/12 09:11:37 AM >per patient's request faxed referral to [facility]. Patient is scheduled in April and her last mammogram was in January of 2024. , PH: [phone], fx: [phone], Mali Urrutia 10/07/2024 09:39:14 AM >REFERRAL FAXED WITH INSURANCE CARD. Referral Priority Routine Reason DEXA BONE DENSITY Diagnosis 1 Age related osteopor osis, unspecified pathological fracture presence (M81.0) Referral Organization [facility] Referring Provider First Name NEIL Referring Provider Last Name FOREST Referring Provider [facility] Internal [facility] Referred Provider Specialty Radiology General Notes Mali Urrutia 09/11 09:13:20 AM >[facility], PH: [phone], FX: [phone], Mali Urrutia 10/07/2024 09:35:02 AM > OF 10/07/2024 PRIOR AUTH NOT REQUIRED FOR BONE DENSITY, Mali Urrutia 10/07/2024 09:38:33 AM >REFERRAL FAXED WITH INSURANCE CARD AND NO AUTH REQUIRED., Mali Urrutia 05/06/2025 10:27:34 AM >REFERRAL REFAXED WITH NEW DIAGNOSIS CODE AND AUTH CHECK/NOT REQUIRED Referral Priority Routine Reason Referral to Urology Diagnosis 1 Overactive bladder ( N32.81) Referral Organization [facility] Referring Provider First Name NEIL Referring Provider Last Name FOREST Referring Provider Speciality Internal edicine Referred Provider Specialty Urology General Notes Marcelle Burdick 2024 03:06:11 PM >Faxing referral to Urology to [facility]erral [facility] (ph: [phone], fax: [phone]) along with referral form, insurance card, recent office notes, and notes from patient's previous urologist., Marcelle Burdick 10/06/2024 03:07:01 PM >Once received, [facility] will review referral and reach out to the patient to schedule., Marcelle Burdick 10/06/2024 03:10:10 PM >Referral faxed.Gennaro Katie 10/12/2024 09:27:12 AM >Urology has been unable to reach the patient. They sent a letter requesting that she call them at [phone] to schedule.Gennaro Katie 10/15/2024 08:39:49 AM >Patient is scheduled 10/29/24 at 10:00am with MELVI Partida. Referral Priority Routine Referral Appointment Date 10/29/2024 Reason REFERRAL TO SLEEP ME DICINE Diagnosis 1 CISCO (obstructive sle ep apnea) (G47.33) Referral Organization [facility] Referring Provider First Name NEIL Referring Provider Last Name FOREST Referring Provider [facility] Referred Provider Specialty Sleep Medici ne General Notes Mali Urrutia 11/10 02:55:22 PM >FAXED REFERRAL TO [facility] NEUROLOGY/SLEEP MEDICINE , PH: , FX: [phone], Mali Urrutia 11/30/2024 02:55:43 PM >[facility]'S REQUEST [facility]02/2024 10:35:49 AM >Patient called stating sleep medicine did not receive order. Refaxing. Referral Priority Routine Referral Appointment Date 01/25/2025 Reason CAROTID DOPPLER CP T CODE 29700 /NO AUTH REQUIRED Diagnosis 1 Bilateral carotid ar irving stenosis (I65.23) Diagnosis 2 Syncope and collapse (R55) Referral Organization [facility] Referring Provider First Name NEIL Referring Provider Last Name TONI Referring Provider Speciality Internal M edicine Referred Provider Specialty Vascular and Interventional Radiology General Notes Mali Urrutia 05/12 10:36:05 AM >[facility] 06/21/2025 for 12:45 arrival NO PREP OR SPECIAL INSTRUCTIONS , ph: [phone], fx: [phone], Mali Urrutia 06/08/2025 10:42:25 AM >REFERRAL FAXED WITH INSURANCE CARD, PATIENT INFORMED, Mali Urrutia 06/08/2025 10:53:34 AM >PATIENT INFORMED OF APPT INFORMATION Referral Priority Routine Referral Appointment Date 06/21/2025 Medications Medication SIG (Take, Route, Frequency, Duration) Notes Start Date End Date Status Ondansetron 4 MG DISSOLVE 1 TABLET ON THE TONGUE BY MOUTH EVERY DAY; Duration: 30 Active Albuterol Sulfate HFA 108 (90 Base) MCG/ACT 1 puff as needed Inhalation every 4 hrs Active Symbicort 160-4.5 MCG/ACT 2 puffs Inhala tion twice a day; Duration: 30 days Active Diphenoxylate-Atropine 2.5-0.025 MG 2 tablets Orally daily; Duration: 30 days 03/22/2025 07/19/2025 Active Symbicort 160-4.5 MCG/ACT as directed In halation twice a day; Duration: 30 days Active Spironolactone 100 MG 1 tablet Orally On ce a day; Duration: 90 days Active Nebivolol HCl 10 MG 1 tablet Orally Once a day; Duration: 90 days Active Omeprazole 40 MG TAKE 1 CAPSULE [...] 1 TABLET EVERY DAY; Duration: 90 Active rOPINIRole HCl 4 MG TAKE 1 TABLET TWICE DAILY; Duration: 90 Active Atorvastatin Calcium 20 MG TAKE 1 TABLET EVERY DAY; Duration: 90 Active Sertraline HCl 50 MG 1 tablet Orally Onc e a day Active Immunizations Vaccine Route Administration Date Status Comme nts Zoster Unknown 08/02/2016 Administered Tdap Unknown 05/16/2023 Administered Pneumococcal polysaccharide PPV23 Unknown 05/22/2019 Administered Pneumococcal polysaccharide PPV23 Unknown 04/25/2020 Administered Pfizer-Biontech Covid-19 Vaccine 1st dose Unknown 10/29/2020 Administered Pfizer [employer]ion[employer] Covid-19 Vaccine 2nd dose Unknown 11/18/2020 Administered Pfizer [employer]iontech Covid-19 Vaccine 2nd dose Unknown 08/05/2021 Administered Flu vaccine no Preserv 3 and > IM Intramuscular 04/15/2024 Administered Social History Tobacco Use: Social History Observation Description Date Details (start date - stop date) Never Smoker NA - NA Alcohol Screen (Audit-C) Question Answer Notes Did you have a drink containing alcohol in the p ast year? No Points 0 Interpretation Negative Tobacco Control (Standard) Question Answer Notes Tobacco use: Nonsmoker Section Notes: She is retired and has stabl e housing with her . She has a vehicle, though her drives her due to hypersomnolence. She denies tobacco or illicit drug use. She occasionally drinks alcohol. She is retired and has stabl e housing with her . She has a vehicle, though her drives her due to hypersomnolence. She denies tobacco or illicit drug use. She occasionally drinks alcohol. She is retired and has stabl e housing with her . She has a vehicle, though her drives her due to hypersomnolence. She denies tobacco or illicit drug use. She occasionally drinks alcohol. She is retired and has stabl e housing with her . She has a vehicle, though her drives her due to hypersomnolence. She denies tobacco or illicit drug use. She occasionally drinks alcohol. She is retired and has stabl e housing with her . She has a vehicle, though her drives her due to hypersomnolence. She denies tobacco or illicit drug use. She occasionally drinks alcohol. She is retired and has stabl e housing with her . She has a vehicle, though her drives her due to hypersomnolence. She denies tobacco or illicit drug use. She occasionally drinks alcohol. She is retired and has stabl e housing with her . She has a vehicle, though her drives her due to hypersomnolence. She denies tobacco or illicit drug use. She occasionally drinks alcohol. She is retired and has stabl e housing with her . She has a vehicle, though her drives her due to hypersomnolence. She denies tobacco or illicit drug use. She occasionally drinks alcohol. She is retired and has stabl e housing with her . She has a vehicle, though her drives her due to hypersomnolence. She denies tobacco or illicit drug use. She occasionally drinks alcohol. She is retired and has stabl e housing with her . She has a vehicle, though her drives her due to hypersomnolence. She denies tobacco or illicit drug use. She occasionally drinks alcohol. Problems Problem Type SNOMED Code ICD Code Onset Dates Problem Status W/U Status Risk Notes Problem Inappropriate diet and eating habits (7145010011074) Inappropriate diet and eating habits (Z72.4) 12/14/19 25 Active confirmed Problem Essential hypertension (99270884) Essential hypertension (I10) 12/14/19 25 Active confirmed Problem Obese class III (finding) (090126394) Obesity, class 3 (E66.813) 12/14/19 25 Active confirmed Problem Type II diabetes mellitus without complication (806646285) Type 2 diabetes mellitus without complications (E11.9) Active confirmed Problem Morbid obesity (disorder) (725095483) Morbid (severe) obesity due to excess calories (E66.01) Active confirmed Problem Mixed hyperlipidemia (483798678) Mixed hyperlipidemia (E78.2) Active confirmed Problem Essential hypertension (33640482) Essential (primary) hypertension (I10) Active confirmed Problem Nontraumatic rupture of muscle or tendon structure of rotator cuff of left shoulder (disorder) (1237401338442369 ) Unspecified rotator cuff tear or rupture of left shoulder, not specified as traumatic (M75.102) Active confirmed Problem Overactive bladder (797516834) Overactive bladder (N32.81) Active confirmed Problem Body mass index 35.00 to 39.99 (559889635182083) Body mass index [BMI] 39.0-39.9, adult (Z68.39) Active confirmed Problem Anxiety (80858557) Anxiety (F41.9) Active confirmed Problem Obstructive sleep apnea syndrome (68438916) CISCO (obstructive sleep apnea) (G47.33) Active confirmed Problem Primary osteoarthritis (745383602) Primary osteoarthritis involving multiple joints (M15.9) Active confirmed Problem Daytime somnolence (066259116919) Daytime somnolence (R40.0) Active confirmed Problem Restless legs (97959796) RLS (restless legs syndrome) (G25.81) Active confirmed Problem Occlusion and stenosis of multiple and bilateral cerebral arteries (032678643) Bilateral carotid artery stenosis (I65.23) Active confirmed Problem Exacerbation of moderate persistent asthma (disorder) (922884180) Moderate persistent asthma with acute exacerbation (J45.41) Active confirmed Problem Degenerative disc disease (14027560) DDD (degenerative disc disease), lumbar (M51.36) Active confirmed Problem Age-related osteoporosis (112572305) Age related osteoporosis, unspecified pathological fracture presence (M81.0) Active confirmed Problem Obese class II (finding) (776195017961767) Obesity, class 2 (E66.812) Active confirmed Problem Degeneration of intervertebral disc of lumbar region with discogenic back pain (M51.360) Active confirmed Problem Body mass index 40+ - morbidly obese (710311966) BMI 40.0-44.9, adult (Z68.41) Active confirmed Problem Cervical pain (04115316) Cervical pain (M54.2) Active confirmed Vital Signs Heart Rate 61 /min 06/08/2025 Temperature 97.6 degrees Fahrenheit 06/08/2025 Respiratory Rate 18 /min 06/08/2025 Oximetry 97 % 06/08/2025 Height-cm 167.64 cm 06/08/2025 Blood pressure diastolic 79 mm Hg 06/08/2025 Weight-kg 116.12 kg 06/08/2025 Height 66 in 06/08/2025 Blood pressure systolic 124 mm Hg 06/08/2025 Weight 256.0 lbs 06/08/2025 BMI 41.31 kg/m2 06/08/2025 Procedures Procedure Date Ordered Date Performed Result Body Sit e ANNUAL DEPRESSION SCREENING 15 MIN 04/13/2025 N /A Encounters Encounter Location Date Provider Diagnosis [facility] [address] [facility] [address] [place], [place] [id number] 06/08/2025 Ramesh Epperson Type 2 diabetes mellitus [...] shoulder region M25.511 and Cervical pain M54.[address] [place], [place] [id number] 06/23/2024 NEIL GONG Routine check-up Z00.00 ; Borderline diabetes R73.03 ; Essential (primary) hypertension I10 ; Mixed hyperlipidemia E78.2 ; 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 ; Moderate persistent asthma with acute exacerbation J45.41 ; CISCO (obstructive sleep apnea) G47.33 ; RLS (restless legs syndrome) G25.81 ; Anxiety F41.9 and BMI 40.0-44.9, adult Z68.[address] [id number] 09/21/2024 NEIL GONG Type 2 diabetes mellitus without complications E11.9 ; Essential (primary) hypertension I10 ; Mixed hyperlipidemia E78.2 ; Moderate persistent asthma with acute exacerbation J45.41 ; CISCO (obstructive sleep apnea) G47.33 and 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 [id number] 12/13/2024 NEIL GONG Essential hypertensi on I10 ; Type 2 diabetes mellitus without complications E11.9 ; Edema of both lower extremities R60.0 ; Mixed hyperlipidemia E78.2 ; Obesity, class 3 E66.813 ; Inappropriate diet and eating habits Z72.4 ; CISCO (obstructive sleep apnea) G47.33 ; 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 and Moderate persistent asthma with acute exacerbation J45.[address] [id number] 04/13/2025 NEIL GONG Type 2 diabetes mellitus without complications E11.9 ; Essential (primary) hypertension I10 ; Mixed [...] multiple joints M15.9 ; Depression screening Z13.31 and Dysuria R30.0 [facility] [address] [place], [place] [id number] 06/08/2025 [facility] [address] [place], [place] [id number] 07/13/2024 [facility] [address] [place], [place] [id number] 08/12/2024 [facility] [address] [place], [place] [id number] 09/03/2024 [facility] [address] [place], [place] [id number] 10/06/2024 [facility] [address] [place], [place] [id number] 10/15/2024 [facility] Primary osteoarthrit is involving multiple joints M15.9 [facility] [address] [facility] [address] [place], [place] [id number] 10/20/2024 [facility] Mixed hyperlipidemia E78.2 ; RLS (restless legs syndrome) G25.81 ; Essential (primary) hypertension I10 and 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 [facility] [address] [place], [place] [id number] 11/15/2024 [facility] [address] [place], [place] [id number] 11/19/2024 [facility] [address] [place], [place] [id number] 11/24/2024 [facility] [address] [place], [place] [id number] 12/13/2024 [facility] [address] [place], [place] [id number] 02/02/2025 [facility] Essential hypertensi on I10 [facility] [address] [place], [place] [id number] 03/22/2025 [facility] [address] [place], [place] [id number] 03/29/2025 [place] [address] [facility] [address] [place], [place] [id number] 03/29/2025 [facility] Primary osteoarthrit is involving multiple joints M15.[address] [place] [facility] [address] [place], [place] [id number] 04/01/2025 [place] [address] [facility] [address] [place], [place] [id number] 04/26/2025 [place] [address] [facility] [address] [place], [place] [id number] 05/11/2025 [place] [facility] [address] [place], [place] [id number] 05/30/[address] [facility] [address] [place], [place] [id number] 06/06/2025 [facility] Assessments Encounter Date Diagnosis (ICD Code) Assessment Notes Treatment Notes Treatment Clinical Notes Section Notes 06/23/2024 Borderline diabetes (ICD-10 - R73.03) As above. She will continue the current therapy. Will check a urine microalbumin. 06/23/2024 Routine check-up (ICD-10 - Z00.00) She will continue the current therapy and is advised on improved compliance. The patient is advised on improved low calorie, low carbohydrate diet, and exercise with the goal of weight loss, blood pressure improvement, cholesterol improvement, and blood sugar improvement. Will check CBC, BMP, LFTs, Lipid panel, TFTs, and HgbA1c. 09/21/2024 Type 2 diabetes mellitus without complications (ICD-10 - E11.9) She is trying to manage this off therapy. The patient is advised on improved low calorie, low carbohydrate diet, and exercise with the goal of weight loss, blood pressure improvement, cholesterol improvement, and blood sugar improvement. Will check CBC, BMP, LFTs, Lipid panel, and HgbA1c. 10/15/2024 Primary osteoarthritis involving multiple joints (ICD-10 - M15.9) 10/20/2024 Mixed hyperlipidemia (ICD-10 - E78.2) 09/21/2024 Essential (primary) hypertension (ICD-10 - I10) As above. Her blood pressure is elevated today due to noncompliance with therapy. She will continue the current medications and is advised on improved compliance. 12/13/2024 Essential hypertension (ICD-10 - I10) Her blood pressure is controlled on the current regimen, but she wants off the norvasc. She will continue the current therapy, but change norvasc to spirolnolactone 100 mg daily. The patient will call with lack of benefit, change/worsening of symptoms, or any perceived medication side effects. She will continue to monitor her blood pressure at home and call if persistently elevated. 12/13/2024 Type 2 diabetes mellitus without complications (ICD-10 - E11.9) She is offered and declined to retry a GLP-1. The patient is advised on improved low calorie, low carbohydrate diet, and exercise with the goal of weight loss, blood pressure improvement, cholesterol improvement, and blood sugar improvement. Will check CBC, BMP, LFTs, Lipid panel, and HgbA1c. 02/02/2025 Essential hypertension (ICD-10 - I10) 03/29/2025 Primary osteoarthritis involving multiple joints (ICD-10 - M15.9) 04/13/2025 Type 2 diabetes mellitus without complications (ICD-10 - E11.9) She is trying to control this off medications. The patient is advised on improved low calorie, low carbohydrate diet, and exercise with the goal of weight loss, blood pressure improvement, cholesterol improvement, and blood sugar improvement. Will check CBC, BMP, LFTs, Lipid panel, and HgbA1c. 04/13/2025 Essential (primary) hypertension (ICD-10 - I10) As above. She will continue the current therapy and is advised on compliance. 06/08/2025 Type 2 diabetes mellitus without complications (ICD-10 - E11.9) She is trying to control this off medications. The patient is advised on improved low calorie, low carbohydrate diet, and exercise with the goal of weight loss, blood pressure improvement, cholesterol improvement, and blood sugar improvement. Will check CBC, BMP, LFTs, Lipid panel, and HgbA1c. 06/08/2025 Recurrent syncope (ICD-10 - R55) 04/13/2025 Mixed hyperlipidemia (ICD-10 - E78.2) As above. She will continue the current therapy and will check a lipid panel. 06/08/2025 Essential (primary) hypertension (ICD-10 - I10) As above. She will continue the current therapy and is advised on compliance. 12/13/2024 Edema of both lower extremities (ICD-10 - R60.0) As above. She is advised on weight loss, exercise, and a low sodium diet. She is encouraged and declined compression stockings. 10/20/2024 RLS (restless legs syndrome) (ICD-10 - G25.81) 09/21/2024 Mixed hyperlipidemia (ICD-10 - E78.2) As above. She will continue the current therapy and will check a lipid panel. 06/23/2024 Essential (primary) hypertension (ICD-10 - I10) As above. She will continue the current therapy and is advised on compliance. 06/23/2024 Mixed hyperlipidemia (ICD-10 - E78.2) As above. She will continue the current therapy. Will check a lipid panel. 10/20/2024 Essential (primary) hypertension (ICD-10 - I10) 09/21/2024 Moderate persistent asthma with acute exacerbation (ICD-10 - J45.41) She will continue the current therapy as she could not tolerate the trelegy and follow up with her vasc tech. 12/13/2024 Mixed hyperlipidemia (ICD-10 - E78.2) As above. She will continue the statin and will check a lipid panel. 04/13/2025 Morbid (severe) obesity due to excess calories (ICD-10 - E66.01) As above. She is not currently interested in medically assisted weight loss. 06/08/2025 Mixed hyperlipidemia (ICD-10 - E78.2) As above. She will continue the current therapy and will check a lipid panel. 06/08/2025 Morbid (severe) obesity due to excess calories (ICD-10 - E66.01) As above. She is not currently interested in medically assisted weight loss. 12/13/2024 Obesity, class 3 (ICD-10 - E66.813) As above. 04/13/2025 Body mass index [BMI] 39.0-39.9, adult (ICD-10 - Z68.39) As above. 09/21/2024 CISCO (obstructive sleep apnea) (ICD-10 - G47.33) She is encouraged on continued and improved compliance with her CPAP and will follow up with her vasc tech. 10/20/2024 Primary osteoarthritis involving multiple joints (ICD-10 - M15.9) 06/23/2024 Primary osteoarthritis involving multiple joints (ICD-10 - M15.9) She will continue the current therapy and is advised on weight loss and exercise. She is encouraged on following up with the orthopedist and completing physical therapy exercises. 06/23/2024 Moderate persistent asthma with acute exacerbation (ICD-10 - J45.41) She will continue the current therapy and is advised on compliance. She will call with any change/worsening of symptoms. 09/21/2024 Primary osteoarthritis involving multiple joints (ICD-10 - M15.9) She will continue the current therapy for now. She is advised on weight loss and exercise. She will follow up with the orthopedist on a prn basis. She will call with any change/worsening of symptoms. 04/13/2025 Obesity, class 2 (ICD-10 - E66.812) As above. 12/13/2024 Inappropriate diet and eating habits (ICD-10 - Z72.4) As above. 06/08/2025 Body mass index [BMI] 39.0-39.9, adult (ICD-10 - Z68.39) As above. 06/08/2025 Obesity, class 2 (ICD-10 - E66.812) As above. 04/13/2025 CISCO (obstructive sleep apnea) (ICD-10 - G47.33) She is counselled on the potential health hazards of untreated CISCO and is encouraged to follow up with the sleep clinic and try a BiPAP. 12/13/2024 CISCO (obstructive sleep apnea) (ICD-10 - G47.33) She is encouraged on improved compliance with her CPAP and will follow up with pulmonary. 06/23/2024 CISCO (obstructive sleep apnea) (ICD-10 - G47.33) She is encouraged to talk with the sleep clinic to consider Inspire therapy. 06/23/2024 RLS (restless legs syndrome) (ICD-10 - G25.81) She will continue the current therapy which she finds effective. She will call with any change/worsening of symptoms. 12/13/2024 Primary osteoarthritis involving multiple joints (ICD-10 - M15.9) She will continue the current therapy, is advised on weight loss and exercise, and is advised to follow up with orthopedics. 04/13/2025 Moderate persistent asthma with acute exacerbation (ICD-10 - J45.41) She will continue the current therapy and will restart the symbicort and is encouraged on compliance. 06/08/2025 CISCO (obstructive sleep apnea) (ICD-10 - G47.33) She is counselled on the potential health hazards of untreated CISCO and is encouraged to follow up with the sleep clinic and try a BiPAP. 06/08/2025 Moderate persistent asthma with acute exacerbation (ICD-10 - J45.41) She will continue the current therapy and will restart the symbicort and is encouraged on compliance. 04/13/2025 Degeneration of intervertebral disc of lumbar region with discogenic back pain (ICD-10 - M51.360) She will continue the current therapy, but will remain off narcotic pain medications. She is encouraged on weight loss and exercise. 12/13/2024 Moderate persistent asthma with acute exacerbation (ICD-10 - J45.41) She will continue the current therapy, is advised on improved compliance, and will follow up with the vasc tech. 06/23/2024 Anxiety (ICD-10 - F41.9) The patient will continue the current therapy which she finds helpful. She is offered and declined an adjustment or referral to mental health. She will call with any change/worsening of mood. 06/23/2024 BMI 40.0-44.9, adult (ICD-10 - Z68.41) 04/13/2025 Primary osteoarthritis involving multiple joints (ICD-10 - M15.9) As above. 06/08/2025 Degeneration of intervertebral disc of lumbar region with discogenic back pain (ICD-10 - M51.360) She will continue the current therapy, but will remain off narcotic pain medications. She is encouraged on weight loss and exercise. 06/08/2025 Primary osteoarthritis involving multiple joints (ICD-10 - M15.9) As above. 04/13/2025 Depression screening (ICD-10 - Z13.31) She will continue the current therapy and follow up with his psychiatrist. 06/08/2025 Depression screening (ICD-10 - Z13.31) She will continue the current therapy and follow up with his psychiatrist. 06/08/2025 Dysuria (ICD-10 - R30.0) She has mild dysuria with an abnormal urinalysis. Will check a urine culture and will empirically start levaquin. The patient will call with lack of benefit, change/worsening of symptoms, or any perceived medication side effects. 04/13/2025 Dysuria (ICD-10 - R30.0) She has mild dysuria with an abnormal urinalysis. Will check a urine culture and will empirically start levaquin. The patient will call with lack of benefit, change/worsening of symptoms, or any perceived medication side effects. 06/08/2025 Pain of right shoulder region (ICD-10 - M25.511) 06/08/2025 Cervical pain (ICD-10 - M54.2) Plan Of Treatment Pending Test Test Name Order Date X ray : Shoulder, right 06/08/2025 X ray : Cervical spine w/obliques 2024 LIPID PANEL, STANDARD (7600) 06/08/2025 BASIC METABOLIC PANEL (38612) 06/08/2025 MAGNESIUM (622) 06/08/2025 HEPATIC FUNCTION PANEL (31323) CBC (INCLUDES DIFF/PLT) (6399) URINALYSIS, COMPLETE (9333) 06/08/2025 HEMOGLOBIN A1c (496) 06/08/2025 TSH W/REFLEX TO FT4 (56695) 06/08/2025 CULTURE, URINE, ROUTINE (395) 06/08/2025 ANNUAL DEPRESSION SCREENING 15 MIN 08/20 ANNUAL DEPRESSION SCREENING 15 MIN 04/13 Next Appt Details Provider Name:NEIL Hatfield, 07/13/2025 09:00:00 AM, [address], [address], [id number], Insurance Providers Payer Name Payer Address Payer Phone Subscriber Number Group Number Insured Name Patient Relationship to Insured Coverage Start Date Coverage End Date [employer] [address] [address] [place], [place] [id number] Maria Alejandra Mooney Self - patient is the insured 4 Medications Administered Medication Instructions Date of Administration Dosage Notes Depo Medrol 80 mg 12/23/2023 1 mL Medical (General) History Medical History History ICD Code Obesity CISCO on CPAP Hyperlipidemia Borderline diabetes mellitus type 2 Hypertension RLS Osteoarthritis Lumbar DDD Essential tremor Osteopenia GERD/Hiatal hernia OAB Depression Surgical History Surgery Date(Month/Year) LIAM/BSO Bilateral TKA Right MARIO Bilateral cataract surgery Bladder tack Bilateral hammer toe surgeries Hemorrhoidectomy Tonsillectomy Left carpal tunnel release Lumbar laminectomy and fusion Omar fundoplication Left bunionectomy
--- OUTSIDE RECORDS SUMMARY | 2025-06-08 17:31 | XMS_ITS | Clinical Summary ---
Author Organization [facility] Address [address] [place] [address] Care Team Providers Care Maintenance Machinist Name Role Phone Demar Lazcano MD Primary Care Provider [phone] Source Comments [facility],non-owned Affiliates and Associated Physician Practices is amultiple site organization consisting of ambulatory clinics and hospital sitesin [place], [place], [place] and [place]. This disclosure is being madepursuant to the Care Everywhere program and may not contain all information available regarding this patient. 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 Gender Identity Not on file Sexual Orientation [...] this topic Medical Devices Implanted Type Area Research Program Internship Device Identifier Shelf Expiration Date Model / Serial / Lot Snap Off Screw 13mm Implanted:Qty: 2 on 05/28/2017 by Low Fulton DPM at [facility] Right: Foot [employer] [id number] / / Hdls Comp Screw 4.0x30 Implanted:Qty: 1 on 05/28/2017 by Low Fulton DPM at [facility] Right: Foot [employer] [id number] / / Joint Toe 16x2-5.5x1.2mm Smrt Toe Ii 0d Implanted:Qty: 1 on 05/28/2017 by Low Fulton DPM at [facility] Right: Foot [employer] 08/11/2017 ST0-16P / / [id number] F Joint Toe 15x2-5.5x1.2mm Smrt Toe Ii 0d Implanted:Qty: 1 on 05/28/2017 by Low Fulton DPM at [facility] Right: Foot [employer] 01/08/2022 STO-15P / / [id number] Explanted Type Area Research Program Internship Device Identifier Shelf Expiration Date Model / Serial / Lot Gw Orth 1.4mm 150mm Unthread Explanted:Qty: 1 on 05/28/2017 at [facility] Right: Foot [employer] [id number] / / Insurance [employer] MEDICARE ADV HMO & PPO * Guarantor: MARIA ALEJANDRA CASILLAS Account Type Relation to Patient Date of Phone Billing Address Personal/Family [address] [place] [phone] [facility] SELF PAY NO INSURANCE Member Subscriber Plan / Payer (Ef fective for All Dates) Name:Maria Alejandra Casillas Member ID:Not on file Relation to Subscriber:Not on file Name:MARIA ALEJANDRA CASILLAS Subscriber ID:Not on file (Home) Address: [address] [place] [phone] Payer ID:Not on file Group ID:Not on file Type:Self Pay Address: [place], [place] * Guarantor: MARIA ALEJANDRA CASILLAS Account Type Relation to Patient Date of Phone Billing Address Personal/Family [address] [place] [address] [employer] SELF PAY NO INSURANCE Member Subscriber Plan / Payer (Ef fective for All Dates) Name:Maria Alejandra Casillas Member ID:Not on file Relation to Subscriber:Not on file Name:MARIA ALEJANDRA CASILLAS Subscriber ID:Not on file (Home) Address: [address] [place] [phone] Payer ID:Not on file Group ID:Not on file Type:Self Pay Address: [place], [place] * Guarantor: MARIA ALEJANDRA CASILLAS Account Type Relation to Patient Date of Phone Billing Address Personal/Family [address] [place] [phone] [employer] SELF PAY NO INSURANCE Member Subscriber Plan / Payer (Ef fective for All Dates) Name:Maria Alejandra Casillas Member ID:Not on file Relation to Subscriber:Not on file Name:OLI CASILLASARA Subscriber ID:Not on file (Home) Address: [address] [place] [phone] Payer ID:Not on file Group ID:Not on file Type:Self Pay Address: [place], [place] Care Teams Maintenance Machinist Relationship Specialty Start Date End Date Demar Lazcano MD [address] [place] [address] PCP - General 11/25/22
--- OUTSIDE RECORDS SUMMARY | 2025-06-08 17:31 | XMS_ITS | Data Portability ---
Author Organization [facility] ([facility] Address [address] [place] [phone] Assessment No assessment recorded. Plan of Treatment [...] Sleep Study completed Demond Lovell MD, F.C.C.P. [address] [place] [address], [place], [address], [facility] 12/07/2023 12:02:48 05/22/2016 Sleep Study completed Ashwin Slade [facility] 05/23/2016 14:56:34 Imaging Results None recorded. Procedure [...] Updated DateTime 12/03/2023 167.64 cm 41.8 kg/m2 880156.42 g Fabian Zamorano [facility] 12/04/2023 15:10:05 Date Recorded Body height Body mass index (BMI) Body weight Provider Name and Address Organization Details Last Updated DateTime 12/03/2023 167.64 cm 41.8 kg/m2 626779.42 g Sincere Mahajan [facility] 12/03/2023 17:03:12 Date Recorded Body height Body weight Body mass index (BMI) Provider Name and Address Organization Details Last Updated DateTime 05/22/2016 170.18 cm 895197.09 g 39.2 kg/m2 Jeanna Cooley [facility] 05/22/2016 12:06:24 Social History None recorded. Functional Status None recorded. Mental Status None recorded. Family History Nothing Reported. Medical History No medical history recorded. Gynecological HistoryNo gynecological history recorded. Obstetrics History GPAL:G 0 P 0 0 0 0 Past Encounters Encounter ID Performer Location Encounter Start Date Encounter Closed Date Diagnosis/Indication Diagnosis SNOMED-CT Code Diagnosis ICD10 Code Diagnosis IMO Codes Diagnosis Note [id number] [facility] 11 [id number] [facility] [address] [address] [place] [address] 05/22/2016 11:21:43 05/23/2016 14:57:46 Obstructive sleep apnea of adult 5417112650 103 G47.33 [id number] [facility] [place], [facility] [address] [facility] [address] [place] [address] 12/03/2023 20:36:38 12/04/2023 15:05:04 Obstructive sleep apnea of adult 2075200277 103 G47.33 Health Concerns Section Related Observation LastModified by Organization Detai ls LastModified Time None Recorded Concern Status LastModified by Organization Details LastModified Time None Recorded Advance Directives Directive None Recorded Payers Insurance Date Sequence Insurance Name Policy Number Policy Pelletier Covered Member ID Pelletier Member ID Guarantor Name 12/03/2023 2 [facility] [place] Maria Alejandra Bey Deak [id number] Maria Alejandra Deak 12/03/2023 1 [facility] ([facility] Maria Alejandra Bey Deak [id number] Maria Alejandra Deak 12/16/2023 1 [employer] Maria Alejandra Bey Deak [id number] Maria Alejandra Deak 12/03/2023 1 [facility] [place] Maria Alejandra Deak [id number] Maria Alejandra Mooney Notes Date Note Type Note Provider Name and Address Organization Details Recorded Time 05/22/2016 text/html HST SetupReporte d by Patient Demond Lovell MD, F.C.C.P. [address] [place] [address], [place], [address] - [place]/SMS 05/23/2016 17:31:02 OBGyn Episode No OBEpisode recorded.
--- OUTSIDE RECORDS SUMMARY | 2025-06-08 17:31 | XMS_ITS | Encounter Summary ---
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 Lorena Holt. These tests need not be, and therefore are not, approved by the [place] Food and Drug Administration. The tests are used for clinical purposes. Billing Codes Specimen Charges Stain Charges 28673 [id number] 1 1 3 1:18 PM CDT DERMATOPATHOLOGY LABORATORY Embedded Images 3 1:18 PM CDT DERMATOPATHOLOGY LABORATORY Pathology/Cytology TISSUE SPECIMEN FROM SKIN / Unknown 04/25/2023 3:33 AM CDT 04/28/2023 1:10 PM CDT Miscellaneous samples (specimen) TISSUE SPECIMEN FROM SKIN / Unknown 04/25/2023 3:33 AM CDT 04/28/2023 1:10 PM CDT us Cecilia Young MD LAB - PATHOLOGY/CYTOLOGY ORDERAB LES Final Result DERMATOPATHOLOGY LABORATORY [facility] - Department of Dermatology [facility] Medicine [address] [place] [address], [address] [phone] documented in this encounter Visit Diagnoses Diagnosis Neoplasm of uncertain behavior of skin documented in this encounter Care Teams Boom Tender Relationship Specialty Start Date End Date Demar Lazcano MD [address] [place] [address] PCP - General 11/25/22 documented as of this encounter
== END 2025-06-08 15:20 | disposition home or self-care (01) ==
PROVIDERS: PCP Internal Medicine Infectious Disease
DX: M25.511 Pain in right shoulder (principal); M54.2 Cervicalgia
CPT/HCPCS: 72050; 73030

== ENCOUNTER 2025-06-21 12:26 | Outpatient (CLI) | payer MEDICARE, SELFPAY ==
--- OUTSIDE RECORDS SUMMARY | 2025-03-16 03:00 | XMS_ITS ---
Author Organization [facility] Address [address] [place], [place] [id number] Care Team Providers Care Educational Psychologist Name Role Phone NEIL MUÑOZ Primary Care Provider REASON FOR VISIT 3 month f/u Encounters Encounter Location Date Provider Diagnosis [facility] [address] [facility] [address] [place], [place] [id number] 03/16/2025 NEIL MUÑOZ Plan Of Treatment Next Appt Details Provider Name:NEIL Hatfield, 07/13/2025 09:00:00 AM, [address], [place], [place], [id number], Progress Notes * Maria Alejandra CASILLASDOB:1955 (69 yo F)Acc No.[id number]:03/16/2025 Progress Notes Patient: Miya EPPERSON Maria Alejandra Provider: Sailaja Muñoz M.D. :1955 A ge:69 Y S ex:Female Date:03/16/2025 Address:[address] [place], [place] [id number] Subjective: * Chief Complaints: * 1 . 3 month f/u. * Medical History: Objective: * Vitals: Assessment: Plan: * Treatment: * Billing Information: * Visit Code: * Procedure Codes: * Electronic signature of KERI MUÑOZ MD on 06/21/2025 at 12:35 PM MECHANICAL ORDNANCE ASSEMBLER Sign off status: Pending * Provider: Sailaja Muñoz M.D. Date: 0 03/16/2025 Generated for Nitza zee/Kvng/Isela on: 1 08/21/2024 12:35 PM MECHANICAL ORDNANCE ASSEMBLER
--- OUTSIDE RECORDS SUMMARY | 2025-03-30 03:00 | XMS_ITS ---
Author Organization [facility] Address [address] [place], [place] [id number] Care Team Providers Care Branch Sales Manager Name Role Phone NEIL MUÑOZ Primary Care Provider REASON FOR VISIT 3 month f/u Encounters Encounter Location Date Provider Diagnosis [facility] [address] [facility] [address] [place], [place] [id number] 03/30/2025 NEIL MUÑOZ Plan Of Treatment Next Appt Details Provider Name:NEIL Hatfield, 07/13/2025 09:00:00 AM, [address], [place], [place], [phone], Progress Notes * Maria Alejandra CASILLASDOB:1955 (69 yo F)Acc No.[id number]:03/30/2025 Progress Notes Patient: Miya EPPERSON Maria Alejandra Provider: Sailaja Muñoz M.D. :1955 A ge:69 Y S ex:Female Date:03/30/2025 Address:[address] [place], [place] [id number] Subjective: * Chief Complaints: * 1 . 3 month f/u. * Medical History: Objective: * Vitals: Assessment: Plan: * Treatment: * Billing Information: * Visit Code: * Procedure Codes: * Electronic signature of KERI MUÑOZ MD on 06/21/2025 at 12:34 PM DINING ROOM TABLES SET UP ATTENDANT Sign off status: Pending * Provider: Sailaja Muñoz M.D. Date: 0 03/30/2025 Generated for Nitza zee/Kvng/Isela on: 1 08/21/2024 12:34 PM DINING ROOM TABLES SET UP ATTENDANT
--- OUTSIDE RECORDS SUMMARY | 2025-06-08 03:00 | XMS_ITS ---
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 (Collection Date & Time - 06/08/2025 09:25 AM)* Value Reference Range H EMOGLOBIN A1c 6.1 H <5.7 - % of total Hg b Notes: She is trying to control this off medications. The patient is advised on improved low calorie, low carbohydrate diet, and exercise with the goal of weight loss, blood pressure improvement, cholesterol improvement, and blood sugar improvement. Will check CBC, BMP, LFTs, Lipid panel, and HgbA1c.?? 3.?Essential (primary) hypertension?LAB: MAGNESIUM (622) (Collection Date & Time - 06/08/2025 09:25 AM)* Value Reference Range M AGNESIUM 1.8 1.5-2.5 - mg/dL Notes: As above. She will continue the current therapy and is advised on compliance. ??4.?Mixed hyperlipidemia?LAB: LIPID PANEL, STANDARD (7600) (Collection Date & Time - 06/08/2025 09:25 AM)* Value Reference Range T RIGLYCERIDES 271 H <150 - mg/dL * C HOLESTEROL, TOTAL 171 <200 - mg/dL * H DL CHOLESTEROL 58 > OR = 50 - mg/dL * L DL-CHOLESTEROL 77 - mg/dL (calc) * C HOL/HDLC RATIO 2.9 <5.0 - (calc) * N ON HDL CHOLESTEROL 113 <130 - mg/dL (calc) Notes: As above. She will continue the current therapy and will check a lipid panel.??5.?Morbid (severe) obesity due to excess calories? Notes: As above. She is not currently interested in medically assisted weight loss.??6.?Body mass index [BMI] 39.0-39.9, adult? Notes: As above.??7.?Obesity, class 2? Notes: As above.??8.?CISCO (obstructive sleep apnea)? Notes: She is counselled on the potential health hazards of untreated CISCO and is encouraged to follow up with the sleep clinic and try a BiPAP.??9.?Moderate persistent asthma with acute exacerbation? Refill Symbicort Aerosol, 160-4.5 MCG/ACT, as directed, Inhalation, twice a day, 30 days, 60, Refills 5.?? Notes: She will continue the current therapy and will restart the symbicort and is encouraged on compliance. ??10.?Degeneration of intervertebral disc of lumbar region with discogenic back pain? Notes: She will continue the current therapy, but will remain off narcotic pain medications. She isencouraged on weight loss and exercise.??11.?Primary osteoarthritis involving multiple joints? Notes: As above. ??12.?Depression screening? Notes: She will continue the current therapy and follow up with his psychiatrist.??13.?Dysuria?LAB: URINALYSIS, COMPLETE (6591) (Collection Date & Time - 06/08/2025 09:25 AM)* Value Reference Range C OLOR YELLOW YELLOW - * A PPEARANCE CLEAR CLEAR - * B ILIRUBIN NEGATIVE NEGATIVE - * K ETONES NEGATIVE NEGATIVE - * S PECIFIC GRAVITY 1.013 1.001-1.035 - * O CCULT BLOOD NEGATIVE NEGATIVE - * P H 6.0 5.0-8.0 - * P ROTEIN NEGATIVE NEGATIVE - * N ITRITE NEGATIVE NEGATIVE - * L EUKOCYTE ESTERASE NEGATIVE NEGATIVE - * W BC NONE SEEN < OR = 5 - /HPF * R BC NONE SEEN < OR = 2 - /HPF * S QUAMOUS EPITHELIAL CELLS 0-5 < OR = 5 - /HPF * B ACTERIA NONE SEEN NONE SEEN - /HPF * H YALINE CAST NONE SEEN NONE SEEN - /LPF * G LUCOSE NEGATIVE NEGATIVE - ?LAB: CULTURE, URINE, ROUTINE (395) (Collection Date & Time - 06/08/2025 09:25 AM)* Value Reference Range C ULTURE SEE NOTE - ?LAB: Urinalysis (Collection Date & Time - 06/08/2025)* Value Reference Range U rine pH 6.0 * S PECIFIC GRAVITY 1.000 Notes: She has mild dysuria with an abnormal urinalysis. Will check a urine culture and will empirically start levaquin. The patient will call with lack of benefit, change/worsening of symptoms, or any perceived medication side effects.??14.?Pain of right shoulder region?Imaging: X ray : Shoulder, right* Franco Eppersony 06/08/2025 0 8:55:17 AM CDT > 69 y/o F with acute on chronic right shoulder pain after syncopal episode and fall onto abducted arm 1 week ago. Previous ROM limitations likely 2/2 RC arthropathy. Evaluate for acute osseous abnormalities. * 15.?Cervical pain?Imaging: X ray : Cervical spine w/obliques* SuhailbetteDuncan ignacioemy 06/08/2025 0 8:56:31 AM CDT > 69 y/o F with acute on chronic midline neck pain after syncopal episode and fall onto abducted arm 1 week ago. * * Procedure Codes: G 0444 ANNUAL DEPRESSION SCREENING 15 MIN, Modifiers: 59 , 48240 - ELECTROCARDIOGRAM, COMPLETE * Follow Up: 3 Months * Billing Information: * Visit Code: 76114 Office Visit, Est Pt., Level 4. * Procedure Codes: G0444 ANNUAL DEPRESSION SCREENING 15 MIN. Modifiers: 59 43954 -ELECTROCARDIOGRAM, COMPLETE. * Electronic signature of Aamir Epperson PA-C on 06/21/2025 at 12:34 PM CONSERVATION ASSISTANT Sign off status: Pending * Appointment Provider: Jordana Trejo Date: Generated for Printing/Faxing/eTransmitting on: 08/21/2024 12:34 PM CONSERVATION ASSISTANT History and Physical Notes * Physical Examination Category Sub-Category Detail Notes Section Note s Gen: Well jason shed, overweight, angry, hypersensitive to light touch in NAD. Skin: No rash. HEENT: Narrowed posterior pharynx, HEALTH COORDINATOR patent, PERRL, Conjunctiva pink, Sclera anicteric, MMM, No thrush, Good dentition. Neck: Thick, Supple, No LAD, No thyromegaly, No carotid bruits. Chest: CTA bilaterally without wheezes. CV: RRR without murmur. Abdomen: Soft, NT, ND, active BS, No HSM. . Not performed. Extremity: No cyanosis or clubbing. Trace lower extremity edema. Normal strength. 2+ radial/DP pulses bilaterally. Neuro: Gait normal, A&O x 4, CN 2-12 intact bilaterally, Reflexes 2+ brachial and patellar, Motor 5/5 throughout, Sensory normal grossly.
--- NOTE | ~2025-06-21 | US_ITS ---
EXAMINATION: US carotid duplex BI DATE: 06/21/2025 13:35 INDICATION: Bilateral carotid artery stenosis. Syncopal episodes. TECHNIQUE: Grayscale, color Doppler, and pulsed Doppler images of the cervical carotid arteries were obtained. The degree of vessel stenosis is placed in one of the following categories: normal, <50%, 50-69%, >=70% but less than near- occlusion, near-occlusion, or total occlusion. Note that percent stenosis relative to normal distal artery lumen diameter is indirectly measured from velocity measurements as described by Mahad, et al. Radiology 2003; 229:340-346. COMPARISON: None. FINDINGS: RIGHT: The right common carotid artery (CCA) peak systolic velocity (PSV) is 68 cm/s. The right internal carotid artery (ICA) PSV is 93 cm/s. The right ICA end- diastolic velocity (EDV) is 33 cm/s. The right ICA/CCA PSV ratio is 1.4. Grayscale and color Doppler images yield an estimate of <50% diameter reduction from plaque in the ICA. The external carotid artery (ECA) PSV is 96 cm/s. There is antegrade flow in the right vertebral artery. LEFT: The left CCA PSV is 71 cm/s. The left ICA PSV is 97 cm/s. The left ICA EDV is 33 cm/s. The left ICA/CCA PSV ratio is 1.4. Grayscale and color Doppler images yield an estimate of <50% diameter reduction from plaque in the ICA. The ECA PSV is 63 cm/s. There is antegrade flow in the left vertebral artery. IMPRESSION: 1. <50% stenosis in the right internal carotid artery. 2. <50% stenosis in the left internal carotid artery. Reviewed, dictated and finalized at location A. ER/[facility]
--- OUTSIDE RECORDS SUMMARY | 2025-06-21 12:34 | XMS_ITS | Encounter Summary ---
Author Organization [facility] Address [address] [place] [address] Care Team Providers Care C D Still Operator Name Role Phone Krish Mendez MD Primary Care Provider + [phone] Encounter Details Date Type Department Care Team (Late st Contact Info) Description 06/20/2008 Outpatient Historical [facility] Rico Her MD [address] 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 Gender Identity Not on file Sexual Orientation Not on file documented as of this encounter Plan of Treatment Not on file documented as of this encounter Procedures Procedure Name Priority Date/Time Associated Diagnosis Comments TYPE AND SCREEN Routine 07/12/2008 5:54 AM WINTER SPORTS MANAGER documented in this encounter Results * TYPE AND SCREEN (07/12/2008 5:54 AM WINTER SPORTS MANAGER) HISTORY CHECK No Historical ABO/Rh [facility] ABO/RH TYPE A Negative [facility] SPECIMEN LIFE 3 days from drawdate [facility] ANTIBODY SCREEN Negative [facility] Blood specimen (specimen) 07/12/2008 5:54 AM WINTER SPORTS MANAGER us Rico Her MD BLOOD BANK ORDERABLES Edited INTERFACE SYSTEM Refer to clinic/hospital department [facility] CLIA# [id number] [address] [place] [address] documented in this encounter Visit Diagnoses Not on filedocumented in this encounter Care Teams C D Still Operator Relationship Specialty Start Date End Date Krish Mendez MD [address] [facility] 2 [place] [address] PCP - General Internal Medicine 12/29/18 documented as of this encounter
--- OUTSIDE RECORDS SUMMARY | 2025-06-21 12:34 | XMS_ITS | Data Portability ---
Author Organization [facility] (11) Address [address] [place] [address] Assessment No assessment recorded. Plan of Treatment [...] Sleep Study completed Demond Lovell MD, F.C.C.P. [address] [place] [address], [place], [address], [facility] 12/07/2023 12:02:48 05/22/2016 Sleep Study completed Ashwin Slade [facility] 05/23/2016 14:56:34 Imaging Results None recorded. Procedure Notes None recorded. Medical Equipment None Reported. Medications Name Sig Start Date Stop Date Status Note LastModified by Organization Details LastModified Time bladder control pads active Not Available Not Available Not Available flonase allergy nasal spray active Not Available Not Available Not Available eye drop cup with guide active Not Available Not Available N ot Available muscle rub active Not Available Not Av ailable Not Available vitamin b12 active Not Available Not A vailable Not Available cotton swabs active Not Available Not Available Not Available oral thermometer active Not Available Not Available Not Available vitamin d 1000 iu active Not Available Not Available Not Available gummy vitamin d 2000 iu active Not Available Not Available Not Available allergy cream itch and pain [...] Updated DateTime 12/03/2023 167.64 cm 41.8 kg/m2 693313.[address] [facility] 12/04/2023 15:10:05 Date Recorded Body height Body mass index (BMI) Body weight Provider Name and Address Organization Details Last Updated DateTime 12/03/2023 167.64 cm 41.8 kg/m2 538824.[address] [facility] 12/03/2023 17:03:12 Date Recorded Body height Body weight Body mass index (BMI) Provider Name and Address Organization Details Last Updated DateTime 05/22/2016 170.18 cm 179717.09 g 39.2 kg/m2 Jeanna Cooley [facility] 05/22/2016 12:06:24 Social History None recorded. Functional Status None recorded. Mental Status None recorded. Family History Nothing Reported. Medical History No medical history recorded. Gynecological HistoryNo gynecological history recorded. Obstetrics History GPAL:G 0 P 0 0 0 0 Past Encounters Encounter ID Performer Location Encounter Start Date Encounter Closed Date Diagnosis/Indication Diagnosis SNOMED-CT Code Diagnosis ICD10 Code Diagnosis IMO Codes Diagnosis Note [id number] [facility] 11 [id number] [facility] [address] [address] [place] [address] 05/22/2016 11:21:43 05/23/2016 14:57:46 Obstructive sleep apnea of adult 6803474802 103 G47.33 [id number] [facility], [facility] 11 [address] [facility] [address] [place] [address] 12/03/2023 20:36:38 12/04/2023 15:05:04 Obstructive sleep apnea of adult 9919133620 103 G47.33 Health Concerns Section Related Observation LastModified by Organization Detai ls LastModified Time None Recorded Concern Status LastModified by Organization Details LastModified Time None Recorded Advance Directives Directive None Recorded Payers Insurance Date Sequence Insurance Name Policy Number Policy Pelletier Covered Member ID Pelletier Member ID Guarantor Name 12/03/2023 2 [facility] [place] Maria Alejandra Bey Deak [id number] Maria Alejandra Deak 12/03/2023 1 [facility] Maria Alejandra Bey Deak [id number] Maria Alejandra Deak 12/16/2023 1 [employer] Maria Alejandra Bey Deak [id number] Maria Alejandra Deak 12/03/2023 1 [facility] [place] Maria Alejandra Deak [id number] Maria Alejandra Mooney Notes Date Note Type Note Provider Name and Address Organization Details Recorded Time 05/22/2016 text/html HST SetupReporte d by Patient Demond Lovell MD, F.C.C.P. [address] [place] [address], [place], [address] 05/23/2016 17:31:02 OBGyn Episode No OBEpisode recorded.
--- OUTSIDE RECORDS SUMMARY | 2025-06-21 12:34 | XMS_ITS | Clinical Summary ---
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
--- OUTSIDE RECORDS SUMMARY | 2025-06-21 12:35 | XMS_ITS | Clinical Summary ---
Author Organization [facility] Address [address] [place] [address] Care Team Providers Care Assistant Commissioner Name Role Phone Korey Stevens MD Primary Care Provider [phone] Allergies No known active allergies Medications traMADol [...] on file Legal Sex Female 8:56 AM PEOPLESOFT BUSINESS ANALYST Gender Identity Not on file Sexual Orientation Not on file Last Filed Vital Signs Vital Sign Reading Time Taken Comments Blood Pressure 99/81 10/06/2019 10:56 AM PEOPLESOFT BUSINESS ANALYST Pulse 67 10/06/2019 10:56 AM PEOPLESOFT BUSINESS ANALYST Temperature 36.5 C (97.7 F) 10/06/2019 10:56 AM PEOPLESOFT BUSINESS ANALYST Respiratory Rate - - Oxygen Saturation 96% 10/06/2019 10: 56 AM PEOPLESOFT BUSINESS ANALYST Inhaled Oxygen Concentration - - Weight 110.7 kg (244 lb 1.6 oz) 020 10:56 AM PEOPLESOFT BUSINESS ANALYST Height 170.2 cm (5' 7) 10/06/2019 10:5 6 AM PEOPLESOFT BUSINESS ANALYST Body Mass Index 38.23 10/06/2019 10:56 AM PEOPLESOFT BUSINESS ANALYST Plan of Treatment Health Maintenance Due Date [...] complete this topic Insurance MEDICARE Care Teams Assistant Commissioner Relationship Specialty Start Date End Date Korey Stevens MD [address] [place] [address] PCP - General FAMILY PRACTICE 09/07/19
--- OUTSIDE RECORDS SUMMARY | 2025-06-21 12:35 | XMS_ITS | Clinical Summary ---
Author Organization [facility] Address [address], [address] [address] Phone Care Team Providers Care Deicer Inspector Electric Name Role Phone Korey Cook MD Primary Care Provider [phone] Allergies No known active allergies Medications potassium [...] Comments Blood Pressure 122/84 09/24/2019 10:18 AM PEELER OPERATOR Pulse 62 09/24/2019 10:18 AM PEELER OPERATOR Temperature 36.6 C (97.9 F) 09/24/2019 10:18 AM PEELER OPERATOR Respiratory Rate 16 09/24/2019 10:18 AM PEELER OPERATOR Oxygen Saturation 98% 09/24/2019 10:18 AM PEELER OPERATOR Inhaled Oxygen Concentration - - Weight 115.2 kg (254 lb) 09/24/2019 10:18 AM PEELER OPERATOR Height 170.2 cm (5' 7) 09/24/2019 10:18 AM PEELER OPERATOR Body Mass Index 39.78 09/24/2019 10:18 AM PEELER OPERATOR Plan of Treatment Health Maintenance Due Date [...] Maintenance Insurance MEDICARE C HU[employer] Care Teams Deicer Inspector Electric Relationship Specialty Start Date End Date Korey Cook MD [address] [place] [address] [place] [address] PCP - General Bi Manager 08/18/19
--- OUTSIDE RECORDS SUMMARY | 2025-06-21 12:35 | XMS_ITS | Encounter Summary ---
Author Organization 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 Lorena Holt. These tests need not be, and therefore are not, approved by the [place] Food and Drug Administration. The tests are used for clinical purposes. Billing Codes Specimen Charges Stain Charges [id number] 1 1 3 1:18 PM CDT DERMATOPATHOLOGY LABORATORY Embedded Images 3 1:18 PM CDT DERMATOPATHOLOGY LABORATORY Pathology/Cytology TISSUE SPECIMEN FROM SKIN / Unknown 04/25/2023 3:33 AM CDT 04/28/2023 1:10 PM CDT Miscellaneous samples (specimen) TISSUE SPECIMEN FROM SKIN / Unknown 04/25/2023 3:33 AM CDT 04/28/2023 1:10 PM CDT us Cecilia Young MD LAB - PATHOLOGY/CYTOLOGY ORDERAB LES Final Result DERMATOPATHOLOGY LABORATORY [facility] - Department of Dermatology [facility] Medicine [address] [place] [address], [address] [phone] documented in this encounter Visit Diagnoses Diagnosis Neoplasm of uncertain behavior of skin documented in this encounter Care Teams Corporate Paralegal Relationship Specialty Start Date End Date Demar Lazcano MD [address] [place] [address] PCP - General 11/25/22 documented as of this encounter
--- OUTSIDE RECORDS SUMMARY | 2025-06-21 12:35 | XMS_ITS | Clinical Summary ---
Author Organization [facility] Address [address] [facility] [place] [address] Care Team Providers Care Stamp Maker Name Role Phone Demar Lazcano MD Primary Care Provider [phone] Source Comments [facility],non-owned Affiliates and Associated Physician Practices is amultiple site organization consisting of ambulatory clinics and hospital sitesin [place], [place], [place] and [place]. This disclosure is being madepursuant to the Care Everywhere program and may not contain all information available regarding this patient. 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 Gender Identity Not on file Sexual Orientation [...] this topic Medical Devices Implanted Type Area Saw Boss Device Identifier Shelf Expiration Date Model / Serial / Lot Snap Off Screw 13mm Implanted:Qty: 2 on 05/28/2017 by Low Fulton DPM at [facility] Right: Foot [employer] [id number] / / Hdls Comp Screw 4.0x30 Implanted:Qty: 1 on 05/28/2017 by Low Fulton DPM at [facility] Right: Foot [employer] [id number] / / Joint Toe 16x2-5.5x1.2mm Smrt Toe Ii 0d Implanted:Qty: 1 on 05/28/2017 by Low Fulton DPM at [facility] Right: Foot [employer] 08/11/2017 ST0-16P / / [id number] F Joint Toe 15x2-5.5x1.2mm Smrt Toe Ii 0d Implanted:Qty: 1 on 05/28/2017 by Low Fulton DPM at [facility] Right: Foot [employer] 01/08/2022 STO-15P / / [id number] Explanted Type Area Saw Boss Device Identifier Shelf Expiration Date Model / Serial / Lot Gw Orth 1.4mm 150mm Unthread Explanted:Qty: 1 on 05/28/2017 at [facility] Right: Foot [employer] [id number] / / Insurance [employer] MEDICARE ADV HMO & PPO * Guarantor: MARIA ALEJANDRA CASILLAS Account Type Relation to Patient Date of Phone Billing Address Personal/Family [address] [place] [phone] [facility] SELF PAY NO INSURANCE Member Subscriber Plan / Payer (Ef fective for All Dates) Name:Maria Alejandra Casillas Member ID:Not on file Relation to Subscriber:Not on file Name:MARIA ALEJANDRA CASILLAS Subscriber ID:Not on file (Home) Address: [address] [place] [phone] Payer ID:Not on file Group ID:Not on file Type:Self Pay Address: [place], [place] * Guarantor: MARIA ALEJANDRA CASILLAS Account Type Relation to Patient Date of Phone Billing Address Personal/Family [address] [place] [address] [employer] SELF PAY NO INSURANCE Member Subscriber Plan / Payer (Ef fective for All Dates) Name:Maria Alejandra Casillas Member ID:Not on file Relation to Subscriber:Not on file Name:MARIA ALEJANDRA CASILLAS Subscriber ID:Not on file (Home) Address: [address] [place] [phone] Payer ID:Not on file Group ID:Not on file Type:Self Pay Address: [place], [place] * Guarantor: MARIA ALEJANDRA CASILLAS Account Type Relation to Patient Date of Phone Billing Address Personal/Family [address] [place] [phone] [employer] SELF PAY NO INSURANCE Member Subscriber Plan / Payer (Ef fective for All Dates) Name:Maria Alejandra Casillas Member ID:Not on file Relation to Subscriber:Not on file Name:OLI CASILLASARA Subscriber ID:Not on file (Home) Address: [address] [place] [phone] Payer ID:Not on file Group ID:Not on file Type:Self Pay Address: [place], [place] Care Teams Stamp Maker Relationship Specialty Start Date End Date Demar Lazcano MD [address] [place] [address] PCP - General 11/25/22
--- OUTSIDE RECORDS SUMMARY | 2025-06-21 12:35 | XMS_ITS | Patient Health Record ---
Author Organization [facility] Address [address] [place] [address] Care Team Providers Care Media Relations Manager Name Role Phone oJse Cruz Muñoz Primary Care Provider Reason For [...] Azithromycin 250 MG 2 tablets on the day, then 1 tablet daily for 4 days Orally Once a day; Duration: 5 day(s) 08/07/2016 Active Omeprazole 20mg Take 1 po daily ORAL 02/09/2016 Active Cyclobenzaprine HCl 10mg TAKE 1 TABLET T HREE ORAL 01/25/2016 Active Simvastatin 20mg take 1 tablet by ora ORAL 11/14/2015 Active Immunizations Vaccine Route Administration Date Status Comme nts zzInfluenza, High dose, injectable, preservative free (Fluzone) Unknown 05/09/2014 Administered zzFluvirin IM Intramuscular 04/09/2016 Administered Tdap (Boostrix, Adacel) Unknown 09/08/2015 Administered Tdap (Boostrix, Adacel) IM Intramuscular 03/18/2016 Administered Pneumococcal conjugate PCV 13 (Prevnar 13) Unknown 09/08/2015 Administered Zoster (Zostavax) SC Subcutaneous 08/02/2016 Administered This encounter was unlocked to properly document the Immunization the patient received for integration with [facility]. Social History Tobacco Use: Social History Observation Description Date Details (start date - stop date) Never Smoker NA - NA Tobacco Use/Smoking Question Answer Notes Smoking Status: nonsmoker Problems Problem Type SNOMED Code ICD Code Onset Dates Problem Status W/U Status Risk Notes Problem Sleep apnea (63318836) Sleep apnea (G47.30) Active confirmed Problem Type II diabetes mellitus without complication (431431199) Type 2 diabetes mellitus without complications (E11.9) 0 confirmed Ney Problem Hyperlipidemia (58587505) Hyperlipidemia, unspecified (E78.5) 0 confirmed Ney Problem Restless legs syndrome (12505566) Restless legs syndrome (G25.81) 0 confirmed Ney Problem Essential hypertension (04081257) Essential (primary) hypertension (I10) 0 confirmed Ney Problem Supraventricular tachycardia (2177298) Supraventricular tachycardia (I47.1) 0 confirmed Ney Problem Slow transit constipation (52737456) Slow transit constipation (K59.01) 0 confirmed Ney Problem Calculus of kidney (07512074) Calculus of kidney (N20.0) 0 confirmed Ney Problem Obesity (808371217) Obesity (E66.9) 0 conf irmed Ney Problem Dyslipidemia (823154539) Dyslipidemia (E78.5) 0 confirmed Ney Problem Disorder of lumbar disc (344102027) Lumbar disc disease (M51.9) 0 confirmed Ney Problem Osteoarthritis (850884539) Osteoarthrosis involving lower leg (M17.9) 0 confirmed Ney Plan Of Treatment Pending Test Test Name Order Date X ray : CHEST PA LATERAL 03/18/2016 Insurance Providers Payer Name Payer Address Payer Phone Subscriber Number Group Number Insured Name Patient Relationship to Insured Coverage Start Date Coverage End Date [facility] [address] [place] [address] [phone] [id number] Maria Alejandra Mooney Self - patient is the insured Human [address] [address] [place] [address] [id number] Deak, Maria Alejandra Self - patient is the insured Medical (General) History Medical History History ICD Code Basal Cell Cancer LIAM/BSO HTN RLS DJD Knees s/p Right TKR Ovarian cyst Addiction to Pain Medications Obesity Hyperlipidemia GERD CISCO on CPAP
--- OUTSIDE RECORDS SUMMARY | 2025-06-21 12:35 | XMS_ITS | Encounter Summary ---
Author Organization [facility] Address [address] [place] [address] Phone Care Team Providers Care Traffic Officer Name Role Phone Jose Cruz Muñoz MD Primary Care Provider [phone]- [phone] Encounter Details Date Type Department Care Team (Late st Contact Info) Description 06/08/2025 Telephone [facility] Medicine Orthopaedic Surgery [address] [place] [address] Ramesh Tolbert MD [address] [place] [address] Social History Tobacco Use Types [...] on file Legal Sex Female 2:18 AM EMT BASIC Gender Identity Not on file Sexual Orientation [...] on filedocumented in this encounter Care Teams Traffic Officer Relationship Specialty Start Date End Date Jose Cruz Muñoz MD [address] [address] PCP - General Internal Medicine 04/07/24 documented as of this encounter
--- OUTSIDE RECORDS SUMMARY | 2025-06-21 12:35 | XMS_ITS ---
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
--- OUTSIDE RECORDS SUMMARY | 2025-06-21 12:35 | XMS_ITS | Data Portability ---
Author Organization [facility] Address [address] [address] Assessment No assessment recorded. Plan of Treatment [...] By Organization Details Last Modified Time 03/20/2016 [id number] knee arthritis: care instructions [email or web address] Not available [...] Recorded Time 08/11/19 13 [facility] 03/20/2016 12:06:23 08/11/19 08 [facility]2016 12:06:32 08/11/19 05 [facility] 03/20/2016 12:05:23 08/11/19 00 [facility] 03/20/2016 12:05:36 08/11/18 99 [facility] 03/20/2016 12:05:30 08/11/18 84 Carpal tunnel surgery completed [facility] 03/20/2016 12:05:50 08/11/18 83 [facility] 03/20/2016 12:06:53 Imaging Results None recorded. [...] Details Last Updated DateTime 03/20/2016 170.18 cm 228883.1 7 g 37.6 kg/m2 74 /min 152/112 mm[Hg] Shannon Cerna [facility] 03/20/2016 11:56:42 Social History Question Answer Notes LastModified by Organizat ion Details LastModified Time Tobacco Smoking Status Former Smoker Shannon nance [facility] 03/20/2016 12:02:08 Live Alone Or With Others? [...] Multiple Sclerosis N Ulcers N Heart Attack (RI) N Diabetes N Bleeding Disorder N Seizures/Epilepsy [...] ICD10 Code Diagnosis IMO Codes Diagnosis Note [id number] Melinda Knox MD [facility] [address] [facility] ,[address] [place] [address] 03/20/2016 11:25:46 03/20/2016 14:31:23 Osteoarthritis of knee [id number] M17.0 Malaise and fatigue 2717 49895 R53.83 E55.9 E27.1 Health Concerns Section Related Observation LastModified by Organization Detai ls LastModified Time None Recorded Concern Status LastModified by Organization Details LastModified Time None Recorded Advance Directives Directive None Recorded Payers Insurance Date Sequence Insurance Name Policy Number Policy Pelletier Covered Member ID Pelletier Member ID Guarantor Name 11/12/2016 1 [facility] (O) [id number] Maria Alejandra Mooney [id number] Maria Alejandra Mooney 08/29/2016 2 [employer] (MEDICARE REPLACEMENT HMO) Maria Alejandra Mooney [id number] Maria Alejandra Mooney 10/30/2016 2 [employer] (MEDICARE REPLACEMENT/ ADVANTAGE - PFFS) Maria Alejandra Mooney [id number] Maria Alejandra Mooney OBGyn Episode No OBEpisode recorded.
--- OUTSIDE RECORDS SUMMARY | 2025-06-21 12:35 | XMS_ITS | Patient Health Record ---
Author Organization [facility] Address [address] [place], [place] [id number] Care Team Providers Care Engineering Teacher Name Role Phone NEIL MUÑOZ Primary Care Provider Ramesh Epperson Unavailable [phone] Allergies Allergen (clinical drug ingredient) Drug/Non Drug Allergy documented on EMR Reaction Allergy Type Onset Date Status nitrofurantoin, macrocrystals / nitrofurantoin, monohydrate Macrobid Unknown Drug Allergy Active Substance with sulfonamide structure and antibacterial mechanism of action (substance) Sulfa Antibiotics Unknown Drug Allergy Active Results Component Value Reference Range Notes Electrocardiogram (ECG) Reviewed date:06/08/2025 12:54:04 PM Interpretation: Performing Lab: Notes/Report: X ray : Cervical spine w/obl iques Reviewed date:06/17/2025 09:40:47 AM Interpretation: Performing Lab: Notes/Report: X ray : Shoulder, right Reviewed date:06/17/2025 09:41:19 AM Interpretation: Performing Lab: Notes/Report: CULTURE, URINE, ROUTINE (395 ) Reviewed date:06/13/2025 07:33:40 AM Interpretation: Performing Lab:, [facility] EnterprisesS[facility] CenterIgrxf[address] [facility] Notes/Report: NON-FASTING; NON-FASTING; NON-FASTING; NON-FASTING; NON-FAST FASTING:NO FASTING: NO CULTURE, URINE, ROUTINE SEE NOTE CULTURE, URINE, ROUTINE Micro Number: [id number] Test Status: Final Specimen Source: Urine Specimen Quality: Adequate Result: Mixed genital jose isolated. These superficial bacteria are not indicative of a urinary tract infection. No further organism identification is warranted on this specimen. If clinically indicated, recollect clean-catch, mid-stream urine and transfer immediately to Urine Culture Transport Tube. TSH W/REFLEX TO FT4 (65002) Reviewed date:06/13/2025 07:33:40 AM Interpretation: Performing Lab:Kathleen BURNS-Ystiiq86915 Ashok Quan, NnansgLP[address] Keyur Guillen MD Notes/Report: NON-FASTING; NON-FASTING; NON-FASTING; NON-FASTING; NON-FAST FASTING:NO FASTING: NO TSH W/REFLEX TO FT4 0.90 0.40-4.50 mIU/L HEMOGLOBIN A1c (496) Reviewed date:06/09/2025 05:48:12 AM Interpretation: Performing Lab:Kathleen MAYESSsm [facility] CenterXtrzr83710 [address] Mayer DktgeadPB[address] Keyur Guillen Notes/Report: NON-FASTING; NON-FASTING; NON-FASTING; NON-FASTING; NON-FAST FASTING:NO FASTING: NO HEMOGLOBIN A1c 6.1 <5.7 % of total Hgb Currently, no consensus exists regarding use of hemoglobin A1c for diagnosis of diabetes for children. For someone without known diabetes, a hemoglobin [...] consistent with an increased risk of diabetes. URINALYSIS, COMPLETE (4954) Reviewed date:06/13/2025 07:33:40 AM Interpretation: Performing Lab:Kathleen BURNS-Yubvok19994 Ashok Quan, XxhbahEZ[address] Keyur Guillen MD Notes/Report: NON-FASTING; NON-FASTING; NON-FASTING; [...] elements. Only those elements seen were reported. CBC (INCLUDES DIFF/PLT) (639 9) Reviewed date:06/09/2025 05:48:12 AM Interpretation: Performing Lab:GRANT [employer]-Nyobye48756 Lexii HannonaKS[address] Keyur Guillen MD Notes/Report: NON-FASTING; NON-FASTING; NON-FASTING; [...] MPV 10.5 7.5-12.5 fL ABSOLUTE NEUTROPHILS 5192 5376-8701 cells/uL ABSOLUTE LYMPHOCYTES 2064 850-3900 cells/uL ABSOLUTE MONOCYTES 480 200-950 cells/uL ABSOLUTE EOSINOPHILS 208 15-500 cells/uL ABSOLUTE BASOPHILS 56 0-200 cells/uL NEUTROPHILS 64.9 LYMPHOCYTES 25.8 MONOCYTES 6.0 EOSINOPHILS 2.6 BASOPHILS 0.7 HEPATIC FUNCTION PANEL (1025 6) Reviewed date:06/14/2025 04:12:05 PM Interpretation: Performing Lab:GRANT Beintoo Faustina-Gsiaxh44037 Ashok Quan, NpwsoeHY[address] Keyur Guillen MD Notes/Report: NON-FASTING; NON-FASTING; NON-FASTING; NON-FASTING; NON-FAST FASTING:NO FASTING: NO PROTEIN, TOTAL 6.5 6.1-8.1 g/dL ALBUMIN 4.4 3.6-5.1 g/dL GLOBULIN 2.1 1.9-3.7 g/dL (calc) ALBUMIN/GLOBULIN RATIO 2.1 1.0-2.5 (calc) BILIRUBIN, TOTAL 0.5 0.2-1.2 mg/dL BILIRUBIN, DIRECT 0.1 < OR = 0.2 mg/dL BILIRUBIN, INDIRECT 0.4 0.2-1.2 mg/dL (calc) ALKALINE PHOSPHATASE 108 37-153 U/L AST 13 10-35 U/L ALT 15 6-29 U/L MAGNESIUM (622) Reviewed date:06/14/2025 04:12:05 PM Interpretation: Performing Lab:Kathleen BURNS01Lexii GuamanaKS[address] Keyur Guillen MD Notes/Report: NON-FASTING; NON-FASTING; NON-FASTING; NON-FASTING; NON-FAST FASTING:NO FASTING: NO MAGNESIUM 1.8 1.5-2.5 mg/dL BASIC METABOLIC PANEL (64216 ) Reviewed date:06/14/2025 04:12:05 PM Interpretation: Performing Lab:Kathleen [...] 23 20-32 mmol/L CALCIUM 9.3 8.6-10.4 mg/dL LIPID PANEL, STANDARD (7120) Reviewed date:06/14/2025 04:12:04 PM Interpretation: Performing Lab:Kathleen BURNS LenexaKS[address] Keyur Guillen MD Notes/Report: NON-FASTING; NON-FASTING; NON-FASTING; NON-FASTING; NON-FAST FASTING:NO FASTING: NO CHOLESTEROL, TOTAL 171 <200 mg/dL HDL CHOLESTEROL 58 > OR = 50 mg/dL TRIGLYCERIDES 271 <150 mg/dL If a non-fasting specimen was collected, consider repeat triglyceride testing on a fasting specimen if clinically indicated. Miles et al. J. of Clin. Lipidol. 2015;9:129-169. LDL-CHOLESTEROL 77 Reference range: <100 Desirable range <100 mg/dL for primary prevention; <70 mg/dL for patients with CHD or diabetic patients with > or = 2 CHD risk factors. LDL-C is now calculated using the Palomo-Isaacs calculation, which is a validated novel method providing better accuracy than the Friedewald equation in the estimation of LDL-C. Palomo DWYRE et al. SHERIDAN. 2013;310(19): 5295-9198 (http://education.TopChalks/faq/QKA286) CHOL/HDLC RATIO 2.9 <5.0 (calc) NON HDL CHOLESTEROL 113 <130 mg/dL (calc) For patients with diabetes plus 1 major ASCVD risk factor, treating to a non-HDL-C goal of <100 mg/dL (LDL-C of <70 mg/dL) is considered a therapeutic option. Urinalysis Reviewed date:06/08/2025 11:10:28 AM Interpretation: Performing Lab: Notes/Report: Urine pH 6.0 SPECIFIC GRAVITY 1.000 HEMOGLOBIN A1c (496) Reviewed date:09/22/2024 07:35:01 AM Interpretation: Performing Lab:GRANT [employer]-Heldvf92122 Ashok [facility], ZifsraDK[address] Keyur Guillen MD Notes/Report: FASTING:YES FASTING: YES [...] 9) Reviewed date:09/22/2024 07:28:05 AM Interpretation: Performing Lab:Kathleen BURNS-Jvefxs40957 Ashok Quan, DlucdqJE[address] Keyur Guillen MD Notes/Report: FASTING:YES FASTING: YES [...] MPV 10.3 7.5-12.5 fL ABSOLUTE NEUTROPHILS 3038 7285-8796 cells/uL ABSOLUTE LYMPHOCYTES 8193 039-8848 cells/uL ABSOLUTE MONOCYTES 439 200-950 cells/uL ABSOLUTE EOSINOPHILS 200 15-500 cells/uL ABSOLUTE BASOPHILS 29 0-200 cells/uL NEUTROPHILS 53.3 LYMPHOCYTES 35.0 MONOCYTES 7.7 EOSINOPHILS 3.5 BASOPHILS 0.5 COMPREHENSIVE METABOLIC PANE L (38191) Reviewed date:09/22/2024 08:21:28 AM Interpretation: Performing Lab:Kathleen BURNS-Rfibih87058 Ashok Quan, QgjgmuMX[address] Keyur Guillen MD Notes/Report: FASTING: YES FASTING:YES GLUCOSE 105 65-99 mg/dL For someone without known diabetes, a glucose value between 100 and 125 mg/dL is consistent with prediabetes and should be confirmed with a follow-up test. Fasting reference interval UREA NITROGEN (BUN) 19 7-25 mg/dL CREATININE [...] (7600) Reviewed date:09/22/2024 08:21:23 AM Interpretation: Performing Lab:GRANT, [employer]-Snwjcz60285 Ashok Quan, WekeplMP[address] Keyur Guillen MD Notes/Report: FASTING:YES FASTING: YES CHOLESTEROL, TOTAL 153 <200 mg/dL HDL CHOLESTEROL 67 > OR = 50 mg/dL TRIGLYCERIDES 103 <150 mg/dL LDL-CHOLESTEROL 67 <70 mg/dL for patients with CHD or diabetic patients with > or = 2 CHD risk factors. LDL-C is now calculated using the Palomo-Isaacs calculation, which is a validated novel method providing better accuracy than the Friedewald equation in the estimation of LDL-C. Palomo DWYER et al. SHERIDAN. 2013;310(19): 4826-8786 (http://education.TopChalks/faq/WIB523) Reference range: <100 Desirable range <100 mg/dL for primary prevention; CHOL/HDLC RATIO 2.3 <5.0 (calc) NON HDL CHOLESTEROL 86 <130 mg/dL (calc) For patients with diabetes plus 1 major ASCVD risk factor, treating to a non-HDL-C goal of <100 mg/dL (LDL-C of <70 mg/dL) is considered a therapeutic option. Urinalysis Reviewed date:04/13/2025 11:36:50 AM Interpretation: Performing Lab: Notes/Report: Leukocytes 1+ NItrates Positive Urine pH 6.0 SPECIFIC GRAVITY 1.020 CULTURE, URINE, ROUTINE (395 ) Reviewed date:04/17/2025 06:14:24 PM Interpretation: Performing Lab:Kathleen BURNS-Xpdoqe22024 Ashok Quan, ZgoigtFJ[address] Keyur Guillen MD Notes/Report: FASTING: NO FASTING:NO CULTURE, URINE, ROUTINE SEE NOTE CULTURE, URINE, ROUTINE Micro Number: [id number] Test Status: Final Specimen Source: Urine Specimen [...] cephalexin and loracarbef. HEMOGLOBIN A1c (496) Reviewed date:12/14/2024 07:52:25 AM Interpretation: Performing Lab:Kathleen BURNS-Aoxcxp38700 Remy HannonPbusnrCH[address] Keyur Guillen MD Notes/Report: FASTING:NO FASTING: NO HEMOGLOBIN A1c 6.4 <5.7 % This assay result is consistent with an increased risk of diabetes. Currently, no consensus exists regarding use of hemoglobin A1c for diagnosis of diabetes for children. For someone without known diabetes, a hemoglobin A1c value between 5.7% and 6.4% is consistent with prediabetes and should be confirmed with a follow-up test. For someone with known diabetes, a value <7% indicates that their diabetes is well controlled. A1c targets should be individualized based on duration of diabetes, age, comorbid conditions, and other considerations. CBC (INCLUDES DIFF/PLT) (639 9) Reviewed date:12/14/2024 07:44:02 AM Interpretation: Performing Lab:GRANT Beintoo Faustina-Efmngn43497 Lexii HannonaKS[address] Keyur Guillen MD Notes/Report: FASTING:NO FASTING: NO [...] MPV 11.1 7.5-12.5 fL ABSOLUTE NEUTROPHILS 4223 9491-0223 cells/uL ABSOLUTE LYMPHOCYTES 2842 690-3628 cells/uL ABSOLUTE MONOCYTES 490 200-950 cells/uL ABSOLUTE EOSINOPHILS 173 15-500 cells/uL ABSOLUTE BASOPHILS 48 0-200 cells/uL NEUTROPHILS 61.2 LYMPHOCYTES 28.5 MONOCYTES 7.1 EOSINOPHILS 2.5 BASOPHILS 0.7 COMPREHENSIVE METABOLIC PANE L (95523) Reviewed date:12/14/2024 07:46:18 AM Interpretation: Performing Lab:Kathleen BURNS-Tkjlsa44803 Lexii HannonaKS[address] Keyur Guillen MD Notes/Report: FASTING:NO FASTING: NO [...] (7600) Reviewed date:12/14/2024 07:48:02 AM Interpretation: Performing Lab:KS, [employer]-Afclew03761 Ashok [facility], CbmvzwMA[address] Keyur Guillen MD Notes/Report: FASTING:NO FASTING: NO CHOLESTEROL, TOTAL 144 <200 mg/dL HDL CHOLESTEROL 65 > OR = 50 mg/dL TRIGLYCERIDES 167 <150 mg/dL LDL-CHOLESTEROL 54 Reference range: <100 Desirable range <100 mg/dL for primary prevention; <70 mg/dL for patients with CHD or diabetic patients with > or = 2 CHD risk factors. LDL-C is now calculated using the Trina calculation, which is a validated novel method providing better accuracy than the Friedewald equation in the estimation of LDL-C. Palomo DWYER et al. SHERIDAN. 2013;310(19): 5927-2810 (http://[employer].TopChalks/faq/VZL997) CHOL/HDLC RATIO 2.2 <5.0 (calc) NON HDL CHOLESTEROL 79 <130 mg/dL (calc) For patients with diabetes plus 1 major ASCVD risk factor, treating to a non-HDL-C goal of <100 mg/dL (LDL-C of <70 mg/dL) is considered a therapeutic option. TSH W/REFLEX TO FT4 (94283) Reviewed date:06/24/2024 07:52:48 AM Interpretation: Performing Lab:Kathleen BURNS-Ticgjl16846 Micaela Hannon[address] Keyur Guillen MD Notes/Report: FASTING:NO FASTING: NO TSH W/REFLEX TO FT4 0.74 0.40-4.50 mIU/L HEMOGLOBIN A1c (496) Reviewed date:06/24/2024 07:51:51 AM Interpretation: Performing Lab:Kathleen BURNSa10101 Micaela Hannon[address] Keyur Guillen MD Notes/Report: FASTING:NO FASTING: NO HEMOGLOBIN A1c 6.2 <5.7 % of total Hgb follow-up test. For someone with known diabetes, a value <7% indicates that their diabetes is well controlled. A1c targets should be individualized based on duration of diabetes, age, comorbid conditions, and other considerations. This assay result is consistent with an increased risk of diabetes. Currently, no consensus exists regarding use of hemoglobin A1c for diagnosis of diabetes for children. For someone without known diabetes, a hemoglobin A1c value between 5.7% and 6.4% is consistent with prediabetes and should be confirmed with a CBC (INCLUDES DIFF/PLT) (639 9) Reviewed date:06/24/2024 07:47:23 AM Interpretation: Performing Lab:Kathleen BURNSexa10101 Lexii HannonaKS[address] Keyur Guillen MD Notes/Report: FASTING:NO FASTING: NO [...] MPV 10.5 7.5-12.5 fL ABSOLUTE NEUTROPHILS 4630 7005-6087 cells/uL ABSOLUTE LYMPHOCYTES 5579 625-1293 cells/uL ABSOLUTE MONOCYTES 322 200-950 cells/uL ABSOLUTE EOSINOPHILS 154 15-500 cells/uL ABSOLUTE BASOPHILS 34 0-200 cells/uL NEUTROPHILS 69.1 LYMPHOCYTES 23.3 MONOCYTES 4.8 EOSINOPHILS 2.3 BASOPHILS 0.5 COMPREHENSIVE METABOLIC PANE L (05443) Reviewed date:06/24/2024 07:50:49 AM Interpretation: Performing Lab:GRANT [employer]-Srqrev87836 Remy HannonLizvodEK[address] Keyur Guillen MD Notes/Report: FASTING:NO FASTING: NO [...] ALT 22 6-29 U/L LIPID PANEL, STANDARD (6980) Reviewed date:06/24/2024 07:55:11 AM Interpretation: Performing Lab:GRANT [employer]-Xvvelm60746 Remy HannonFqidwuJS[address] Keyur Guillen MD Notes/Report: FASTING:NO FASTING: NO CHOLESTEROL, TOTAL 151 <200 mg/dL HDL CHOLESTEROL 59 > OR = 50 mg/dL TRIGLYCERIDES 187 <150 mg/dL LDL-CHOLESTEROL 66 Reference range: <100 Desirable range <100 mg/dL for primary prevention; <70 mg/dL for patients with CHD or diabetic patients with > or = 2 CHD risk factors. LDL-C is now calculated using the Trina calculation, which is a validated novel method providing better accuracy than the Friedewald equation in the estimation of LDL-C. Palomo DWYER et al. SHERIDAN. 2013;310(19): 6219-8190 (http://[employer].TopChalks/faq/WNE767) CHOL/HDLC RATIO 2.6 <5.0 (calc) NON HDL CHOLESTEROL 92 <130 mg/dL (calc) For patients with diabetes plus 1 major ASCVD risk factor, treating to a non-HDL-C goal of <100 mg/dL (LDL-C of <70 mg/dL) is considered a therapeutic option. ALBUMIN, RANDOM URINE W/CREA TINYUMIKO (6517) Reviewed date:06/24/2024 07:55:21 AM Interpretation: Performing Lab:Kathleen BURNS-Kpsdbm51168 Lexii HannonaKS[address] Keyur Guillen MD Notes/Report: FASTING:NO FASTING: NO [...] patient to be within a diagnostic category. LIPID PANEL, STANDARD (7600) Reviewed date:04/14/2025 08:09:49 AM Interpretation: Performing Lab:GRANT Beintoo Faustina-Vytzkq17695 Lexii HannonaKS[address] Keyur Guillen MD Notes/Report: FASTING:NO FASTING: NO CHOLESTEROL, TOTAL 155 <200 mg/dL HDL CHOLESTEROL 63 > OR = 50 mg/dL TRIGLYCERIDES 186 <150 mg/dL LDL-CHOLESTEROL 67 Reference range: <100 Desirable range <100 mg/dL for primary prevention; <70 mg/dL for patients with CHD or diabetic patients with > or = 2 CHD risk factors. LDL-C is now calculated using the Trina calculation, which is a validated novel method providing better accuracy than the Friedewald equation in the estimation of LDL-C. Palomo SS et al. SHERIDAN. 2013;310(13): 2306-1450 (http://education.TopChalks/faq/OPK711) CHOL/HDLC RATIO 2.5 <5.0 (calc) NON HDL CHOLESTEROL 92 <130 mg/dL (calc) For patients with diabetes plus 1 major ASCVD risk factor, treating to a non-HDL-C goal of <100 mg/dL (LDL-C of <70 mg/dL) is considered a therapeutic option. COMPREHENSIVE METABOLIC SUN Bey (36462) Reviewed date:04/14/2025 08:05:09 AM Interpretation: Performing Lab:GRANT, [employer]-Rpkznm40678 Ashok Vidal, LdjgygCS[address] Keyur Guillen MD Notes/Report: FASTING:NO FASTING: NO [...] 9) Reviewed date:04/14/2025 08:00:35 AM Interpretation: Performing Lab:Kathleen BURNSQdjwim88423 Remy HannonZhgkspFU[address] Keyur Guillen MD Notes/Report: FASTING:NO FASTING: NO [...] MPV 10.2 7.5-12.5 fL ABSOLUTE NEUTROPHILS 3920 0685-0200 cells/uL ABSOLUTE LYMPHOCYTES 3202 574-3215 cells/uL ABSOLUTE MONOCYTES 449 200-950 cells/uL ABSOLUTE EOSINOPHILS 182 15-500 cells/uL ABSOLUTE BASOPHILS 52 0-200 cells/uL NEUTROPHILS 60.3 LYMPHOCYTES 29.2 MONOCYTES 6.9 EOSINOPHILS 2.8 BASOPHILS 0.8 HEMOGLOBIN A1c (496) Reviewed date:04/14/2025 09:47:38 AM Interpretation: Performing Lab:Kathleen BURNS-Qwtcno25811 Remy HannonVhhbxoVK[address] Keyur Guillen MD Notes/Report: FASTING:NO FASTING: NO [...] A1c for diagnosis of diabetes for children. Reason For Referral Reason Back Brace Order Diagnosis 1 DDD (degenerative di sc disease), lumbar (M51.36) Referral Organization [facility] Referring Provider First Name NEIL Referring Provider Last Name GREENWICH [facility] Referred Provider Specialty DME General Notes Marcelle Burdick 2024 10:14:52 AM >Faxing back brace order to [facility] (fax: [phone]) along with Rx, insurance card, recent office notes, and patient demographics.Gennaro Katie 08/13/2024 10:16:04 AM >Order faxed. Referral Priority Routine Reason SCREENING MAMMOGRAM Diagnosis 1 Encounter for screen ing mammogram for breast cancer (Z12.31) Referral Organization [facility] Referring Provider First Name NEIL Referring Provider Last Name GREENWICH Referring Provider [facility] Referred Provider Specialty Radiology General Notes Mali Urrutia 09/12 09:11:37 AM >per patient's request faxed referral to [facility]. Patient is scheduled in April and her last mammogram was in January of 2024. , PH: [phone], fx: [phone], Mali Urrutia 10/07/2024 09:39:14 AM >REFERRAL FAXED WITH INSURANCE CARD. Referral Priority Routine Reason DEXA BONE DENSITY Diagnosis 1 Age related osteopor osis, unspecified pathological fracture presence (M81.0) Referral Organization [facility] Referring Provider First Name NEIL Referring Provider Last Name GREENWICH Referring Provider [facility] Referred Provider Specialty Radiology General Notes Mali Urrutia 09/11 09:13:20 AM >[facility], PH: [phone], FX: [phone], Mali Urrutia 10/07/2024 09:35:02 AM > OF 10/07/2024 PRIOR AUTH NOT REQUIRED FOR BONE DENSITY, Mali Urrutia 10/07/2024 09:38:33 AM >REFERRAL FAXED WITH INSURANCE CARD AND NO AUTH REQUIRED., Mali Urrutia 05/06/2025 10:27:34 AM >REFERRAL REFAXED WITH NEW DIAGNOSIS CODE AND AUTH CHECK/NOT REQUIRED Referral Priority Routine Reason Referral to Urology Diagnosis 1 Overactive bladder ( N32.81) Referral Organization [facility] Referring Provider First Name NEIL Referring Provider Last Name GREENWICH Referring Provider Speciality Internal edicine Referred Provider Specialty Urology General Notes Marcelle Burdick 2024 03:06:11 PM >Faxing referral to Urology to [facility] Streamlined Referral Program (ph: [phone], fax: [phone]) along with referral form, insurance card, recent office notes, and notes from patient's previous urologist., Marcelle Burdick 10/06/2024 03:07:01 PM >Once received, [facility] will review referral and reach out to the patient to schedule.Gennaro Katie 10/06/2024 03:10:10 PM >Referral faxed.Gennaro Katie 10/12/2024 09:27:12 AM >Urology has been unable to reach the patient. They sent a letter requesting that she call them at [phone] to schedule.Gennaro Katie 10/15/2024 08:39:49 AM >Patient is scheduled 10/29/24 at 10:00am with MELVI Partida. Referral Priority Routine Referral Appointment Date 10/29/2024 Reason REFERRAL TO SLEEP ME DICYUMIKO Diagnosis 1 CISCO (obstructive sle ep apnea) (G47.33) Referral Organization [facility] Referring Provider First Name NEIL Referring Provider Last Name GREENWICH Referring Provider [facility] Referred Provider Specialty Sleep Medici ne General Notes Mali Urrutia 11/10 02:55:22 PM >FAXED REFERRAL TO [facility] NEUROLOGY/SLEEP MEDICINE , PH: [phone], FX: [phone], Mali Urrutia 11/30/2024 02:55:43 PM >PER PATIENT'S REQUEST [facility] 12/02/2024 10:35:49 AM >Patient called stating sleep medicine did not receive order. Refaxing. Referral Priority Routine Referral Appointment Date 01/25/2025 Reason CAROTID DOPPLER CP T CODE 19428 /NO AUTH REQUIRED Diagnosis 1 Bilateral carotid ar irving stenosis (I65.23) Diagnosis 2 Syncope and collapse (R55) [facility] Referring Provider First Name NEIL Referring Provider Last Name FARIDEH Referring Provider Speciality Internal M edicine Referred Provider Specialty Vascular and Interventional Radiology General Notes Mali Urrutia 05/12 10:36:05 AM >[facility] 06/21/2025 for 12:45 arrival NO PREP OR SPECIAL INSTRUCTIONS , ph: [phone], fx: [phone], Mali Urrutia 06/08/2025 10:42:25 AM >REFERRAL FAXED [...] Notes Problem Inappropriate diet and eating habits (1615596096246) Inappropriate diet and eating habits (Z72.4) 12/14/19 25 Active confirmed Problem Essential hypertension (32796625) Essential hypertension (I10) 12/14/19 25 Active confirmed Problem Obese class III (finding) (912320150) Obesity, class 3 (E66.813) 12/14/19 25 Active confirmed Problem Type II diabetes mellitus without complication (698092735) Type 2 diabetes mellitus without complications (E11.9) Active confirmed Problem Morbid obesity (disorder) (730163686) Morbid (severe) obesity due to excess calories (E66.01) Active confirmed Problem Mixed hyperlipidemia (548161686) Mixed hyperlipidemia (E78.2) Active confirmed Problem Essential hypertension (68893339) Essential (primary) hypertension (I10) Active confirmed Problem Nontraumatic rupture of muscle or tendon structure of rotator cuff of left shoulder (disorder) (5126792833961919 ) Unspecified rotator cuff tear or rupture of left shoulder, not specified as traumatic (M75.102) Active confirmed Problem Overactive bladder (276128312) Overactive bladder (N32.81) Active confirmed Problem Body mass index 35.00 to 39.99 (944339919548642) Body mass index [BMI] 39.0-39.9, adult (Z68.39) Active confirmed Problem Anxiety (10961134) Anxiety (F41.9) Active confirmed Problem Obstructive sleep apnea syndrome (29867504) CISCO (obstructive sleep apnea) (G47.33) Active confirmed Problem Primary osteoarthritis (563772264) Primary osteoarthritis involving multiple joints (M15.9) Active confirmed Problem Daytime somnolence (249874660657) Daytime somnolence (R40.0) Active confirmed Problem Restless legs (38212888) RLS (restless legs syndrome) (G25.81) Active confirmed Problem Occlusion and stenosis of multiple and bilateral cerebral arteries (335697342) Bilateral carotid artery stenosis (I65.23) Active confirmed Problem Exacerbation of moderate persistent asthma (disorder) (612235397) Moderate persistent asthma with acute exacerbation (J45.41) Active confirmed Problem Degenerative disc disease (86648980) DDD (degenerative disc disease), lumbar (M51.36) Active confirmed Problem Age-related osteoporosis (294910083) Age related osteoporosis, unspecified pathological fracture presence (M81.0) Active confirmed Problem Obese class II (finding) (230621875093148) Obesity, class 2 (E66.812) Active confirmed Problem Degeneration of intervertebral disc of lumbar region with discogenic back pain (M51.360) Active confirmed Problem Body mass index 40+ - morbidly obese (940847122) BMI 40.0-44.9, adult (Z68.41) Active confirmed Problem Cervical pain (02943716) Cervical pain (M54.2) Active confirmed Vital Signs [...] /A Encounters Encounter Location Date Provider Diagnosis [facility] [address] [place], [place] [id number] 06/08/2025 Ramesh Epperson Type 2 diabetes mellitus [...] shoulder region M25.511 and Cervical pain M54.[address] [place], [place] [id number] 06/23/2024 NEIL MUÑOZ Routine check-up Z00.00 ; Borderline diabetes R73.03 ; Essential (primary) hypertension I10 ; Mixed hyperlipidemia E78.2 ; 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 ; Moderate persistent asthma with acute exacerbation J45.41 ; CISCO (obstructive sleep apnea) G47.33 ; RLS (restless legs syndrome) G25.81 ; Anxiety F41.9 and BMI 40.0-44.9, adult Z68.[address] [place], [place] [id number] 09/21/2024 NEIL GREENWICH Type 2 diabetes mellitus without complications E11.9 ; Essential (primary) hypertension I10 ; Mixed hyperlipidemia E78.2 ; Moderate persistent asthma with acute exacerbation J45.41 ; CISCO (obstructive sleep apnea) G47.33 and 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 [place], [place] [id number] 12/13/2024 NEIL MUÑOZ Essential hypertensi on I10 ; Type 2 diabetes mellitus without complications E11.9 ; Edema of both lower extremities R60.0 ; Mixed hyperlipidemia E78.2 ; Obesity, class 3 E66.813 ; Inappropriate diet and eating habits Z72.4 ; CISCO (obstructive sleep apnea) G47.33 ; 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 and Moderate persistent asthma with acute exacerbation J45.[address] [place], [place] [id number] 04/13/2025 NEIL MUÑOZ Type 2 diabetes mellitus without complications E11.9 [...] ; Depression screening Z13.31 and Dysuria R30.0 [facility] [address] [place], [place] [id number] 07/13/2024 [facility] [address] [place], [place] [id number] 08/12/2024 [facility] [address] [place], [place] [id number] 09/03/2024 [facility] [address] [place], [place] [id number] 10/06/2024 [facility] [address] [place], [place] [id number] 10/15/2024 [facility] Primary osteoarthrit is involving multiple joints M15.9 [facility] [address] [place], [place] [id number] 10/20/2024 [facility] Mixed hyperlipidemia E78.2 ; RLS (restless legs syndrome) G25.81 ; Essential (primary) hypertension I10 and 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 [facility] [address] [place], [place] [id number] 11/15/2024 [facility] [address] [place], [place] [id number] 11/19/2024 [facility] [address] [place], [place] [id number] 11/24/2024 [facility] [address] [place], [place] [id number] 12/13/2024 [facility] [address] [place], [place] [id number] 02/02/2025 [facility] Essential hypertensi on I10 [facility] [address] [place], [place] [id number] 03/22/2025 [facility] [address] [place], [place] [id number] 03/29/2025 NEIL MU[facility]OZ [facility] [address] [place], [place] [id number] 03/29/2025 [facility] Primary osteoarthrit is involving multiple joints M15.9 [place] [address] [place], [place] [id number] 04/01/2025 [place] [address] [place], [place] [id number] 04/26/2025 [place] [address] [place], [place] [id number] 05/11/2025 [place] [address] [place], [place] [id number] 05/30/2025 [place] [address] [place], [place] [id number] 06/06/2025 [place] [address] [place], [place] [id number] 06/08/2025 [place] [address] [place], [place] [id number] 06/14/2025 Ramesh Epperson Assessments Encounter Date Diagnosis (ICD Code) Assessment [...] the trelegy and follow up with her staff appraiser. 12/13/2024 Mixed hyperlipidemia (ICD-10 - E78.2) As [...] CPAP and will follow up with her staff appraiser. 10/20/2024 Primary osteoarthritis involving multiple joints (ICD-10 [...] compliance, and will follow up with the staff appraiser. 06/23/2024 Anxiety (ICD-10 - F41.9) The patient [...] Treatment Pending Test Test Name Order Date ANNUAL DEPRESSION SCREENING 15 MIN 08/20 ANNUAL DEPRESSION SCREENING 15 MIN 04/13 Next Appt Details Provider Name:NEIL LYNETTE Hatfield, 07/13/2025 09:00:00 AM, [address], [address], [phone], Insurance Providers Payer Name Payer Address Payer Phone Subscriber Number Group Number Insured Name Patient Relationship to Insured Coverage Start Date Coverage End Date [employer] [address] [address] [place], [place] [id number] [phone] [id number] Maria Alejandra Mooney Self - patient is [...]
--- OUTSIDE RECORDS SUMMARY | 2025-06-21 12:36 | XMS_ITS | Clinical Summary ---
Author Organization [facility] Address [address] [place] [address] Care Team Providers Care Value Stream Manager Name Role Phone Jose Cruz Muñoz MD Primary Care Provider [phone] Allergies Active Allergy Reactions Criticality Noted Date [...] spironolactone (ALDACTONE) 100 mg tablet 02/22/2025 Active gabapentin (NEURONTIN) 300 mg capsule Take 1 capsule (300 mg total) by mouth 2 (two) times a day 60 capsule 1 06/13/2025 Active Active Problems Problem Noted Date Diagnosed [...] 05/09/2020 Insomnia secondary to chronic pain 05/09/2020 USP (current) use of opiate analgesic 04/12 Sacroiliitis [...] lack of systemic symptoms, normal inflammatory markers (/) and surgical pathology not c/w OM with [...] Encounters Date Type Department Care Team Description 06/13/2025 8:15 AM [employer]ED [employer] Office Visit [facility] [address] [place] [address] [address], [place] [address] Odalys Soler MD Obstructive sleep apnea (adult) (pediatric) (Primary Dx); Restless legs syndrome; Hypersomnia with sleep apnea; Morbid obesity with BMI of 40.0-44.9, adult ([facility]) 06/08/2025 Telephone [facility] [address] [facility] 2nd [address] [place] [address] Ramesh Tolbert MD 05/02/2025 Telephone [facility] [address] [facility] 2[address] [place] [address] Ramesh Tolbert MD 04/26/2025 Telephone [facility] [address] [place] [address] [address] [place] [address] Odalys Soler MD 04/25/2025 10:00 AM CDT Office Visit [facility]opa[facility] [address] [facility] 1st Floor [address] [place] [address] Ramesh Tolbert MD History of lumbar spinal fusion (Primary Dx); Right lumbosacral radiculopathy 04/25/2025 Telephone [facility] [address] [place] [address] [address] [place] [phone] Odalys Soler MD 03/29/2025 Telephone [facility] [address] [place] [address] [address] [place] [address] Elida Mendez MA 03/29/2025 Results Follow-Up [facility] [address] [place] [address] [address] [place] [phone] Odalys Soler MD PSG from Last 3 Months Immunizations Immunization Administration [...] Back Surgery - (Added by TW Conv) NE HEMORRHOIDECTOMY INTERNAL RUBBER BAND LIGATIONS Hemorrhoidectomy - (Added by TW Conv) NE TOTAL ABDOMINAL HYSTERECT W/WO RMVL TUBE OVARY Hysterectomy - (Added by TW Conv) FOOT SURGERY 02/20/2018 5th toe arthroplasty, teotomy, and capsulotomy right foot NE NEUROPLASTY &/TRANSPOS ME NEIL NRV CARPAL TUNNE Neuroplasty Decompression Median Nerve At Carpal Tunnel - (Added by TW Conv) NE SALPINGO-OOPHORECTOMY COMPL/PRTL UNI/BI SPX Salpingo-oophorectomy - (Added by TW Conv) NE TONSILLECTOMY PRIMARY/SEC ONDARY <AGE 12 Tonsillectomy - (Added by TW Conv) GALLBLADDER SURGERY Gallbladder Surgery - (Added by TW Conv) BIOPSY DEEP BONE 01/19/2020 N/A ESOPHAGOGASTRODUODENOSCOPY 08/18/2019 lopes dilation LUMBAR DISC SURGERY 08/11/1998 - 08/10/1999 L4-S1 PSF LUMBAR DISC SURGERY 08/11/1999 - 08/10/2000 L4-S1 PSF revision for implant failure NE ARTHRP KNE CONDYLE&PLATU MEDIAL&LAT COMPARTMENTS Left Barba NE ARTHRP KNE CONDYLE&PLATU MEDIAL&LAT COMPARTMENTS Right [place]ba NE ARTHRP ACETBLR/PROX FEM P ROSTC AGRFT/ALGRFT 07/02/2021 [...] Date Smoking Tobacco: Former Cigarettes Q uit: 2009 Smokeless Tobacco: Never Tobacco Cessation:Counseling Given: Not Answered Alcohol Use Standard Drinks/Week Comments No 0 (1 standard drink = 0.6 oz pur e alcohol) PHQ-2 Answer Date Recorded PHQ-2 Total Score (If total score is 3 or more points, staff should administer the PHQ-9) 2 05/09/2020 AUDIT-C Answer Date Recorded Q1: How often do you have a drink containing alc ohol? Never 06/13/2025 Average Number of Drinks Not on file 025 Frequency of Binge Drinking Not on file 10/2024 Personal Safety Answer Date Recorded Have you ever been in or are you currently in a harmful physical or emotional relationship or is someone making you feel afraid or unsafe? Denies 03/17/2023 Comments No Sex and Gender Information Value Date Recorded Sex Assigned at Not on file Legal Sex Female 2:18 AM [employer] Gender Identity Not on file Sexual Orientation Not on file Obstetrics History Para Term AB IAB SAB Ectopic Multiple Livin g Live Births 2 2 Date Outcome GA Total Labor Labor/2nd/3rd Weight Sex Type Anes PTL Charlotte A1 A5 Name Clin Para Para Last Filed Vital Signs Vital Sign Reading Time Taken Comments Blood Pressure 108/67 06/13/2025 7:52 AM [employer] Pulse 67 06/13/2025 7:52 AM [employer] Temperature 36.8 C (98.2 F) 10/29/2024 9:48 AM CDT Respiratory Rate 18 01/25/2025 10:57 AM CDT Oxygen Saturation 95% 06/13/2025 7:52 AM [employer] Inhaled Oxygen Concentration - - Weight 115.2 kg (254 lb) 06/13/2025 7:52 AM [employer] Height 167.6 cm (5' 5.98) 04/25/2025 10:01 AM C DT Body Mass Index 41.02 04/25/2025 10:01 AM CDT Plan of Treatment [...] Colon Cancer Screening-Colonoscopy 12/02/2023 12/01/2013 Covid-19 Vaccine (2024-2 6 season) 2025 08/05/2021, 11/18/2020, 10/29/2020 Influenza [...] Discontinued 12/01/2013 Medical Devices Implanted Type Area Aviation Technician Aircraft Device Identifier Shelf Expiration Date Model / Serial / Lot [employer] [id number] 50mm Limit 3 Hole Hip D Hemisphere Offset Shell Acetabular - [id number] Implanted:Qty: 1 on 07/02/2021 by Elida Dale MD at [facility] Right: Hip [employer] [id number] 03/22/2031 [id number] / / [id number] [employer] [id number] Trilogy 6.5mm 20mm Self Tap Screw Bone - [id number] Implanted:Qty: 1 on 07/02/2021 by Elida Dale MD at [facility] Right: Hip [employer] [id number] 12/02/2030 [id number] / / [id number] [employer] [id number] G7 40mm 2 Mobility Hip D Liner Acetabular Cocr - [id number] Implanted:Qty: 1 on 07/02/2021 by Elida Dale MD at [facility] Right: Hip [employer] 05/18/2031 [id number] / / [id number] [employer] [id number] Echo Bi-Metric 14mm 150mm Noncollar Reduce Proximal Profile Press - [id number] Implanted:Qty: 1 on 07/02/2021 by Elida Dale MD at [facility] Right: Hip [employer] [id number] 09/03/2028 [id number] / / [id number] [employer] 650-1158 G7 28mm Type 1 Modular Hip Acetabular 0mm Offset Head Femoral - [id number] Implanted:Qty: 1 on 07/02/2021 by Elida Dale MD at [facility] Right: Hip [employer] [id number] 01/04/2031 [id number] / / [id number] [employer] [id number] 40mm 28mm Lumen Hip D Liner Acetabular Longevity Sterile Latex - [id number] Implanted:Qty: 1 on 07/02/2021 by Elida Dale MD at [facility] Right: Hip [employer] [id number] 10/08/2024 [id number] / / [id number] Explanted Type Area Aviation Technician Aircraft Device Identifier Shelf Expiration Date Model / Serial / Lot [employer] [id number] Trilogy 6.5mm 25mm Self Tap Screw Bone - [id number] Explanted:Qty: 1 on 07/02/2021 at [facility] Right: Hip [employer] [id number] 04/25/2031 [id number] / / [id number] Procedures Procedure Name Priority Date/Time Associated Diagnosis Comments EGFR Routine 07/03/2021 10:14 PM [employer] POCT HEMOGLOBIN A1C Routine 06/25/2021 4 :26 PM [employer] POCT LIPID PANEL Routine 03/24/2019 9:07 AM CDT Essential hypertension COLONOSCOPY REPORT 12/01/2013 from Last 3 Months or Most Recently Relevant to Health Maintenance Results * eGFR (07/03/2021 10:14 PM [employer]S [employer]) eGFR >90 90 - 130 mL/min/1.7 3 m2 [facility] Comment: Interpretive Data Reference Interval Normal >/= [...] reviewed 2020 Blood 07/03/2021 10:1 4 PM [employer] 07/03/2021 10:44 PM [employer] Bethany Astorga NP LAB BLOOD ORDERABLES Final Re sult Performing Organization Address [facility] de Phone Number [facility] Department [place] [address] * POCT hemoglobin A1c (06/25/2021 4:26 PM PRINTED [employer]ARD PANELS PL[employer]) [facility] Hgb A1C, POC 5.4 4.0 - 5.6 % [facility] Est Average Gluc POC 108 mg/dL [facility] Comment: The ADA recommends reporting an estimated Average Glucose (eAG) with all Hemoglobin A1c results using the equation derived from a study of 507 normal and diabetic adults. Minority populations were underrepresented and children were not included. (Diabetes Care 31:9570-2809, 2008). The eAG is not equivalent to a fasting glucose. Blood 06/25/2021 4:26 PM [employer]ED [employer]ELS [employer] 06/25/2021 4:26 PM [employer]INTED [employer] PANELS [employer]ATER us Elida Dale MD POINT OF CARE TEST ORD ERABLES Final Result Performing Organization Address [facility] Co de Phone Number [facility] [place] [address] * POCT lipid panel (03/24/2019 9:07 AM [...] Insurance HU[employer]NA MEDICARE HMO [employer] MEDICARE HMO Advance Directives For more information, please contact: [phone] * Full Code (Latest Code Status on File) Date Activated Date Inactivated Comments 07/02/2021 1:03 PM 07/04/2021 10:34 PM Care Teams Value Stream Manager Relationship Specialty Start Date End Date Jose Cruz Muñoz MD [address] [address] PCP - General Internal Medicine 04/07/24
== END 2025-06-21 12:27 | disposition home or self-care (01) ==
PROVIDERS: PCP Internal Medicine Infectious Disease; Visit Provider Internal Medicine Infectious Disease
DX: R55 Syncope and collapse (principal); I65.23 Occlusion and stenosis of bilateral carotid arteries
CPT/HCPCS: 93880